=== PATIENT | female | born 1940 | race Caucasian/White ===

== ENCOUNTER 2018-06-06 21:28 | Emergency (ER) | payer OTHER ==
--- OUTSIDE RECORDS SUMMARY | 2018-06-06 21:31 | XMS REPORT | Continuity of Care Document ---
:1940 Author Organization Interface Problems Problem Status Onset Date Classification Date Comments Source Reported Medications Medication Details Route Status Patient Ordering Order Source Instructions Provider Date Allergies, Adverse Reactions, Alerts Substance Category Reaction Severity Reaction Status Date Comments Source type Reported Immunizations Immunization Date Given Site Status Last Updated Comments Source Results Order Results Value Reference Date Interpretation Comments Source Name Range Vital Signs Vital Sign Value Date Comments Source Encounters Location Location Encounter Encounter Reason Attending ADM DC Status Source Details Type Number For Provider Date Date Visit Outpatient [id number] MARTI 05/24 [facility] [id number] MARTI 07/01 [place] [facility] [id number] MARTI 08/16 [place] [facility] [id number] MARTI 10/21 [facility] [place] [facility] [id number] MARTI 11/04 [facility] Out[facility] [id number] MARTI 01/06 [facility] Out[facility] [id number] MARTI 01/20 [facility] [id number] MARTI 02/19 [facility] [id number] MARTI 04/09 Active [place] [facility] [id number] MARTI 04/30 [facility] [place] [facility] [id number] MARTI 08/06 Active [facility] Outpatient [id number] MARTI 09/08 Active [facility] Outpatient [id number] MARTI 01/12 [facility] Dev Procedures Procedure Code Date Perfomer Comments Source
[2018-06-06] MEDS ORDERED: NA CHLORIDE 0.9% 1,000 ML ONE (22:04)
[2018-06-06] MEDS ORDERED: FAMOTIDINE 20 MG/2 ML VIAL IV ONE (22:04)
[2018-06-06] MEDS ORDERED: ONDANSETRON 4 MG/2 ML VIAL ONE (22:04)
[2018-06-06] MEDS ORDERED: CEFTRIAXONE/SWI 1gm 0 GM/0 ML SYR ONE (22:05)
[2018-06-06 22:27] LABS: Absolute Lymphocytes (CBC) 0.7 K/uL (0.7-4.9); Absolute Monocytes 0.8 K/uL (0.1-1.3); Absolute Neutrophil 9.8 K/uL (1.8-8.0); Basophils % 0.2 % (0-1.3); Eosinophils % 0.2 % (0-4.4); Hematocrit 31.1 % (36.0-45.0); Lymphocytes % 5.8 % (15.3-44.8); MCH 33.1 pg (27.0-35.0); MCV 99.4 fL (80-100); MPV 8.4 fL (7.6-11.3); Monocytes % 7.1 % (3.3-12.3); RBC Red Blood Cell Count 3.13 M/uL (3.86-4.86)
[2018-06-06 22:28] LABS: Protime INR 1.01
--- NOTE | 2018-06-06 22:31 | ER ---
Nurse's Notes [facility] Name: Thuy Nunes Age: 77 yrs Sex: Female : 1940 Arrival Date: 06/06/2018 Time: 21:34 Bed 7 Private MD: Diagnosis: ST elevation (STEMI) myocardial infarction of inferior wall Presentation: 06/06 21:20 Presenting complaint: EMS states: that pt slid down to floor in bathroom and they were fc called for lift assist. Upon their arrival pt started to vomit and her heart rate was elevated. Transition of care: patient was not received from another setting of care. Onset of symptoms was June 06, 2018. Risk Assessment: Do you want to hurt yourself or someone else? Patient reports no desire to harm self or others. Initial Sepsis Screen: Does the patient meet any 2 criteria? HR > 90 bpm. Does the patient have a suspected source of infection? No. Patient's initial sepsis screen is negative. Care prior to arrival: Medication(s) given: Normal saline infusion, 250 ml zofran IV IV initiated. 20 GA, in the left lower leg Glucose check: 135. 21:20 Method Of Arrival: [facility]c 21:20 Acuity: PARAG 3 fc Historical: - Allergies: 21:45 No Known Allergies; fc - Home Meds: 21:45 allopurinol 100 mg Oral tab 1 tab once daily [Active]; levothyroxine 125 mcg tab 1 tab fc once daily [Active]; esomeprazole magnesium 40 mg oral cpDR 1 cap once daily [Active]; amlodipine 5 mg oral tab 1 tab once daily [Active]; betaxolol 0.5 % Opht drop 1 drop 2 times per day [Active]; latanoprost 0.005 % ophthalmic drop 1 drop once daily [Active]; - PMHx: 21:45 Arthritis; Sjogren's Syndrome; temporitis; Cancer, Breast; Hypertension; fc Hypothyroidism; Gout; - PSHx: 21:45 Appendectomy; right knee surg; right lump removal and lymph node removal; fc - Immunization history:: Last tetanus immunization: unknown, Flu vaccine is not up to date. - Social history:: Smoking status: Patient/guardian denies using tobacco, Patient/guardian denies using alcohol, street drugs. - Ebola Screening: : Patient negative for fever greater than or equal to 101.5 degrees Fahrenheit, and additional compatible Ebola Virus Disease symptoms Patient denies exposure to infectious person Patient denies travel to an Ebola-affected area in the 21 days before illness onset. - Family history:: not pertinent. Screenin:20 Abuse screen: Denies threats or abuse. Nutritional screening: No deficits noted. fc Tuberculosis screening: No symptoms or risk factors identified. Fall Risk Fall in past 12 months (25 points). Secondary diagnosis (15 points) impaired mobility, IV access (20 points). Ambulatory Aid- Crutches/Cane/Walker (15 pts). Gait- Weak (10 pts.). Mental Status- Overestimates/Forgets Limitations (15 pts.). Total Pitt Fall Scale indicates High Risk Score (45 or more points). Fall prevention measures have been instituted. Side Rails Up X 2 Placed Close to Nursing Station Frequent Obs/Assessments Occuring Family Present and informed to notify staff if the need to leave the bedside As available patient and family educated on Fall Prevention Program and Strategies. 21:40 Abuse screen: Denies threats or abuse. Nutritional screening: No deficits noted. ea Tuberculosis screening: No symptoms or risk factors identified. Fall Risk Fall in past 12 months (25 points). IV access (20 points). Assessment: 21:38 General: Appears uncomfortable, Behavior is calm, cooperative, appropriate for age. ea Pain: Complains of pain in shoulder Pain does not radiate. Pain currently is 6 out of 10 on a pain scale. Quality of pain is described as aching, Is chronic. Neuro: Level of Consciousness is awake, alert, obeys commands, Oriented to person, place, time, situation, Director Of Manufacturing Operations are equal bilaterally Speech is normal. Cardiovascular: Heart tones S1 S2 present Patient's skin is warm and dry. Respiratory: Airway is patent Respiratory effort is even, unlabored, Respiratory pattern is regular, symmetrical, Breath sounds are clear bilaterally. GI: Abdomen is non-distended, Bowel sounds present X 4 quads. Abd is soft and non tender X 4 quads. Parent/caregiver reports the patient having indigestion, vomiting. Derm: Skin is pink, warm \T\ dry. 22:40 Reassessment: Report called to Life [facility], ETA 25 min. ea 22:50 Reassessment: Patient and/or family updated on plan of care and expected duration. Pain ea level reassessed. Patient is alert, oriented x 3, equal unlabored respirations, skin warm/dry/pink. Nurse at bedside attempting to start midline, pt tolerating well at this time. 23:20 Reassessment: Patient and/or family updated on plan of care and expected duration. Pain ea level reassessed. Patient is alert, oriented x 3, equal unlabored respirations, skin warm/dry/pink. Life flight at facility report given to Life flight nurse. 23:23 Reassessment: Patient and/or family updated on plan of care and expected duration. Pain ea level reassessed. Patient is alert, oriented x 3, equal unlabored respirations, skin warm/dry/pink. Pt left via stretcher per life flight tolerating well. 23:27 Reassessment: Report called to Juliet PADILLA at [facility] lab. ea Vital Signs: 21:20 BP 117 / 52; Pulse 111; Resp 20; Temp 99.8(O); Pulse Ox 94% on R/A; Weight 95.25 kg fc (R); Height 5 ft. 3 in. (160.02 cm) (R); Pain 8/10; 22:48 BP 101 / 51; Pulse 103; Resp 16; Pulse Ox 97% on 2 lpm NC; ea 21:20 Body Mass Index 37.20 (95.25 kg, 160.02 cm) ED Course: 21:20 Arm band placed on Patient placed in an exam room, on a stretcher. fc 21:20 Patient has correct armband on for positive identification. Placed in gown. Bed in low fc position. Call light in reach. Side rails up X2. Pulse ox on. NIBP on. 21:20 No provider procedures requiring assistance completed. Maintain EMS IV. Dressing fc intact. Good blood return noted. Site clean \T\ dry. Gauge \T\ site: 20 gauge to left lower leg. 21:34 Patient arrived in ED. fc 21:35 Eligio Delong MD is Attending Physician. [facility] 21:37 Marina Acosta, VALERIE is Primary Nurse. ea 21:39 Triage completed. fc 21:41 Patient has correct armband on for positive identification. Placed in gown. Bed in low ea position. Call light in reach. Side rails up X2. 21:56 Radiology exam delayed due to lab results not completed at this time. (BUN/Creatinine). vm2 22:17 XRAY Chest (1 view) In Process Unspecified. EDMS 22:32 Radiology exam delayed due to lab results not completed at this time. (BUN/Creatinine). vm2 23:04 Patient transferred, IV remains in place. ea 23:10 Missed attempt(s): 18 gauge in left upper arm. x 2 midlines. Bleeding controlled, band fc aid applied, catheter tip intact. Administered Medications: 22:00 Drug: NS 0.9% 500 ml Route: IV; Rate: bolus; Site: Other; ea 23:00 Follow up: Response: No adverse reaction; IV Status: Completed infusion; IV Intake: ea 500ml 22:23 Not Given (Duplicate Order): Rocephin - (cefTRIAXone) 1 grams IVPB once over 30 mins; job (mix in 50 mL NS) 22:27 Drug: Zofran 4 mg {Note: Left leg.} Route: IVP; Site: Other; ea 23:15 Follow up: Response: No adverse reaction ea 22:30 Drug: Pepcid 20 mg Route: IVP; Site: Other; ea 23:15 Follow up: Response: No adverse reaction ea 22:40 Drug: Aspirin Chewable Tablet 324 mg Route: PO; aa1 23:16 Follow up: Response: No adverse reaction ea 22:40 Drug: PlaVIX 600 mg Route: PO; aa1 23:16 Follow up: Response: No adverse reaction ea 22:41 Drug: Heparin (CO-Bolus with thrombolytic) - HEParin 60 units/kg {Co-Signature: veronika aa1 (Marina Acosta RN).} Route: IVP; Site: Other; 23:17 Follow up: Response: No adverse reaction ea 22:42 Drug: Heparin (CO Drip) 12 units/kg/hr - (HEParin 83871 units, D5W 500 ml) aa1 {Co-Signature: veronika (Marina Acosta RN).} Route: IV; Rate: calculated rate; Site: Other; 22:59 Follow up: IV Status: Infusion continued upon transfer aa1 23:18 Follow up: Response: No adverse reaction; IV Status: Infusion continued upon transfer ea 22:50 Drug: Lopressor (metoprolol TARTRATE) 50 mg Route: PO; aa1 23:17 Follow up: Response: No adverse reaction ea 22:55 Drug: NS 0.9% 1000 ml Route: IV; Rate: 125 ml/hr; Site: Other; ea 23:13 Follow up: Response: No adverse reaction; IV Status: Infusion continued upon transfer ea 22:58 Drug: Tenecteplase 50 mg {Co-Signature: veronika (Marina Acosta RN).} Route: IV; Rate: per aa1 protocol; Site: Other; 23:18 Follow up: Response: No adverse reaction; IV Status: Completed infusion ea 23:03 CANCELLED (Duplicate Order): Tenecteplase 45 mg IV at per protocol once aa1 Intake: 23:00 IV: 500ml; Total: 500ml. ea Outcome: 22:30 ER care complete, transfer ordered by . job 23:04 Instructed on the need for transfer, Demonstrated understanding of instructions. ea 23:19 Transferred by helicopter to [facility], Transfer form completed. ea 23:19 Condition: stable 23:28 Patient left the ED. ea Signatures: Dispatcher [employer] EDElissa Langley, RN RN aa1 Eligio Delong MD MD cha Chretien, Felicia RN Georgina Quintero [facility] Marina Acosta RN RN ea Elena Antunez RN ea Corrections: (The following items were deleted from the chart) 22:48 20:42 Heparin (CO Drip) 12 units/kg/hr - (HEParin 09066 units, D5W 500 ml) IV at aa1 calculated rate in Other aa1 23:02 22:58 Tenecteplase 45 mg IV at per protocol in Other aa1 aa1 23:26 23:26 Missed attempt(s): 18 gauge in left upper arm. x 2 midlines. Bleeding controlled, fc band aid applied, catheter tip intact. fc
--- NOTE | 2018-06-06 22:31 | EDPHYS ---
Physician Documentation [facility] Name: Thuy Nunes Age: 77 yrs Sex: Female : 1940 Arrival Date: 06/06/2018 Time: 21:34 Bed 7 Private MD: ED Physician Eligio Delong HPI: 06/06 21:53 This 77 yrs old Female presents to ER via EMS with complaints of vomiting and job back pain. 21:53 The patient or guardian reports chest pain that is located primarily in the substernal job area. Onset: 1 day(s) ago. The patient presents with abdominal pain in the upper abdomen. Onset: The symptoms/episode began/occurred just prior to arrival. The patient presents to the emergency department with nausea, vomiting, abdominal pain, of the epigastric area, right upper quadrant and left upper quadrant. Onset: The symptoms/episode began/occurred just prior to arrival. Possible causes: unknown. The patient presents with pain that is acute, and decreased range of motion. Historical: - Allergies: 21:45 No Known Allergies; fc - Home Meds: 21:45 allopurinol 100 mg Oral tab 1 tab once daily [Active]; levothyroxine 125 mcg tab 1 tab fc once daily [Active]; esomeprazole magnesium 40 mg oral cpDR 1 cap once daily [Active]; amlodipine 5 mg oral tab 1 tab once daily [Active]; betaxolol 0.5 % Opht drop 1 drop 2 times per day [Active]; latanoprost 0.005 % ophthalmic drop 1 drop once daily [Active]; - PMHx: 21:45 Arthritis; Sjogren's Syndrome; temporitis; Cancer, Breast; Hypertension; fc Hypothyroidism; Gout; - PSHx: 21:45 Appendectomy; right knee surg; right lump removal and lymph node removal; fc - Immunization history:: Last tetanus immunization: unknown, Flu vaccine is not up to date. - Social history:: Smoking status: Patient/guardian denies using tobacco, Patient/guardian denies using alcohol, street drugs. - Ebola Screening: : Patient negative for fever greater than or equal to 101.5 degrees Fahrenheit, and additional compatible Ebola Virus Disease symptoms Patient denies exposure to infectious person Patient denies travel to an Ebola-affected area in the 21 days before illness onset. - Family history:: not pertinent. ROS: 21:53 Constitutional: Negative for fever, chills, and weight loss, Eyes: Negative for injury, job pain, redness, and discharge, ENT: Negative for injury, pain, and discharge, Neck: Negative for injury, pain, and swelling, Cardiovascular: Negative for chest pain, palpitations, and edema, Respiratory: Negative for shortness of breath, cough, wheezing, and pleuritic chest pain, : Negative for injury, bleeding, discharge, and swelling, MS/Extremity: Negative for injury and deformity, Skin: Negative for injury, rash, and discoloration, Neuro: Negative for headache, weakness, numbness, tingling, and seizure, Psych: Negative for depression, anxiety, suicide ideation, homicidal ideation, and hallucinations, Allergy/Immunology: Negative for hives, rash, and allergies, Endocrine: Negative for neck swelling, polydipsia, polyuria, polyphagia, and marked weight changes. 21:53 Abdomen/GI: Positive for abdominal pain, nausea and vomiting. 21:53 Back: Positive for decreased range of motion, pain at rest, of the thoracic area. Exam: 21:53 Constitutional: This is a well developed, well nourished patient who is awake, alert, job and in no acute distress. Head/Face: Normocephalic, atraumatic. Eyes: Pupils equal round and reactive to light, extra-ocular motions intact. Lids and lashes normal. Conjunctiva and sclera are non-icteric and not injected. Cornea within normal limits. Periorbital areas with no swelling, redness, or edema. ENT: Nares patent. No nasal discharge, no septal abnormalities noted. Tympanic membranes are normal and external auditory canals are clear. Oropharynx with no redness, swelling, or masses, exudates, or evidence of obstruction, uvula midline. Mucous membranes moist. Neck: Trachea midline, no thyromegaly or masses palpated, and no cervical lymphadenopathy. Supple, full range of motion without nuchal rigidity, or vertebral point tenderness. No Meningismus. Chest/axilla: Normal chest wall appearance and motion. Nontender with no deformity. No lesions are appreciated. Cardiovascular: Regular rate and rhythm with a normal S1 and S2. No gallops, murmurs, or rubs. Normal PMI, no JVD. No pulse deficits. Respiratory: Lungs have equal breath sounds bilaterally, clear to auscultation and percussion. No rales, rhonchi or wheezes noted. No increased work of breathing, no retractions or nasal flaring. Abdomen/GI: Soft, non-tender, with normal bowel sounds. No distension or tympany. No guarding or rebound. No evidence of tenderness throughout. Back: No spinal tenderness. No costovertebral tenderness. Full range of motion. Skin: Warm, dry with normal turgor. Normal color with no rashes, no lesions, and no evidence of cellulitis. MS/ Extremity: Pulses equal, no cyanosis. Neurovascular intact. Full, normal range of motion. Neuro: Awake and alert, GCS 15, oriented to person, place, time, and situation. Cranial nerves II-XII grossly intact. Motor strength 5/5 in all extremities. Sensory grossly intact. Cerebellar exam normal. Normal gait. Psych: Awake, alert, with orientation to person, place and time. Behavior, mood, and affect are within normal limits. Vital Signs: 21:20 BP 117 / 52; Pulse 111; Resp 20; Temp 99.8(O); Pulse Ox 94% on R/A; Weight 95.25 kg fc (R); Height 5 ft. 3 in. (160.02 cm) (R); Pain 8/10; 22:48 BP 101 / 51; Pulse 103; Resp 16; Pulse Ox 97% on 2 lpm NC; ea 21:20 Body Mass Index 37.20 (95.25 kg, 160.02 cm) MDM: 21:35 Patient medically screened. [facility] 21:57 Data reviewed: vital signs, nurses notes, lab test result(s), EKG, radiologic studies, [facility] CT scan, plain films. 06/06 21:51 Order name: Basic Metabolic Panel; Complete Time: 23:06 [facility] 06/06 21:51 Order name: CBC with Diff [facility] 06/06 21:51 Order name: LFT's; Complete Time: 23:06 [facility] 06/06 21:51 Order name: Magnesium; Complete Time: 23:06 [facility] 06/06 21:51 Order name: NT PRO-BNP; Complete Time: 23:06 [facility] 06/06 21:51 Order name: PT-INR; Complete Time: 22:51 [facility] 06/06 21:51 Order name: Troponin (emerg Dept Use Only); Complete Time: 23:06 [facility] 06/06 21:51 Order name: XRAY Chest (1 view) [facility] 06/06 21:51 Order name: Lipase; Complete Time: 23:06 [facility] 06/06 21:52 Order name: Procalcitonin; Complete Time: 23:06 [facility] 06/06 21:52 Order name: Lactate; Complete Time: 22:51 [facility] 06/06 21:52 Order name: Blood Culture Adult (2) [facility] 06/06 21:52 Order name: TSH; Complete Time: 23:06 [facility] 06/06 21:51 Order name: EKG; Complete Time: 21:52 [facility] 06/06 21:51 Order name: Cardiac monitoring; Complete Time: 22:50 [facility] 06/06 21:51 Order name: EKG - Nurse/Tech; Complete Time: 22:50 [facility] 06/06 21:51 Order name: IV Saline Lock [facility] 06/06 21:51 Order name: Labs collected and sent; Complete Time: 22:50 [facility] 06/06 21:51 Order name: O2 Per Protocol; Complete Time: 22:51 [facility] 06/06 21:51 Order name: O2 Sat Monitoring; Complete Time: 22:51 [facility] 06/06 21:51 Order name: Urine Dipstick-Ancillary (obtain specimen) [facility] 06/06 21:52 Order name: [place] [facility] 06/06 22:26 Order name: IV Saline Lock - Large Bore [facility] 06/06 22:26 Order name: NPO; Complete Time: 22:46 job Administered Medications: 22:00 Drug: NS 0.9% 500 ml Route: IV; Rate: bolus; Site: Other; ea 23:00 Follow up: Response: No adverse reaction; IV Status: Completed infusion; IV Intake: ea 500ml 22:23 Not Given (Duplicate Order): Rocephin - (cefTRIAXone) 1 grams IVPB once over 30 mins; job (mix in 50 mL NS) 22:27 Drug: Zofran 4 mg {Note: Left leg.} Route: IVP; Site: Other; ea 23:15 Follow up: Response: No adverse reaction ea 22:30 Drug: Pepcid 20 mg Route: IVP; Site: Other; ea 23:15 Follow up: Response: No adverse reaction ea 22:40 Drug: Aspirin Chewable Tablet 324 mg Route: PO; aa1 23:16 Follow up: Response: No adverse reaction ea 22:40 Drug: PlaVIX 600 mg Route: PO; aa1 23:16 Follow up: Response: No adverse reaction ea 22:41 Drug: Heparin ([place]-Bolus with thrombolytic) - HEParin 60 units/kg {Co-Signature: veronika aa1 (Marina Acosta RN).} Route: IVP; Site: Other; 23:17 Follow up: Response: No adverse reaction ea 22:42 Drug: Heparin ([place] Drip) 12 units/kg/hr - (HEParin 67066 units, D5W 500 ml) aa1 {Co-Signature: veronika (Marina Acosta RN).} Route: IV; Rate: calculated rate; Site: Other; 22:59 Follow up: IV Status: Infusion continued upon transfer aa1 23:18 Follow up: Response: No adverse reaction; IV Status: Infusion continued upon transfer ea 22:50 Drug: Lopressor (metoprolol TARTRATE) 50 mg Route: PO; aa1 23:17 Follow up: Response: No adverse reaction ea 22:55 Drug: NS 0.9% 1000 ml Route: IV; Rate: 125 ml/hr; Site: Other; ea 23:13 Follow up: Response: No adverse reaction; IV Status: Infusion continued upon transfer ea 22:58 Drug: Tenecteplase 50 mg {Co-Signature: veronika (Marina Acosta RN).} Route: IV; Rate: per aa1 protocol; Site: Other; 23:18 Follow up: Response: No adverse reaction; IV Status: Completed infusion ea 23:03 CANCELLED (Duplicate Order): Tenecteplase 45 mg IV at per protocol once aa1 Disposition: 06/06/18 22:30 Transfer ordered to [facility]. Diagnosis is ST elevation (STEMI) myocardial infarction of inferior wall. - Reason for transfer: Higher level of care. - Accepting physician is dr heller, equipment operator/laborer/supervisor. - Condition is Serious. - Problem is new. - Symptoms are unchanged. Signatures: Dispatcher [employer] Elissa Ruth, RN VALERIE aa1 Eligio Delong MD MD cha Chretien, Felicia, RN RN fc Antunez, Elena, RN RN ea Elena Antunez RN ea Corrections: (The following items were deleted from the chart) 23:03 22:25 Tenecteplase 45 mg IV at per protocol once ordered. job aa1 23:03 23:00 Tenecteplase 45 mg IV at per protocol once given. aa1 aa1 23:03 23:02 Tenecteplase 45 mg IV at per protocol once ordered. aa1 aa1 23:13 21:53 Angio Aorta For Dissection+CT.RAD.BRZ ordered. EDMS EDMS 23:28 22:30 06/06/2018 22:30 Transfer ordered to [facility]. Diagnosis is ea ST elevation (STEMI) myocardial infarction of inferior wall. Reason for transfer: Higher level of care. Accepting physician is dr heller, equipment operator/laborer/supervisor. Condition is Serious. Problem is new. Symptoms are unchanged. job
[2018-06-06] MEDS ORDERED: ASPIRIN 81 MG CHEWABLE TABLET ONE (22:39)
[2018-06-06] MEDS ORDERED: CLOPIDOGREL 75 MG TABLET ONE (22:39)
[2018-06-06] MEDS ORDERED: HEPARIN/D5W 25,000 UNIT/500 ML BAG IV ONE (22:40)
[2018-06-06] MEDS ORDERED: HEPARIN 5000 UNIT/ML 1 ML VIAL ONE (22:40)
[2018-06-06] MEDS ORDERED: TENECTEPLASE 50 MG/10 ML VIAL IV ONE (22:40)
[2018-06-06 22:52] LABS: Albumin 3.6 g/dL (3.4-5.0); Bilirubin Direct 0.2 mg/dL (0-0.2); Bilirubin Total 0.7 mg/dL (0.2-1.0); Magnesium 2.1 mg/dL (1.8-2.4); Potassium 4.1 mmol/L (3.5-5.1); Protein, Total 7.7 g/dL (6.4-8.2); Thyroid Stimulating Hormone 0.225 uIU/mL (0.360-3.740)
[2018-06-06 22:53] LABS: Troponin (Emerg Dept Use Only) 0.67 ng/mL (0.0-0.045)
[2018-06-06] MEDS ORDERED: METOPROLOL TAR 50 MG TAB ONE (22:58)
[2018-06-06 23:33] VITALS: BP 101/51; O2SAT 97
[2018-06-06 23:38] LABS: Blood Morphology Comment NOT SEEN (NOT SEEN); Platelet Estimate ADEQ; Urine White Blood Cell Casts OK
--- NOTE | 2018-06-07 08:30 | RAD REPORT ---
EXAM DESCRIPTION: RAD - Chest Single View - 06/06/2018 10:17 pm CLINICAL HISTORY: Cough and congestion, tachycardia COMPARISON: August 2016 TECHNIQUE: AP portable chest image was obtained 2203 hours . FINDINGS: No peripheral mass or consolidation. Lung markings are not outside of normal range and are less pronounced than seen on the comparison. Heart and vasculature are normal. No measurable pleural effusion and no pneumothorax. No acute bony abnormality seen. No acute aortic finding. Surgical clip s seen in the right axilla. IMPRESSION: No acute cardiopulmonary finding suspected. No suspicious change from comparison.
--- NOTE | 2018-06-07 12:19 | EKG ---
Test Date: 2018-06-06 Test Time: 22:15:28 Environmental Engineering Manager: LELA MEASUREMENT RESULTS: Intervals: Rate: 99 NH: 176 QRSD: 108 QT: 338 QTc: 433 [place]: P: 39 NH: 176 QRS: -19 T: 57 INTERPRETIVE STATEMENTS: Normal sinus rhythm Inferior infarct, possibly acute Cannot rule out Anterior infarct, age undetermined ACUTE WA Consider right ventricular involvement in acute inferior infarct Abnormal ECG Compared to ECG 07/25/2016 09:51:54 Myocardial infarct finding now present Sinus tachycardia no longer present Left-axis deviation no longer present Electronically Signed On 06-07-18 12:17:55 [employer] by Tiburcio Eason
== END 2018-06-06 23:28 | disposition short-term general hospital (02) ==
LOC: ER 21:28
DX: I21.19 ST elevation (STEMI) myocardial infarction involving other coronary artery of inferior wall (principal); I10 Essential (primary) hypertension; E03.9 Hypothyroidism, unspecified; Z85.3 Personal history of malignant neoplasm of breast
CPT/HCPCS: 36415; 71045; 80048; 80076; 83605; 83690; 83735; 83880; 84145; 84443; 84484; 85025; 85610; 87040 ×2; 92977; 93005; 96361; 96365; 96375; 99285; J1644; J2405; J3101; J7030; J0696

== ENCOUNTER 2022-07-10 08:47 | Emergency (ER) | payer OTHER ==
--- OUTSIDE RECORDS SUMMARY | 2022-07-10 08:55 | XMS REPORT | Continuity of Care Document ---
:1940 Author Organization [facility] t Address [address] [place] [address] Care Team Providers Name Role Phone ELVIS CM Primary Care Physician Unavailable Elvis Cm Attending Clinician Unavailable MACEY BLACKMON Attending Clinician Unavailable MACEY BLACKMON Attending Clinician Unavailable NAOMY FERRARI Attending Clinician Unavailable MACEY BLACKMON Admitting Clinician Unavailable NAOMY FERRARI Admitting Clinician Unavailable Problems Condition Condition Condition Status Onset Resolution Last Treating Co mments Source Name Details Category Date Date Treatment Clinician Date CAD CAD Disease Active [facility]coronary 3-27 [facility] artery artery 00:00: Medical disease) disease) 00 Center Oral phase Oral phase Disease Active 2017-[address] dysphagia dysphagia 1-13 [facility] 00:00: Medical 00 Center Atelectasi Atelectasi Disease Active 2017-[address] s s 1-13 [facility] 00 [place] Acute Acute Disease Active 2017-[address] encephalop encephalop 1-13 Katherin yancey athy athy 00:00: Medical 00 [place] 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 [facility] deconditio deconditio 1-13 Katherin yancey maya maya 00:00: Medical [address] Disease Active 2017-08 [facility] elevation elevation 1-06 [facility] myocardial myocardial 00:00: Me dical infarction infarction 00 Ce nter (STEMI) of (STEMI) of inferior inferior wall wall Hemorrhagi Hemorrhagi Disease Active 2017-[address] c shock c shock 08-07 [facility] Center Acute Acute Disease Active 2017-[address] hypoxemic hypoxemic 08-07 [place] s respirator respirator 00:00: Me dical y failure y failure 00 Cent er Cardiogeni Cardiogeni Disease Active 2017-[address] c shock c shock 08-07 [facility] 00:[facility]: Medical 00 Center Incontinen Incontinen Problem C ommon ce ce [facility] [id number] Pain, Problem Commo n [id number] joint, [facility] shoulder, - [facility] right [facility] Allergies, Adverse Reactions, Alerts Allergy Allergy Status Severity Reaction(s) Onset Inactive Treating Comm ents Source Name Type Date Date Clinician NO KNOWN Allergy Active [facility] Social History Social Habit Start Date Stop Date Quantity Comments Source History of Tobacco [facility] - Use [facility] History SDPA [facility] Alcohol Std Drinks [facility] History SDOH [facility] Alcohol Binge Medical Daryn ter History [facility] Alcohol Comment Medical C enter Alcohol intake 2018-10-27 2018-10-[address] [facility] [address] [place] [facility] 00:00:00 00:00:00 non-drinker of Medical Ce nter alcohol (finding) Tobacco use and 2018-06-07 2018-06-[address] [facility] Katherin kes exposure 00:00:00 00:00:00 [facility] History SDOH 2018-06-07 2018-06-[address] [facility] Alcohol Frequency 00:00:00 00:00:00 [facility] Sex Assigned At 1940 [address] [facility] [address] Katherin kes 00:00:00 00:00:00 [facility] Smoking Status Start Date Stop Date Source Never Smoker [facility] Medications Ordered Filled Start Stop Current Ordering Indication Dosage Frequency Signature Comments Components Source Medication Medication Date Date Medication? Clinician (SIG) Name Name Solifenacin Solifenacin 2021-08- No 1{table QD Solifenaci Succinate 5 Succinate 5 0-26 05-24 t} n MG MG 00:00: 00:00 Succinate 00 :00 5 MG Solifenacin Solifenacin 2021-1 3- No 1{table QD Solifenaci Succinate 5 Succinate 5 0-26 05-24 t} n MG MG 00:00: 00:00 Succinate 00 :00 5 MG Lidocaine Lidocaine 2-0 No 10mg Com 04-09 Spirit 00:00: - [facility] 00 [facility] Kenalog Kenalog 2021-0 No 40mg Common (Triamcinol (Triamcinol 9-08 S pirit one) one) 00:00: - [facility] 00 [facility] Lidocaine Lidocaine 2-0 No 10mg Com 04-09 Spirit 00:00: - [facility] 00 [facility] Kenalog Kenalog 2021-0 No 40mg Common (Triamcinol (Triamcinol 9-08 S pirit one) one) 00:00: - [facility] 00 [facility] Lidocaine Lidocaine 2-0 No 10mg Com 04-09 [facility] 00:00: - [facility] 00 [facility] Kenalog Kenalog 2-0 No 40mg Common (Triamcinol (Triamcinol 9-08 S pirit one) one) 00:00: - [facility] 00 [facility] Lidocaine Lidocaine 2-0 No 10mg Com 04-09 [facility] 00:00: - [facility] 00 [facility] Kenalog Kenalog 2-0 No 40mg Common (Triamcinol (Triamcinol 9-08 S pirit one) one) 00:00: - [facility] 00 [facility] Lidocaine Lidocaine 2-0 No 10mg Com 04-09 [facility] 00:00: - [facility] 00 [facility] Kenalog Kenalog 2-0 No 40mg Common (Triamcinol (Triamcinol 9-08 S pirit one) one) 00:00: - [facility] 00 [facility] Solifenacin Solifenacin 2021-0 2022- No 1{table QD Solifenaci Succinate Succinate 5-20 08-18 t} n 10 MG 10 MG 00:00: 00:00 Succinate 00 :00 10 MG allopurinol 2018- Yes 100mg QD Take [address] (ZYLOPRIM) 3-28 mg by [facility] 100 MG 09:51: mouth Medical tablet 18 daily. [place] levothyroxi 2019 Yes 125ug Take [address] ne 3-28 mcg by [facility]ukes (SYNTHROID, 09:51: mouth Medic al LEVOTHROID) 18 Every Center 125 MCG morning on tablet an empty stomach. betaxolol Yes 1[drp] Q.5D Place [address] (BETOPTIC-S 3-28 drop into [place] ) 0.5 % 09:51: both eyes Medic al ophthalmic 18 2 (two) Center suspension times daily. docusate Yes 100mg Take [address] sodium 3-28 mg by Lukes (COLACE) 09:51: mouth 2 Medica l 100 MG 18 (two) Center capsule times daily as needed for Constipati on. furosemide Yes 20mg QD Take [address] (LASIX) 20 3-28 by mouth [facility]ukes MG tablet 09:51: daily. Medica l 18 Center melatonin 3 Yes 3mg Take [address] mg Tab 3-28 by mouth [facility] tablet 09:51: every Medical 18 night as Center needed. metoprolol Yes 25mg QD Take [address] (TOPROL-XL) 3-28 by mouth Luke s 25 MG 24 hr 09:51: daily. Medi zara tablet 18 Center acetaminoph Yes 650mg Take [address] en 3-28 mg by [facility]ukes (TYLENOL) 09:51: mouth Medical 325 MG 18 every 6 Center tablet (six) hours as needed for Pain. clopidogrel Yes 75mg QD Take [address] (PLAVIX) 75 3-28 by mouth Luke s mg tablet 09:51: daily. Medica l 18 Center naproxen Yes Take by [facility] sodium 3-28 mouth as [facility] (ALEVE 09:51: needed. Medical ORAL) 18 Center latanoprost Yes INT [address] (XALATAN) 9-10 IN both [facility]ukes 0.005 % 00:00: eyes QHS Medica l ophthalmic 00 Center solution Allopurinol Allopurinol No 1{table QD Allopurino 100 MG 100 MG t} l 100 MG Levothyroxi Levothyroxi No QD Levothyrox ne Sodium ne Sodium ine Sodium 125 MCG 125 MCG 125 MCG Losartan Losartan No 1{table QD Losartan Potassium Potassium t} Potassium 25 MG 25 MG 25 MG Latanoprost Latanoprost No 1{drop_ QD Latanopros 0.005 % 0.005 % into_af t 0.005 % fected_ eye_in_ the_eve maya} Potassium Potassium No 1{packe QD Potassium Chloride 20 Chloride 20 t_with_ Chloride MEQ MEQ food} 20 MEQ Atorvastati Atorvastati No 1{table QD Atorvastat n Calcium n Calcium t} in Calcium 40 MG 40 MG 40 MG Azelastine Azelastine No 1{drop_ BID Azelastine HCl 0.05 % HCl 0.05 % into_af HCl 0.05 % fected_ eye} Clopidogrel Clopidogrel No 1{table QD Clopidogre Bisulfate Bisulfate t} l 75 MG 75 MG Bisulfate 75 MG Iron Iron No 1{table QD Iron (Ferrous (Ferrous t} (Ferrous Sulfate) Sulfate) Sulfate) 325 (65 Fe) 325 (65 Fe) 325 (65 MG MG Fe) MG Tylenol 325 Tylenol 325 No 1{table 6xD Tylenol MG MG t_as_ne 325 MG eded} Aspirin 81 Aspirin 81 No 1{table QD Aspirin 81 81 MG 81 MG t} 81 MG Metoprolol Metoprolol No 1{table BID Metoprolol Tartrate 25 Tartrate 25 t_with_ Tartrate MG MG food} 25 MG Betaxolol Betaxolol No 1{drop_ BID Betaxolol HCl 0.5 % HCl 0.5 % into_af HCl 0.5 % fected_ eye} Aleve 220 Aleve 220 No BID Aleve 220 MG MG MG VESIcare 10 VESIcare 10 No 1{table QD VESIcare MG MG t} 10 MG Furosemide Furosemide No 1{table QD Furosemide 20 MG 20 MG t} 20 MG Allopurinol Allopurinol No 1{table QD Allopurino 100 MG 100 MG t} l 100 MG Levothyroxi Levothyroxi No QD Levothyrox ne Sodium ne Sodium ine Sodium 125 MCG 125 MCG 125 MCG Losartan Losartan No 1{table QD Losartan Potassium Potassium t} Potassium 25 MG 25 MG 25 MG Latanoprost Latanoprost No 1{drop_ QD Latanopros 0.005 % 0.005 % into_af t 0.005 % fected_ eye_in_ the_eve [place]} Potassium Potassium No 1{packe QD Potassium Chloride 20 Chloride 20 t_with_ Chloride MEQ MEQ food} 20 MEQ Atorvastati Atorvastati No 1{table QD Atorvastat n Calcium n Calcium t} in Calcium 40 MG 40 MG 40 MG Azelastine Azelastine No 1{drop_ BID Azelastine HCl 0.05 % HCl 0.05 % into_af HCl 0.05 % fected_ eye} Clopidogrel Clopidogrel No 1{table QD Clopidogre Bisulfate Bisulfate t} l 75 MG 75 MG Bisulfate 75 MG Iron Iron No 1{table QD Iron (Ferrous (Ferrous t} (Ferrous Sulfate) Sulfate) Sulfate) 325 (65 Fe) 325 (65 Fe) 325 (65 MG MG Fe) MG Tylenol 325 Tylenol 325 No 1{table 6xD Tylenol MG MG t_as_ne 325 MG eded} Aspirin 81 Aspirin 81 No 1{table QD Aspirin 81 81 MG 81 MG t} 81 MG Metoprolol Metoprolol No 1{table BID Metoprolol Tartrate 25 Tartrate 25 t_with_ Tartrate MG MG food} 25 MG Betaxolol Betaxolol No 1{drop_ BID Betaxolol HCl 0.5 % HCl 0.5 % into_af HCl 0.5 % fected_ eye} Aleve 220 Aleve 220 No BID Aleve 220 MG MG MG VESIcare 10 VESIcare 10 No 1{table QD VESIcare MG MG t} 10 MG Furosemide Furosemide No 1{table QD Furosemide 20 MG 20 MG t} 20 MG Allopurinol Allopurinol No 1{table QD Allopurino 100 MG 100 MG t} l 100 MG Levothyroxi Levothyroxi No QD Levothyrox ne Sodium ne Sodium ine Sodium 125 MCG 125 MCG 125 MCG Losartan Losartan No 1{table QD Losartan Potassium Potassium t} Potassium 25 MG 25 MG 25 MG Latanoprost Latanoprost No 1{drop_ QD Latanopros 0.005 % 0.005 % into_af t 0.005 % fected_ eye_in_ the_eve [place]} Potassium Potassium No 1{packe QD Potassium Chloride 20 Chloride 20 t_with_ Chloride MEQ MEQ food} 20 MEQ Atorvastati Atorvastati No 1{table QD Atorvastat n Calcium n Calcium t} in Calcium 40 MG 40 MG 40 MG Azelastine Azelastine No 1{drop_ BID Azelastine HCl 0.05 % HCl 0.05 % into_af HCl 0.05 % fected_ eye} Clopidogrel Clopidogrel No 1{table QD Clopidogre Bisulfate Bisulfate t} l 75 MG 75 MG Bisulfate 75 MG Iron Iron No 1{table QD Iron (Ferrous (Ferrous t} (Ferrous Sulfate) Sulfate) Sulfate) 325 (65 Fe) 325 (65 Fe) 325 (65 MG MG Fe) MG Levothyroxi Levothyroxi No QD Levothyrox ne Sodium ne Sodium ine Sodium 125 MCG 125 MCG 125 MCG Latanoprost Latanoprost No 1{drop_ QD Latanopros 0.005 % 0.005 % into_af t 0.005 % fected_ eye_in_ the_eve [place]} Aspirin 81 Aspirin 81 No 1{table QD Aspirin 81 81 MG 81 MG t} 81 MG Betaxolol Betaxolol No 1{drop_ BID Betaxolol HCl 0.5 % HCl 0.5 % into_af HCl 0.5 % fected_ eye} Aleve 220 Aleve 220 No BID Aleve 220 MG MG MG VESIcare 10 VESIcare 10 No 1{table QD VESIcare MG MG t} 10 MG Allopurinol Allopurinol No 1{table QD Allopurino 100 MG 100 MG t} l 100 MG Azelastine Azelastine No 1{drop_ BID Azelastine HCl 0.05 % HCl 0.05 % into_af HCl 0.05 % fected_ eye} Losartan Losartan No 1{table QD Losartan Potassium Potassium t} Potassium 25 MG 25 MG 25 MG Potassium Potassium No 1{packe QD Potassium Chloride 20 Chloride 20 t_with_ Chloride MEQ MEQ food} 20 MEQ Metoprolol Metoprolol No 1{table BID Metoprolol Tartrate 25 Tartrate 25 t_with_ Tartrate MG MG food} 25 MG Furosemide Furosemide No 1{table QD Furosemide 20 MG 20 MG t} 20 MG Atorvastati Atorvastati No 1{table QD Atorvastat n Calcium n Calcium t} in Calcium 40 MG 40 MG 40 MG Clopidogrel Clopidogrel No 1{table QD Clopidogre Bisulfate Bisulfate t} l 75 MG 75 MG Bisulfate 75 MG Tylenol 325 Tylenol 325 No 1{table 6xD Tylenol MG MG t_as_ne 325 MG eded} Iron Iron No 1{table QD Iron (Ferrous (Ferrous t} (Ferrous Sulfate) Sulfate) Sulfate) 325 (65 Fe) 325 (65 Fe) 325 (65 MG MG Fe) MG Levothyroxi Levothyroxi No QD Levothyrox ne Sodium ne Sodium ine Sodium 125 MCG 125 MCG 125 MCG Latanoprost Latanoprost No 1{drop_ QD Latanopros 0.005 % 0.005 % into_af t 0.005 % fected_ eye_in_ the_eve [place]} Aspirin 81 Aspirin 81 No 1{table QD Aspirin 81 81 MG 81 MG t} 81 MG Betaxolol Betaxolol No 1{drop_ BID Betaxolol HCl 0.5 % HCl 0.5 % into_af HCl 0.5 % fected_ eye} Aleve 220 Aleve 220 No BID Aleve 220 MG MG MG VESIcare 10 VESIcare 10 No 1{table QD VESIcare MG MG t} 10 MG Allopurinol Allopurinol No 1{table QD Allopurino 100 MG 100 MG t} l 100 MG Azelastine Azelastine No 1{drop_ BID Azelastine HCl 0.05 % HCl 0.05 % into_af HCl 0.05 % fected_ eye} Losartan Losartan No 1{table QD Losartan Potassium Potassium t} Potassium 25 MG 25 MG 25 MG Potassium Potassium No 1{packe QD Potassium Chloride 20 Chloride 20 t_with_ Chloride MEQ MEQ food} 20 MEQ Metoprolol Metoprolol No 1{table BID Metoprolol Tartrate 25 Tartrate 25 t_with_ Tartrate MG MG food} 25 MG Furosemide Furosemide No 1{table QD Furosemide 20 MG 20 MG t} 20 MG Atorvastati Atorvastati No 1{table QD Atorvastat n Calcium n Calcium t} in Calcium 40 MG 40 MG 40 MG Clopidogrel Clopidogrel No 1{table QD Clopidogre Bisulfate Bisulfate t} l 75 MG 75 MG Bisulfate 75 MG Tylenol 325 Tylenol 325 No 1{table 6xD Tylenol MG MG t_as_ne 325 MG eded} Betaxolol Betaxolol No 1{drop_ BID Betaxolol HCl 0.5 % HCl 0.5 % into_af HCl 0.5 % fected_ eye} Potassium Potassium No 1{packe QD Potassium Chloride 20 Chloride 20 t_with_ Chloride MEQ MEQ food} 20 MEQ Azelastine Azelastine No 1{drop_ BID Azelastine HCl 0.05 % HCl 0.05 % into_af HCl 0.05 % fected_ eye} Aleve 220 Aleve 220 No BID Aleve 220 MG MG MG VESIcare 10 VESIcare 10 No 1{table QD VESIcare MG MG t} 10 MG Aspirin 81 Aspirin 81 No 1{table QD Aspirin 81 81 MG 81 MG t} 81 MG Atorvastati Atorvastati No 1{table QD Atorvastat n Calcium n Calcium t} in Calcium 40 MG 40 MG 40 MG Losartan Losartan No 1{table QD Losartan Potassium Potassium t} Potassium 25 MG 25 MG 25 MG Iron Iron No 1{table QD Iron (Ferrous (Ferrous t} (Ferrous Sulfate) Sulfate) Sulfate) 325 (65 Fe) 325 (65 Fe) 325 (65 MG MG Fe) MG Metoprolol Metoprolol No 1{table BID Metoprolol Tartrate 25 Tartrate 25 t_with_ Tartrate MG MG food} 25 MG Tylenol 325 Tylenol 325 No 1{table 6xD Tylenol MG MG t_as_ne 325 MG eded} Levothyroxi Levothyroxi No QD Levothyrox ne Sodium ne Sodium ine Sodium 125 MCG 125 MCG 125 MCG Allopurinol Allopurinol No 1{table QD Allopurino 100 MG 100 MG t} l 100 MG Clopidogrel Clopidogrel No 1{table QD Clopidogre Bisulfate Bisulfate t} l 75 MG 75 MG Bisulfate 75 MG Furosemide Furosemide No 1{table QD Furosemide 20 MG 20 MG t} 20 MG Latanoprost Latanoprost No 1{drop_ QD Latanopros 0.005 % 0.005 % into_af t 0.005 % fected_ eye_in_ the_eve [place]} Iron Iron No 1{table QD Iron (Ferrous (Ferrous t} (Ferrous Sulfate) Sulfate) Sulfate) 325 (65 Fe) 325 (65 Fe) 325 (65 MG MG Fe) MG Tylenol 325 Tylenol 325 No 1{table 6xD Tylenol MG MG t_as_ne 325 MG eded} Aspirin 81 Aspirin 81 No 1{table QD Aspirin 81 81 MG 81 MG t} 81 MG Metoprolol Metoprolol No 1{table BID Metoprolol Tartrate 25 Tartrate 25 t_with_ Tartrate MG MG food} 25 MG Betaxolol Betaxolol No 1{drop_ BID Betaxolol HCl 0.5 % HCl 0.5 % into_af HCl 0.5 % fected_ eye} Aleve 220 Aleve 220 No BID Aleve 220 MG MG MG VESIcare 10 VESIcare 10 No 1{table QD VESIcare MG MG t} 10 MG Furosemide Furosemide No 1{table QD Furosemide 20 MG 20 MG t} 20 MG Vital Signs Vital Name Observation Time Observation Value Comments Source height 2022-05-27 14:00:00 63 [in_i] [facility] weight 2022-05-27 14:00:00 220 [lb_av] [facility] temperature 2022-05-27 14:00:00 98.3 [degF] [facility] bmi 2022-05-27 14:00:00 38.97 kg/m2 [facility] oximetry 2022-05-27 14:00:00 96 % [facility] respiratory rate 2022-05-27 14:00:00 16 /min Comm on [facility] blood pressure 2022-05-27 14:00:00 119 mm[Hg] [facility] - systolic [facility] blood pressure 2022-05-27 14:00:00 59 mm[Hg] [facility] - diastolic [facility] height 2022-04-09 08:00:00 63 [in_i] [facility] weight 2022-04-09 08:00:00 210 [lb_av] [facility] temperature 2022-04-09 08:00:00 98.0 [degF] [facility] bmi 2022-04-09 08:00:00 37.2 kg/m2 [facility] blood pressure 2022-04-09 08:00:00 126 mm[Hg] [facility] - systolic [facility] blood pressure 2022-04-09 08:00:00 78 mm[Hg] [facility] - diastolic [facility] height 2022-02-25 11:30:00 63 [in_i] [facility] weight 2022-02-25 11:30:00 205 [lb_av] [facility] temperature 2022-02-25 11:30:00 97.6 [degF] [facility] bmi 2022-02-25 11:30:00 36.31 kg/m2 [facility] oximetry 2022-02-25 11:30:00 99 % [facility] respiratory rate 2022-02-25 11:30:00 99 /min Comm on [facility] blood pressure 2022-02-25 11:30:00 132 mm[Hg] [facility] - systolic [facility] blood pressure 2022-02-25 11:30:00 68 mm[facility]Hg[facility] Procedures This patient has no known procedures. Encounters Start End Encounter Admission Attending Care Care Encounter Source Date/Time Date/Time Type Type Clinicians Facility Department ID 2022-04-[address] [facility] [id number] - Common 08:01:00 [id number] [facility] 2022-03-[address] [facility] [id number] - Common 13:34:02 [id number] [facility] 2022-02-25 [facility] [id number] - Common 11:30:02 [id number] [facility] 2022-06-02 2022-06-02 (TEL) [facility] [id number] Co mmon 00:00:00 00:00:00 [facility] 2022-05-27 2022-05-27 OFFICE ST[facility] STLC [id number] Co mmon 00:00:00 00:00:00 VISIT [facility] LEVEL 2 [facility] 2022-04-14 2022-04-14 (TEL) [facility] [id number] Co mmon 00:00:00 00:00:00 [facility] 2022-04-13 2022-04-13 (TEL) STLMLC STLMLC [id number] Co mmon 00:00:00 00:00:00 [facility] 2022-04-09 2022-04-09 OFFICE STLMLC STLMLC [id number] Co mmon 00:00:00 00:00:00 VISIT NEW Spir it PT LEVEL 3 - [facility] 2022-02-25 2022-02-25 OFFICE STLMLC STLMLC [id number] Co mmon 00:00:00 00:00:00 VISIT Spirit ESTAB PT - [facility]I LEVEL 4 [facility] 2020-05-29 2020-05-29 Outpatient LORRI [facility] [id number] [address] [place] [address] 00:00:00 00:00:00 MACEY [address] 2017-01-12 2017-01-12 Outpatient MHIE MHIE [id number] [facility] 14:00:00 14:00:00 12 maia Méndez 2016-11-10 2016-11-10 Outpatient NAOMY FERRARI [facility]4 [id number] [place] 00:00:00 00:00:[address] 2016-09-29 2016-09-29 Outpatient NAOMY FERRARI [facility] [id number] [place] 00:00:00 00:00:[address] 2016-09-08 2016-09-08 Outpatient MHIE MHIE [id number] [facility] 14:45:00 14:45:00 11 maia Méndez 2016-08-06 2016-08-06 Outpatient MHIE MHIE [id number] [facility] 13:45:00 13:45:00 10 maia Méndez 2016-04-30 2016-04-30 Outpatient MHIE MHIE [id number] [facility] 14:00:00 14:00:00 09 maia Méndez 2016-04-09 2016-04-09 Outpatient MHIE MHIE [id number] [facility] 14:00:00 14:00:00 08 maia Méndez 2016-03-23 2016-03-23 Outpatient NOAMY FERRARI [facility] [id number] [place] 00:00:00 00:00:[address] 2016-02-20 2016-02-20 Outpatient MHIE MHIE [id number] [facility] 15:45:00 15:45:00 07 maia Méndez 2016-01-21 2016-01-21 [id number] [place] 11:00:00 11:00:00 06 maia [place] 2016-01-07 2016-01-07 [facility] [id number] [facility] 14:15:00 14:15:00 05 maia Méndez 2015-11-05 2015-11-05 [facility] [id number] [facility] 14:15:00 14:15:00 04 maia Dev 2015 2015 [facility] [id number] [facility] 10:00:00 10:00:00 02 maia Méndez 2015-08-16 2015-08-16 [facility] [id number] [facility] 13:15:00 13:15:00 03 maia Méndez 2015-07-01 2015-07-01 [facility] [id number] [facility] 09:45:00 09:45:00 01 maia Méndez 2015-05-24 2015-05-24 [facility] [id number] [facility] 09:00:00 09:00:00 00 maia Méndez Results Test Description Test Time Test Comments Results Result Comments Source BASIC METABOLIC PANEL 2018-10-27 05:28:00 Test Item Value Reference Range Interpretation Comme nts SODIUM (BEAKER) (test code 139 meq/L 136-145 = 381) POTASSIUM (BEAKER) (test 4.5 meq/L 3.5-5.1 code = 379) CHLORIDE (BEAKER) (test 113 meq/L 98-107 H code = 382) CO2 (BEAKER) (test code = 17 meq/L 22-29 L 355) BLOOD UREA NITROGEN 43 mg/dL 7-21 H (BEAKER) (test code = 354) CREATININE (BEAKER) (test 1.14 mg/dL 0.57-1.25 code = 358) GLUCOSE RANDOM (BEAKER) 76 mg/dL 70-105 (test code = 652) CALCIUM (BEAKER) (test code 10.0 mg/dL 8.4-10.2 = 697) EGFR (BEAKER) (test code = 46 mL/min/1.73 sq m ESTIMATED GFR IS NOT 1092) ACCURATE CRE ATININE CLEARANCE IN W[place] EDICTING GLOMERULAR FILT RATION RATE. ESTIMATED GFR IS NOT APPLICABLE FOR DIALYSIS PATIENTS. CBC (HEMOGRAM ONLY)2018-10-27 04:56:00 Test Item Value Reference Range Interpretation Comments WHITE BLOOD CELL COUNT (BEAKER) 7.0 K/ L 3.5-10.5 (test code = 775) RED BLOOD CELL COUNT (BEAKER) 3.14 M/ L 3.93-5.22 L (test code = 761) HEMOGLOBIN (BEAKER) (test code = 10.5 GM/DL 11.2-15.7 L 410) HEMATOCRIT (BEAKER) (test code = 33.8 % 34.1-44.9 L 411) MEAN CORPUSCULAR VOLUME (BEAKER) 107.6 fL 79.4-94.8 H (test code = 753) MEAN CORPUSCULAR HEMOGLOBIN 33.4 pg 25.6-32.2 H (BEAKER) (test code = 751) MEAN CORPUSCULAR HEMOGLOBIN CONC 31.1 GM/DL 32.2-35.5 L (BEAKER) (test code = 752) RED CELL DISTRIBUTION WIDTH 13.3 % 11.7-14.4 (BEAKER) (test code = 412) PLATELET COUNT (BEAKER) (test 174 K/CU MM 150-450 code = 756) MEAN PLATELET VOLUME (BEAKER) 10.2 fL 9.4-12.3 (test code = 754) NUCLEATED RED BLOOD CELLS 0 /100 WBC 0-0 (BEAKER) (test code = 413) [id number] 16:14:00 Test Item Value Reference Range Interpretation Comments ACTIVATED CLOTTING TIME 285 sec TEST ED AT [facility] 6720 (BEAKER) (test code = [place] [address]) [address] BLOOD [id number] 05:00:00 Test Item Value Reference Range Interpretation Comments CULTURE (BEAKER) (test No growth in 5 days code = 1095) BLOOD [id number] 05:00:00 Test Item Value Reference Range Interpretation Comments CULTURE (BEAKER) (test No growth in 5 days code = 1095) [id number] 05:22:00 Test Item Value Reference Range Interpretation Comments MAGNESIUM (BEAKER) (test code = 1.8 mg/dL 1.6-2.6 627) BASIC METABOLIC [id number] 05:22:00 Test Item Value Reference Range Interpretation Comments SODIUM (BEAKER) 138 meq/L 136-145 (test code = 381) POTASSIUM (BEAKER) 4.3 meq/L 3.5-5.1 (test code = 379) CHLORIDE (BEAKER) 110 meq/L 98-107 H (test code = 382) CO2 (BEAKER) (test 22 meq/L 22-29 code = 355) BLOOD UREA NITROGEN 27 mg/dL 7-21 H (BEAKER) (test code = 354) CREATININE (BEAKER) 0.80 mg/dL 0.57-1.25 (test code = 358) GLUCOSE RANDOM 99 mg/dL 70-105 (BEAKER) (test code = 652) CALCIUM (BEAKER) 9.1 mg/dL 8.4-10.2 (test code = 697) EGFR (BEAKER) (test 70 mL/min/1.73 ESTIMA DIEGO GFR IS code = 1092) sq m NOT ACCURATE CREATININE CLEARANCE IN PREDICTING GLOMERULAR FILTRATION RATE . ESTIMATED GFR I S NOT APPLICABLE FOR DIALYSIS PATIEN TS. CBC W/PLT COUNT & AUTO [id number] 05:01:00 Test Item Value Reference Range Interpretation Comments WHITE BLOOD CELL COUNT (BEAKER) 6.6 K/ L 3.5-10.5 (test code = 775) RED BLOOD CELL COUNT (BEAKER) 2.69 M/ L 3.93-5.22 L (test code = 761) HEMOGLOBIN (BEAKER) (test code = 8.6 GM/DL 11.2-15.7 L 410) HEMATOCRIT (BEAKER) (test code = 27.3 % 34.1-44.9 L 411) MEAN CORPUSCULAR VOLUME (BEAKER) 101.5 fL 79.4-94.8 H (test code = 753) MEAN CORPUSCULAR HEMOGLOBIN 32.0 pg 25.6-32.2 (BEAKER) (test code = 751) MEAN CORPUSCULAR HEMOGLOBIN CONC 31.5 GM/DL 32.2-35.5 L (BEAKER) (test code = 752) RED CELL DISTRIBUTION WIDTH 15.6 % 11.7-14.4 H (BEAKER) (test code = 412) PLATELET COUNT (BEAKER) (test 231 K/CU MM 150-450 code = 756) MEAN PLATELET VOLUME (BEAKER) 10.7 fL 9.4-12.3 (test code = 754) NUCLEATED RED BLOOD CELLS 0 /100 WBC 0-0 (BEAKER) (test code = 413) NEUTROPHILS RELATIVE PERCENT 68 % (BEAKER) (test code = 429) LYMPHOCYTES RELATIVE PERCENT 17 % (BEAKER) (test code = 430) MONOCYTES RELATIVE PERCENT 9 % (BEAKER) (test code = 431) EOSINOPHILS RELATIVE PERCENT 3 % (BEAKER) (test code = 432) BASOPHILS RELATIVE PERCENT 1 % (BEAKER) (test code = 437) NEUTROPHILS ABSOLUTE COUNT 4.47 K/ L 1.56-6.13 (BEAKER) (test code = 670) LYMPHOCYTES ABSOLUTE COUNT 1.11 K/ L 1.18-3.74 L (BEAKER) (test code = 414) MONOCYTES ABSOLUTE COUNT (BEAKER) 0.60 K/ L 0.24-0.36 H (test code = 415) EOSINOPHILS ABSOLUTE COUNT 0.19 K/ L 0.04-0.36 (BEAKER) (test code = 416) BASOPHILS ABSOLUTE COUNT (BEAKER) 0.03 K/ L 0.01-0.08 (test code = 417) IMMATURE GRANULOCYTES-RELATIVE 3 % 0-1 H PERCENT (BEAKER) (test code = 2801) [id number] 07:20:00 Test Item Value Reference Range Interpretation Comments MAGNESIUM (BEAKER) (test code = 2.0 mg/dL 1.6-2.6 627) BASIC METABOLIC [id number] 07:20:00 Test Item Value Reference Range Interpretation Comments SODIUM (BEAKER) 137 meq/L 136-145 (test code = 381) POTASSIUM (BEAKER) 3.9 meq/L 3.5-5.1 (test code = 379) CHLORIDE (BEAKER) 110 meq/L 98-107 H (test code = 382) CO2 (BEAKER) (test 20 meq/L 22-29 L code = 355) BLOOD UREA NITROGEN 31 mg/dL 7-21 H (BEAKER) (test code = 354) CREATININE (BEAKER) 0.81 mg/dL 0.57-1.25 (test code = 358) GLUCOSE RANDOM 93 mg/dL 70-105 (BEAKER) (test code = 652) CALCIUM (BEAKER) 8.9 mg/dL 8.4-10.2 (test code = 697) EGFR (BEAKER) (test 69 mL/min/1.73 ESTIMA DIEGO GFR IS code = 1092) sq m NOT ACCURATE CREATININE CLEARANCE IN PREDICTING GLOMERULAR FILTRATION RATE . ESTIMATED GFR I S NOT APPLICABLE FOR DIALYSIS PATIEN TS. URINALYSIS W/ REFLEX URINE [id number] 16:22:00 Test Item Value Reference Range Interpretation Comments COLOR (BEAKER) (test code = 470) Yellow CLARITY (BEAKER) (test code = 469) Clear SPECIFIC GRAVITY UA (BEAKER) (test 1.015 1.001-1.035 code = 468) PH UA (BEAKER) (test code = 467) 6.5 5.0-8.0 PROTEIN UA (BEAKER) (test code = Negative Negative 464) GLUCOSE UA (BEAKER) (test code = Negative Negative 365) KETONES UA (BEAKER) (test code = Negative Negative 371) BILIRUBIN UA (BEAKER) (test code = Negative Negative 462) BLOOD UA (BEAKER) (test code = 461) Negative Negative NITRITE UA (BEAKER) (test code = Negative Negative 465) LEUKOCYTE ESTERASE UA (BEAKER) Negative Negative (test code = 466) UROBILINOGEN UA (BEAKER) (test code 0.2 mg/dL 0.2-1.0 = 463) RBC UA (BEAKER) (test code = 519) 2 /HPF WBC UA (BEAKER) (test code = 520) 4 /HPF SOURCE(BEAKER) (test code = 2795) URINALYSIS W/ REFLEX URINE [id number] 07:27:00 Test Item Value Reference Range Interpretation Comments COLOR (BEAKER) (test code = 470) Yellow CLARITY (BEAKER) (test code = 469) Clear SPECIFIC GRAVITY UA (BEAKER) (test 1.015 1.001-1.035 code = 468) PH UA (BEAKER) (test code = 467) 6.5 5.0-8.0 PROTEIN UA (BEAKER) (test code = Negative Negative 464) GLUCOSE UA (BEAKER) (test code = Negative Negative 365) KETONES UA (BEAKER) (test code = Negative Negative 371) BILIRUBIN UA (BEAKER) (test code = Negative Negative 462) BLOOD UA (BEAKER) (test code = 461) Negative Negative NITRITE UA (BEAKER) (test code = Negative Negative 465) LEUKOCYTE ESTERASE UA (BEAKER) Negative Negative (test code = 466) UROBILINOGEN UA (BEAKER) (test code 0.2 mg/dL 0.2-1.0 = 463) RBC UA (BEAKER) (test code = 519) 0 /HPF WBC UA (BEAKER) (test code = 520) 1 /HPF MUCUS (BEAKER) (test code = 1574) Rare SQUAMOUS EPITHELIAL (BEAKER) (test < /HPF code = 516) HYALINE CASTS (BEAKER) (test code = 1 /LPF 514) SOURCE(BEAKER) (test code = 2795) [id number] 06:11:00 Test Item Value Reference Range Interpretation Comments MAGNESIUM (BEAKER) (test code = 1.9 mg/dL 1.6-2.6 627) BASIC METABOLIC [id number] 06:11:00 Test Item Value Reference Range Interpretation Comments SODIUM (BEAKER) 135 meq/L 136-145 L (test code = 381) POTASSIUM (BEAKER) 3.9 meq/L 3.5-5.1 (test code = 379) CHLORIDE (BEAKER) 108 meq/L 98-107 H (test code = 382) CO2 (BEAKER) (test 19 meq/L 22-29 L code = 355) BLOOD UREA NITROGEN 29 mg/dL 7-21 H (BEAKER) (test code = 354) CREATININE (BEAKER) 0.80 mg/dL 0.57-1.25 (test code = 358) GLUCOSE RANDOM 95 mg/dL 70-105 (BEAKER) (test code = 652) CALCIUM (BEAKER) 8.9 mg/dL 8.4-10.2 (test code = 697) EGFR (BEAKER) (test 70 mL/min/1.73 ESTIMA DIEGO GFR IS code = 1092) sq m NOT ACCURATE CREATININE CLEARANCE IN PREDICTING GLOMERULAR FILTRATION RATE . ESTIMATED GFR I S NOT APPLICABLE FOR DIALYSIS PATIEN TS. BLOOD [id number] 11:00:00 Test Item Value Reference Range Interpretation Comments CULTURE (BEAKER) (test No growth in 5 days code = 1095) BLOOD [id number] 10:00:00 Test Item Value Reference Range Interpretation Comments CULTURE (BEAKER) (test No growth in 5 days code = 1095) RAD, CHEST, 1 VIEW, NON [id number] 08:41:00Reason for exam:->pulm edemaShould this be performed at the bedside?->YesFINAL REPORT Chest, one view. HISTORY: Pulmonary edema COMPARISON: 06/18/2018 IM PRESSION: Unchanged eventration of the right hemidiaphragm. The lungs are clear. No pleural effusionor pneumothorax. Surgical clips overlie the right axilla. Signed: Luis Alfredo Mckay MDReport Verified Date/Time: 06/19/2018 08:41:05 Reading Location: [facility] C013Y CT Body Reading Room [id number] 07:14:00 Test Item Value Reference Range Interpretation Comments MAGNESIUM (BEAKER) (test code = 2.0 mg/dL 1.6-2.6 627) BASIC METABOLIC [id number] 07:14:00 Test Item Value Reference Range Interpretation Comments SODIUM (BEAKER) 138 meq/L 136-145 (test code = 381) POTASSIUM (BEAKER) 3.8 meq/L 3.5-5.1 (test code = 379) CHLORIDE (BEAKER) 110 meq/L 98-107 H (test code = 382) CO2 (BEAKER) (test 21 meq/L 22-29 L code = 355) BLOOD UREA NITROGEN 34 mg/dL 7-21 H (BEAKER) (test code = 354) CREATININE (BEAKER) 0.83 mg/dL 0.57-1.25 (test code = 358) GLUCOSE RANDOM 91 mg/dL 70-105 (BEAKER) (test code = 652) CALCIUM (BEAKER) 9.1 mg/dL 8.4-10.2 (test code = 697) EGFR (BEAKER) (test 67 mL/min/1.73 ESTIMA DIEGO GFR IS code = 1092) sq m NOT ACCURATE CREATININE CLEARANCE IN PREDICTING GLOMERULAR FILTRATION RATE . ESTIMATED GFR I S NOT APPLICABLE FOR DIALYSIS PATIEN TS. CBC W/PLT COUNT & AUTO [id number] 06:49:00 Test Item Value Reference Range Interpretation Comments WHITE BLOOD CELL COUNT (BEAKER) 9.6 K/ L 3.5-10.5 (test code = 775) RED BLOOD CELL COUNT (BEAKER) 2.93 M/ L 3.93-5.22 L (test code = 761) HEMOGLOBIN (BEAKER) (test code = 9.3 GM/DL 11.2-15.7 L 410) HEMATOCRIT (BEAKER) (test code = 30.3 % 34.1-44.9 L 411) MEAN CORPUSCULAR VOLUME (BEAKER) 103.4 fL 79.4-94.8 H (test code = 753) MEAN CORPUSCULAR HEMOGLOBIN 31.7 pg 25.6-32.2 (BEAKER) (test code = 751) MEAN CORPUSCULAR HEMOGLOBIN CONC 30.7 GM/DL 32.2-35.5 L (BEAKER) (test code = 752) RED CELL DISTRIBUTION WIDTH 15.6 % 11.7-14.4 H (BEAKER) (test code = 412) PLATELET COUNT (BEAKER) (test 204 K/CU MM 150-450 code = 756) MEAN PLATELET VOLUME (BEAKER) 11.1 fL 9.4-12.3 (test code = 754) NUCLEATED RED BLOOD CELLS 0 /100 WBC 0-0 (BEAKER) (test code = 413) NEUTROPHILS RELATIVE PERCENT 72 % (BEAKER) (test code = 429) LYMPHOCYTES RELATIVE PERCENT 14 % (BEAKER) (test code = 430) MONOCYTES RELATIVE PERCENT 8 % (BEAKER) (test code = 431) EOSINOPHILS RELATIVE PERCENT 3 % (BEAKER) (test code = 432) BASOPHILS RELATIVE PERCENT 0 % (BEAKER) (test code = 437) NEUTROPHILS ABSOLUTE COUNT 6.85 K/ L 1.56-6.13 H (BEAKER) (test code = 670) LYMPHOCYTES ABSOLUTE COUNT 1.35 K/ L 1.18-3.74 (BEAKER) (test code = 414) MONOCYTES ABSOLUTE COUNT (BEAKER) 0.73 K/ L 0.24-0.36 H (test code = 415) EOSINOPHILS ABSOLUTE COUNT 0.30 K/ L 0.04-0.36 (BEAKER) (test code = 416) BASOPHILS ABSOLUTE COUNT (BEAKER) 0.04 K/ L 0.01-0.08 (test code = 417) IMMATURE GRANULOCYTES-RELATIVE 3 % 0-1 H PERCENT (BEAKER) (test code = 2801) HEMOGLOBIN AND [id number] 18:06:00 Test Item Value Reference Range Interpretation Comments HEMOGLOBIN (BEAKER) (test code = 8.8 GM/DL 11.2-15.7 L 410) HEMATOCRIT (BEAKER) (test code = 27.9 % 34.1-44.9 L 411) RAD, CHEST, 1 VIEW, NON [id number] 09:11:00Reason for exam:->pulm edemaShould this be performed at the bedside?->YesFINAL REPORT Chest, one view. HISTORY: Pulmonary edema COMPARISON: 06/17/2018 IM PRESSION: Unchanged eventration of the right hemidiaphragm. No pulmonary edema. The lungs are clear. The cardiac silhouette is unchanged. No pleural effusion or pneumothorax. Signed: Luis Alfredo Mckay [facility] Verified Date/Time: 06/18/2018 09:11:19 Reading Location: [facility] C013Y CT Body Reading Room [id number] 07:28:00 Test Item Value Reference Range Interpretation Comments MAGNESIUM (BEAKER) (test code = 2.0 mg/dL 1.6-2.6 627) BASIC METABOLIC [id number] 07:28:00 Test Item Value Reference Range Interpretation Comments SODIUM (BEAKER) 139 meq/L 136-145 (test code = 381) POTASSIUM (BEAKER) 3.9 meq/L 3.5-5.1 (test code = 379) CHLORIDE (BEAKER) 110 meq/L 98-107 H (test code = 382) CO2 (BEAKER) (test 23 meq/L 22-29 code = 355) BLOOD UREA NITROGEN 42 mg/dL 7-21 H (BEAKER) (test code = 354) CREATININE (BEAKER) 1.03 mg/dL 0.57-1.25 (test code = 358) GLUCOSE RANDOM 87 mg/dL 70-105 (BEAKER) (test code = 652) CALCIUM (BEAKER) 8.8 mg/dL 8.4-10.2 (test code = 697) EGFR (BEAKER) (test 52 mL/min/1.73 ESTIMA DIEGO GFR IS code = 1092) sq m NOT ACCURATE CREATININE CLEARANCE IN PREDICTING GLOMERULAR FILTRATION RATE . ESTIMATED GFR I S NOT APPLICABLE FOR DIALYSIS PATIEN TS. CBC W/PLT COUNT & AUTO [id number] 06:44:00 Test Item Value Reference Range Interpretation Comments WHITE BLOOD CELL COUNT (BEAKER) 10.0 K/ L 3.5-10.5 (test code = 775) RED BLOOD CELL COUNT (BEAKER) 2.71 M/ L 3.93-5.22 L (test code = 761) HEMOGLOBIN (BEAKER) (test code = 8.4 GM/DL 11.2-15.7 L 410) HEMATOCRIT (BEAKER) (test code = 27.6 % 34.1-44.9 L 411) MEAN CORPUSCULAR VOLUME (BEAKER) 101.8 fL 79.4-94.8 H (test code = 753) MEAN CORPUSCULAR HEMOGLOBIN 31.0 pg 25.6-32.2 (BEAKER) (test code = 751) MEAN CORPUSCULAR HEMOGLOBIN CONC 30.4 GM/DL 32.2-35.5 L (BEAKER) (test code = 752) RED CELL DISTRIBUTION WIDTH 15.7 % 11.7-14.4 H (BEAKER) (test code = 412) PLATELET COUNT (BEAKER) (test 196 K/CU MM 150-450 code = 756) MEAN PLATELET VOLUME (BEAKER) 11.1 fL 9.4-12.3 (test code = 754) NUCLEATED RED BLOOD CELLS 0 /100 WBC 0-0 (BEAKER) (test code = 413) NEUTROPHILS RELATIVE PERCENT 67 % (BEAKER) (test code = 429) LYMPHOCYTES RELATIVE PERCENT 17 % (BEAKER) (test code = 430) MONOCYTES RELATIVE PERCENT 7 % (BEAKER) (test code = 431) EOSINOPHILS RELATIVE PERCENT 3 % (BEAKER) (test code = 432) BASOPHILS RELATIVE PERCENT 1 % (BEAKER) (test code = 437) NEUTROPHILS ABSOLUTE COUNT 6.72 K/ L 1.56-6.13 H (BEAKER) (test code = 670) LYMPHOCYTES ABSOLUTE COUNT 1.74 K/ L 1.18-3.74 (BEAKER) (test code = 414) MONOCYTES ABSOLUTE COUNT (BEAKER) 0.74 K/ L 0.24-0.36 H (test code = 415) EOSINOPHILS ABSOLUTE COUNT 0.32 K/ L 0.04-0.36 (BEAKER) (test code = 416) BASOPHILS ABSOLUTE COUNT (BEAKER) 0.05 K/ L 0.01-0.08 (test code = 417) IMMATURE GRANULOCYTES-RELATIVE 5 % 0-1 H PERCENT (BEAKER) (test code = 2801) (CELLAVISION MANUAL DIFF)2018-06-17 07:17:00 Test Item Value Reference Range Interpretation Comments NEUTROPHILS - REL 78 % (CELLAVISION)(BEAKER) (test code = 2816) LYMPHOCYTES - REL 11 % (CELLAVISION)(BEAKER) (test code = 2817) MONOCYTES - REL 5 % (CELLAVISION)(BEAKER) (test code = 2818) METAMYELOCYTES - REL 1 % 0-0 H (CELLAVISION)(BEAKER) (test code = 2821) MYELOCYTES - REL 2 % 0-0 H (CELLAVISION)(BEAKER) (test code = 2822) BANDS - REL (CELLAVISION)(BEAKER) 3 % 0-10 (test code = 2826) NEUTROPHILS - ABS 10.45 K/ul 1.56-6.13 H (CELLAVISION)(BEAKER) (test code = 2830) LYMPHOCYTES - ABS 1.47 K/ul 1.18-3.74 (CELLAVISION)(BEAKER) (test code = 2831) MONOCYTES - ABS 0.67 K/uL 0.24-0.36 H (CELLAVISION)(BEAKER) (test code = 2832) METAMYELOCYTES - ABS 0.13 K/uL 0.00-0.00 H (CELLAVISION)(BEAKER) (test code = 2836) MYELOCYTES-ABS 0.27 K/uL 0.00-0.00 H (CELLAVISION)(BEAKER) (test code = 2837) BANDS - ABS (CELLAVISION)(BEAKER) 0.40 K/uL 0.00-0.80 (test code = 2840) TOTAL COUNTED (BEAKER) (test code 100 = 1351) RBC MORPHOLOGY (BEAKER) (test code Normal = 762) WBC MORPHOLOGY (BEAKER) (test code Normal = 487) PLT MORPHOLOGY (BEAKER) (test code Normal = 486) ARTIFACT (CELLAVISION)(BEAKER) Present (test code = 3432) PLATELET CONCENTRATION Adequate (CELLAVISION)(BEAKER) (test code = 3438) Received comment: User comments: Slide comments:RAD, CHEST, 1 VIEW, NON DEPT 2018-06-17 07:09:00Reason for exam:->pulm edemaShould this be performed at the bedside?->YesFINAL REPORT Chest one view INDICATION: Pulmonary edema COMPARISON: 06/16/2018 IMPRESSION: The cardiac silhouette is enlarged. Lung aeration is improved with regression of pulmonary edema and atelectasis. There is right diaphragm eventration. Trace pleural effusions may be present. Right chest wall and axillary surgical clips are seen. No pneumothorax is seen. Signed: Andrews Currie [facility] Verified Date/Time: 06/17/2018 07:09:55 Reading Location: [facility] Radiology Reading Room [id number] 04:03:00 Test Item Value Reference Range Interpretation Comments MAGNESIUM (BEAKER) (test code = 2.1 mg/dL 1.6-2.6 627) BASIC METABOLIC [id number] 04:03:00 Test Item Value Reference Range Interpretation Comments SODIUM (BEAKER) 140 meq/L 136-145 (test code = 381) POTASSIUM (BEAKER) 3.8 meq/L 3.5-5.1 (test code = 379) CHLORIDE (BEAKER) 111 meq/L 98-107 H (test code = 382) CO2 (BEAKER) (test 21 meq/L 22-29 L code = 355) BLOOD UREA NITROGEN 42 mg/dL 7-21 H (BEAKER) (test code = 354) CREATININE (BEAKER) 1.04 mg/dL 0.57-1.25 (test code = 358) GLUCOSE RANDOM 122 mg/dL 70-105 H (BEAKER) (test code = 652) CALCIUM (BEAKER) 9.2 mg/dL 8.4-10.2 (test code = 697) EGFR (BEAKER) (test 51 mL/min/1.73 ESTIMA DIEGO GFR IS code = 1092) sq m NOT ACCURATE CREATININE CLEARANCE IN PREDICTING GLOMERULAR FILTRATION RATE . ESTIMATED GFR I S NOT APPLICABLE FOR DIALYSIS PATIEN TS. CBC W/PLT COUNT & AUTO [id number] 03:34:00 Test Item Value Reference Range Interpretation Comments WHITE BLOOD CELL COUNT (BEAKER) 13.4 K/ L 3.5-10.5 H (test code = 775) RED BLOOD CELL COUNT (BEAKER) 3.02 M/ L 3.93-5.22 L (test code = 761) HEMOGLOBIN (BEAKER) (test code = 9.7 GM/DL 11.2-15.7 L 410) HEMATOCRIT (BEAKER) (test code = 30.8 % 34.1-44.9 L 411) MEAN CORPUSCULAR VOLUME (BEAKER) 102.0 fL 79.4-94.8 H (test code = 753) MEAN CORPUSCULAR HEMOGLOBIN 32.1 pg 25.6-32.2 (BEAKER) (test code = 751) MEAN CORPUSCULAR HEMOGLOBIN CONC 31.5 GM/DL 32.2-35.5 L (BEAKER) (test code = 752) RED CELL DISTRIBUTION WIDTH 15.6 % 11.7-14.4 H (BEAKER) (test code = 412) PLATELET COUNT (BEAKER) (test 183 K/CU MM 150-450 code = 756) MEAN PLATELET VOLUME (BEAKER) 11.4 fL 9.4-12.3 (test code = 754) NUCLEATED RED BLOOD CELLS 0 /100 WBC 0-0 (BEAKER) (test code = 413) CBC W/PLT COUNT & AUTO [id number] 11:36:00 Test Item Value Reference Range Interpretation Comments WHITE BLOOD CELL COUNT (BEAKER) 12.5 K/ L 3.5-10.5 H (test code = 775) RED BLOOD CELL COUNT (BEAKER) 3.50 M/ L 3.93-5.22 L (test code = 761) HEMOGLOBIN (BEAKER) (test code = 11.0 GM/DL 11.2-15.7 L 410) HEMATOCRIT (BEAKER) (test code = 35.9 % 34.1-44.9 411) MEAN CORPUSCULAR VOLUME (BEAKER) 102.6 fL 79.4-94.8 H (test code = 753) MEAN CORPUSCULAR HEMOGLOBIN 31.4 pg 25.6-32.2 (BEAKER) (test code = 751) MEAN CORPUSCULAR HEMOGLOBIN CONC 30.6 GM/DL 32.2-35.5 L (BEAKER) (test code = 752) RED CELL DISTRIBUTION WIDTH 15.4 % 11.7-14.4 H (BEAKER) (test code = 412) PLATELET COUNT (BEAKER) (test 177 K/CU MM 150-450 code = 756) MEAN PLATELET VOLUME (BEAKER) 11.6 fL 9.4-12.3 (test code = 754) NUCLEATED RED BLOOD CELLS 0 /100 WBC 0-0 (BEAKER) (test code = 413) (CELLAVISION MANUAL DIFF)2018-06-16 11:36:00 Test Item Value Reference Range Interpretation Comments NEUTROPHILS - REL 66 % (CELLAVISION)(BEAKER) (test code = 2816) LYMPHOCYTES - REL 11 % (CELLAVISION)(BEAKER) (test code = 2817) MONOCYTES - REL 8 % (CELLAVISION)(BEAKER) (test code = 2818) EOSINOPHILS - REL 4 % (CELLAVISION)(BEAKER) (test code = 2819) METAMYELOCYTES - REL 2 % 0-0 H (CELLAVISION)(BEAKER) (test code = 2821) MYELOCYTES - REL 1 % 0-0 H (CELLAVISION)(BEAKER) (test code = 2822) BANDS - REL (CELLAVISION)(BEAKER) 7 % 0-10 (test code = 2826) NEUTROPHILS - ABS 8.25 K/ul 1.56-6.13 H (CELLAVISION)(BEAKER) (test code = 2830) LYMPHOCYTES - ABS 1.38 K/ul 1.18-3.74 (CELLAVISION)(BEAKER) (test code = 2831) MONOCYTES - ABS 1.00 K/uL 0.24-0.36 H (CELLAVISION)(BEAKER) (test code = 2832) EOSINOPHILS - ABS 0.50 K/uL 0.04-0.36 H (CELLAVISION)(BEAKER) (test code = 2834) METAMYELOCYTES - ABS 0.25 K/uL 0.00-0.00 H (CELLAVISION)(BEAKER) (test code = 2836) MYELOCYTES-ABS 0.13 K/uL 0.00-0.00 H (CELLAVISION)(BEAKER) (test code = 2837) BANDS - ABS (CELLAVISION)(BEAKER) 0.88 K/uL 0.00-0.80 H (test code = 2840) TOTAL COUNTED (BEAKER) (test code = 100 1351) WBC MORPHOLOGY (BEAKER) (test code Normal = 487) PLT MORPHOLOGY (BEAKER) (test code Normal = 486) POLYCHROMATOPHILLIC RBCS(BEAKER) 1+ few (test code = 478) ANISOCYTOSIS (BEAKER) (test code = 1+ few 961) ARTIFACT (CELLAVISION)(BEAKER) Present (test code = 3432) PLATELET CONCENTRATION Adequate (CELLAVISION)(BEAKER) (test code = 3438) Received comment: User comments: Slide comments:RAD, CHEST, 1 VIEW, NON DEPT 2018-06-16 08:37:00Reason for exam:->pulm edemaShould this be performed at the bedside?->YesFINAL REPORT Chest one view INDICATION: Pulmonary edema COMPARISON: 06/15/2018 IMPRESSION: The cardiac silhouette is enlarged. There are low lung volumes with pulmonary vascular congestion and stable lung opacities in part suggesting edema and atelectasis. Superimposed pneumonitisshould be excluded clinically. Small pleural effusions are present. Right chest wall and axillary surgical clips are seen. No pneumothorax is identified. Signed: Andrews Currie Verified Date/Time: 06/16/2018 08:37:44 Reading Location: [facility] Radiology Reading Room [id number] 07:32:00 Test Item Value Reference Range Interpretation Comments MAGNESIUM (BEAKER) (test code = 2.1 mg/dL 1.6-2.6 627) BASIC METABOLIC [id number] 07:32:00 Test Item Value Reference Range Interpretation Comments SODIUM (BEAKER) 141 meq/L 136-145 (test code = 381) POTASSIUM (BEAKER) 3.6 meq/L 3.5-5.1 (test code = 379) CHLORIDE (BEAKER) 111 meq/L 98-107 H (test code = 382) CO2 (BEAKER) (test 19 meq/L 22-29 L code = 355) BLOOD UREA NITROGEN 37 mg/dL 7-21 H (BEAKER) (test code = 354) CREATININE (BEAKER) 0.86 mg/dL 0.57-1.25 (test code = 358) GLUCOSE RANDOM 91 mg/dL 70-105 (BEAKER) (test code = 652) CALCIUM (BEAKER) 9.0 mg/dL 8.4-10.2 (test code = 697) EGFR (BEAKER) (test 64 mL/min/1.73 ESTIMA DIEGO GFR IS code = 1092) sq m NOT ACCURATE CREATININE CLEARANCE IN PREDICTING GLOMERULAR FILTRATION RATE . ESTIMATED GFR I S NOT APPLICABLE FOR DIALYSIS PATIEN TS. Specimen slightly ictericCBC W/PLT COUNT & AUTO [id number] 12:33:00 Test Item Value Reference Range Interpretation Comments WHITE BLOOD CELL COUNT (BEAKER) 12.5 K/ L 3.5-10.5 H (test code = 775) RED BLOOD CELL COUNT (BEAKER) 3.42 M/ L 3.93-5.22 L (test code = 761) HEMOGLOBIN (BEAKER) (test code = 10.9 GM/DL 11.2-15.7 L 410) HEMATOCRIT (BEAKER) (test code = 34.7 % 34.1-44.9 411) MEAN CORPUSCULAR VOLUME (BEAKER) 101.5 fL 79.4-94.8 H (test code = 753) MEAN CORPUSCULAR HEMOGLOBIN 31.9 pg 25.6-32.2 (BEAKER) (test code = 751) MEAN CORPUSCULAR HEMOGLOBIN CONC 31.4 GM/DL 32.2-35.5 L (BEAKER) (test code = 752) RED CELL DISTRIBUTION WIDTH 15.3 % 11.7-14.4 H (BEAKER) (test code = 412) PLATELET COUNT (BEAKER) (test 185 K/CU MM 150-450 code = 756) MEAN PLATELET VOLUME (BEAKER) 11.4 fL 9.4-12.3 (test code = 754) NUCLEATED RED BLOOD CELLS 0 /100 WBC 0-0 (BEAKER) (test code = 413) (CELLAVISION MANUAL DIFF)2018-06-15 12:33:00 Test Item Value Reference Range Interpretation Comments NEUTROPHILS - REL 64 % (CELLAVISION)(BEAKER) (test code = 2816) LYMPHOCYTES - REL 11 % (CELLAVISION)(BEAKER) (test code = 2817) MONOCYTES - REL 5 % (CELLAVISION)(BEAKER) (test code = 2818) EOSINOPHILS - REL 4 % (CELLAVISION)(BEAKER) (test code = 2819) METAMYELOCYTES - REL 2 % 0-0 H (CELLAVISION)(BEAKER) (test code = 2821) MYELOCYTES - REL 2 % 0-0 H (CELLAVISION)(BEAKER) (test code = 2822) BANDS - REL (CELLAVISION)(BEAKER) 11 % 0-10 H (test code = 2826) NEUTROPHILS - ABS 8.00 K/ul 1.56-6.13 H (CELLAVISION)(BEAKER) (test code = 2830) LYMPHOCYTES - ABS 1.38 K/ul 1.18-3.74 (CELLAVISION)(BEAKER) (test code = 2831) MONOCYTES - ABS 0.63 K/uL 0.24-0.36 H (CELLAVISION)(BEAKER) (test code = 2832) EOSINOPHILS - ABS 0.50 K/uL 0.04-0.36 H (CELLAVISION)(BEAKER) (test code = 2834) METAMYELOCYTES - ABS 0.25 K/uL 0.00-0.00 H (CELLAVISION)(BEAKER) (test code = 2836) MYELOCYTES-ABS 0.25 K/uL 0.00-0.00 H (CELLAVISION)(BEAKER) (test code = 2837) BANDS - ABS (CELLAVISION)(BEAKER) 1.38 K/uL 0.00-0.80 H (test code = 2840) TOTAL COUNTED (BEAKER) (test code = 100 1351) WBC MORPHOLOGY (BEAKER) (test code Normal = 487) PLT MORPHOLOGY (BEAKER) (test code Normal = 486) POLYCHROMATOPHILLIC RBCS(BEAKER) 1+ few (test code = 478) ANISOCYTOSIS (BEAKER) (test code = 1+ few 961) POIKILOCYTES (BEAKER) (test code = 1+ few 966) ARTIFACT (CELLAVISION)(BEAKER) Present (test code = 3432) PLATELET CONCENTRATION Adequate (CELLAVISION)(BEAKER) (test code = 3438) Received comment: User comments: Slide comments:RAD, CHEST, 1 VIEW, NON DEPT 2018-06-15 08:09:00Reason for exam:->pulm edemaShould this be performed at the bedside?->YesFINAL REPORT RAD, CHEST, 1 VIEW, NON DEPT INDICATION: pulm edema COMPARISON: Prior day's exam FINDINGS: Portable frontal view of the chest. IMPRESSION: Support Lines: Enteric tube has been removed. Lungs and pleura: Improved aeration noted bilaterally. No focal consolidation or overt edema. Costophrenic sulci are clear. No pneumothorax.Heart and mediastinum: Unremarkable contours.Additional findings: None. Signed: JR Marinelli Robert MDReport Verified Date/Time: 06/15/2018 0 8:09:42 Reading Location: [address] Neuro Reading Room [id number] 05:07:00 Test Item Value Reference Range Interpretation Comments POTASSIUM (BEAKER) (test code = 3.9 meq/L 3.5-5.1 379) 8 hours after PO replacement [id number] 05:07:00 Test Item Value Reference Range Interpretation Comments MAGNESIUM (BEAKER) (test code = 2.1 mg/dL 1.6-2.6 627) 8 hours after PO replacement completedBASIC METABOLIC [id number] 05:07:00 Test Item Value Reference Range Interpretation Comments SODIUM (BEAKER) 143 meq/L 136-145 (test code = 381) POTASSIUM (BEAKER) 3.9 meq/L 3.5-5.1 (test code = 379) CHLORIDE (BEAKER) 112 meq/L 98-107 H (test code = 382) CO2 (BEAKER) (test 25 meq/L 22-29 code = 355) BLOOD UREA NITROGEN 39 mg/dL 7-21 H (BEAKER) (test code = 354) CREATININE (BEAKER) 0.85 mg/dL 0.57-1.25 (test code = 358) GLUCOSE RANDOM 98 mg/dL 70-105 (BEAKER) (test code = 652) CALCIUM (BEAKER) 9.2 mg/dL 8.4-10.2 (test code = 697) EGFR (BEAKER) (test 65 mL/min/1.73 ESTIMA DIEGO GFR IS code = 1092) sq m NOT ACCURATE CREATININE CLEARANCE IN PREDICTING GLOMERULAR FILTRATION RATE . ESTIMATED GFR I S NOT APPLICABLE FOR DIALYSIS PATIEN TS. 8 hours after PO replacement completedFL, ESOPH, SWALLOW FUNCTION, WITH CINE OR [id number] 14:57:00Reason for exam:->dysphagiaFINAL REPORT Modified barium swallow with speech pathology History: dysphagia [place]: Modified barium swallow was performed in conjunction with speech pathology. Examination utilized various textures of barium. Fluoroscopic observation was performed during swallowing. Total fluoroscopy time: 1.8 minutes Total number of films: 1 IMPRESSION: There is no evidence of laryngeal pene tration or aspiration. Please refer to the speech pathology report for further details. Signed: Pawel William MDReport Verified Date/Time: 06/14/2018 14:57:14 Reading Location: [address] Consult Reading Room POCT-GLUCOSE [id number] 10:51:00 Test Item Value Reference Range Interpretation Comments POC-GLUCOSE METER 135 mg/dL 70-110 H TESTED AT [facility] [facility] (BEAKER) (test code = IMANI SEPULVEDA ROSA ISELA 1538) [address] BLOOD [id number] 10:01:00 Test Item Value Reference Range Interpretation Comments CULTURE (BEAKER) (test No growth in 5 days code = 1095) BLOOD [id number] 10:01:00 Test Item Value Reference Range Interpretation Comments CULTURE (BEAKER) (test No growth in 5 days code = 1095) CBC W/PLT COUNT & AUTO [id number] 08:13:00 Test Item Value Reference Range Interpretation Comments WHITE BLOOD CELL COUNT (BEAKER) 14.7 K/ L 3.5-10.5 H (test code = 775) RED BLOOD CELL COUNT (BEAKER) 3.31 M/ L 3.93-5.22 L (test code = 761) HEMOGLOBIN (BEAKER) (test code = 10.4 GM/DL 11.2-15.7 L 410) HEMATOCRIT (BEAKER) (test code = 33.2 % 34.1-44.9 L 411) MEAN CORPUSCULAR VOLUME (BEAKER) 100.3 fL 79.4-94.8 H (test code = 753) MEAN CORPUSCULAR HEMOGLOBIN 31.4 pg 25.6-32.2 (BEAKER) (test code = 751) MEAN CORPUSCULAR HEMOGLOBIN CONC 31.3 GM/DL 32.2-35.5 L (BEAKER) (test code = 752) RED CELL DISTRIBUTION WIDTH 15.2 % 11.7-14.4 H (BEAKER) (test code = 412) PLATELET COUNT (BEAKER) (test 177 K/CU MM 150-450 code = 756) MEAN PLATELET VOLUME (BEAKER) 11.2 fL 9.4-12.3 (test code = 754) NUCLEATED RED BLOOD CELLS 0 /100 WBC 0-0 (BEAKER) (test code = 413) (CELLAVISION MANUAL DIFF)2018-06-14 08:13:00 Test Item Value Reference Range Interpretation Comments NEUTROPHILS - REL 76 % (CELLAVISION)(BEAKER) (test code = 2816) LYMPHOCYTES - REL 8 % (CELLAVISION)(BEAKER) (test code = 2817) MONOCYTES - REL 5 % (CELLAVISION)(BEAKER) (test code = 2818) EOSINOPHILS - REL 2 % (CELLAVISION)(BEAKER) (test code = 2819) METAMYELOCYTES - REL 2 % 0-0 H (CELLAVISION)(BEAKER) (test code = 2821) MYELOCYTES - REL 4 % 0-0 H (CELLAVISION)(BEAKER) (test code = 2822) PROMYELOCYTES - REL 1 % 0-0 H (CELLAVSION)(BEAKER) (test code = 2825) BANDS - REL (CELLAVISION)(BEAKER) 2 % 0-10 (test code = 2826) NEUTROPHILS - ABS 11.17 K/ul 1.56-6.13 H (CELLAVISION)(BEAKER) (test code = 2830) LYMPHOCYTES - ABS 1.18 K/ul 1.18-3.74 (CELLAVISION)(BEAKER) (test code = 2831) MONOCYTES - ABS 0.74 K/uL 0.24-0.36 H (CELLAVISION)(BEAKER) (test code = 2832) EOSINOPHILS - ABS 0.29 K/uL 0.04-0.36 (CELLAVISION)(BEAKER) (test code = 2834) METAMYELOCYTES - ABS 0.29 K/uL 0.00-0.00 H (CELLAVISION)(BEAKER) (test code = 2836) MYELOCYTES-ABS 0.59 K/uL 0.00-0.00 H (CELLAVISION)(BEAKER) (test code = 2837) PROMYELOCYTES - ABS 0.15 K/uL 0.00-0.00 H (CELLAVISION)(BEAKER) (test code = 2838) BANDS - ABS (CELLAVISION)(BEAKER) 0.29 K/uL 0.00-0.80 (test code = 2840) TOTAL COUNTED (BEAKER) (test code 100 = 1351) RBC MORPHOLOGY (BEAKER) (test code Normal = 762) WBC MORPHOLOGY (BEAKER) (test code Normal = 487) PLT MORPHOLOGY (BEAKER) (test code Normal = 486) ARTIFACT (CELLAVISION)(BEAKER) Present (test code = 3432) PLATELET CONCENTRATION Adequate (CELLAVISION)(BEAKER) (test code = 3438) Received comment: User comments: Slide comments:RAD, CHEST, 1 VIEW, NON DEPT 2018-06-14 07:45:00Reason for exam:->LLL atelectasisShould this be performed at the bedside?->YesFINAL REPORT RAD, CHEST, 1 VIEW, NON DEPT INDICATION: LLL atelectasis COMPARISON: Prior day's exam FINDINGS: Portable frontal view of the chest. IMPRESSION: Support Lines: A right IJ central venous catheter is no longer present. The enteric tube is stable. Lungs and pleura: Lungs are underinflated. Minimal subsegmental atelectasis noted at the left base. No effusion. No pneumothorax.Heart and mediastinum: Stable contours. Additional findings: Redemonstration of superficial soft tissue and axillary surgical clips on the right. Signed: JR Isis, Rc CARRASCOeport Verified Date/Time: 06/14/2018 07:45:28 Reading Location: [facility] C013V Neuro Reading Room Electronically signedby: RC MARINELLI on 06/14/2018 07:45 [id number] 03:53:00 Test Item Value Reference Range Interpretation Comments MAGNESIUM (BEAKER) (test code = 2.2 mg/dL 1.6-2.6 627) BASIC METABOLIC [id number] 03:53:00 Test Item Value Reference Range Interpretation Comments SODIUM (BEAKER) 141 meq/L 136-145 (test code = 381) POTASSIUM (BEAKER) 4.0 meq/L 3.5-5.1 (test code = 379) CHLORIDE (BEAKER) 110 meq/L 98-107 H (test code = 382) CO2 (BEAKER) (test 23 meq/L 22-29 code = 355) BLOOD UREA NITROGEN 43 mg/dL 7-21 H (BEAKER) (test code = 354) CREATININE (BEAKER) 0.95 mg/dL 0.57-1.25 (test code = 358) GLUCOSE RANDOM 127 mg/dL 70-105 H (BEAKER) (test code = 652) CALCIUM (BEAKER) 8.9 mg/dL 8.4-10.2 (test code = 697) EGFR (BEAKER) (test 57 mL/min/1.73 ESTIMA DIEGO GFR IS code = 1092) sq m NOT ACCURATE CREATININE CLEARANCE IN PREDICTING GLOMERULAR FILTRATION RATE . ESTIMATED GFR I S NOT APPLICABLE FOR DIALYSIS PATIEN TS. POCT-GLUCOSE [id number] 03:44:00 Test Item Value Reference Range Interpretation Comments POC-GLUCOSE METER 145 mg/dL 70-110 H TESTED AT [facility] 6720 (BEAKER) (test code = IMANI Alvarez [facility] 1538) [address] POCT-GLUCOSE [id number] 22:09:00 Test Item Value Reference Range Interpretation Comments POC-GLUCOSE METER 112 mg/dL 70-110 H TESTED AT [place] [address] (BEAKER) (test code = IMANI Alvarez [facility] 1538) [address] POCT-GLUCOSE [id number] 16:43:00 Test Item Value Reference Range Interpretation Comments POC-GLUCOSE METER 108 mg/dL 70-110 TESTED AT [place] [address] (BEAKER) (test code = IMANI Alvarez [facility] 1538) [address] [id number] 11:20:00 Test Item Value Reference Range Interpretation Comments POTASSIUM (BEAKER) (test code = 4.3 meq/L 3.5-5.1 379) 8 hours after PO replacement [id number] 11:20:00 Test Item Value Reference Range Interpretation Comments MAGNESIUM (BEAKER) (test code = 2.1 mg/dL 1.6-2.6 627) 8 hours after PO replacement completedPOCT-GLUCOSE [id number] 10:39:00 Test Item Value Reference Range Interpretation Comments POC-GLUCOSE METER 85 mg/dL 70-110 [facility] AT [place] [address] [facility] (test code = [facility] Kim [facility] [address] 1538) CBC W/PLT COUNT & AUTO [id number] 09:46:00 Test Item Value Reference Range Interpretation Comments WHITE BLOOD CELL COUNT (BEAKER) 16.2 K/ L 3.5-10.5 H (test code = 775) RED BLOOD CELL COUNT (BEAKER) 3.22 M/ L 3.93-5.22 L (test code = 761) HEMOGLOBIN (BEAKER) (test code = 10.1 GM/DL 11.2-15.7 L 410) HEMATOCRIT (BEAKER) (test code = 31.7 % 34.1-44.9 L 411) MEAN CORPUSCULAR VOLUME (BEAKER) 98.4 fL 79.4-94.8 H (test code = 753) MEAN CORPUSCULAR HEMOGLOBIN 31.4 pg 25.6-32.2 (BEAKER) (test code = 751) MEAN CORPUSCULAR HEMOGLOBIN CONC 31.9 GM/DL 32.2-35.5 L (BEAKER) (test code = 752) RED CELL DISTRIBUTION WIDTH 15.0 % 11.7-14.4 H (BEAKER) (test code = 412) PLATELET COUNT (BEAKER) (test 192 K/CU MM 150-450 code = 756) MEAN PLATELET VOLUME (BEAKER) 10.7 fL 9.4-12.3 (test code = 754) NUCLEATED RED BLOOD CELLS 0 /100 WBC 0-0 (BEAKER) (test code = 413) (CELLAVISION MANUAL DIFF)2018-06-13 09:46:00 Test Item Value Reference Range Interpretation Comments NEUTROPHILS - REL 71 % (CELLAVISION)(BEAKER) (test code = 2816) LYMPHOCYTES - REL 13 % (CELLAVISION)(BEAKER) (test code = 2817) MONOCYTES - REL 6 % (CELLAVISION)(BEAKER) (test code = 2818) EOSINOPHILS - REL 1 % (CELLAVISION)(BEAKER) (test code = 2819) METAMYELOCYTES - REL 1 % 0-0 H (CELLAVISION)(BEAKER) (test code = 2821) BANDS - REL (CELLAVISION)(BEAKER) 8 % 0-10 (test code = 2826) NEUTROPHILS - ABS 11.50 K/ul 1.56-6.13 H (CELLAVISION)(BEAKER) (test code = 2830) LYMPHOCYTES - ABS 2.11 K/ul 1.18-3.74 (CELLAVISION)(BEAKER) (test code = 2831) MONOCYTES - ABS 0.97 K/uL 0.24-0.36 H (CELLAVISION)(BEAKER) (test code = 2832) EOSINOPHILS - ABS 0.16 K/uL 0.04-0.36 (CELLAVISION)(BEAKER) (test code = 2834) METAMYELOCYTES - ABS 0.16 K/uL 0.00-0.00 H (CELLAVISION)(BEAKER) (test code = 2836) BANDS - ABS (CELLAVISION)(BEAKER) 1.30 K/uL 0.00-0.80 H (test code = 2840) TOTAL COUNTED (BEAKER) (test code 100 = 1351) WBC MORPHOLOGY (BEAKER) (test code Normal = 487) PLT MORPHOLOGY (BEAKER) (test code Normal = 486) POLYCHROMATOPHILLIC RBCS(BEAKER) 1+ few (test code = 478) ANISOCYTOSIS (BEAKER) (test code = 1+ few 961) ARTIFACT (CELLAVISION)(BEAKER) Present (test code = 3432) PLATELET CONCENTRATION Adequate (CELLAVISION)(BEAKER) (test code = 3438) Received comment: User comments: Slide comments:[id number] 05:39:00 Test Item Value Reference Range Interpretation Comments POTASSIUM (BEAKER) (test code = 3.9 meq/L 3.5-5.1 379) [id number] 05:39:00 Test Item Value Reference Range Interpretation Comments MAGNESIUM (BEAKER) (test code = 2.0 mg/dL 1.6-2.6 627) [id number] 04:23:00 Test Item Value Reference Range Interpretation Comments MAGNESIUM (BEAKER) 2.2 mg/dL 1.6-2.6 Specimen moderately (test code = 627) hemolyzed RAD, CHEST, 1 VIEW, NON [id number] 04:18:00Reason for exam:->pulm edemaShould this be performed at the bedside?->YesFINAL REPORT Chest one view. Clinical history: pulm edema Comparison: Chest radi ograph 06/12/2018 Technique: A single frontal view of the chest was obtained. Findings:There has been interval removal of endotracheal tube. There is a feeding tube in satisfactory position. There is aright IJ central venous catheter with tip in the right atrium. There are surgical clips in the right axilla.The heart is not enlarged. The aorta is atherosclerotic. There is pulmonary vascular congestion. There are small bilateral pleural effusions. There are bibasilar opacities which may represent subsegmental and discoid atelectasis. There are multiple small calcific densities in the right upper guanako drant consistent with gallstones. Signed: Arlette Dowell MDReport Verified Date/Time: 06/13/2018 04:18:10 Reading Location: [facility] C013 CT Body Reading Room C METABOLIC [id number] 04:08:00 Test Item Value Reference Range Interpretation Comments SODIUM (BEAKER) 141 meq/L 136-145 (test code = 381) POTASSIUM (BEAKER) 4.4 meq/L 3.5-5.1 Specimen moderately (test code = 379) hemolyzed CHLORIDE (BEAKER) 110 meq/L 98-107 H (test code = 382) CO2 (BEAKER) (test 20 meq/L 22-29 L code = 355) BLOOD UREA NITROGEN 37 mg/dL 7-21 H (BEAKER) (test code = 354) CREATININE (BEAKER) 1.01 mg/dL 0.57-1.25 Specimen moderately (test code = 358) hemolyzed GLUCOSE RANDOM 96 mg/dL 70-105 (BEAKER) (test code = 652) CALCIUM (BEAKER) 8.7 mg/dL 8.4-10.2 (test code = 697) EGFR (BEAKER) (test 53 mL/min/1.73 ESTIMA DIEGO GFR IS code = 1092) sq m NOT ACCURATE CREATININE CLEARANCE IN PREDICTING GLOMERULAR FILTRATION RATE . ESTIMATED GFR I S NOT APPLICABLE FOR DIALYSIS PATIEN TS. POCT-GLUCOSE [id number] 22:08:00 Test Item Value Reference Range Interpretation Comments POC-GLUCOSE METER 95 mg/dL 70-110 TESTED AT [place] [address] [facility] (test code = [facility] [address] 1538) POTASSIUM-STAT [id number] 16:57:00 Test Item Value Reference Range Interpretation Comments POTASSIUM (BEAKER) (test code = 3.1 meq/L 3.6-5.5 L 379) POCT-GLUCOSE [id number] 16:15:00 Test Item Value Reference Range Interpretation Comments POC-GLUCOSE METER 92 mg/dL 70-110 TESTED AT [facility] 6720 ([facility]) (test code = [facility] [address] 1538) BLOOD GAS, [id number] 14:19:00 Test Item Value Reference Range Interpretation Comments PH ARTERIAL (BEAKER) (test code = 7.52 7.35-7.45 H 383) PCO2 ARTERIAL (BEAKER) (test code 32 mmHg 35-45 L = 384) PO2 ARTERIAL (BEAKER) (test code = 131 mmHg 80-90 H 385) O2 SATURATION ARTERIAL (BEAKER) 98.9 % 96.0-97.0 H (test code = 386) HCO3 ARTERIAL (BEAKER) (test code 26 mmol/L 21-29 = 388) BASE EXCESS ARTERIAL (BEAKER) 3.1 mmol/L -2.0-3.0 H (test code = 387) PATIENT TEMPERATURE (BEAKER) (test 37.0 C code = 1818) FIO2 (BEAKER) (test code = 1819) 36.0 % [id number] 10:25:00 Test Item Value Reference Range Interpretation Comments POTASSIUM (BEAKER) (test code = 3.6 meq/L 3.5-5.1 379) 8 hours after PO replacement completedPOCT-GLUCOSE [id number] 10:13:00 Test Item Value Reference Range Interpretation Comments POC-GLUCOSE METER 132 mg/dL 70-110 H TESTED AT [facility] 6720 (BEAKER) (test code = IMANI SEPULVED[place] 1538) [address] CBC W/PLT COUNT & AUTO [id number] 07:53:00 Test Item Value Reference Range Interpretation Comments WHITE BLOOD CELL COUNT (BEAKER) 9.6 K/ L 3.5-10.5 (test code = 775) RED BLOOD CELL COUNT (BEAKER) 2.91 M/ L 3.93-5.22 L (test code = 761) HEMOGLOBIN (BEAKER) (test code = 9.0 GM/DL 11.2-15.7 L 410) HEMATOCRIT (BEAKER) (test code = 28.6 % 34.1-44.9 L 411) MEAN CORPUSCULAR VOLUME (BEAKER) 98.3 fL 79.4-94.8 H (test code = 753) MEAN CORPUSCULAR HEMOGLOBIN 30.9 pg 25.6-32.2 (BEAKER) (test code = 751) MEAN CORPUSCULAR HEMOGLOBIN CONC 31.5 GM/DL 32.2-35.5 L (BEAKER) (test code = 752) RED CELL DISTRIBUTION WIDTH 14.9 % 11.7-14.4 H (BEAKER) (test code = 412) PLATELET COUNT (BEAKER) (test 118 K/CU MM 150-450 L code = 756) MEAN PLATELET VOLUME (BEAKER) 10.6 fL 9.4-12.3 (test code = 754) NUCLEATED RED BLOOD CELLS 0 /100 WBC 0-0 (BEAKER) (test code = 413) (CELLAVISION MANUAL DIFF)2018-06-12 07:53:00 Test Item Value Reference Range Interpretation Comments NEUTROPHILS - REL 75 % (CELLAVISION)(BEAKER) (test code = 2816) LYMPHOCYTES - REL 12 % (CELLAVISION)(BEAKER) (test code = 2817) MONOCYTES - REL 6 % (CELLAVISION)(BEAKER) (test code = 2818) MYELOCYTES - REL 5 % 0-0 H (CELLAVISION)(BEAKER) (test code = 2822) BANDS - REL (CELLAVISION)(BEAKER) 2 % 0-10 (test code = 2826) NEUTROPHILS - ABS 7.20 K/ul 1.56-6.13 H (CELLAVISION)(BEAKER) (test code = 2830) LYMPHOCYTES - ABS 1.15 K/ul 1.18-3.74 L (CELLAVISION)(BEAKER) (test code = 2831) MONOCYTES - ABS 0.58 K/uL 0.24-0.36 H (CELLAVISION)(BEAKER) (test code = 2832) MYELOCYTES-ABS 0.48 K/uL 0.00-0.00 H (CELLAVISION)(BEAKER) (test code = 2837) BANDS - ABS (CELLAVISION)(BEAKER) 0.19 K/uL 0.00-0.80 (test code = 2840) TOTAL COUNTED (BEAKER) (test code 100 = 1351) MANUAL NRBC PER 100 CELLS (BEAKER) 2 /100 WBC 0-0 H (test code = 1353) SMUDGE CELLS (BEAKER) (test code = Present 1371) GIANT PLATELETS (BEAKER) (test Present code = 313) ANISOCYTOSIS (BEAKER) (test code = 1+ few 961) MICROCYTES (BEAKER) (test code = 1+ few 965) TEAR DROP CELLS (BEAKER) (test 1+ few code = 481) PLATELET CONCENTRATION Decreased (CELLAVISION)(BEAKER) (test code = 3438) Received comment: User comments: Slide comments:BLOOD GAS, [id number] 05:14:00 Test Item Value Reference Range Interpretation Comments PH ARTERIAL (BEAKER) (test code = 7.51 7.35-7.45 H 383) PCO2 ARTERIAL (BEAKER) (test code 35 mmHg 35-45 = 384) PO2 ARTERIAL (BEAKER) (test code = 162 mmHg 80-90 H 385) O2 SATURATION ARTERIAL (BEAKER) 99.2 % 96.0-97.0 H (test code = 386) HCO3 ARTERIAL (BEAKER) (test code 27 mmol/L 21-29 = 388) BASE EXCESS ARTERIAL (BEAKER) 3.8 mmol/L -2.0-3.0 H (test code = 387) PATIENT TEMPERATURE (BEAKER) (test 37.0 C code = 1818) FIO2 (BEAKER) (test code = 1819) 40.0 % BASIC METABOLIC [id number] 04:46:00 Test Item Value Reference Range Interpretation Comments SODIUM (BEAKER) 147 meq/L 136-145 H (test code = 381) POTASSIUM (BEAKER) 3.8 meq/L 3.5-5.1 (test code = 379) CHLORIDE (BEAKER) 114 meq/L 98-107 H (test code = 382) CO2 (BEAKER) (test 25 meq/L 22-29 code = 355) BLOOD UREA NITROGEN 44 mg/dL 7-21 H (BEAKER) (test code = 354) CREATININE (BEAKER) 1.00 mg/dL 0.57-1.25 (test code = 358) GLUCOSE RANDOM 134 mg/dL 70-105 H (BEAKER) (test code = 652) CALCIUM (BEAKER) 8.7 mg/dL 8.4-10.2 (test code = 697) EGFR (BEAKER) (test 54 mL/min/1.73 ESTIMA DIEGO GFR IS code = 1092) sq m NOT ACCURATE CREATININE CLEARANCE IN PREDICTING GLOMERULAR FILTRATION RATE . ESTIMATED GFR I S NOT APPLICABLE FOR DIALYSIS PATIEN TS. RAD, CHEST, 1 VIEW, NON [id number] 03:49:00Reason for exam:->pulm edemaShould this be performed at the bedside?->YesFINAL REPORT Chest one view. Clinical history: pulm edema Comparison: Chest radi ograph 06/11/2018. Technique: A single frontal view of the chest was obtained. Findings:Support devices are unchanged in position. There are surgical clips in the right axilla.The cardiomediastinal contours are stable. There is a small linear opacity in the left lower lobe which may represent subsegmental atelectasis. There is no pulmonary edema, pleural effusion or pneumothorax. Signed: Arlette Dowell Verified Date/Time: 06/12/2018 03:49:08 Reading Location: [facility] C013Y CT Body Reading Room POCT-GLUCOSE [id number] 00:18:00 Test Item Value Reference Range Interpretation Comments POC-GLUCOSE METER 154 mg/dL 70-110 H TESTED AT [place] [address] (BEAKER) (test code = [facility] 1538) [address] [id number] 18:20:00 Test Item Value Reference Range Interpretation Comments POTASSIUM (BEAKER) (test code = 3.1 meq/L 3.5-5.1 L 379) Check Serum Potassium level 2 hours after oral potassium replacement completed or 30 min after intravenous potassium replacement.[id number] 18:20:00 Test Item Value Reference Range Interpretation Comments MAGNESIUM (BEAKER) (test code = 2.0 mg/dL 1.6-2.6 627) Check Serum Potassium level 2 hours after oral potassium replacement completed or 30 min after intravenous potassium replacement.POCT-GLUCOSE [id number] 18:02:00 Test Item Value Reference Range Interpretation Comments POC-GLUCOSE METER 171 mg/dL 70-110 H TESTED AT [place] [address] (BEAKER) (test code = [facility] 1538) [id number] BASIC METABOLIC [id number] 16:25:00 Test Item Value Reference Range Interpretation Comments SODIUM (BEAKER) 145 meq/L 136-145 (test code = 381) POTASSIUM (BEAKER) 3.4 meq/L 3.5-5.1 L (test code = 379) CHLORIDE (BEAKER) 109 meq/L 98-107 H (test code = 382) CO2 (BEAKER) (test 25 meq/L 22-29 code = 355) BLOOD UREA NITROGEN 45 mg/dL 7-21 H (BEAKER) (test code = 354) CREATININE (BEAKER) 0.95 mg/dL 0.57-1.25 (test code = 358) GLUCOSE RANDOM 150 mg/dL 70-105 H (BEAKER) (test code = 652) CALCIUM (BEAKER) 8.6 mg/dL 8.4-10.2 (test code = 697) EGFR (BEAKER) (test 57 mL/min/1.73 ESTIMA DIEGO GFR IS code = 1092) sq m NOT ACCURATE CREATININE CLEARANCE IN PREDICTING GLOMERULAR FILTRATION RATE . ESTIMATED GFR I S NOT APPLICABLE FOR DIALYSIS PATIEN TS. BASIC METABOLIC [id number] 13:32:00 Test Item Value Reference Range Interpretation Comments SODIUM (BEAKER) 145 meq/L 136-145 (test code = 381) POTASSIUM (BEAKER) 3.4 meq/L 3.5-5.1 L (test code = 379) CHLORIDE (BEAKER) 108 meq/L 98-107 H (test code = 382) CO2 (BEAKER) (test 25 meq/L 22-29 code = 355) BLOOD UREA NITROGEN 46 mg/dL 7-21 H (BEAKER) (test code = 354) CREATININE (BEAKER) 0.96 mg/dL 0.57-1.25 (test code = 358) GLUCOSE RANDOM 144 mg/dL 70-105 H (BEAKER) (test code = 652) CALCIUM (BEAKER) 8.8 mg/dL 8.4-10.2 (test code = 697) EGFR (BEAKER) (test 56 mL/min/1.73 ESTIMA DIEGO GFR IS code = 1092) sq m NOT ACCURATE CREATININE CLEARANCE IN PREDICTING GLOMERULAR FILTRATION RATE . ESTIMATED GFR I S NOT APPLICABLE FOR DIALYSIS PATIEN TS. HEMOGLOBIN AND [id number] 09:43:00 Test Item Value Reference Range Interpretation Comments HEMOGLOBIN (BEAKER) (test code = 9.4 GM/DL 11.2-15.7 L 410) HEMATOCRIT (BEAKER) (test code = 28.4 % 34.1-44.9 L 411) RAD, CHEST, 1 VIEW, NON [id number] 07:40:00Reason for exam:->pulm edemaShould this be performed at the bedside?->YesFINAL REPORT HISTORY : pulm edema. Comparison: 06/10/2018 Comment: Single portable view of the chest was obtained. The cardiac silhouette size is enlarged. There are findings of pulmonary venous congestion. Interstitial prominence may represent interstitial edema. Pneumonitis cannot be excluded. There are small bilateral pleural effusions. Adjacent consolidations may represent atelectasis. Pneumonitis or aspiration cannot be excluded. Endotracheal tube is in place located approximately 2.6 cm above the jaky. The remainder of the support lines and tubes are otherwise unchanged in position. Surgical clips are seen over the right axillary region. No pneumothorax is visualized. Signed: Yary Crenshaw MDReport Verified Date/Time: 06/11/2018 07:40:44 Reading Location: [address] Transitional Reading Room POCT-GLUCOSE [id number] 06:32:00 Test Item Value Reference Range Interpretation Comments POC-GLUCOSE METER 146 mg/dL 70-110 H TESTED AT [facility] 6720 ([facility]) (test code = IMANI Alvarez [facility] 1538) [id number] BASIC METABOLIC [id number] 06:14:00 Test Item Value Reference Range Interpretation Comments SODIUM (BEAKER) 147 meq/L 136-145 H (test code = 381) POTASSIUM (BEAKER) 2.8 meq/L 3.5-5.1 L (test code = 379) CHLORIDE (BEAKER) 110 meq/L 98-107 H (test code = 382) CO2 (BEAKER) (test 28 meq/L 22-29 code = 355) BLOOD UREA NITROGEN 50 mg/dL 7-21 H (BEAKER) (test code = 354) CREATININE (BEAKER) 1.11 mg/dL 0.57-1.25 (test code = 358) GLUCOSE RANDOM 147 mg/dL 70-105 H (BEAKER) (test code = 652) CALCIUM (BEAKER) 8.6 mg/dL 8.4-10.2 (test code = 697) EGFR (BEAKER) (test 48 mL/min/1.73 ESTIMA DIEGO GFR IS code = 1092) sq m NOT ACCURATE CREATININE CLEARANCE IN PREDICTING GLOMERULAR FILTRATION RATE . ESTIMATED GFR I S NOT APPLICABLE FOR DIALYSIS PATIEN TS. CBC W/PLT COUNT & AUTO [id number] 04:09:00 Test Item Value Reference Range Interpretation Comments WHITE BLOOD CELL COUNT (BEAKER) 9.7 K/ L 3.5-10.5 (test code = 775) RED BLOOD CELL COUNT (BEAKER) 2.93 M/ L 3.93-5.22 L (test code = 761) HEMOGLOBIN (BEAKER) (test code = 9.3 GM/DL 11.2-15.7 L 410) HEMATOCRIT (BEAKER) (test code = 28.4 % 34.1-44.9 L 411) MEAN CORPUSCULAR VOLUME (BEAKER) 96.9 fL 79.4-94.8 H (test code = 753) MEAN CORPUSCULAR HEMOGLOBIN 31.7 pg 25.6-32.2 (BEAKER) (test code = 751) MEAN CORPUSCULAR HEMOGLOBIN CONC 32.7 GM/DL 32.2-35.5 (BEAKER) (test code = 752) RED CELL DISTRIBUTION WIDTH 15.4 % 11.7-14.4 H (BEAKER) (test code = 412) PLATELET COUNT (BEAKER) (test 114 K/CU MM 150-450 L code = 756) MEAN PLATELET VOLUME (BEAKER) 11.1 fL 9.4-12.3 (test code = 754) NUCLEATED RED BLOOD CELLS 0 /100 WBC 0-0 (BEAKER) (test code = 413) NEUTROPHILS RELATIVE PERCENT 74 % (BEAKER) (test code = 429) LYMPHOCYTES RELATIVE PERCENT 16 % (BEAKER) (test code = 430) MONOCYTES RELATIVE PERCENT 6 % (BEAKER) (test code = 431) EOSINOPHILS RELATIVE PERCENT 0 % (BEAKER) (test code = 432) BASOPHILS RELATIVE PERCENT 0 % (BEAKER) (test code = 437) NEUTROPHILS ABSOLUTE COUNT 7.14 K/ L 1.56-6.13 H (BEAKER) (test code = 670) LYMPHOCYTES ABSOLUTE COUNT 1.58 K/ L 1.18-3.74 (BEAKER) (test code = 414) MONOCYTES ABSOLUTE COUNT (BEAKER) 0.53 K/ L 0.24-0.36 H (test code = 415) EOSINOPHILS ABSOLUTE COUNT 0.00 K/ L 0.04-0.36 L (BEAKER) (test code = 416) BASOPHILS ABSOLUTE COUNT (BEAKER) 0.03 K/ L 0.01-0.08 (test code = 417) IMMATURE GRANULOCYTES-RELATIVE 4 % 0-1 H PERCENT (BEAKER) (test code = 2801) BLOOD GAS, [id number] 03:58:00 Test Item Value Reference Range Interpretation Comments PH ARTERIAL (BEAKER) (test code = 7.53 7.35-7.45 H 383) PCO2 ARTERIAL (BEAKER) (test code 36 mmHg 35-45 = 384) PO2 ARTERIAL (BEAKER) (test code = 94 mmHg 80-90 H 385) O2 SATURATION ARTERIAL (BEAKER) 98.0 % 96.0-97.0 H (test code = 386) HCO3 ARTERIAL (BEAKER) (test code 30 mmol/L 21-29 H = 388) BASE EXCESS ARTERIAL (BEAKER) 6.5 mmol/L -2.0-3.0 H (test code = 387) PATIENT TEMPERATURE (BEAKER) (test 36.5 C code = 1818) FIO2 (BEAKER) (test code = 1819) 40.0 % POCT-GLUCOSE [id number] 02:20:00 Test Item Value Reference Range Interpretation Comments POC-GLUCOSE METER 173 mg/dL 70-110 H TESTED AT [place] [id number] ([facility]) (test code = [facility] [place] 1538) [id number] HEMOGLOBIN AND [id number] 20:22:00 Test Item Value Reference Range Interpretation Comments HEMOGLOBIN (BEAKER) (test code = 8.9 GM/DL 11.2-15.7 L 410) HEMATOCRIT (BEAKER) (test code = 27.6 % 34.1-44.9 L 411) [id number] 18:36:00 Test Item Value Reference Range Interpretation Comments POTASSIUM (BEAKER) 3.7 meq/L 3.5-5.1 Specimen slightly (test code = 379) hemolyzed 8 hours after PO replacement completedPOCT-GLUCOSE [id number] 18:12:00 Test Item Value Reference Range Interpretation Comments POC-GLUCOSE METER 117 mg/dL 70-110 H TESTED AT [place] [id number] (BEAKER) (test code = [facility] [place] 1538) [id number] 14:36:00 Test Item Value Reference Range Interpretation Comments POTASSIUM (BEAKER) (test code = 3.5 meq/L 3.5-5.1 379) 8 hours after PO replacement completedPOCT-GLUCOSE [id number] 12:38:00 Test Item Value Reference Range Interpretation Comments POC-GLUCOSE METER 137 mg/dL 70-110 H TESTED AT [place] [address] ([facility]) (test code = [place] 1538) [address] HEMOGLOBIN AND [id number] 10:58:00 Test Item Value Reference Range Interpretation Comments HEMOGLOBIN (BEAKER) (test code = 8.7 GM/DL 11.2-15.7 L 410) HEMATOCRIT (BEAKER) (test code = 27.0 % 34.1-44.9 L 411) [id number] 10:53:00 Test Item Value Reference Range Interpretation Comments MAGNESIUM (BEAKER) (test code = 2.5 mg/dL 1.6-2.6 627) BASIC METABOLIC [id number] 10:53:00 Test Item Value Reference Range Interpretation Comments SODIUM (BEAKER) 146 meq/L 136-145 H (test code = 381) POTASSIUM (BEAKER) 3.4 meq/L 3.5-5.1 L (test code = 379) CHLORIDE (BEAKER) 111 meq/L 98-107 H (test code = 382) CO2 (BEAKER) (test 25 meq/L 22-29 code = 355) BLOOD UREA NITROGEN 55 mg/dL 7-21 H (BEAKER) (test code = 354) CREATININE (BEAKER) 1.40 mg/dL 0.57-1.25 H (test code = 358) GLUCOSE RANDOM 133 mg/dL 70-105 H (BEAKER) (test code = 652) CALCIUM (BEAKER) 8.7 mg/dL 8.4-10.2 (test code = 697) EGFR (BEAKER) (test 36 mL/min/1.73 ESTIMA DIEGO GFR IS code = 1092) sq m NOT ACCURATE CREATININE CLEARANCE IN PREDICTING GLOMERULAR FILTRATION RATE . ESTIMATED GFR I S NOT APPLICABLE FOR DIALYSIS PATIEN TS. POCT-GLUCOSE [id number] 10:18:00 Test Item Value Reference Range Interpretation Comments POC-GLUCOSE METER 155 mg/dL 70-110 H TESTED AT [facility] 67[address] ([facility]) (test code = IM[facility] [place] 1538) [address] BLOOD [id number] 10:08:00 Test Item Value Reference Range Interpretation Comments CULTURE A From Aerobic An d (BEAKER) (test Anaerobic Bot tles Same code = 1095) organism has be en isolated from cultures(s) of the same body site and collection date . Repeat identifi cation and susceptibil ity testing perform ed only after consultat ion with the [facility] microbiology laboratory.Refe r to previous cultur e ofEscherichia c stephanie GRAM STAIN From aerobic and RESULT (BEAKER) anaerobic (test code = bottles: gram 1123) negative rods BLOOD [id number] 10:03:00 Test Item Value Reference Range Interpretation Comments CULTURE (BEAKER) (test ESCHERICHIA COLI A F rom Aerobic And code = 1095) Anaerobic Bottles Escherichia coliThis is a corrected organism result . Previous result was Non-lactose fermenting gram negative kath on 06/09/2018 at 0902 [employer] Amikacin (test code = S 1) Ampicillin + Sulbactam S (test code = 6) Aztreonam (test code = S 32) Cefepime (test code = S 51) Cefoxitin (test code = S 68) Ceftazidime (test code S = 27) Ceftriaxone (test code S = 52) Ertapenem (test code = S 38) Gentamicin (test code S = 18) Levofloxacin (test S code = 22) Meropenem (test code = S 34) Nitrofurantoin (test S code = 23) Piperacillin + S Tazobactam (test code = 29) Tetracycline (test R code = 2) Tobramycin (test code S = 25) Trimethoprim + R Sulfamethoxazole (test code = 47) GRAM STAIN RESULT From aerobic and (BEAKER) (test code = anaerobic 1123) bottles: gram negative rods POCT-GLUCOSE [id number] 07:33:00 Test Item Value Reference Range Interpretation Comments POC-GLUCOSE METER 149 mg/dL 70-110 H TESTED AT [facility] 6720 (BEAKER) (test code = [place] 1538) [address] RAD, CHEST, 1 VIEW, NON [id number] 06:11:00Reason for exam:->pulm edemaShould this be performed at the bedside?->YesFINAL REPORT Chest one view. Clinical history: pulmonary edema Comparison: Chest radiograph 06/09/2018. Technique: A single frontal view of the chest was obtained. Findings:Support devices are unchanged.The cardiomediastinal contours are stable. There are small bilateral pleural effusions. There is mild improvement in the pulmonary edema pattern with pulmonary interstitial edema. T here are bibasilar opacities, which may represent atelectasis and/or pneumonia. There is no pneumothorax. There are multiple surgical clips in the right axilla. Signed: Arlette [place] Verified Date/Time: 06/10/2018 06:11:42 Reading Location: [facility] B1 C013Y CT Body Reading Room [id number] 04:51:00 Test Item Value Reference Range Interpretation Comments PHOSPHORUS (BEAKER) (test code = 2.1 mg/dL 2.3-4.7 L 604) [id number] 04:51:00 Test Item Value Reference Range Interpretation Comments MAGNESIUM (BEAKER) (test code = 2.7 mg/dL 1.6-2.6 H 627) BASIC METABOLIC [id number] 04:51:00 Test Item Value Reference Range Interpretation Comments SODIUM (BEAKER) 144 meq/L 136-145 (test code = 381) POTASSIUM (BEAKER) 3.8 meq/L 3.5-5.1 (test code = 379) CHLORIDE (BEAKER) 109 meq/L 98-107 H (test code = 382) CO2 (BEAKER) (test 27 meq/L 22-29 code = 355) BLOOD UREA NITROGEN 57 mg/dL 7-21 H (BEAKER) (test code = 354) CREATININE (BEAKER) 1.61 mg/dL 0.57-1.25 H (test code = 358) GLUCOSE RANDOM 130 mg/dL 70-105 H (BEAKER) (test code = 652) CALCIUM (BEAKER) 8.8 mg/dL 8.4-10.2 (test code = 697) EGFR (BEAKER) (test 31 mL/min/1.73 ESTIMA DIEGO GFR IS code = 1092) sq m NOT ACCURATE CREATININE CLEARANCE IN PREDICTING GLOMERULAR FILTRATION RATE . ESTIMATED GFR I S NOT APPLICABLE FOR DIALYSIS PATIEN TS. CBC W/PLT COUNT & AUTO [id number] 04:39:00 Test Item Value Reference Range Interpretation Comments WHITE BLOOD CELL COUNT (BEAKER) 13.1 K/ L 3.5-10.5 H (test code = 775) RED BLOOD CELL COUNT (BEAKER) 2.71 M/ L 3.93-5.22 L (test code = 761) HEMOGLOBIN (BEAKER) (test code = 8.5 GM/DL 11.2-15.7 L 410) HEMATOCRIT (BEAKER) (test code = 26.1 % 34.1-44.9 L 411) MEAN CORPUSCULAR VOLUME (BEAKER) 96.3 fL 79.4-94.8 H (test code = 753) MEAN CORPUSCULAR HEMOGLOBIN 31.4 pg 25.6-32.2 (BEAKER) (test code = 751) MEAN CORPUSCULAR HEMOGLOBIN CONC 32.6 GM/DL 32.2-35.5 (BEAKER) (test code = 752) RED CELL DISTRIBUTION WIDTH 15.7 % 11.7-14.4 H (BEAKER) (test code = 412) PLATELET COUNT (BEAKER) (test 105 K/CU MM 150-450 L code = 756) MEAN PLATELET VOLUME (BEAKER) 10.6 fL 9.4-12.3 (test code = 754) NUCLEATED RED BLOOD CELLS 0 /100 WBC 0-0 (BEAKER) (test code = 413) NEUTROPHILS RELATIVE PERCENT 82 % (BEAKER) (test code = 429) LYMPHOCYTES RELATIVE PERCENT 11 % (BEAKER) (test code = 430) MONOCYTES RELATIVE PERCENT 5 % (BEAKER) (test code = 431) EOSINOPHILS RELATIVE PERCENT 0 % (BEAKER) (test code = 432) BASOPHILS RELATIVE PERCENT 0 % (BEAKER) (test code = 437) NEUTROPHILS ABSOLUTE COUNT 10.73 K/ L 1.56-6.13 H (BEAKER) (test code = 670) LYMPHOCYTES ABSOLUTE COUNT 1.39 K/ L 1.18-3.74 (BEAKER) (test code = 414) MONOCYTES ABSOLUTE COUNT (BEAKER) 0.69 K/ L 0.24-0.36 H (test code = 415) EOSINOPHILS ABSOLUTE COUNT 0.00 K/ L 0.04-0.36 L (BEAKER) (test code = 416) BASOPHILS ABSOLUTE COUNT (BEAKER) 0.02 K/ L 0.01-0.08 (test code = 417) IMMATURE GRANULOCYTES-RELATIVE 2 % 0-1 H PERCENT (BEAKER) (test code = 2801) HEMOGLOBIN AND [id number] 04:33:00 Test Item Value Reference Range Interpretation Comments HEMOGLOBIN (BEAKER) (test code = 8.5 GM/DL 11.2-15.7 L 410) HEMATOCRIT (BEAKER) (test code = 26.1 % 34.1-44.9 L 411) BLOOD GAS, [id number] 04:27:00 Test Item Value Reference Range Interpretation Comments PH ARTERIAL (BEAKER) (test code = 7.47 7.35-7.45 H 383) PCO2 ARTERIAL (BEAKER) (test code 40 mmHg 35-45 = 384) PO2 ARTERIAL (BEAKER) (test code = 146 mmHg 80-90 H 385) O2 SATURATION ARTERIAL (BEAKER) 99.0 % 96.0-97.0 H (test code = 386) HCO3 ARTERIAL (BEAKER) (test code 29 mmol/L 21-29 = 388) BASE EXCESS ARTERIAL (BEAKER) 4.7 mmol/L -2.0-3.0 H (test code = 387) PATIENT TEMPERATURE (BEAKER) (test 37.1 C code = 1818) FIO2 (BEAKER) (test code = 1819) 40.0 % [id number] 00:28:00 Test Item Value Reference Range Interpretation Comments PHOSPHORUS (BEAKER) (test code = 2.2 mg/dL 2.3-4.7 L 604) [id number] 00:28:00 Test Item Value Reference Range Interpretation Comments MAGNESIUM (BEAKER) (test code = 2.2 mg/dL 1.6-2.6 627) BASIC METABOLIC [id number] 00:28:00 Test Item Value Reference Range Interpretation Comments SODIUM (BEAKER) 144 meq/L 136-145 (test code = 381) POTASSIUM (BEAKER) 3.3 meq/L 3.5-5.1 L (test code = 379) CHLORIDE (BEAKER) 107 meq/L 98-107 (test code = 382) CO2 (BEAKER) (test 27 meq/L 22-29 code = 355) BLOOD UREA NITROGEN 56 mg/dL 7-21 H (BEAKER) (test code = 354) CREATININE (BEAKER) 1.56 mg/dL 0.57-1.25 H (test code = 358) GLUCOSE RANDOM 110 mg/dL 70-105 H (BEAKER) (test code = 652) CALCIUM (BEAKER) 8.7 mg/dL 8.4-10.2 (test code = 697) EGFR (BEAKER) (test 32 mL/min/1.73 ESTIMA DIEGO GFR IS code = 1092) sq m NOT ACCURATE CREATININE CLEARANCE IN PREDICTING GLOMERULAR FILTRATION RATE . ESTIMATED GFR I S NOT APPLICABLE FOR DIALYSIS PATIEN TS. HEMOGLOBIN AND [id number] 00:08:00 Test Item Value Reference Range Interpretation Comments HEMOGLOBIN (BEAKER) (test code = 8.6 GM/DL 11.2-15.7 L 410) HEMATOCRIT (BEAKER) (test code = 26.5 % 34.1-44.9 L 411) [id number] 17:06:00 Test Item Value Reference Range Interpretation Comments PHOSPHORUS (BEAKER) (test code = 2.8 mg/dL 2.3-4.7 604) [id number] 17:06:00 Test Item Value Reference Range Interpretation Comments MAGNESIUM (BEAKER) (test code = 2.4 mg/dL 1.6-2.6 627) BASIC METABOLIC [id number] 17:06:00 Test Item Value Reference Range Interpretation Comments SODIUM (BEAKER) 143 meq/L 136-145 (test code = 381) POTASSIUM (BEAKER) 3.5 meq/L 3.5-5.1 (test code = 379) CHLORIDE (BEAKER) 109 meq/L 98-107 H (test code = 382) CO2 (BEAKER) (test 24 meq/L 22-29 code = 355) BLOOD UREA NITROGEN 54 mg/dL 7-21 H (BEAKER) (test code = 354) CREATININE (BEAKER) 1.68 mg/dL 0.57-1.25 H (test code = 358) GLUCOSE RANDOM 141 mg/dL 70-105 H (BEAKER) (test code = 652) CALCIUM (BEAKER) 8.6 mg/dL 8.4-10.2 (test code = 697) EGFR (BEAKER) (test 30 mL/min/1.73 ESTIMA DIEGO GFR IS code = 1092) sq m NOT ACCURATE CREATININE CLEARANCE IN PREDICTING GLOMERULAR FILTRATION RATE . ESTIMATED GFR I S NOT APPLICABLE FOR DIALYSIS PATIEN TS. HEMOGLOBIN AND [id number] 16:46:00 Test Item Value Reference Range Interpretation Comments HEMOGLOBIN (BEAKER) (test code = 9.4 GM/DL 11.2-15.7 L 410) HEMATOCRIT (BEAKER) (test code = 28.9 % 34.1-44.9 L 411) POCT-GLUCOSE [id number] 16:33:00 Test Item Value Reference Range Interpretation Comments POC-GLUCOSE METER 170 mg/dL 70-110 H TESTED AT [facility] 6720 (BEAKER) (test code = [facility] 1538) [address] POCT-GLUCOSE [id number] 12:12:00 Test Item Value Reference Range Interpretation Comments POC-GLUCOSE METER 156 mg/dL 70-110 H TESTED AT [facility] 6720 (BEAKER) (test code = [facility] 1538) [address] BASIC METABOLIC [id number] 10:47:00 Test Item Value Reference Range Interpretation Comments SODIUM (BEAKER) 144 meq/L 136-145 (test code = 381) POTASSIUM (BEAKER) 3.7 meq/L 3.5-5.1 (test code = 379) CHLORIDE (BEAKER) 111 meq/L 98-107 H (test code = 382) CO2 (BEAKER) (test 22 meq/L 22-29 code = 355) BLOOD UREA NITROGEN 53 mg/dL 7-21 H (BEAKER) (test code = 354) CREATININE (BEAKER) 1.72 mg/dL 0.57-1.25 H (test code = 358) GLUCOSE RANDOM 148 mg/dL 70-105 H (BEAKER) (test code = 652) CALCIUM (BEAKER) 8.6 mg/dL 8.4-10.2 (test code = 697) EGFR (BEAKER) (test 29 mL/min/1.73 ESTIMA DIEGO GFR IS code = 1092) sq m NOT ACCURATE CREATININE CLEARANCE IN PREDICTING GLOMERULAR FILTRATION RATE . ESTIMATED GFR I S NOT APPLICABLE FOR DIALYSIS PATIEN TS. [id number] 10:40:00 Test Item Value Reference Range Interpretation Comments PHOSPHORUS (BEAKER) (test code = 3.5 mg/dL 2.3-4.7 604) [id number] 10:40:00 Test Item Value Reference Range Interpretation Comments MAGNESIUM (BEAKER) (test code = 2.4 mg/dL 1.6-2.6 627) HEMOGLOBIN AND [id number] 10:23:00 Test Item Value Reference Range Interpretation Comments HEMOGLOBIN (BEAKER) (test code = 9.0 GM/DL 11.2-15.7 L 410) HEMATOCRIT (BEAKER) (test code = 28.0 % 34.1-44.9 L 411) POCT-GLUCOSE [id number] 08:19:00 Test Item Value Reference Range Interpretation Comments POC-GLUCOSE METER 156 mg/dL 70-110 H TESTED AT [facility] 6720 (GÉNESIS) (test code = [place] 1538) [address] RAD, CHEST, 1 VIEW, NON [id number] 04:59:00Reason for exam:->pulm edemaShould this be performed at the bedside?->YesFINAL REPORT EXAMINATION: AP PORTABLE CHEST RADIOGRAPH CLINICAL INDICATION: Pulm onary edema IMPRESSION: Compared with 06/08/2018 Support tube and catheter positions are unchanged. Cardiac and mediastinal contours are also grossly stable. Scattered opacities are again noted throughout both lungs, similar to previous. A component may reflect pulmonary edema. Sequela from diffuse lung injury or multifocal pneumonia would also be considerations in the appropriate clinical settings. No definite evidence of new lung consolidation or pneumothorax. In summary, no significant interval change. Signed: Trini Agarwal MDRepwestern [facility] Verified Date/Time: 06/09/2018 04:59:47 Reading Location: [address] Reading Room B-TYPE NATRIURETIC FACTOR (BNP)2018-06-09 04:47:00 Test Item Value Reference Range Interpretation Comments B-TYPE NATRIURETIC PEPTIDE 1269 pg/mL 0-100 H (BEAKER) (test code = 700) [id number] 04:45:00 Test Item Value Reference Range Interpretation Comments PHOSPHORUS (BEAKER) (test code = 3.8 mg/dL 2.3-4.7 604) [id number] 04:45:00 Test Item Value Reference Range Interpretation Comments MAGNESIUM (BEAKER) (test code = 2.3 mg/dL 1.6-2.6 627) BASIC METABOLIC [id number] 04:45:00 Test Item Value Reference Range Interpretation Comments SODIUM (BEAKER) 143 meq/L 136-145 (test code = 381) POTASSIUM (BEAKER) 3.6 meq/L 3.5-5.1 (test code = 379) CHLORIDE (BEAKER) 111 meq/L 98-107 H (test code = 382) CO2 (BEAKER) (test 21 meq/L 22-29 L code = 355) BLOOD UREA NITROGEN 50 mg/dL 7-21 H (BEAKER) (test code = 354) CREATININE (BEAKER) 1.71 mg/dL 0.57-1.25 H (test code = 358) GLUCOSE RANDOM 150 mg/dL 70-105 H (BEAKER) (test code = 652) CALCIUM (BEAKER) 8.5 mg/dL 8.4-10.2 (test code = 697) EGFR (BEAKER) (test 29 mL/min/1.73 ESTIMA DIEGO GFR IS code = 1092) sq m NOT ACCURATE CREATININE CLEARANCE IN PREDICTING GLOMERULAR FILTRATION RATE . ESTIMATED GFR I S NOT APPLICABLE FOR DIALYSIS PATIEN TS. CBC W/PLT COUNT & AUTO [id number] 04:39:00 Test Item Value Reference Range Interpretation Comments WHITE BLOOD CELL COUNT (BEAKER) 17.0 K/ L 3.5-10.5 H (test code = 775) RED BLOOD CELL COUNT (BEAKER) 2.91 M/ L 3.93-5.22 L (test code = 761) HEMOGLOBIN (BEAKER) (test code = 9.0 GM/DL 11.2-15.7 L 410) HEMATOCRIT (BEAKER) (test code = 28.1 % 34.1-44.9 L 411) MEAN CORPUSCULAR VOLUME (BEAKER) 96.6 fL 79.4-94.8 H (test code = 753) MEAN CORPUSCULAR HEMOGLOBIN 30.9 pg 25.6-32.2 (BEAKER) (test code = 751) MEAN CORPUSCULAR HEMOGLOBIN CONC 32.0 GM/DL 32.2-35.5 L (BEAKER) (test code = 752) RED CELL DISTRIBUTION WIDTH 16.1 % 11.7-14.4 H (BEAKER) (test code = 412) PLATELET COUNT (BEAKER) (test 135 K/CU MM 150-450 L code = 756) MEAN PLATELET VOLUME (BEAKER) 11.1 fL 9.4-12.3 (test code = 754) NUCLEATED RED BLOOD CELLS 0 /100 WBC 0-0 (BEAKER) (test code = 413) NEUTROPHILS RELATIVE PERCENT 86 % (BEAKER) (test code = 429) LYMPHOCYTES RELATIVE PERCENT 8 % (BEAKER) (test code = 430) MONOCYTES RELATIVE PERCENT 5 % (BEAKER) (test code = 431) EOSINOPHILS RELATIVE PERCENT 0 % (BEAKER) (test code = 432) BASOPHILS RELATIVE PERCENT 0 % (BEAKER) (test code = 437) NEUTROPHILS ABSOLUTE COUNT 14.66 K/ L 1.56-6.13 H (BEAKER) (test code = 670) LYMPHOCYTES ABSOLUTE COUNT 1.27 K/ L 1.18-3.74 (BEAKER) (test code = 414) MONOCYTES ABSOLUTE COUNT (BEAKER) 0.92 K/ L 0.24-0.36 H (test code = 415) EOSINOPHILS ABSOLUTE COUNT 0.00 K/ L 0.04-0.36 L (BEAKER) (test code = 416) BASOPHILS ABSOLUTE COUNT (BEAKER) 0.02 K/ L 0.01-0.08 (test code = 417) IMMATURE GRANULOCYTES-RELATIVE 1 % 0-1 PERCENT (BEAKER) (test code = 2801) BLOOD GAS, [id number] 04:38:00 Test Item Value Reference Range Interpretation Comments PH ARTERIAL (BEAKER) (test code = 7.40 7.35-7.45 383) PCO2 ARTERIAL (BEAKER) (test code 36 mmHg 35-45 = 384) PO2 ARTERIAL (BEAKER) (test code 170 mmHg 80-90 H = 385) O2 SATURATION ARTERIAL (BEAKER) 99.2 % 96.0-97.0 H (test code = 386) HCO3 ARTERIAL (BEAKER) (test code 22 mmol/L 21-29 = 388) BASE EXCESS ARTERIAL (BEAKER) -2.7 mmol/L -2.0-3.0 L (test code = 387) PATIENT TEMPERATURE (BEAKER) 36.5 C (test code = 1818) FIO2 (BEAKER) (test code = 1819) 50.0 % HEMOGLOBIN AND [id number] 04:30:00 Test Item Value Reference Range Interpretation Comments HEMOGLOBIN (BEAKER) (test code = 9.0 GM/DL 11.2-15.7 L 410) HEMATOCRIT (BEAKER) (test code = 28.1 % 34.1-44.9 L 411) POCT-GLUCOSE [id number] 04:29:00 Test Item Value Reference Range Interpretation Comments POC-GLUCOSE METER 216 mg/dL 70-110 H TESTED AT [place] [address] (BEAKER) (test code = IMANI Alvarez [place] 1538) [address] POCT-GLUCOSE [id number] 00:13:00 Test Item Value Reference Range Interpretation Comments POC-GLUCOSE METER 175 mg/dL 70-110 H TESTED AT [place] [address] ([facility]) (test code = [facility] Kim [facility] 1538) [address] VANCOMYCIN LEVEL, [id number] 22:32:00 Test Item Value Reference Range Interpretation Comments VANCOMYCIN TROUGH (BEAKER) (test 16.7 ug/mL 10.0-20.0 code = 522) Please draw prior to vanc administration [id number] 22:32:00 Test Item Value Reference Range Interpretation Comments PHOSPHORUS (BEAKER) (test code = 3.8 mg/dL 2.3-4.7 604) [id number] 22:32:00 Test Item Value Reference Range Interpretation Comments MAGNESIUM (BEAKER) (test code = 2.4 mg/dL 1.6-2.6 627) BASIC METABOLIC [id number] 22:32:00 Test Item Value Reference Range Interpretation Comments SODIUM (BEAKER) 142 meq/L 136-145 (test code = 381) POTASSIUM (BEAKER) 3.8 meq/L 3.5-5.1 (test code = 379) CHLORIDE (BEAKER) 111 meq/L 98-107 H (test code = 382) CO2 (BEAKER) (test 19 meq/L 22-29 L code = 355) BLOOD UREA NITROGEN 45 mg/dL 7-21 H (BEAKER) (test code = 354) CREATININE (BEAKER) 1.68 mg/dL 0.57-1.25 H (test code = 358) GLUCOSE RANDOM 154 mg/dL 70-105 H (BEAKER) (test code = 652) CALCIUM (BEAKER) 8.3 mg/dL 8.4-10.2 L (test code = 697) EGFR (BEAKER) (test 30 mL/min/1.73 ESTIMA DIEGO GFR IS code = 1092) sq m NOT ACCURATE CREATININE CLEARANCE IN PREDICTING GLOMERULAR FILTRATION RATE . ESTIMATED GFR I S NOT APPLICABLE FOR DIALYSIS PATIEN TS. HEMOGLOBIN AND [id number] 22:15:00 Test Item Value Reference Range Interpretation Comments HEMOGLOBIN (BEAKER) (test code = 9.8 GM/DL 11.2-15.7 L 410) HEMATOCRIT (BEAKER) (test code = 29.7 % 34.1-44.9 L 411) POCT-GLUCOSE [id number] 22:00:00 Test Item Value Reference Range Interpretation Comments POC-GLUCOSE METER 158 mg/dL 70-110 H TESTED AT [facility] 6720 (BEAKER) (test code = [place] 1538) [address] [id number] 17:04:00 Test Item Value Reference Range Interpretation Comments PHOSPHORUS (BEAKER) (test code = 3.8 mg/dL 2.3-4.7 604) [id number] 17:04:00 Test Item Value Reference Range Interpretation Comments MAGNESIUM (BEAKER) (test code = 2.3 mg/dL 1.6-2.6 627) BASIC METABOLIC [id number] 17:04:00 Test Item Value Reference Range Interpretation Comments SODIUM (BEAKER) 144 meq/L 136-145 (test code = 381) POTASSIUM (BEAKER) 3.4 meq/L 3.5-5.1 L (test code = 379) CHLORIDE (BEAKER) 111 meq/L 98-107 H (test code = 382) CO2 (BEAKER) (test 20 meq/L 22-29 L code = 355) BLOOD UREA NITROGEN 41 mg/dL 7-21 H (BEAKER) (test code = 354) CREATININE (BEAKER) 1.63 mg/dL 0.57-1.25 H (test code = 358) GLUCOSE RANDOM 154 mg/dL 70-105 H (BEAKER) (test code = 652) CALCIUM (BEAKER) 8.6 mg/dL 8.4-10.2 (test code = 697) EGFR (BEAKER) (test 31 mL/min/1.73 ESTIMA DIEGO GFR IS code = 1092) sq m NOT ACCURATE CREATININE CLEARANCE IN PREDICTING GLOMERULAR FILTRATION RATE . ESTIMATED GFR I S NOT APPLICABLE FOR DIALYSIS PATIEN TS. HEMOGLOBIN AND [id number] 16:48:00 Test Item Value Reference Range Interpretation Comments HEMOGLOBIN (BEAKER) (test code = 10.0 GM/DL 11.2-15.7 L 410) HEMATOCRIT (BEAKER) (test code = 30.1 % 34.1-44.9 L 411) BLOOD GAS, [id number] 16:37:00 Test Item Value Reference Range Interpretation Comments PH ARTERIAL (BEAKER) (test code = 7.38 7.35-7.45 383) PCO2 ARTERIAL (BEAKER) (test code 35 mmHg 35-45 = 384) PO2 ARTERIAL (BEAKER) (test code 168 mmHg 80-90 H = 385) O2 SATURATION ARTERIAL (BEAKER) 99.1 % 96.0-97.0 H (test code = 386) HCO3 ARTERIAL (BEAKER) (test code 21 mmol/L 21-29 = 388) BASE EXCESS ARTERIAL (BEAKER) -3.9 mmol/L -2.0-3.0 L (test code = 387) PATIENT TEMPERATURE (BEAKER) 37.0 C (test code = 1818) FIO2 (BEAKER) (test code = 1819) 50.0 % POCT-GLUCOSE [id number] 16:37:00 Test Item Value Reference Range Interpretation Comments POC-GLUCOSE METER 168 mg/dL 70-110 H TESTED AT [facility] 6720 (BEAKER) (test code = CHIMICHELLE Alvarez [facility] 1538) [address] CT BRAIN WITHOUT IV CONTRAST - [id number] 13:50:00Reason for exam:- >acute resp failure/hemorrhagic shockFINAL REPORT CT head without contrast. Reason for exam: acute resp failure/hemorrhagic shock Comparisons: No priors Discussion: Multiple axial CT images of the head are provided without contrast evaluated in brain and bone windows. This exam was performed according to our departmental dose optimization program which includes automated exposure control, adjustment of the mA and/orkV according to patient's size and/or use of iterative reconstructive technique. Exam is limited by portable technique. There is age related generalized brain volume loss. Nonspecific scattered supratentorial white matter hypodensity most likely reflects chronic small vessel ischemic disease. No evidence of acute territorial infarct. Intracranial vascular calcifications are present. There is no CT meche dence of intracranial hemorrhage, mass-effect, hydrocephalus, shift, or extra- axial collections. Thevisualized orbital contents, bones and surrounding soft tissues are unremarkable. The visualized paranasal sinuses and mastoid air cells are unremarkable. Impressions: No CT evidence of acute intracranial process. Involutional and chronic microvascular ischemic change. Signed: Flavio Borden Verified Date/Time: 06/08/2018 13:50:56 Reading Location: [facility] Radiology Reading Room SODIUM, RANDOM [id number] 13:15:00 Test Item Value Reference Range Interpretation Comments SODIUM URINE (BEAKER) (test code = 93 meq/L 243) Reference Range: No NormalsUREA NITROGEN, RANDOM [id number] 13:15:00 Test Item Value Reference Range Interpretation Comments UREA NITROGEN URINE (BEAKER) (test 149 mg/dL code = 538) Reference Range: No NormalsPROTEIN, RANDOM [id number] 12:24:00 Test Item Value Reference Range Interpretation Comments PROTEIN, URINE (BEAKER) (test code = < mg/dL 0-14 1569) POCT-GLUCOSE [id number] 11:53:00 Test Item Value Reference Range Interpretation Comments POC-GLUCOSE METER 159 mg/dL 70-110 H TESTED AT [facility] 6720 (BEAKER) (test code = IMANI Alvarez [facility] 1538) [id number] BLOOD GAS, [id number] 11:52:00 Test Item Value Reference Range Interpretation Comments PH ARTERIAL (BEAKER) (test code = 7.41 7.35-7.45 383) PCO2 ARTERIAL (BEAKER) (test code 32 mmHg 35-45 L = 384) PO2 ARTERIAL (BEAKER) (test code 144 mmHg 80-90 H = 385) O2 SATURATION ARTERIAL (BEAKER) 98.9 % 96.0-97.0 H (test code = 386) HCO3 ARTERIAL (BEAKER) (test code 20 mmol/L 21-29 L = 388) BASE EXCESS ARTERIAL (BEAKER) -4.0 mmol/L -2.0-3.0 L (test code = 387) PATIENT TEMPERATURE (BEAKER) 37.0 C (test code = 1818) FIO2 (BEAKER) (test code = 1819) 50.0 % CREATININE, RANDOM [id number] 11:46:00 Test Item Value Reference Range Interpretation Comments CREATININE URINE (BEAKER) (test 19.2 mg/dL code = 375) Reference Range: No NormalsPOTASSIUM, RANDOM [id number] 11:46:00 Test Item Value Reference Range Interpretation Comments POTASSIUM URINE (BEAKER) (test 37.6 meq/L code = 195) Reference Range: No NormalsURINALYSIS W/ REFLEX URINE [id number] 10:10:00 Test Item Value Reference Range Interpretation Comments COLOR (BEAKER) (test code = 470) Light Yellow CLARITY (BEAKER) (test code = Clear 469) SPECIFIC GRAVITY UA (BEAKER) 1.008 1.001-1.035 (test code = 468) PH UA (BEAKER) (test code = 467) 5.0 5.0-8.0 PROTEIN UA (BEAKER) (test code = Negative Negative 464) GLUCOSE UA (BEAKER) (test code = Negative Negative 365) KETONES UA (BEAKER) (test code = Negative Negative 371) BILIRUBIN UA (BEAKER) (test code Negative Negative = 462) BLOOD UA (BEAKER) (test code = Negative Negative 461) NITRITE UA (BEAKER) (test code = Negative Negative 465) LEUKOCYTE ESTERASE UA (BEAKER) Moderate Negative A (test code = 466) UROBILINOGEN UA (BEAKER) (test 0.2 mg/dL 0.2-1.0 code = 463) RBC UA (BEAKER) (test code = 2 /HPF 519) WBC UA (BEAKER) (test code = 13 /HPF 520) BACTERIA (BEAKER) (test code = Rare 517) MUCUS (BEAKER) (test code = Rare 1574) HYALINE CASTS (BEAKER) (test 10 /LPF code = 514) SOURCE(BEAKER) (test code = 5432) TROPONIN [id number] 09:08:00 Test Item Value Reference Range Interpretation Comments TROPONIN I (BEAKER) (test code = 9.23 ng/mL 0.00-0.03 HH 397) Troponin I (TnI) levels must be interpreted in the context of the presenting symptoms and the clinical findings. Elevated TnI levels indicate myocardial damage, but are not specific for ischemic heart disease. Elevated TnI levels are seen in patients with other cardiac conditions (including myocarditis and congestive heart failure), and slight TnI elevations occur in patients with other conditions, including sepsis, renal failure, acidosis, acute neurological disease, and persistent tachyarrhythmia.[id number] 08:59:00 Test Item Value Reference Range Interpretation Comments POTASSIUM (BEAKER) (test code = 3.7 meq/L 3.5-5.1 379) [id number] 08:59:00 Test Item Value Reference Range Interpretation Comments MAGNESIUM (BEAKER) (test code = 2.3 mg/dL 1.6-2.6 627) [id number] 08:59:00 Test Item Value Reference Range Interpretation Comments PHOSPHORUS (BEAKER) (test code = 3.7 mg/dL 2.3-4.7 604) BLOOD GAS, [id number] 08:57:00 Test Item Value Reference Range Interpretation Comments PH ARTERIAL (BEAKER) (test code = 7.42 7.35-7.45 383) PCO2 ARTERIAL (BEAKER) (test code 30 mmHg 35-45 L = 384) PO2 ARTERIAL (BEAKER) (test code 229 mmHg 80-90 H = 385) O2 SATURATION ARTERIAL (BEAKER) 99.5 % 96.0-97.0 H (test code = 386) HCO3 ARTERIAL (BEAKER) (test code 19 mmol/L 21-29 L = 388) BASE EXCESS ARTERIAL (BEAKER) -4.7 mmol/L -2.0-3.0 L (test code = 387) PATIENT TEMPERATURE (BEAKER) 37.0 C (test code = 1818) FIO2 (BEAKER) (test code = 1819) 60.0 % HEMOGLOBIN AND [id number] 08:36:00 Test Item Value Reference Range Interpretation Comments HEMOGLOBIN (BEAKER) (test code = 11.2 GM/DL 11.2-15.7 410) HEMATOCRIT (BEAKER) (test code = 32.7 % 34.1-44.9 L 411) POCT-GLUCOSE [id number] 08:16:00 Test Item Value Reference Range Interpretation Comments POC-GLUCOSE METER 176 mg/dL 70-110 H TESTED AT [facility] 6720 (BEAKER) (test code = [place] 1538) [address] CBC W/PLT COUNT & AUTO [id number] 08:03:00 Test Item Value Reference Range Interpretation Comments WHITE BLOOD CELL COUNT (BEAKER) 25.2 K/ L 3.5-10.5 H (test code = 775) RED BLOOD CELL COUNT (BEAKER) 3.64 M/ L 3.93-5.22 L (test code = 761) HEMOGLOBIN (BEAKER) (test code = 11.5 GM/DL 11.2-15.7 410) HEMATOCRIT (BEAKER) (test code = 34.6 % 34.1-44.9 411) MEAN CORPUSCULAR VOLUME (BEAKER) 95.1 fL 79.4-94.8 H (test code = 753) MEAN CORPUSCULAR HEMOGLOBIN 31.6 pg 25.6-32.2 (BEAKER) (test code = 751) MEAN CORPUSCULAR HEMOGLOBIN CONC 33.2 GM/DL 32.2-35.5 (BEAKER) (test code = 752) RED CELL DISTRIBUTION WIDTH 16.1 % 11.7-14.4 H (BEAKER) (test code = 412) PLATELET COUNT (BEAKER) (test 183 K/CU MM 150-450 code = 756) MEAN PLATELET VOLUME (BEAKER) 10.7 fL 9.4-12.3 (test code = 754) NUCLEATED RED BLOOD CELLS 0 /100 WBC 0-0 (BEAKER) (test code = 413) (CELLAVISION MANUAL DIFF)2018-06-08 08:03:00 Test Item Value Reference Range Interpretation Comments NEUTROPHILS - REL 86 % (CELLAVISION)(BEAKER) (test code = 2816) LYMPHOCYTES - REL 6 % (CELLAVISION)(BEAKER) (test code = 2817) MONOCYTES - REL 2 % (CELLAVISION)(BEAKER) (test code = 2818) BANDS - REL (CELLAVISION)(BEAKER) 6 % 0-10 (test code = 2826) NEUTROPHILS - ABS 21.67 K/ul 1.56-6.13 H (CELLAVISION)(BEAKER) (test code = 2830) LYMPHOCYTES - ABS 1.51 K/ul 1.18-3.74 (CELLAVISION)(BEAKER) (test code = 2831) MONOCYTES - ABS 0.50 K/uL 0.24-0.36 H (CELLAVISION)(BEAKER) (test code = 2832) BANDS - ABS (CELLAVISION)(BEAKER) 1.51 K/uL 0.00-0.80 H (test code = 2840) TOTAL COUNTED (BEAKER) (test code 100 = 1351) WBC MORPHOLOGY (BEAKER) (test code Normal = 487) PLT MORPHOLOGY (BEAKER) (test code Normal = 486) QIAN CELLS (BEAKER) (test code = 1+ few 474) ARTIFACT (CELLAVISION)(BEAKER) Present (test code = 3432) PLATELET CONCENTRATION Adequate (CELLAVISION)(BEAKER) (test code = 3438) Received comment: User comments: Slide comments:RESPIRATORY PANEL [id number] 06:29:00 Test Item Value Reference Range Interpretation Comments HUMAN METAPNEUMOVIRUS Not detected Not detected, (BEAKER) (test code = 2683) Equivocal RHINOVIRUS (BEAKER) (test Not detected Not detected, code = 2684) Equivocal INFLUENZA A (BEAKER) (test Not detected Not detected, code = 2685) Equivocal INFLUENZA A (NO SUBTYPE) Not detected, (test code = 3606) Equivocal INFLUENZA A SUBTYPE H1 Not detected, (BEAKER) (test code = 2686) Equivocal INFLUENZA A SUBTYPE H3 Not detected, (BEAKER) (test code = 2687) Equivocal INFLUENZA A SUBTYPE H1-2009 Not detected, (BEAKER) (test code = 3198) Equivocal INFLUENZA B (BEAKER) (test Not detected Not detected, code = 2688) Equivocal RESPIRATORY SYNCYTIAL VIRUS Not detected Not detected, (BEAKER) (test code = 3199) Equivocal PARAINFLUENZA VIRUS 1 Not detected Not detected, (BEAKER) (test code = 2691) Equivocal PARAINFLUENZA VIRUS 2 Not detected Not detected, (BEAKER) (test code = 2692) Equivocal PARAINFLUENZA VIRUS 3 Not detected Not detected, (BEAKER) (test code = 2693) Equivocal PARAINFLUENZA VIRUS 4 Not detected Not detected, (BEAKER) (test code = 3200) Equivocal ADENOVIRUS (BEAKER) (test Not detected Not detected, code = 2694) Equivocal CORONAVIRUS 229E (BEAKER) Not detected Not detected, (test code = 3201) Equivocal CORONAVIRUS HKU1 (BEAKER) Not detected Not detected, (test code = 3202) Equivocal CORONAVIRUS NL63 (BEAKER) Not detected Not detected, (test code = 3203) Equivocal CORONAVIRUS OC43 (BEAKER) Not detected Not detected, (test code = 3204) Equivocal BORDETELLA PERTUSSIS Not detected Not detected, (BEAKER) (test code = 3205) Equivocal CHLAMYDOPHILA PNEUMONIAE Not detected Not detected, (BEAKER) (test code = 3206) Equivocal MYCOPLASMA PNEUMONIAE Not detected Not detected, (BEAKER) (test code = 3207) Equivocal Other viruses and bacteria not targeted by this PCR panel cannot be excluded; therefore clinical correlation and follow up of serology, culture results, and other molecular studies is required. The results are not intended to be used as the sole means for clinical diagnosis or patient management decisions. This sample was tested at the [facility] Molecular Diagnostics Laboratory using the [employer] RecoveryArray Respiratory Panel. It is FDA cleared and has been verified and approved by the [facility] Molecular [facility]ostics Laboratory for clinical use on nasal swab specimens. It is not FDA-cleared for use on bronchial wash/lavage samples. However, for this sample type, validation was performed and test characteristics were determined and approved, by [facility] laboratory for clinical use under the Clinical Laboratory Improvement Amendments (CLIA) of 1988 requirements. Therefore, FDA clearance isnot required. This laboratory is CLIA-certified and [employer] [place] [employer] (CAP)-accredited to perform high complexity testing.RAD, CHEST, 1 VIEW, NON DEPT 2018-06-08 05:30:00Reason for exam:->pulm edemaShould this be performed at the bedside?->YesFINAL REPORT RAD, CHEST, 1 VIEW, NON DEPT INDICATION: pulm edema COMPARISON: Prior day's exam FINDINGS: Portable frontal view of the chest. IMPRESSION: Support Lines: Stable. Lungsand pleura: Unchanged airspace and pleural opacities. No pneumothorax.Heart and mediastinum: Stable contours. Additional findings: None. Signed: Sydnee Poole Verified Date/Time: 06/08/2018 05:30:48 Reading Location: [facility] B1 C013T Transitional Reading Room BLOOD GAS, [id number] 04:43:00 Test Item Value Reference Range Interpretation Comments PH ARTERIAL (BEAKER) (test code = 7.41 7.35-7.45 383) PCO2 ARTERIAL (BEAKER) (test code 30 mmHg 35-45 L = 384) PO2 ARTERIAL (BEAKER) (test code 174 mmHg 80-90 H = 385) O2 SATURATION ARTERIAL (BEAKER) 99.2 % 96.0-97.0 H (test code = 386) HCO3 ARTERIAL (BEAKER) (test code 18 mmol/L 21-29 L = 388) BASE EXCESS ARTERIAL (BEAKER) -5.2 mmol/L -2.0-3.0 L (test code = 387) PATIENT TEMPERATURE (BEAKER) 37.5 C (test code = 1818) FIO2 (BEAKER) (test code = 1819) 80.0 % [id number] 04:37:00 Test Item Value Reference Range Interpretation Comments PHOSPHORUS (BEAKER) (test code = 3.7 mg/dL 2.3-4.7 604) [id number] 04:37:00 Test Item Value Reference Range Interpretation Comments MAGNESIUM (BEAKER) (test code = 2.0 mg/dL 1.6-2.6 627) BASIC METABOLIC [id number] 04:37:00 Test Item Value Reference Range Interpretation Comments SODIUM (BEAKER) 142 meq/L 136-145 (test code = 381) POTASSIUM (BEAKER) 3.7 meq/L 3.5-5.1 (test code = 379) CHLORIDE (BEAKER) 111 meq/L 98-107 H (test code = 382) CO2 (BEAKER) (test 18 meq/L 22-29 L code = 355) BLOOD UREA NITROGEN 34 mg/dL 7-21 H (BEAKER) (test code = 354) CREATININE (BEAKER) 1.42 mg/dL 0.57-1.25 H (test code = 358) GLUCOSE RANDOM 181 mg/dL 70-105 H (BEAKER) (test code = 652) CALCIUM (BEAKER) 8.7 mg/dL 8.4-10.2 (test code = 697) EGFR ([facility]) (test 36 mL/min/1.73 ESTIMA DIEGO GFR IS code = 1092) sq m NOT ACCURATE CREATININE CLEARANCE IN PREDICTING GLOMERULAR FILTRATION RATE . ESTIMATED GFR I S NOT APPLICABLE FOR DIALYSIS PATIEN TS. LACTIC ACID, ARTERIAL, WHOLE [id number] 04:29:00 Test Item Value Reference Range Interpretation Comments LACTATE BLOOD 1.2 mmol/L 0.5-2.2 Specimen sligh tly ARTERIAL (2) ([facility]) hemoly zed (test code = 2874) POCT-GLUCOSE [id number] 04:04:00 Test Item Value Reference Range Interpretation Comments POC-GLUCOSE METER 198 mg/dL 70-110 H TESTED AT [facility] 6720 ([facility]) (test code = [place] 1538) [address] BLOOD CULTURE IDENTIFICATION [id number] 03:16:00 Test Item Value Reference Range Interpretation Comments LISTERIA MONOCYTOGENES Not detected Not detected (test code = 6961981) STAPHYLOCOCCUS (test Not detected Not detected code = 5247506) STAPHYLOCOCCUS AUREUS Not detected Not detected (test code = 4254762) STREPTOCOCCUS (test code Not detected Not detected = 8781106) STREPTOCOCCUS AGALACTIAE Not detected Not detected (GROUP B) (test code = 8016597) STREPTOCOCCUS PNEUMONIAE Not detected Not detected (test code = 3762155) STREPTOCOCCUS PYOGENES Not detected Not detected (GROUP A) (test code = 6740574) ACINETOBACTER BAUMANNII Not detected Not detected (test code = 3040901) HAEMOPHILUS INFLUENZAE Not detected Not detected (test code = 1994212) NEISSERIA MENINGITIDIS Not detected Not detected (test code = 7446387) ENTEROBACTERIACEAE (test Detected Not detected A code = 2721393) ENTEROBACTER CLOACOE Not detected Not detected COMPLEX (test code = 3985370) KLEBSIELLA OXYTOCA (test Not detected Not detected code = 3834615) KLEBSIELLA PNEUMONIAE Not detected Not detected (test code = 1650) PROTEUS (test code = Not detected Not detected 0014666) SERRATIA MARCESCENS Not detected Not detected (test code = 2339404) TANIA ALBICANS (test Not detected Not detected code = 0311373) TANIA GLABRATA (test Not detected Not detected code = 6328176) TANIA KRUSEI (test Not detected Not detected code = 7477925) TANIA PARAPSILOSIS Not detected Not detected (test code = 0347126) TANIA TROPICALIS (test Not detected Not detected code = 7898283) ESCHERICHIA COLI (test Detected Not detected A First line code = 7741499) therapy: Meropenem. De-escalate bas ed on susceptibilitie s.T his test does n ot evaluate for ESBLReference Range: Not Detected METHICILLIN-RESISTANCE Not detected GENE (test code = 2443322) VANCOMYCIN-RESISTANCE Not detected GENE (test code = 2879142) CARBAPENEM-RESISTANCE Not detected Not detected GENE (test code = 2987861) ENTEROCOCCUS-BEAKER Not detected Not detected (test code = 9721776) PSEUDOMONAS Not detected Not detected AERUGINOSA-BEAKER (test code = 8593517) Other bacteria and resistance markers not targeted by this PCR panel cannot be excluded; therefore clinical correlation and follow up of serology, culture results, and other molecular studies is required. The results are not intended to be used as the sole means for clinical diagnosis or patient management decisions. This sample was tested at the [facility] Molecular Diagnostics Laboratory using the [employer] Blood Culture ID Panel. It is FDA cleared and has been verified and approved by the [facility] Molecular Diagnostics Laboratory for clinical use. This laboratory is CLIA-certified and College ofAmerican Pathologists (CAP)-accredited to perform high complexity testing.TROPONIN I 2018-06-08 00:35:00 Test Item Value Reference Range Interpretation Comments TROPONIN I (BEAKER) (test code = 10.43 ng/mL 0.00-0.03 397) Troponin I (TnI) levels must be interpreted in the context of the presenting symptoms and the clinical findings. Elevated TnI levels indicate myocardial damage, but are not specific for ischemic heart disease. Elevated TnI levels are seen in patients with other cardiac conditions (including myocarditis and congestive heart failure), and slight TnI elevations occur in patients with other conditions, including sepsis, renal failure, acidosis, acute neurological disease, and persistent tachyarrhythmia.[id number] 00:35:00 Test Item Value Reference Range Interpretation Comments MAGNESIUM (BEAKER) (test code = 2.0 mg/dL 1.6-2.6 627) [id number] 00:35:00 Test Item Value Reference Range Interpretation Comments PHOSPHORUS (BEAKER) (test code = 4.0 mg/dL 2.3-4.7 604) [id number] 00:35:00 Test Item Value Reference Range Interpretation Comments POTASSIUM (BEAKER) (test code = 3.8 meq/L 3.5-5.1 379) HEMOGLOBIN AND [id number] 00:24:00 Test Item Value Reference Range Interpretation Comments HEMOGLOBIN (BEAKER) (test code = 11.5 GM/DL 11.2-15.7 410) HEMATOCRIT (BEAKER) (test code = 34.1 % 34.1-44.9 411) POCT-GLUCOSE [id number] 23:48:00 Test Item Value Reference Range Interpretation Comments POC-GLUCOSE METER 199 mg/dL 70-110 H TESTED AT [facility] 6720 (BEAKER) (test code = [place] 1538) [address] BASIC METABOLIC [id number] 22:53:00 Test Item Value Reference Range Interpretation Comments SODIUM (BEAKER) 139 meq/L 136-145 (test code = 381) POTASSIUM (BEAKER) 3.8 meq/L 3.5-5.1 (test code = 379) CHLORIDE (BEAKER) 111 meq/L 98-107 H (test code = 382) CO2 (BEAKER) (test 16 meq/L 22-29 L code = 355) BLOOD UREA NITROGEN 34 mg/dL 7-21 H (BEAKER) (test code = 354) CREATININE (BEAKER) 1.40 mg/dL 0.57-1.25 H (test code = 358) GLUCOSE RANDOM 207 mg/dL 70-105 H (BEAKER) (test code = 652) CALCIUM (BEAKER) 8.3 mg/dL 8.4-10.2 L (test code = 697) EGFR (BEAKER) (test 36 mL/min/1.73 ESTIMA DIEGO GFR IS code = 1092) sq m NOT ACCURATE CREATININE CLEARANCE IN PREDICTING GLOMERULAR FILTRATION RATE . ESTIMATED GFR I S NOT APPLICABLE FOR DIALYSIS PATIEN TS. LACTIC ACID, ARTERIAL, WHOLE [id number] 21:46:00 Test Item Value Reference Range Interpretation Comments LACTATE BLOOD ARTERIAL (2) 1.7 mmol/L 0.5-2.2 (BEAKER) (test code = 2874) HEMOGLOBIN AND [id number] 21:32:00 Test Item Value Reference Range Interpretation Comments HEMOGLOBIN (BEAKER) (test code = 11.2 GM/DL 11.2-15.7 410) HEMATOCRIT (BEAKER) (test code = 34.1 % 34.1-44.9 411) BLOOD GAS, [id number] 20:54:00 Test Item Value Reference Range Interpretation Comments PH ARTERIAL (BEAKER) (test code = 7.37 7.35-7.45 383) PCO2 ARTERIAL (BEAKER) (test code 34 mmHg 35-45 L = 384) PO2 ARTERIAL (BEAKER) (test code 83 mmHg 80-90 = 385) O2 SATURATION ARTERIAL (BEAKER) 95.8 % 96.0-97.0 L (test code = 386) HCO3 ARTERIAL (BEAKER) (test code 19 mmol/L 21-29 L = 388) BASE EXCESS ARTERIAL (BEAKER) -5.4 mmol/L -2.0-3.0 L (test code = 387) PATIENT TEMPERATURE (BEAKER) 37.5 C (test code = 1818) FIO2 (BEAKER) (test code = 1819) 80.0 % POCT-GLUCOSE [id number] 20:41:00 Test Item Value Reference Range Interpretation Comments POC-GLUCOSE METER 220 mg/dL 70-110 H TESTED AT [facility] 6720 (BEAKER) (test code = IM[place] [facility] 1538) [address] OXYGEN SATURATION, [id number] 20:35:00 Test Item Value Reference Range Interpretation Comments O2 SATURATION (MEASURED) (BEAKER) 65.7 % (test code = 1455) [id number] 20:35:00 Test Item Value Reference Range Interpretation Comments POTASSIUM (BEAKER) (test code = 4.3 meq/L 3.5-5.1 379) [id number] 20:35:00 Test Item Value Reference Range Interpretation Comments MAGNESIUM (BEAKER) (test code = 2.3 mg/dL 1.6-2.6 627) [id number] 20:35:00 Test Item Value Reference Range Interpretation Comments PHOSPHORUS (BEAKER) (test code = 4.9 mg/dL 2.3-4.7 H 604) HEMOGLOBIN AND [id number] 20:12:00 Test Item Value Reference Range Interpretation Comments HEMOGLOBIN (BEAKER) (test code = 11.2 GM/DL 11.2-15.7 410) HEMATOCRIT (BEAKER) (test code = 34.2 % 34.1-44.9 411) BLOOD GAS, [id number] 19:15:00 Test Item Value Reference Range Interpretation Comments PH ARTERIAL (BEAKER) (test code = 7.29 7.35-7.45 L 383) PCO2 ARTERIAL (BEAKER) (test code 39 mmHg 35-45 = 384) PO2 ARTERIAL (BEAKER) (test code 252 mmHg 80-90 H = 385) O2 SATURATION ARTERIAL (BEAKER) 99.5 % 96.0-97.0 H (test code = 386) HCO3 ARTERIAL (BEAKER) (test code 18 mmol/L 21-29 L = 388) BASE EXCESS ARTERIAL (BEAKER) -8.0 mmol/L -2.0-3.0 L (test code = 387) PATIENT TEMPERATURE (BEAKER) 37.0 C (test code = 1818) FIO2 (BEAKER) (test code = 1819) 90.0 % TROPONIN [id number] 19:06:00 Test Item Value Reference Range Interpretation Comments TROPONIN I (BEAKER) (test code = 15.13 ng/mL 0.00-0.03 HH 397) Troponin I (TnI) levels must be interpreted in the context of the presenting symptoms and the clinical findings. Elevated TnI levels indicate myocardial damage, but are not specific for ischemic heart disease. Elevated TnI levels are seen in patients with other cardiac conditions (including myocarditis and congestive heart failure), and slight TnI elevations occur in patients with other conditions, including sepsis, renal failure, acidosis, acute neurological disease, and persistent tachyarrhythmia.HEMOGLOBIN AND [id number] 18:26:00 Test Item Value Reference Range Interpretation Comments HEMOGLOBIN (BEAKER) (test code = 11.9 GM/DL 11.2-15.7 410) HEMATOCRIT (BEAKER) (test code = 36.3 % 34.1-44.9 411) [id number] 16:46:00 Test Item Value Reference Range Interpretation Comments PHOSPHORUS (BEAKER) (test code = 4.2 mg/dL 2.3-4.7 604) [id number] 16:46:00 Test Item Value Reference Range Interpretation Comments MAGNESIUM (BEAKER) (test code = 1.8 mg/dL 1.6-2.6 627) COMPREHENSIVE METABOLIC [id number] 16:46:00 Test Item Value Reference Range Interpretation Comments TOTAL PROTEIN 6.0 gm/dL 6.0-8.3 (BEAKER) (test code = 770) ALBUMIN (BEAKER) 3.1 g/dL 3.5-5.0 L (test code = 1145) ALKALINE PHOSPHATASE 74 U/L 40-150 (BEAKER) (test code = 346) BILIRUBIN TOTAL 1.1 mg/dL 0.2-1.2 (BEAKER) (test code = 377) SODIUM (BEAKER) (test 140 meq/L 136-145 code = 381) POTASSIUM (BEAKER) 4.3 meq/L 3.5-5.1 (test code = 379) CHLORIDE (BEAKER) 111 meq/L 98-107 H (test code = 382) CO2 (BEAKER) (test 21 meq/L 22-29 L code = 355) BLOOD UREA NITROGEN 30 mg/dL 7-21 H (BEAKER) (test code = 354) CREATININE (BEAKER) 1.30 mg/dL 0.57-1.25 H (test code = 358) GLUCOSE RANDOM 175 mg/dL 70-105 H (BEAKER) (test code = 652) CALCIUM (BEAKER) 8.4 mg/dL 8.4-10.2 (test code = 697) AST (SGOT) (BEAKER) 69 U/L 5-34 H (test code = 353) ALT (SGPT) (BEAKER) 27 U/L 6-55 (test code = 347) EGFR (BEAKER) (test 40 mL/min/1.73 ESTIMA DIEGO GFR IS code = 1092) sq m NOT ACCURATE CREATININE CLEARANCE IN PREDICTING GLOMERULAR FILTRATION RATE . ESTIMATED GFR I S NOT APPLICABLE FOR DIALYSIS PATIEN TS. LACTIC ACID, ARTERIAL, WHOLE [id number] 16:42:00 Test Item Value Reference Range Interpretation Comments LACTATE BLOOD ARTERIAL (2) 1.7 mmol/L 0.5-2.2 (BEAKER) (test code = 2874) HEMOGLOBIN AND [id number] 16:28:00 Test Item Value Reference Range Interpretation Comments HEMOGLOBIN (BEAKER) (test code = 10.9 GM/DL 11.2-15.7 L 410) HEMATOCRIT (BEAKER) (test code = 33.0 % 34.1-44.9 L 411) POCT-GLUCOSE [id number] 16:19:00 Test Item Value Reference Range Interpretation Comments POC-GLUCOSE METER 178 mg/dL 70-110 H TESTED AT [facility] 6720 (BEAKER) (test code = [place] 1538) [address] POCT-GLUCOSE [id number] 16:19:00 Test Item Value Reference Range Interpretation Comments POC-GLUCOSE METER 189 mg/dL 70-110 H TESTED AT [facility] 6720 (BEAKER) (test code = [place] 1538) [address] PLATELET AGGREGATION: FUNCTION [id number] 15:50:00 Test Item Value Reference Range Interpretation Comments WEAK ADP 27 % 60-91 L RESULT(BEAKER) (test code = 2135) PLATELET FUNCTION 0-39% indicates marked SCREEN INTERP platelet dysfunction (BEAKER) (test code = 2173) [id number] [facility]enez [facility] (test code = (electronic signature) 2622) PLATELET COUNT AGG 207 K/CU MM 150-450 (BEAKER) (test code = 2656) Platelet Function Screen results may be falsely low with platelet counts<100,000/cu mm.PLATELET AGGREGATION: FUNCTION [id number] 15:49:00 Test Item Value Reference Range Interpretation Comments WEAK ADP 17 % 60-91 L RESULT(BEAKER) (test code = 2135) PLATELET FUNCTION 0-39% indicates marked SCREEN INTERP platelet dysfunction (BEAKER) (test code = 2173) [id number] Jimenez MD ([facility] (test code = (electronic signature) 2622) PLATELET COUNT AGG 218 K/CU MM 150-430 (BEAKER) (test code = 2656) Platelet Function Screen results may be falsely low with platelet counts<100,000/cu mm.HEMOGLOBIN AND [id number] 15:16:00 Test Item Value Reference Range Interpretation Comments HEMOGLOBIN (BEAKER) (test code = 11.8 GM/DL 11.2-15.7 410) HEMATOCRIT (BEAKER) (test code = 36.4 % 34.1-44.9 411) CBC W/PLT COUNT & AUTO [id number] 14:19:00 Test Item Value Reference Range Interpretation Comments WHITE BLOOD CELL COUNT (BEAKER) 17.9 K/ L 3.5-10.5 H (test code = 775) RED BLOOD CELL COUNT (BEAKER) 3.75 M/ L 3.93-5.22 L (test code = 761) HEMOGLOBIN (BEAKER) (test code = 11.8 GM/DL 11.2-15.7 410) HEMATOCRIT (BEAKER) (test code = 36.3 % 34.1-44.9 411) MEAN CORPUSCULAR VOLUME (BEAKER) 96.8 fL 79.4-94.8 H (test code = 753) MEAN CORPUSCULAR HEMOGLOBIN 31.5 pg 25.6-32.2 (BEAKER) (test code = 751) MEAN CORPUSCULAR HEMOGLOBIN CONC 32.5 GM/DL 32.2-35.5 (BEAKER) (test code = 752) RED CELL DISTRIBUTION WIDTH 16.2 % 11.7-14.4 H (BEAKER) (test code = 412) PLATELET COUNT (BEAKER) (test 202 K/CU MM 150-450 code = 756) MEAN PLATELET VOLUME (BEAKER) 10.4 fL 9.4-12.3 (test code = 754) NUCLEATED RED BLOOD CELLS 0 /100 WBC 0-0 (BEAKER) (test code = 413) (CELLAVISION MANUAL DIFF)2018-06-07 14:19:00 Test Item Value Reference Range Interpretation Comments NEUTROPHILS - REL 78 % (CELLAVISION)(BEAKER) (test code = 2816) LYMPHOCYTES - REL 4 % (CELLAVISION)(BEAKER) (test code = 2817) MONOCYTES - REL 1 % (CELLAVISION)(BEAKER) (test code = 2818) BANDS - REL (CELLAVISION)(BEAKER) 17 % 0-10 H (test code = 2826) NEUTROPHILS - ABS 13.96 K/ul 1.56-6.13 H (CELLAVISION)(BEAKER) (test code = 2830) LYMPHOCYTES - ABS 0.72 K/ul 1.18-3.74 L (CELLAVISION)(BEAKER) (test code = 2831) MONOCYTES - ABS 0.18 K/uL 0.24-0.36 L (CELLAVISION)(BEAKER) (test code = 2832) BANDS - ABS (CELLAVISION)(BEAKER) 3.04 K/uL 0.00-0.80 H (test code = 2840) TOTAL COUNTED (BEAKER) (test code 100 = 1351) WBC MORPHOLOGY (BEAKER) (test code Normal = 487) PLT MORPHOLOGY (BEAKER) (test code Normal = 486) POIKILOCYTES (BEAKER) (test code = 1+ few 966) ARTIFACT (CELLAVISION)(BEAKER) Present (test code = 3432) PLATELET CONCENTRATION Adequate (CELLAVISION)(BEAKER) (test code = 3438) Received comment: User comments: Slide comments:[id number] 13:46:00 Test Item Value Reference Range Interpretation Comments FIBRINOGEN LEVEL (BEAKER) (test 462 mg/dl 225-434 H code = 658) [id number] 13:37:00 Test Item Value Reference Range Interpretation Comments PARTIAL THROMBOPLASTIN TIME 29.3 seconds 22.5-36.0 (BEAKER) (test code = 760) LACTIC ACID, ARTERIAL, WHOLE [id number] 13:37:00 Test Item Value Reference Range Interpretation Comments LACTATE BLOOD ARTERIAL (2) 2.5 mmol/L 0.5-2.2 H (BEAKER) (test code = 2874) PROTHROMBIN [id number] 13:36:00 Test Item Value Reference Range Interpretation Comments PROTIME (BEAKER) (test code = 14.5 seconds 11.7-14.7 759) INR (BEAKER) (test code = 370) 1.1 <=5.9 RECOMMENDED COUMADIN/WARFARIN INR THERAPY RANGESSTANDARD DOSE: 2.0 - 3.0 Includes: PROPHYLAXIS for venous thrombosis, systemic embolization; TREATMENT for venous thrombosis and/or pulmonary embolus.HIGH RISK: Target INR is 2.5-3.5 for patients with mechanical heart valves.POCT-GLUCOSE [id number] 13:33:00 Test Item Value Reference Range Interpretation Comments POC-GLUCOSE METER 192 mg/dL 70-110 H TESTED AT [facility] 6720 (BEAKER) (test code = IMANI Alvarez [place] 1538) [address] RAD, ABDOMEN/KUB, 1 VIEW [id number] 13:27:00Reason for exam:->abdominal distensionShould this be performed at the bedside?->YesFINAL REPORT Abdomen one view Comparison: None. Reason for exam: abdominal diste nsion Findings: A feeding tube projects over the gastric body. Mildly distended small bowel loops are seen in the mid to right abdomen, suspicious for obstruction. No free air is identified. Multiple stones are present in the gallbladder. There is a right femoral catheter. Osseous structures demonstrate degenerative changes. Signed: Flavio Borden MDReport Verified Date/Time: 06/07/2018 13:27:14 Reading Location: [facility] [id number] Consult Reading Room BLOOD GAS, [id number] 13:23:00 Test Item Value Reference Range Interpretation Comments PH ARTERIAL (BEAKER) (test code = 7.32 7.35-7.45 L 383) PCO2 ARTERIAL (BEAKER) (test code 45 mmHg 35-45 = 384) PO2 ARTERIAL (BEAKER) (test code 62 mmHg 80-90 L = 385) O2 SATURATION ARTERIAL (BEAKER) 87.1 % 96.0-97.0 L (test code = 386) HCO3 ARTERIAL (BEAKER) (test code 22 mmol/L 21-29 = 388) BASE EXCESS ARTERIAL (BEAKER) -3.7 mmol/L -2.0-3.0 L (test code = 387) PATIENT TEMPERATURE (BEAKER) 38.5 C (test code = 1818) FIO2 (BEAKER) (test code = 1819) 100.0 % HEMOGLOBIN [id number] 12:29:00 Test Item Value Reference Range Interpretation Comments HEMOGLOBIN A1C (BEAKER) (test code = 5.7 % 4.3-6.1 368) [id number] 12:04:00 Test Item Value Reference Range Interpretation Comments HAPTOGLOBIN (BEAKER) (test code = 166 mg/dL 14-258 366) CBC W/PLT COUNT & AUTO [id number] 11:37:00 Test Item Value Reference Range Interpretation Comments WHITE BLOOD CELL COUNT (BEAKER) 12.6 K/ L 3.5-10.5 H (test code = 775) RED BLOOD CELL COUNT (BEAKER) 3.61 M/ L 3.93-5.22 L (test code = 761) HEMOGLOBIN (BEAKER) (test code = 11.5 GM/DL 11.2-15.7 410) HEMATOCRIT (BEAKER) (test code = 35.1 % 34.1-44.9 411) MEAN CORPUSCULAR VOLUME (BEAKER) 97.2 fL 79.4-94.8 H (test code = 753) MEAN CORPUSCULAR HEMOGLOBIN 31.9 pg 25.6-32.2 (BEAKER) (test code = 751) MEAN CORPUSCULAR HEMOGLOBIN CONC 32.8 GM/DL 32.2-35.5 (BEAKER) (test code = 752) RED CELL DISTRIBUTION WIDTH 15.8 % 11.7-14.4 H (BEAKER) (test code = 412) PLATELET COUNT (BEAKER) (test 177 K/CU MM 150-450 code = 756) MEAN PLATELET VOLUME (BEAKER) 10.2 fL 9.4-12.3 (test code = 754) NUCLEATED RED BLOOD CELLS 0 /100 WBC 0-0 (BEAKER) (test code = 413) NEUTROPHILS RELATIVE PERCENT 89 % (BEAKER) (test code = 429) LYMPHOCYTES RELATIVE PERCENT 7 % (BEAKER) (test code = 430) MONOCYTES RELATIVE PERCENT 4 % (BEAKER) (test code = 431) EOSINOPHILS RELATIVE PERCENT 0 % (BEAKER) (test code = 432) BASOPHILS RELATIVE PERCENT 0 % (BEAKER) (test code = 437) NEUTROPHILS ABSOLUTE COUNT 11.18 K/ L 1.56-6.13 H (BEAKER) (test code = 670) LYMPHOCYTES ABSOLUTE COUNT 0.82 K/ L 1.18-3.74 L (BEAKER) (test code = 414) MONOCYTES ABSOLUTE COUNT (BEAKER) 0.50 K/ L 0.24-0.36 H (test code = 415) EOSINOPHILS ABSOLUTE COUNT 0.00 K/ L 0.04-0.36 L (BEAKER) (test code = 416) BASOPHILS ABSOLUTE COUNT (BEAKER) 0.02 K/ L 0.01-0.08 (test code = 417) IMMATURE GRANULOCYTES-RELATIVE 1 % 0-1 PERCENT (BEAKER) (test code = 2801) BLOOD GAS, [id number] 11:32:00 Test Item Value Reference Range Interpretation Comments PH ARTERIAL (BEAKER) (test code = 7.28 7.35-7.45 L 383) PCO2 ARTERIAL (BEAKER) (test code 44 mmHg 35-45 = 384) PO2 ARTERIAL (BEAKER) (test code 61 mmHg 80-90 L = 385) O2 SATURATION ARTERIAL (BEAKER) 88.1 % 96.0-97.0 L (test code = 386) HCO3 ARTERIAL (BEAKER) (test code 20 mmol/L 21-29 L = 388) BASE EXCESS ARTERIAL (BEAKER) -6.7 mmol/L -2.0-3.0 L (test code = 387) PATIENT TEMPERATURE (BEAKER) 37.0 C (test code = 1818) FIO2 (BEAKER) (test code = 1819) 100.0 % [id number] 11:25:00 Test Item Value Reference Range Interpretation Comments PROCALCITONIN (BEAKER) (test code 21.36 ng/mL <0.05 HH = 3036) SEPSIS RISK (ng/mL)Low: 0.05-0.50Intermediate: 0.51-2.00High: >=2.01 URINALYSIS W/ REFLEX URINE [id number] 11:22:00 Test Item Value Reference Range Interpretation Comments COLOR (BEAKER) (test code = 470) Light Yellow CLARITY (BEAKER) (test code = Clear 469) SPECIFIC GRAVITY UA (BEAKER) 1.006 1.001-1.035 (test code = 468) PH UA (BEAKER) (test code = 467) 5.5 5.0-8.0 PROTEIN UA (BEAKER) (test code = Negative Negative 464) GLUCOSE UA (BEAKER) (test code = Negative Negative 365) KETONES UA (BEAKER) (test code = Negative Negative 371) BILIRUBIN UA (BEAKER) (test code Negative Negative = 462) BLOOD UA (BEAKER) (test code = Moderate Negative A 461) NITRITE UA (BEAKER) (test code = Negative Negative 465) LEUKOCYTE ESTERASE UA (BEAKER) Moderate Negative A (test code = 466) UROBILINOGEN UA (BEAKER) (test 0.2 mg/dL 0.2-1.0 code = 463) RBC UA (BEAKER) (test code = 17 /HPF 519) WBC UA (BEAKER) (test code = 6 /HPF 520) BACTERIA (BEAKER) (test code = Occasional 517) HYALINE CASTS (BEAKER) (test 5 /LPF code = 514) SOURCE(BEAKER) (test code = 2795) PLATELET AGGREGATION: FUNCTION [id number] 10:54:00 Test Item Value Reference Range Interpretation Comments WEAK ADP 12 % 60-91 L RESULT(BEAKER) (test code = 2135) PLATELET FUNCTION 0-39% indicates marked SCREEN INTERP platelet dysfunction (BEAKER) (test code = 2173) [id number] Starla Jimenez MD (BEAKER) (test code = (electronic signature) 7786) PLATELET COUNT AGG 187 K/CU MM 150-450 (BEAKER) (test code = 2656) Platelet Function Screen results may be falsely low with platelet counts<100,000/cu mm.[id number] 10:37:00 Test Item Value Reference Range Interpretation Comments PARTIAL THROMBOPLASTIN TIME 31.4 seconds 22.5-36.0 (BEAKER) (test code = 760) PROTHROMBIN [id number] 10:36:00 Test Item Value Reference Range Interpretation Comments PROTIME (BEAKER) (test code = 14.2 seconds 11.7-14.7 759) INR (BEAKER) (test code = 370) 1.1 <=5.9 RECOMMENDED COUMADIN/WARFARIN INR THERAPY RANGESSTANDARD DOSE: 2.0 - 3.0 Includes: PROPHYLAXIS for venous thrombosis, systemic embolization; TREATMENT for venous thrombosis and/or pulmonary embolus.HIGH RISK: Target INR is 2.5-3.5 for patients with mechanical heart valves.TROPONIN [id number] 10:34:00 Test Item Value Reference Range Interpretation Comments TROPONIN I (BEAKER) (test code = 22.42 ng/mL 0.00-0.03 HH 397) Troponin I (TnI) levels must be interpreted in the context of the presenting symptoms and the clinical findings. Elevated TnI levels indicate myocardial damage, but are not specific for ischemic heart disease. Elevated TnI levels are seen in patients with other cardiac conditions (including myocarditis and congestive heart failure), and slight TnI elevations occur in patients with other conditions, including sepsis, renal failure, acidosis, acute neurological disease, and persistent tachyarrhythmia.BASIC METABOLIC [id number] 10:26:00 Test Item Value Reference Range Interpretation Comments SODIUM (BEAKER) 140 meq/L 136-145 (test code = 381) POTASSIUM (BEAKER) 3.7 meq/L 3.5-5.1 (test code = 379) CHLORIDE (BEAKER) 111 meq/L 98-107 H (test code = 382) CO2 (BEAKER) (test 18 meq/L 22-29 L code = 355) BLOOD UREA NITROGEN 27 mg/dL 7-21 H (BEAKER) (test code = 354) CREATININE (BEAKER) 1.15 mg/dL 0.57-1.25 (test code = 358) GLUCOSE RANDOM 180 mg/dL 70-105 H (BEAKER) (test code = 652) CALCIUM (BEAKER) 9.1 mg/dL 8.4-10.2 (test code = 697) EGFR (BEAKER) (test 46 mL/min/1.73 ESTIMA DIEGO GFR IS code = 1092) sq m NOT ACCURATE CREATININE CLEARANCE IN PREDICTING GLOMERULAR FILTRATION RATE . ESTIMATED GFR I S NOT APPLICABLE FOR DIALYSIS PATIEN TS. [id number] 10:25:00 Test Item Value Reference Range Interpretation Comments TRIGLYCERIDES (BEAKER) (test code = 139 mg/dL 540) TRIGLYCERIDE REFERENCE RANGELow Risk <150Borderline Risk 150-199High Risk 200-499Very High Risk >=[id number] 10:25:00 Test Item Value Reference Range Interpretation Comments MAGNESIUM (BEAKER) (test code = 1.9 mg/dL 1.6-2.6 627) CREATINE KINASE (CK)2018-06-07 10:25:00 Test Item Value Reference Range Interpretation Comments CREATINE KINASE TOTAL (BEAKER) (test 941 U/L 29-200 H code = 380) LACTIC ACID, ARTERIAL, WHOLE [id number] 10:22:00 Test Item Value Reference Range Interpretation Comments LACTATE BLOOD 3.8 mmol/L 0.5-2.2 H Specimen sligh tly ARTERIAL (2) (BEAKER) hemoly zed (test code = 2874) POCT-GLUCOSE [id number] 10:14:00 Test Item Value Reference Range Interpretation Comments POC-GLUCOSE METER 224 mg/dL 70-110 H TESTED AT [facility] 6720 (BEAKER) (test code = [place] 1538) [address] BLOOD GAS, [id number] 09:58:00 Test Item Value Reference Range Interpretation Comments PH ARTERIAL (BEAKER) (test code = 7.22 7.35-7.45 L 383) PCO2 ARTERIAL (BEAKER) (test code 49 mmHg 35-45 H = 384) PO2 ARTERIAL (BEAKER) (test code 47 mmHg 80-90 L = 385) O2 SATURATION ARTERIAL (BEAKER) 73.5 % 96.0-97.0 L (test code = 386) HCO3 ARTERIAL (BEAKER) (test code 20 mmol/L 21-29 L = 388) BASE EXCESS ARTERIAL (BEAKER) -7.9 mmol/L -2.0-3.0 L (test code = 387) PATIENT TEMPERATURE (BEAKER) 37.5 C (test code = 1818) FIO2 (BEAKER) (test code = 1819) 100.0 % RAD, CHEST, 1 VIEW, NON [id number] 09:38:00Reason for exam:->pulm edemaShould this be performed at the bedside?->YesFINAL REPORT TECHNIQUE: Frontal chest radiograph dated 06/07/2018. CLINICAL HISTORY: Pulm edema COMPARISON STUDY: Chest radiograph performed earlier the same day IMPRESSION:There has been interval placement of an enteric tube. The tip of the tube is not included in the image.Endotracheal tube and right-sided vascular line are unchanged. No change in diffuse bilateral airspace opacities. Questionable left pleural effusion. No pneumothorax. Cardiomediastinal silhouette is normal insize. Signed: Aries [place] Verified Date/Time: 06/07/2018 09:38:30 Reading Location: [facility] Radiology Reading Room -BLOOD GASES, [id number] 08:35:00 Test Item Value Reference Range Interpretation Comments TEMP, CELSIUS-POC 37.0 (BEAKER) (test code = 1834) FIO2-POC (BEAKER) TESTED AT [facility] 6720 (test code = 1835) DIANA Stacy [facility] [address] PH, ARTERIAL-POC 7.208 7.350-7.450 LL (BEAKER) (test code = 1836) PCO2, ARTERIAL-POC 45.0 mm Hg 35.0-45.0 (BEAKER) (test code = 1837) PO2, ARTERIAL-POC 50.0 mm Hg 80.0-90.0 L (BEAKER) (test code = 1838) SO2, ARTERIAL-POC 76.0 % 96.0-97.0 L (BEAKER) (test code = 1839) HCO3, ARTERIAL-POC 17.9 meq/L 21.0-29.0 L (BEAKER) (test code = 1840) BASE EXCESS, -10.0 meq/L -2.0-3.0 L ARTERIAL-POC (BEAKER) (test code = 1841) [id number] 08:35:00 Test Item Value Reference Range Interpretation Comments POC-SODIUM (BEAKER) 141 meq/L 135-148 TESTED [place] [address] (test code = 1542) [facility] [address] [id number] 08:35:00 Test Item Value Reference Range Interpretation Comments POC-POTASSIUM 4.3 meq/L 3.6-5.5 TESTED AT [place] [address] ([facility]) (test code [facility] [address] = 1540) [id number] 08:35:00 Test Item Value Reference Range Interpretation Comments POC-GLUCOSE ([facility]) 256 mg/dL 70-110 H TESTED AT [place] [address] (test code = 1855) [facility] [address] POCT-CALCIUM [id number] 08:35:00 Test Item Value Reference Range Interpretation Comments POC-CALCIUM IONIZED 1.21 mmol/L 1.12-1.27 TESTED [place] [address] ([facility]) (test code = [facility] Kim [facility] 1534) [address] [id number] 08:35:00 Test Item Value Reference Range Interpretation Comments POC-HEMATOCRIT 33 % 36-45 L TESTED AT [place] [address] ([facility]) (test code = [facility] Kim [facility] [address]54) [id number] 08:35:00 Test Item Value Reference Range Interpretation Comments POC-HEMOGLOBIN 11.2 g/dL 12.0-15.0 L TESTED AT [place] [address] (BEAKER) (test code [facility] = 1856) [id number] AT [facility] 6720 [facility] [address] [id number] 08:29:00 Test Item Value Reference Range Interpretation Comments D-DIMER QUANTITATIVE ([facility]) 14.73 MG/L FEU <0.50 H (test code = 671) Intended Use: The D-Dimer Assay can be used to aid in the diagnosis of Deep Vein Thrombosis (DVT) and Pulmonary Embolism Disease (PED).In patients with low pre- test probability, various studies concerning STA Liatest D-dimer test have reported that with a cutoff value of 0.50 MG/L FEU, the Negative Predictive Value (NPV) regarding the exclusion of thrombosis is within 95-100% range. LACTATE DEHYDROGENASE (LDH)2018-06-07 08:24:00 Test Item Value Reference Range Interpretation Comments LACTATE DEHYDROGENASE (BEAKER) (test 242 U/L 125-220 H code = 635) LACTIC ACID, ARTERIAL, WHOLE [id number] 08:21:00 Test Item Value Reference Range Interpretation Comments LACTATE BLOOD ARTERIAL (2) 7.9 mmol/L 0.5-2.2 H (AKER) (test code = 2874) POCT-LACTIC ACID, [id number] 08:20:00 Test Item Value Reference Range Interpretation Comments POC-LACTIC ACID, 5.5 mmol/L 0.4-1.3 H TESTED AT [facility] 6720 ARTERIAL (BEAKER) [facility] (test code = 2804) [address] POCT-BLOOD GASES, [id number] 08:20:00 Test Item Value Reference Range Interpretation Comments TEMP, CELSIUS-POC 37.0 (BEAKER) (test code = 1834) FIO2-POC (BEAKER) TESTED AT [place] [address] (test code = 1835) [facility] [address] PH, ARTERIAL-POC 7.173 7.350-7.450 LL (BEAKER) (test code = 1836) PCO2, ARTERIAL-POC 35.1 mm Hg 35.0-45.0 (BEAKER) (test code = 1837) PO2, ARTERIAL-POC 58.0 mm Hg 80.0-90.0 L (BEAKER) (test code = 1838) SO2, ARTERIAL-POC 82.0 % 96.0-97.0 L (BEAKER) (test code = 1839) HCO3, ARTERIAL-POC 12.9 meq/L 21.0-29.0 L (BEAKER) (test code = 1840) BASE EXCESS, -16.0 meq/L -2.0-3.0 L ARTERIAL-POC (BEAKER) (test code = 1841) [id number] 08:20:00 Test Item Value Reference Range Interpretation Comments POC-SODIUM (BEAKER) 142 meq/L 135-148 TESTED [place] [address] (test code = 1542) DIANA Stacy [facility] [address] [id number] 08:20:00 Test Item Value Reference Range Interpretation Comments POC-POTASSIUM 4.4 meq/L 3.6-5.5 TESTED AT [place] [address] ([facility]) (test code [facility] [address] = 1540) [id number] 08:20:00 Test Item Value Reference Range Interpretation Comments POC-GLUCOSE (AKER) 250 mg/dL 70-110 H TESTED AT [place] [address] (test code = 1855) [facility] [address] POCT-CALCIUM [id number] 08:20:00 Test Item Value Reference Range Interpretation Comments POC-CALCIUM IONIZED 0.74 mmol/L 1.12-1.27 LL TESTED [place] [address] ([facility]) (test code = [facility] 1536) [address] [id number] 08:20:00 Test Item Value Reference Range Interpretation Comments POC-HEMATOCRIT 28 % 36-45 L TESTED AT [place] [address] ([facility]) (test code = [facility] [address]) [id number] 08:20:00 Test Item Value Reference Range Interpretation Comments POC-HEMOGLOBIN 9.5 g/dL 12.0-15.0 L TESTED AT [place] [address] ([facility]) (test code = [facility] [address]) [id number] AT [place] [address] DIANA [facility] [place] [address] [id number] 08:19:00 Test Item Value Reference Range Interpretation Comments POTASSIUM (BEAKER) (test code = 4.5 meq/L 3.5-5.1 379) [id number] 08:19:00 Test Item Value Reference Range Interpretation Comments SODIUM (BEAKER) (test code = 381) 138 meq/L 136-145 [id number] 08:19:00 Test Item Value Reference Range Interpretation Comments FIBRINOGEN LEVEL (BEAKER) (test 349 mg/dl 225-434 code = 658) [id number] 08:19:00 Test Item Value Reference Range Interpretation Comments PROTIME (BEAKER) (test code = 16.2 seconds 11.7-14.7 H 759) INR (BEAKER) (test code = 370) 1.3 <=5.9 PARTIAL THROMBOPLASTIN TIME 36.7 seconds 22.5-36.0 H (BEAKER) (test code = 760) RECOMMENDED COUMADIN/WARFARIN INR THERAPY RANGESSTANDARD DOSE: 2.0 - 3.0 Includes: PROPHYLAXIS for venous thrombosis, systemic embolization; TREATMENT for venous thrombosis and/or pulmonary embolus.HIGH RISK: Target INR is 2.5-3.5 for patients with mechanical heart valves.RAD, CHEST, 1 VIEW, NON [id number] 08:17:00Reason for exam:->post intubationShould this be performed at the bedside?->YesFINAL REPORT Chest one view. Clinical history: post intubation Comparison: 06/07/2018 Discussion: A frontal chest is provided. Cardiomediastinal contours are unchanged. ETT is 2.5 cm above the jaky. Right IJ line is in stable position. There is interval development of extensive bilateral airspace opacities, correlate clinically for flash pulmonary edema, hemorrhage versus aspiration. No pneumothorax, or significant effusion. Signed: Flavio Borden Verified Date/Time: 06/07/2018 08:17:10 Reading Location: [facility] Radiology Reading Room PLATELET [id number] 08:05:00 Test Item Value Reference Range Interpretation Comments PLATELET COUNT (BEAKER) (test 179 K/CU MM 150-450 code = 756) HEMOGLOBIN AND [id number] 08:05:00 Test Item Value Reference Range Interpretation Comments HEMOGLOBIN (BEAKER) (test code = 9.4 GM/DL 11.2-15.7 L 410) HEMATOCRIT (BEAKER) (test code = 29.7 % 34.1-44.9 L 411) [id number] 07:54:00 Test Item Value Reference Range Interpretation Comments HAPTOGLOBIN (BEAKER) (test code = 142 mg/dL 14-258 366) HGB/HCT (H&H) - STAT [id number] 07:48:00 Test Item Value Reference Range Interpretation Comments HEMOGLOBIN (BEAKER) (test code = 7.7 GM/DL 12.0-15.0 L 410) HEMATOCRIT (BEAKER) (test code = 23.0 % 36.0-45.0 L 411) BLOOD GAS, [id number] 07:30:00 Test Item Value Reference Range Interpretation Comments PH ARTERIAL (BEAKER) (test code 7.33 7.35-7.45 L = 383) PCO2 ARTERIAL (BEAKER) (test 22 mmHg 35-45 L code = 384) PO2 ARTERIAL (BEAKER) (test code 270 mmHg 80-90 H = 385) O2 SATURATION ARTERIAL (BEAKER) 99.6 % 96.0-97.0 H (test code = 386) HCO3 ARTERIAL (BEAKER) (test 12 mmol/L 21-29 L code = 388) BASE EXCESS ARTERIAL (BEAKER) -13.0 mmol/L -2.0-3.0 L (test code = 387) PATIENT TEMPERATURE (BEAKER) 37.0 C (test code = 1818) FIO2 (BEAKER) (test code = 1819) 21.0 % CT, [id number] 07:18:00FINAL REPORT TECHNIQUE: CT of the abdomen and pelvis WITHOUT intravenous contrast and WITHOUT oral contrast. Dose modulation, iterative reconstruction, and/or weight-based adjustment of the mA/kV was utilized to reduce the radiation dose to as low as reasonably achievable. INDICATION: 77-year-old woman admitted with an ST elevation myocardial infarction. Patient had thrombolyticsand a radial access PCI. Acute hemoglobin dropped from 10.4-6.8. Concern for spontaneous retroperitoneal hemorrhage. COMPARISON: None. FINDINGS: ABSENCE OF INTRAVENOUS CONTRAST DECREASES SENSITIVITY FOR DETECTION OF FOCAL LESIONS AND VASCULAR PATHOLOGY. LOWER THORAX: Severe coronary arterial calcifications. HEPATOBILIARY: No focal hepatic lesions. Several radio dense gallstones layer in the gallbladder. No biliary ductal dilatation.SPLEEN: No splenomegaly.PANCREAS: No focal masses or ductal dilatation. ADRENALS: No adrenal nodules.KIDNEYS/URETERS: No hydronephrosis, stones, or solid mass lesions. Contrast in renal collecting systems. Somewhat shifted retaining contrast in the right kidney is due to the recent contrast administration for catheterization.PELVIC ORGANS/BLADDER: Unremarkable. PERITONEUM/RETROPERITONEUM: No free air or fluid. A fat filled umbilical hernia with peritoneal thickening 3.2 cm with a hernia that measures 11.3 cm in largest dimension.LYMPH NODES: No lymphadenopathy.VESSELS: Focal outpouching of the infrarenal abdominal aorta of up to 2.5 cm in diameter and 2.4 cm in length. GI TRACT: No distention or wall thickening. Diverticulosis scattered throughout the colon but worst in the sigmoid. Small, sliding hiatal hernia. BONES AND SOFT TISSUES: Skin thickening and hyperdense material scattered throughout the left lower chest near the left breast. The interspersed hyperdensity in the left medial chest measured 10.6 cm in length. Moderate degenerative changes of the visualized spine. IMPRESSION: 1.There is a moderate amount of interspersed hematoma in the subcutaneous tissues of the left lower chest. 2.Cholelithiasis. 3.Focal outpouching of the infrarenal abdominal aorta measures up to 2.5 cm in diameter. This could be due to a true aneurysm or pseudoaneurysm. Consider further evaluation with a CTA on a nonemergent basis. 4.Moderate sized to large fat filled umbilical hernia. The hematoma was discussed with Dr. Lin on 06/07/2018 at 7:07 AM. Signed: Luis Alfredo Mckay Verified Date/Time: 06/07/2018 07:18:15 Reading Location: [facility] Diagnostic Imaging Reading Room - [place] [address] POCT-GLUCOSE [id number] 07:15:00 Test Item Value Reference Range Interpretation Comments POC-GLUCOSE METER 282 mg/dL 70-110 H TESTED AT [facility] [address] (ELIE) (test code = [place] 1538) [address] T4, [id number] 07:07:00 Test Item Value Reference Range Interpretation Comments FREE T4 (BEAKER) (test code = 655) 1.19 ng/dL 0.70-1.48 [id number] 06:57:00 Test Item Value Reference Range Interpretation Comments FERRITIN (BEAKER) (test code = 361) 262 ng/mL 5-275 VITAMIN B12 AND [id number] 06:57:00 Test Item Value Reference Range Interpretation Comments VITAMIN B12 (BEAKER) (test code = 304 pg/mL 213-816 774) FOLATE (BEAKER) (test code = 362) 15.3 ng/mL >=7.0 IRON, TIBC, % SAT. (WITHOUT FERRITIN)2018-06-07 06:22:00 Test Item Value Reference Range Interpretation Comments IRON (BEAKER) (test code = 547) 23 ug/dL 40-160 L TOTAL IRON BINDING CAPACITY 185 ug/dL 250-450 L (BEAKER) (test code = 769) IRON % SATURATION (2) (BEAKER) 12 % 20-55 L (test code = 2590) LACTATE DEHYDROGENASE (LDH)2018-06-07 06:21:00 Test Item Value Reference Range Interpretation Comments LACTATE DEHYDROGENASE (BEAKER) (test 232 U/L 125-220 H code = 635) POCT-GLUCOSE [id number] 06:18:00 Test Item Value Reference Range Interpretation Comments POC-GLUCOSE METER 199 mg/dL 70-110 H TESTED AT [facility] 6720 (BEAKER) (test code = [place] 1538) [address] RETICULOCYTE [id number] 06:04:00 Test Item Value Reference Range Interpretation Comments RETICULOCYTE COUNT PCT (BEAKER) (test 1.9 % 0.5-1.7 H code = 575) HEMOGLOBIN AND [id number] 06:04:00 Test Item Value Reference Range Interpretation Comments HEMOGLOBIN (BEAKER) (test code = 6.6 GM/DL 11.2-15.7 L 410) HEMATOCRIT (BEAKER) (test code = 21.0 % 34.1-44.9 L 411) OXYGEN SATURATION, [id number] 06:01:00 Test Item Value Reference Range Interpretation Comments O2 SATURATION (MEASURED) (BEAKER) 52.8 % (test code = 1455) TSH/FREE T4 IF [id number] 05:58:00 Test Item Value Reference Range Interpretation Comments THYROID STIMULATING HORMONE 0.22 uIU/mL 0.35-4.94 L (BEAKER) (test code = 772) TROPONIN [id number] 05:48:00 Test Item Value Reference Range Interpretation Comments TROPONIN I (BEAKER) (test code = 56.33 ng/mL 0.00-0.03 HH 397) Troponin I (TnI) levels must be interpreted in the context of the presenting symptoms and the clinical findings. Elevated TnI levels indicate myocardial damage, but are not specific for ischemic heart disease. Elevated TnI levels are seen in patients with other cardiac conditions (including myocarditis and congestive heart failure), and slight TnI elevations occur in patients with other conditions, including sepsis, renal failure, acidosis, acute neurological disease, and persistent tachyarrhythmia.BASIC METABOLIC [id number] 05:27:00 Test Item Value Reference Range Interpretation Comments SODIUM (BEAKER) 135 meq/L 136-145 L (test code = 381) POTASSIUM (BEAKER) 4.3 meq/L 3.5-5.1 (test code = 379) CHLORIDE (BEAKER) 112 meq/L 98-107 H (test code = 382) CO2 (BEAKER) (test 19 meq/L 22-29 L code = 355) BLOOD UREA NITROGEN 30 mg/dL 7-21 H (BEAKER) (test code = 354) CREATININE (BEAKER) 0.99 mg/dL 0.57-1.25 (test code = 358) GLUCOSE RANDOM 172 mg/dL 70-105 H (BEAKER) (test code = 652) CALCIUM (BEAKER) 7.6 mg/dL 8.4-10.2 L (test code = 697) EGFR (BEAKER) (test 54 mL/min/1.73 ESTIMA DIEGO GFR IS code = 1092) sq m NOT ACCURATE CREATININE CLEARANCE IN PREDICTING GLOMERULAR FILTRATION RATE . ESTIMATED GFR I S NOT APPLICABLE FOR DIALYSIS PATIEN TS. CBC (HEMOGRAM ONLY)2018-06-07 05:22:00 Test Item Value Reference Range Interpretation Comments WHITE BLOOD CELL COUNT (BEAKER) 16.5 K/ L 3.5-10.5 H (test code = 775) RED BLOOD CELL COUNT (BEAKER) 2.08 M/ L 3.93-5.22 L (test code = 761) HEMOGLOBIN (BEAKER) (test code = 6.8 GM/DL 11.2-15.7 L 410) HEMATOCRIT (BEAKER) (test code = 22.0 % 34.1-44.9 L 411) MEAN CORPUSCULAR VOLUME (BEAKER) 105.8 fL 79.4-94.8 H (test code = 753) MEAN CORPUSCULAR HEMOGLOBIN 32.7 pg 25.6-32.2 H (BEAKER) (test code = 751) MEAN CORPUSCULAR HEMOGLOBIN CONC 30.9 GM/DL 32.2-35.5 L (BEAKER) (test code = 752) RED CELL DISTRIBUTION WIDTH 14.8 % 11.7-14.4 H (BEAKER) (test code = 412) PLATELET COUNT (BEAKER) (test 172 K/CU MM 150-450 code = 756) MEAN PLATELET VOLUME (BEAKER) 9.8 fL 9.4-12.3 (test code = 754) NUCLEATED RED BLOOD CELLS 0 /100 WBC 0-0 (BEAKER) (test code = 413) [id number] 05:19:00 Test Item Value Reference Range Interpretation Comments MAGNESIUM (BEAKER) (test code = 1.9 mg/dL 1.6-2.6 627) LIPID [id number] 05:19:00 Test Item Value Reference Range Interpretation Comments TRIGLYCERIDES (BEAKER) (test code = 68 mg/dL 540) CHOLESTEROL (BEAKER) (test code = 90 mg/dL 631) HDL CHOLESTEROL (BEAKER) (test code 25 mg/dL = 976) LDL CHOLESTEROL CALCULATED (BEAKER) 51 mg/dL (test code = 633) Triglyceride Reference Range: Low Risk <150 Borderline 150-199 High Risk 200- 499 Very High Risk >=500Cholesterol Reference Range: Low Risk <200 Borderline 200-239 High Risk >240HDL Cholesterol Reference Range: Low Risk >=60 High Risk <40LDL Cholesterol Reference Range: Optimal <100 Near Optimal 100-129 Borderline 130-159 High 160-189 Very High >=190RAD, CHEST, 1 VIEW, NON [id number] 05:00:00Reason for exam:->Line placementShould this be performed at the bedside?->YesFINAL REPORT History: Line placement. Comparison: None. Findings: A single viewof the chest is submitted. A right IJ CVC tip overlies the cavoatrial junction. There is no associated pneumothorax or hematoma. The cardiac silhouette is within normal limits for size. There is atherosclerotic calcification of the aorta. The lung volumes are low. There is mild central pulmonary vascular congestion. Patchy infrahilar opacities may reflect some combination of atelectasis and edema but pneumonitis should be excluded clinically. There is no acute bony abnormality. Surgical clips overlie the right axilla. Signed: Philip Perez MDReport Verified Date/Time: 06/07/2018 05:00:33 Reading Location: [address] Reading Room [id number] 04:43:00 Test Item Value Reference Range Interpretation Comments ACTIVATED CLOTTING TIME 274 sec TEST ED AT [address] (test code = IM[place] [facility]) [id number] 00:55:00 Test Item Value Reference Range Interpretation Comments ACTIVATED CLOTTING TIME 241 sec TEST ED AT [address] (test code = IMANI Alvarez [place] [address]) [id number]
[2022-07-10 10:19] LABS: Urine Blood Negative (Negative); Urine Glucose Negative (Negative); Urine Protein Negative (Negative)
[2022-07-10 10:58] LABS: Absolute Lymphocytes (CBC) 0.9 K/uL (0.7-4.9); Hematocrit 32.1 % (36.0-45.0); Lymphocytes % 12.4 % (15.3-44.8); MCV 103.4 fL (80-100); MPV 7.7 fL (7.6-11.3)
[2022-07-10 10:59] LABS: Transitional Epithelial <5 /HPF (None Seen); Urine RBC <5 /HPF (None Seen)
[2022-07-10 11:01] LABS: Protime INR 1.05
--- NOTE | 2022-07-10 11:11 | RAD REPORT ---
EXAM DESCRIPTION: RAD - Chest Single View - 07/10/2022 9:58 am CLINICAL HISTORY: MALAISE Chest pain. COMPARISON: Chest Single View dated 06/06/2018; Chest Pa And Lat (2 Views) dated 08/04/2016; Chest Sing le View dated 08/02/2016; Chest Single View dated 07/30/2016 FINDINGS: Portable technique limits examination quality. The lungs are grossly clear. The heart is normal in size. No displaced fractures. IMPRESSION: No acute intrathoracic process suspected.
[2022-07-10 11:25] LABS: Albumin 3.5 g/dL (3.4-5.0); Bilirubin Direct 0.2 mg/dL (0-0.2); Bilirubin Total 0.7 mg/dL (0.2-1.0); Magnesium 1.9 mg/dL (1.6-2.4); Potassium 4.2 mmol/L (3.5-5.1); Protein, Total 7.4 g/dL (6.4-8.2)
[2022-07-10 11:27] LABS: Troponin High Sensitivity 61.3 pg/mL (<58.9)
--- NOTE | 2022-07-10 12:03 | RAD REPORT ---
EXAM DESCRIPTION: CT - Head Brain Wo Cont - 07/10/2022 11:48 am CLINICAL HISTORY: Mental status change, persistent or worsening Headache, drowsiness COMPARISON: Head Brain Wo Cont dated 07/25/2016 TECHNIQUE: All CT scans are performed using dose optimization technique as appropriate and may inclu de automated exposure control or mA/KV adjustment according to patient size. FINDINGS: No intracranial hemorrhage, hydrocephalus or extra-axial fluid collection.Mild generalized brain atrophy is present with moderate periventricular and deep white matter chronic microvascular i schemic changes.No areas of brain edema or evidence of midline shift. The paranasal sinuses and mastoids are clear. The calvarium is intact. Vertebral atherosclerosis. IMPRESSION: No acute intracranial abnormality.
--- NOTE | 2022-07-10 16:20 | ER ---
Nurse's Notes [facility] Name: Thuy Nunes Age: 81 yrs Sex: Female : 1940 Arrival Date: 07/10/2022 Time: 08:51 Bed 6 Private MD: Diagnosis: Altered mental status, unspecified-dementia Presentation: 07/10 10:29 Chief complaint: EMS states: the patients family was going to be taking the patient for ap3 her scheduled CT today, but noticed that she was slightly more confused today than normal. the family reports that the CT is to help see if the patient might be developing dementia. Coronavirus screen: At this time, the client does not indicate any symptoms associated with coronavirus-19. Ebola Screen: No symptoms or risks identified at this time. Initial Sepsis Screen:. Risk Assessment: Do you want to hurt yourself or someone else? Patient reports no desire to harm self or others. Onset of symptoms was July 10, 2022. 10:29 Method Of Arrival: [facility]: [facility] ap3 10:29 Acuity: PARAG 3 ap3 10:31 Initial Sepsis Screen: Does the patient meet any 2 criteria? No. Patient's initial ap3 sepsis screen is negative. Does the patient have a suspected source of infection? Yes: Dysuria/Frequency/Urgency/UTI. Historical: - Allergies: 10:30 No Known Allergies; ap3 - PMHx: 10:30 Arthritis; Cancer, Breast; Gout; Hypertension; Hypothyroidism; Sjogren's Syndrome; ap3 temporitis; - Immunization history:: Client reports receiving the 2nd dose of the Covid vaccine. - Social history:: Smoking status: Patient denies any tobacco usage or history of. Screenin:32 Abuse screen: Denies threats or abuse. Nutritional screening: No deficits noted. ap3 Tuberculosis screening: No symptoms or risk factors identified. Fall Risk Fall in past 12 months (25 points). Secondary diagnosis (15 points) impaired mobility, IV access (20 points). Ambulatory Aid- None/Bed Rest/Nurse Assist (0 pts). Gait- Weak (10 pts.). Mental Status- Oriented to own ability (0 pts). Total Pitt Fall Scale indicates High Risk Score (45 or more points). Fall prevention measures have been instituted. Side Rails Up X 2 Placed Close to Nursing Station Frequent Obs/Assessments Occuring Family Present and informed to notify staff if the need to leave the bedside As available patient and family educated on Fall Prevention Program and Strategies. Assessment: 13:47 General: Appears in no apparent distress. Behavior is calm, cooperative, appropriate ph for age. 13:48 Pain: Denies pain. Neuro: Level of Consciousness is awake, alert, obeys commands, ph Oriented to person, place. Cardiovascular: Capillary refill < 3 seconds in bilateral fingers Patient's skin is warm and dry. Respiratory: Airway is patent Respiratory effort is even, unlabored. Derm: Skin is pink, warm \T\ dry. 16:00 Reassessment: Patient appears in no apparent distress at this time. Patient and/or ph family updated on plan of care and expected duration. Pain level reassessed. Patient is alert, oriented x 3, equal unlabored respirations, skin warm/dry/pink. Awaiting results of repeat troponin. Vital Signs: 10:31 BP 134 / 64; Pulse 79; Temp 99.3; Pulse Ox 96% on R/A; ap3 12:52 BP 122 / 56; Pulse 76; Resp 18; Pulse Ox 100% on R/A; ld1 13:46 BP 116 / 55; Pulse 78; Resp 18; Pulse Ox 100% on R/A; ph 15:14 BP 124 / 63; Pulse 74; Resp 18; Pulse Ox 100% on R/A; ld1 16:00 BP 129 / 87; Pulse 75; Resp 18; Pulse Ox 99% on R/A; ph ED Course: 08:51 Patient arrived in ED. snw 08:53 Sharron Kramer FNP-C is PHCP. snw 08:53 Emilio Perez MD is Attending Physician. snw 09:45 Claudette Leahy, VALERIE is Primary Nurse. ph 09:59 XRAY Chest (1 view) In Process Unspecified. EDMS 10:07 Inserted saline lock: 20 gauge in left forearm, using aseptic technique. ph 10:19 Urine Microscopic Only Sent. mm9 10:19 Urine Culture Sent. mm9 10:19 Patient has correct armband on for positive identification. Placed in gown. Bed in low mm9 position. Call light in reach. Side rails up X2. Warm blanket given. quality assurance monitor chassis on. Pulse ox on. NIBP on. 10:30 Triage completed. ap3 10:32 Arm band placed on right wrist. ap3 11:49 CT Head Brain wo Cont In Process Unspecified. EDMS 16:01 No provider procedures requiring assistance completed. ph 16:18 Renaldo Montero MD is Referral Physician. snw 17:33 IV discontinued, intact, bleeding controlled, No redness/swelling at site. Pressure iw dressing applied. Administered Medications: No medications were administered Medication: 13:46 VIS not applicable for this client. ph Outcome: 16:19 Discharge ordered by . snw 17:33 Discharged to home via wheelchair, with family. iw 17:33 Condition: good 17:33 Discharge instructions given to patient, family, Instructed on discharge instructions, follow up and referral plans. Demonstrated understanding of instructions, follow-up care. 17:33 Patient left the ED. iw Signatures: Dispatcher [employer] EDMS Sharron Kramer, CELLARS SUPERVISOR-C CELLARS SUPERVISOR-Csnw Bre Garibay RN RN Claudette Leahy RN RN Rubina Mckoy RN RN ap3 Lucy Adler RN RN ld1 Ysabel Angel mm9 Corrections: (The following items were deleted from the chart) 13:48 13:47 General: Appears in no apparent distress. Behavior is calm, cooperative, ph appropriate for age, ph
--- NOTE | 2022-07-10 16:20 | EDPHYS ---
Physician Documentation [facility] Name: Thuy Nunes Age: 81 yrs Sex: Female : 1940 Arrival Date: 07/10/2022 Time: 08:51 Bed 6 Private MD: ED Physician Emilio Perez HPI: 07/10 10:11 This 81 yrs old Female presents to ER via Unassigned with complaints of AMS. snw 10:11 The patient presents with confusion, trouble concentrating, began with some focal snw shakiness to arm/hand today. Onset: The symptoms/episode began/occurred acutely. Possible causes: would like to check for infection. Associated signs and symptoms: Pertinent positives: weakness. Patient's baseline: Neuro: alert but confused, Motor: no deficits, Speech: normal. The patient has experienced similar episodes in the past. The patient has been recently seen by a physician: the patient's primary care provider, Dr. Knox. Historical: - Allergies: 10:30 No Known Allergies; ap3 - PMHx: 10:30 Arthritis; Cancer, Breast; Gout; Hypertension; Hypothyroidism; Sjogren's Syndrome; ap3 temporitis; - Immunization history:: Client reports receiving the 2nd dose of the Covid vaccine. - Social history:: Smoking status: Patient denies any tobacco usage or history of. ROS: 10:10 Constitutional: Negative for fever, chills, and weight loss, Eyes: Negative for injury, snw pain, redness, and discharge, ENT: Negative for injury, pain, and discharge, Neck: Negative for injury, pain, and swelling, Cardiovascular: Negative for chest pain, palpitations, and edema, Respiratory: Negative for shortness of breath, cough, wheezing, and pleuritic chest pain, Abdomen/GI: Negative for abdominal pain, nausea, vomiting, diarrhea, and constipation, Back: Negative for injury and pain, : Negative for injury, bleeding, discharge, and swelling, MS/Extremity: Negative for injury and deformity, Skin: Negative for injury, rash, and discoloration. 10:10 Neuro: Positive for altered mental status, began with some focal shakiness today to hands. Exam: 10:09 Constitutional: This is a well developed, well nourished patient who is awake, alert, snw and in no acute distress. Head/Face: Normocephalic, atraumatic. Eyes: Pupils equal round and reactive to light, extra-ocular motions intact. Lids and lashes normal. Conjunctiva and sclera are non-icteric and not injected. Cornea within normal limits. Periorbital areas with no swelling, redness, or edema. ENT: Nares patent. No nasal discharge, no septal abnormalities noted. Tympanic membranes are normal and external auditory canals are clear. Oropharynx with no redness, swelling, or masses, exudates, or evidence of obstruction, uvula midline. Mucous membranes moist. Neck: Trachea midline, no thyromegaly or masses palpated, and no cervical lymphadenopathy. Supple, full range of motion without nuchal rigidity, or vertebral point tenderness. No Meningismus. Chest/axilla: Normal chest wall appearance and motion. Nontender with no deformity. No lesions are appreciated. Cardiovascular: Regular rate and rhythm with a normal S1 and S2. No gallops, murmurs, or rubs. Normal PMI, no JVD. No pulse deficits. Respiratory: Lungs have equal breath sounds bilaterally, clear to auscultation and percussion. No rales, rhonchi or wheezes noted. No increased work of breathing, no retractions or nasal flaring. Abdomen/GI: Soft, non-tender, with normal bowel sounds. No distension or tympany. No guarding or rebound. No evidence of tenderness throughout. Back: No spinal tenderness. No costovertebral tenderness. Full range of motion. Skin: Warm, dry with normal turgor. Normal color with no rashes, no lesions, and no evidence of cellulitis. MS/ Extremity: Pulses equal, no cyanosis. Neurovascular intact. Full, normal range of motion. 10:09 Neuro: Orientation: is normal, Mentation: able to follow commands, Memory: immediate memory is impaired, remote memory is impaired, Motor: is normal, Sensation: is normal. Vital Signs: 10:31 BP 134 / 64; Pulse 79; Temp 99.3; Pulse Ox 96% on R/A; ap3 12:52 BP 122 / 56; Pulse 76; Resp 18; Pulse Ox 100% on R/A; ld1 13:46 BP 116 / 55; Pulse 78; Resp 18; Pulse Ox 100% on R/A; ph 15:14 BP 124 / 63; Pulse 74; Resp 18; Pulse Ox 100% on R/A; ld1 16:00 BP 129 / 87; Pulse 75; Resp 18; Pulse Ox 99% on R/A; ph MDM: 08:53 Patient medically screened. snw 13:29 Data reviewed: vital signs, nurses notes. Data interpreted: Pulse oximetry: on room air snw is 100 %. Interpretation: normal. Counseling: I had a detailed discussion with the patient and/or guardian regarding: the historical points, exam findings, and any diagnostic results supporting the discharge/admit diagnosis, lab results, radiology results, the need for outpatient follow up, to return to the emergency department if symptoms worsen or persist or if there are any questions or concerns that arise at home. 15:38 Awaiting: repeat Trop, continues to be pending, difficulty with lab collection. snw 07/10 08:53 Order name: Basic Metabolic Panel; Complete Time: 11:37 snw 07/10 08:53 Order name: CBC with Diff; Complete Time: 11:05 snw 07/10 08:53 Order name: LFT's; Complete Time: 11:37 snw 07/10 08:53 Order name: Magnesium; Complete Time: 11:37 snw 07/10 08:53 Order name: NT PRO-BNP; Complete Time: 11:37 snw 07/10 08:53 Order name: PT-INR; Complete Time: 11:05 snw 07/10 08:53 Order name: CT Head Brain wo Cont; Complete Time: 12:04 snw 07/10 08:53 Order name: Troponin HS; Complete Time: 11:37 snw 07/10 08:53 Order name: XRAY Chest (1 view); Complete Time: 11:12 snw 07/10 08:53 Order name: EKG; Complete Time: 08:54 snw 07/10 08:53 Order name: Urine Culture snw 07/10 08:53 Order name: Urine Microscopic Only; Complete Time: 11:00 snw 07/10 10:19 Order name: Urine Dipstick-Ancillary; Complete Time: 10:28 EDMS 07/10 12:29 Order name: Troponin High Sensitivity; Complete Time: 16:13 snw 07/10 08:53 Order name: Cardiac monitoring; Complete Time: 09:44 snw 07/10 08:53 Order name: EKG - Nurse/Tech; Complete Time: 09:44 snw 07/10 08:53 Order name: IV Saline Lock; Complete Time: 10:07 snw 07/10 08:53 Order name: Labs collected and sent; Complete Time: 10:55 snw 07/10 08:53 Order name: O2 Per Protocol; Complete Time: 09:44 snw 07/10 08:53 Order name: O2 Sat Monitoring; Complete Time: 09:44 snw 07/10 08:53 Order name: Urine Dipstick-Ancillary (obtain specimen); Complete Time: 10:19 snw 07/10 08:53 Order name: Cath; Complete Time: 10:42 snw 07/10 12:29 Order name: EKG; Complete Time: 12:29 snw 07/10 12:29 Order name: EKG - Nurse/Tech; Complete Time: 13:25 snw EC:50 Rate is 78 beats/min. Rhythm is regular. LA interval is normal. QRS interval is normal. snw QT interval is normal. Clinical impression: NSR w/ Non-specific ST/T Changes. 13:23 Rate is 68 beats/min. Rhythm is regular. QRS [place] is Normal. LA interval is normal. QRS snw interval is prolonged. QT interval is normal. Clinical impression: NSR w/ Non-specific ST/T Changes. Administered Medications: No medications were administered Disposition: 19:19 Co-signature as Attending Physician, Emilio Perez MD I agree with the assessment and rt plan of care. Disposition Summary: 07/10/22 16:19 Discharge Ordered Location: Home snw Condition: Stable snw Diagnosis - Altered mental status, unspecified - dementia snw Followup: snw - With: Emergency Department - When: As needed - Reason: Worsening of condition Followup: snw - With: Private Physician - When: As needed - Reason: If symptoms return, Continuance of care Followup: snw - With: Renaldo Montero MD - When: 1 week - Reason: Recheck today's complaints, Continuance of care Discharge Instructions: - Discharge Summary Sheet snw - Confusion snw - Mild Neurocognitive Disorder snw Forms: - Medication Reconciliation Form snw - Thank You Letter snw - Antibiotic Education snw - Prescription Opioid Use snw Signatures: Dispatcher [employer] EDSharron Crespo FNP-C FNP-Csnw Rubina Mckoy, RN RN ap3 Emilio Perez MD MD rt
[2022-07-11 12:20] VITALS: BP 129/87; O2SAT 99
--- NOTE | 2022-07-13 15:06 | EKG ---
Test Date: 2022-07-10 Test Time: 13:23:15 Motion Study Analyst: ZEUS MEASUREMENT RESULTS: Intervals: Rate: 68 OK: 202 QRSD: 108 QT: 388 QTc: 412 [place]: P: 22 OK: 202 QRS: -45 T: 20 INTERPRETIVE STATEMENTS: Normal sinus rhythm Left anterior fascicular block Cannot rule out Anterior infarct, age undetermined Abnormal ECG Compared to ECG 06/06/2018 22:15:28 Left anterior fascicular block now present Myocardial infarct finding still present Electronically Signed On 07-13-22 14:58:50 CRIMINAL INTELLIGENCE ANALYST by Freddy Sheth
--- NOTE | 2022-07-13 15:07 | EKG ---
Test Date: 2022-07-10 Test Time: 09:49:15 Lead Applications Developer: YESSI MEASUREMENT RESULTS: Intervals: Rate: 78 RI: 184 QRSD: 106 QT: 372 QTc: 424 [place]: P: 18 RI: 184 QRS: -44 T: 31 INTERPRETIVE STATEMENTS: Normal sinus rhythm Left axis deviation Abnormal ECG Compared to ECG 06/06/2018 22:15:28 Left-axis deviation now present Myocardial infarct finding no longer present Electronically Signed On 07-13-22 14:59:09 REHABILITATION ASSISTANT by Freddy Sheth
== END 2022-07-10 17:33 | disposition home or self-care (01) ==
LOC: ER 08:47
DX: R41.82 Altered mental status, unspecified (principal); F03.90 Unspecified dementia, unspecified severity, without behavioral disturbance, psychotic disturbance, mood disturbance, and anxiety; I10 Essential (primary) hypertension
CPT/HCPCS: 36415; 70450; 71045; 80048; 80076; 81003; 81015; 83735; 83880; 84484; 85025; 85610; 87086; 87088; 93005; 99284

== ENCOUNTER 2022-12-22 10:07 | Emergency (ER) | payer OTHER ==
--- OUTSIDE RECORDS SUMMARY | 2022-12-22 10:19 | XMS REPORT | Continuity of Care Document ---
:[address] [facility] t Address [address] [place] [address] [address] [place] [address] Care Team Providers Name Role Phone Carlos Alberto Brooks MD Primary Care Physician [phone] Carlos Alberto Brooks Attending Clinician Unavailable Raman Shaikh Attending Clinician MACEY BLACKMON Attending Clinician Unavailable MACEY BLACKMON [...] dysphagia 1-13 [facility] 00:00: Medical 00 [place] Atelectasi Atelectasi Disease Active 2017-[address] [facility] 1[facility]13 [facility] 00 [place] Acute Acute Disease Active 2017-[address] [facility] encephalop encephalop 1-13 Katherin kes athy athy 00:00: Medical 00 [place] 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 [facility] t deconditio deconditio 1-13 Katherin kes maya maya 00:00: Medical 00 [place] Hemorrhagi Hemorrhagi Disease Active 2017-[address] [facility] shock c shock 08-07 [facility] Acute Acute Disease Active 2017-[address] [facility] hypoxemic hypoxemic 08-07 [facility] respirator respirator 00:00: Me dical y failure y failure 00 Cent er Cardiogeni Cardiogeni Disease Active 2017-[address] c shock c shock 08-07 [facility] [address] Disease Recurre 2017-[address] elevation elevation nce 08-07 [facility] myocardial myocardial 00:00: Me dical infarction infarction 00 Ce nter (STEMI) of (STEMI) of inferior inferior wall wall [employer] Diagnosis Active 2017-082018-06-12 Memoria LFLT LFLT 08-06 17:40:00 l [id number] 00:00: Herm flavio Active 00 06/06/2018 [facility] [id number] Pain, Problem Commo n [id number] joint, Spirit shoulder, - [facility] right [facility] Amnesia Amnesia Problem Active 2022-11-15 Ne moria (finding) (finding) 11:51:25 l Active Justice Problem 11/15/2022 [facility] Incontinen Incontine Problem Active 2022-11-15 Memoria ce nce 11:51:25 l (finding) (finding) Herm flavio Active Problem 11/15/2022 [facility] Infectious Infectiou [facility] disease 11:51:25 l lung of lung Justice (disorder) (disorder) Active Problem 11/15/20222015 [facility] 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 Justice (disorder) (disorder) Active Problem 11/15/20221998 [facility] 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 l 11:51:25 l (disorder) infarction He rmann (disorder) Active Problem 11/15/20222017 [facility] Shoulder Shoulder Problem Active 2022-11-15 Memoria pain pain 11:51:25 l (finding) (finding) Herm flavio Active Problem 11/15/2022 [facility] 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 11:51:25 l (disorder) (disorder) He rmann Active Problem 11/15/20221999 [facility] 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 arteritis arteritis 11:51:25 l (disorder) (disorder) He rmann Active Problem 11/15/20222004 [facility] Urinary Urinary Problem Active 2022-11-15 Me moria tract tract 11:51:25 l infectious infectious He banner disease disease (disorder) (disorder) Active Problem 11/15/20222015 [facility] Tremor Tremor Problem Active 2022-11-15 Aditya jesse (finding) (finding) 11:51:25 l Active Justice Problem 11/15/2022 [facility] Allergies, Adverse Reactions, Alerts Allergy Allergy Status Severity Reaction(s) Onset Inactive Treating Comm ents Source Name Type Date Date Clinician sulfa sulfa Active [facility] drugs drugs [facility] lisinopr lisinopr Active Memori a il<sup>1 il<sup>1 l </sup> </sup> Justice NO KNOWN Allergy Active [facility] Social History Social Habit Start Date Stop Date Quantity Comments Source History of Tobacco Common [facility] - Use [facility] History SDOH [facility] Alcohol Comment Medical C enter History SDOH [facility] Alcohol Std Drinks [facility]ica [facility] Center History SDOH [facility] Alcohol Binge Medical Daryn ter Alcohol intake 2018-10-27 2018-10-[address] [facility] 00:[facility]:00 00:00:00 non-drinker of Medical Ce nter alcohol (finding) Tobacco use and 2018-06-07 2018-06-[address] Katherin kes exposure 00:00:00 00:00:00 [facility] History SDOH 2018-06-07 2018-06-[address] [facility] Alcohol Frequency 00:00:00 00:00:00 [facility] Sex Assigned At [address] Katherin kes 00:00:00 00:00:00 [facility] Smoking Status Start Date Stop Date Source Tobacco smoking status [facility] Medications Ordered Filled Start Stop Current Ordering Indication Dosage Frequency Signature Comments Components Source Medication Medication Date Date Medication? Clinician (SIG) Name Name atoryanicktati Yes TAKE 1 Aditya jesse n 40 mg 3-03 TABLET BY l oral tablet 20:33: MOUTH ONCE Dev 00 DAILY AT BEDTIME Metoprolol Yes TAKE 1 Memor ia Succinate 3-03 TABLET BY l ER 25 mg 20:33: MOUTH ONCE Her miller oral 00 DAILY tablet, extended release clopidogrel Yes TAKE 1 Aditya jesse 75 mg oral 3-03 TABLET BY l tablet 20:33: MOUTH ONCE Stephanie nn 00 DAILY losartan 25 Yes TAKE 1 Aditya jesse mg oral 3-03 TABLET BY l tablet 20:33: MOUTH ONCE Stephanie nn 00 DAILY latanoprost Yes INSTILL 1 M emoria ophthalmic 3-03 DROP INTO l 0.005% 20:33: EACH EYE Justice solution 00 AT BEDTIME allopurinol Yes 100 mg = 1 Memoria 100 mg oral 3-03 tab, PO, l tablet 20:33: BID, # 60 Julio n 00 tab, 0 Refill(s) Solifenacin Solifenacin 2021-08- No 1{table QD Solifenaci Succinate 5 Succinate 5 0-26 05-24 t} n MG MG 00:00: 00:00 Succinate 00 :00 5 MG Solifenacin Solifenacin 2021-08- No 1{table QD Solifenaci Succinate 5 Succinate 5 0-26 05-24 t} n MG MG 00:00: 00:00 Succinate 00 :00 5 MG Lidocaine Lidocaine 2021-0 No 10mg Com 04-09 Spirit 00:00: - [facility] Kenalog Kenalog 0 No 40mg Common (Triamcinol (Triamcinol 04-09 S pirit one) one) 00:00: - [facility] Lidocaine Lidocaine 2021-0 No 10mg Com 04-09 Spirit 00:00: - [facility] Kenalog Kenalog 2021-0 No 40mg Common (Triamcinol (Triamcinol 04-09 S pirit one) one) 00:00: - [facility] Lidocaine Lidocaine 2021-0 No 10mg Com 04-09 Spirit 00:00: - [facility] 00 [facility] Kenalog Kenalog 0 No 40mg Common (Triamcinol (Triamcinol 9-08 S pirit one) one) 00:00: - [facility] Lidocaine Lidocaine 2021-0 No 10mg Com 04-09 Spirit 00:00: - [facility] Kenalog Kenalog 0 No 40mg Common (Triamcinol (Triamcinol 9-08 S pirit one) one) 00:00: - [facility] Lidocaine Lidocaine 2021-0 No 10mg Com 04-09 Spirit 00:00: - [facility] Kenalog Kenalog 0 No 40mg Common (Triamcinol (Triamcinol 9-08 S pirit one) one) 00:00: - [facility] Solifenacin Solifenacin 2021- No 1{table QD Solifenaci Succinate Succinate 5-20 18 t} n 10 MG 10 MG 00:00: 00:00 Succinate 00 :00 10 MG allopurinol Yes 100mg QD Take [address] (ZYLOPRIM) 3-28 mg by [facility] 100 MG 09:51: mouth Medical tablet 18 daily. Center levothyroxi Yes 125ug Take [address] ne 3-28 mcg by [facility] (SYNTHROID, 09:51: mouth Medic al LEVOTHROID) 18 [...] mg tablet 09:51: daily. Medica l 18 [place] naproxen Yes Take by [facility] sodium 3-28 mouth as [facility] (ALEVE 09:51: needed. Medical ORAL) 18 Center allopurinol Yes 100mg QD Take [address] (ZYLOPRIM) 3-28 mg by [facility] 100 MG 09:51: mouth Medical tablet 18 daily. [place] levothyroxi Yes 125ug Take [address] [...] mg tablet 09:51: daily. Medica l 18 [place] naproxen Yes Take by [facility] sodium 3-28 mouth as [facility] (ALEVE 09:51: needed. Medical ORAL) 18 Center latanoprost Yes INT [address] (XALATAN) 9-10 IN both [facility] 0.005 % 00:00: eyes Q Medica l ophthalmic 00 [place] solution latanoprost Yes INT [address] (XALATAN) 9-10 IN both [facility] 0.005 % 00:00: eyes [facility] Medica l ophthalmic 00 [place] solution Travatan Z Yes See Memoria 0.004% 09-10 Instructio l ophthalmic 16:15: ns, # 9 Herm flavio solution 00 unknown unit, INSTILL ONE DROP INTO AFFECTED EYE(S) EVERY NIGHT AT BEDTIME, Pharmacy: [facility] 482 betaxolol Yes 1 drp, Memori a ophthalmic 04-09 BOTH EYES, l 0.5% 21:43: BID, # 5 Justice solution 00 mL, 0 Refill(s), Pharmacy: [facility] 482 erythromyci Yes See Memori a n 04-09 Instructio l ophthalmic 19:08: ns, 1 appl H ermann 00 QID, 0 Refill(s) methotrexat Yes PO, 0 Memor ia e 2.5 mg 04-09 Refill(s) l oral tablet 19:08: Julio n 00 folic acid Yes 1 mg = 1 Mem oria 1 mg oral 08 tab, PO, l tablet 19:08: Daily, # Dev 00 30 tab, 0 Refill(s) predniSONE Yes See Memoria 10 mg oral 7-23 Instructio l tablet 22:21: ns, 3 tab Julio n 00 PO Daily, # 60 caplet, 0 Refill(s), other levothyroxi 2014-08 Yes 75 Memori a ne 75 mcg 0-23 microgram l (0.075 mg) 14:13: = 1 tab, Her miller oral tablet 00 PO, Daily amLODIPine 2014-08 Yes 2.5 mg = 1 M emoria 2.5 mg oral 0-23 tab, PO, l tablet 14:13: Daily Dev 00 Cymbalta 30 2014-08 Yes 30 mg = 1 M emoria mg oral 0-23 cap, PO l delayed 14:13: Justice release 00 capsule Allopurinol Allopurinol No 1{table QD Allopurino 100 [...] % into_af t 0.005 % fected_ eye_in_ the_suzanne sharpg} Aspirin 81 Aspirin 81 No 1{table QD [...] % into_af t 0.005 % fected_ eye_in_ the_suzanne trejo} Iron Iron No 1{table QD Iron (Ferrous [...] Comments Source height 2022-05-27 14:00:00 63 [in_i] [facility] weight 2022-05-27 14:00:00 220 [lb_av] [facility] temperature 2022-05-27 14:00:00 98.3 [degF] [facility] bmi 2022-05-27 14:00:00 38.97 kg/m2 [facility] oximetry 2022-05-27 14:00:00 96 % [facility] respiratory rate 2022-05-27 14:00:00 16 /min Comm on [facility] blood pressure 2022-05-27 14:00:00 119 mm[Hg] [facility] Spirit - systolic [facility] blood pressure 2022-05-27 14:00:00 59 mm[Hg] Common Spirit - diastolic [facility] height 2022-04-09 08:00:00 63 [in_i] Common [facility] weight 2022-04-09 08:00:00 210 [lb_av] Common [facility] temperature 2022-04-09 08:00:00 98.0 [degF] Common S pirit - [facility] bmi 2022-04-09 08:00:00 37.2 kg/m2 Common S pirit - [facility] blood pressure 2022-04-09 08:00:00 126 mm[Hg] Common [facility] - systolic [facility] blood pressure 2022-04-09 08:00:00 78 mm[Hg] Common [facility] - diastolic [facility] height 2022-02-25 11:30:00 63 [in_i] Common [facility] weight 2022-02-25 11:30:00 205 [lb_av] Common [facility] temperature 2022-02-25 11:30:00 97.6 [degF] Common [facility] bmi 2022-02-25 11:30:00 36.31 kg/m2 [facility] oximetry 2022-02-25 11:30:00 99 % [facility] respiratory rate 2022-02-25 11:30:00 99 /min Comm on Spirit - [facility] blood pressure 2022-02-25 11:30:00 132 mm[Hg] Common [facility] - systolic [facility] blood pressure 2022-02-25 11:30:00 68 mm[Hg] Common [facility] - diastolic [facility] Systolic (mm Hg) 2022-11-12 19:52:00 Aditya rial Dev Diastolic (mm Hg) 2022-11-12 19:52:00 Mem orial Justice Heart Rate 2022-11-12 19:52:00 Memorial Dev Systolic (mm Hg) 2022-10-02 20:14:00 Aditya rial Dev Diastolic (mm Hg) 2022-10-02 20:14:00 Mem orial Dev Heart Rate 2022-10-02 20:14:00 [facility] Height 2022-10-02 20:14:00 5 [ft_i] [facility] Weight 2022-10-02 20:14:00 Memorial Dev BMI Calculated 2022-10-02 20:14:00 Memori al Justice Procedures Procedure Date / Time Performed Performing Clinician Sourc e Stent Memorial Dev placement<sup>1</sup> Procedure [facility] Justice Cataract extraction and [facility] Justice insertion of intraocular lens Total knee replacement [facility] Dev Breast lumpectomy Memorial Stephanie nn Appendectomy [facility] Dev Encounters Start End Encounter Admission Attending Care Care Encounter Source Date/Time Date/Time Type Type Clinicians Facility Department ID 2022-04-09 Outpatient Carlos Alberto Brooks [facility] [id number] - Common 08:01:00 [id number] [facility] 2022-03-31 Outpatient Carlos Alberto Brooks [facility] [id number] - Common 13:34:02 [id number] [facility] 2022-02-25 Outpatient Carlos Alberto Brooks [facility] [id number] - Common 11:30:02 [id number] [facility] 2023-03-11 2023-03-11 Outpatient MHIE MHIE [id number] Memoria 14:00:00 14:00:00 03 maia Justice 2023-03-11 2023-03-11 Outpatient MHIE MHIE [id number] Memoria 14:00:00 14:00:00 03 maia Méndez 2022-11-12 2022-11-13 Outpatient MHIE MNA [id number] Memoria 19:45:00 04:59:59 Neurology 02 maia [facility] Dev 2022-11-12 2022-11-13 Outpatient MHIE MNA [id number] Memoria 19:45:00 04:59:59 Neurology 02 maia [facility] Dev 2022-11-12 2022-11-12 Outpatient JONATHAN ShaikhMISCHDELLA [id number] 14:45:00 23:59:59 Raman Sandoval 2022-11-12 2022-11-12 Outpatient MHIE MHIE [id number] Memoria 14:45:00 14:45:00 02 maia Méndez 2022-10-20 2022-10-21 Outpatient MHIE MNA [id number] Memoria 18:00:00 04:59:59 Neurology 01 maia Méndez 2022-10-20 2022-10-21 Outpatient MHIE MNA [id number] Memoria 18:00:00 04:59:59 Neurology 01 maia Méndez 2022-10-20 2022-10-20 Outpatient ELISE ShaikhMISCHER MISCHER [id number] 13:00:00 23:59:59 Raman 01 Jaime 2022-10-20 2022-10-20 Outpatient MHIE MHIE [id number] Memoria 13:00:00 13:00:00 01 maia Méndez 2022-10-02 2022-10-03 Outpatient MHIE MNA [id number] Memoria 20:15:00 05:59:59 Neurology 00 l Sara Méndez 2022-10-02 2022-10-03 Outpatient MHIE MNA [id number] Memoria 20:15:00 05:59:59 Neurology 00 maia Méndez 2022-10-02 2022-10-02 [id number] 14:15:00 23:59:59 Raman 00 Jaime 2022-10-02 2022-10-02 Outpatient MHIE MHIE [id number] Memoria 14:15:00 14:15:00 00 maia Méndez 2022-06-02 2022-06-02 (TEL) STLMLC STLMLC [id number] Co mmon 00:00:00 00:00:00 Spirit - [facility] 2022-05-27 2022-05-27 OFFICE STLMLC STLMLC [id number] Co mmon 00:00:00 00:00:00 VISIT Spirit ESTAB PT - CHI LEVEL 2 [facility] 2022-04-14 2022-04-14 (TEL) STLMLC STLMLC [id number] Co mmon 00:00:00 00:00:00 Spirit - [facility] 2022-04-13 2022-04-13 (TEL) STLMLC STLMLC [id number] Co mmon 00:00:00 00:00:00 Spirit - [facility] 2022-04-09 2022-04-09 OFFICE [facility] [id number] Co mmon 00:00:00 00:00:00 VISIT NEW Spir it PT LEVEL 3 - [facility] 2022-02-25 2022-02-25 [facility]ICE [facility] [id number] Co mmon 00:00:00 00:00:00 VISIT Spirit ESTAB PT - CHI LEVEL 4 [facility] 2020-05-29 2020-05-29 Outpatient L[facility]RI [facility] [id number] [address] [place] [address] 00:00:00 00:00:00 MACEY [address] 2017-01-12 2017-01-12 Outpatient MHIE MHIE [id number] Memoria 14:00:00 14:00:00 12 maia Méndez 2017-01-12 2017-01-12 Outpatient MHIE MHIE [id number] Memoria 14:00:00 14:00:00 12 maia Méndez 2016-11-10 2016-11-10 Outpatient NAOMY FERRARI [facility] [id number] [place] 00:00:00 00:00:[address] 2016-09-29 2016-09-29 Outpatient NAOMY FERRARI [facility] [id number] [place] 00:00:00 00:00:[address] 2016-09-08 2016-09-08 Outpatient MHIE MHIE [id number] Memoria 14:45:00 14:45:00 11 maia Méndez 2016-09-08 2016-09-08 Outpatient MHIE MHIE [id number] Memoria 14:45:00 14:45:00 11 maia Méndez 2016-08-06 2016-08-06 Outpatient MHIE MHIE [id number] Memoria 13:45:00 13:45:00 10 maia Méndez 2016-08-06 2016-08-06 Outpatient MHIE MHIE [id number] Memoria 13:45:00 13:45:00 10 maia Méndez 2016-04-30 2016-04-30 Outpatient MHIE MHIE [id number] Memoria 14:00:00 14:00:00 09 maia Méndez 2016-04-30 2016-04-30 Outpatient MHIE MHIE [id number] Memoria 14:00:00 14:00:00 09 maia Méndez 2016-04-09 2016-04-09 Outpatient MHIE MHIE [id number] Memoria 14:00:00 14:00:00 08 maia Méndez 2016-04-09 2016-04-09 Outpatient MHIE MHIE [id number] Memoria 14:00:00 14:00:00 08 maia Méndez 2016-03-23 2016-03-23 Outpatient NAOMY FERRARI [facility] [id number] [place] 00:00:00 00:00:00 627 Zak palomo 2016-02-20 2016-02-20 Outpatient MHIE MHIE [id number] Memoria 15:45:00 15:45:00 07 maia Méndez 2016-02-20 2016-02-20 Outpatient MHIE MHIE [id number] Memoria 15:45:00 15:45:00 07 maia Méndez 2016-01-21 2016-01-21 Outpatient MHIE MHIE [id number] Memoria 11:00:00 11:00:00 06 maia Méndez 2016-01-21 2016-01-21 Outpatient MHIE MHIE [id number] Memoria 11:00:00 11:00:00 06 maia Méndez 2016-01-07 2016-01-07 Outpatient MHIE MHIE [id number] Memoria 14:15:00 14:15:00 05 maia Méndez 2016-01-07 2016-01-07 Outpatient MHIE MHIE [id number] Memoria 14:15:00 14:15:00 05 maia Méndez 2015-11-05 2015-11-05 Outpatient MHIE MHIE [id number] Memoria 14:15:00 14:15:00 04 maia Méndez 2015-11-05 2015-11-05 Outpatient MHIE MHIE [id number] Memoria 14:15:00 14:15:00 04 maia Méndez 2015 2015 Outpatient MHIE MHIE [id number] Memoria 10:00:00 10:00:00 02 maia Méndez 2015 2015 Outpatient MHIE MHIE [id number] Memoria 10:00:00 10:00:00 02 maia Méndez 2015-08-16 2015-08-16 Outpatient MHIE MHIE [id number] Memoria 13:15:00 13:15:00 03 maia Méndez 2015-08-16 2015-08-16 [id number] Memoria 13:15:00 13:15:00 03 maia Méndez 2015-07-01 2015-07-01 [facility] [id number] Memoria 09:45:00 09:45:00 01 maia Méndez 2015-07-01 2015-07-01 Outpatient DEVI DEVI [id number] Memoria 09:45:00 09:45:00 01 maia Méndez 2015-05-24 2015-05-24 [facility] [id number] Memoria 09:00:00 09:00:00 00 maia Méndez 2015-05-24 2015-05-24 [facility] [id number] Memoria 09:00:00 09:00:00 00 maia Méndez [...] NOT 1092) ACCURATE CRE ATININE CLEARANCE IN NM EDICTING GLOMERULAR FILT RATION RATE. ESTIMATED GFR [...] WBC 0-0 (BEAKER) (test code = 413) [id number] 16:14:00 Test Item Value Reference Range Interpretation Comments ACTIVATED CLOTTING TIME 285 sec TEST ED AT [facility] 6720 (BEAKER) (test code = IMANI SEPULVEDA ROSA ISELA 441) 19741 BLOOD [id number] 05:00:00 Test Item Value Reference Range Interpretation Comments CULTURE (BEAKER) (test No growth in 5 days code = 1095) BLOOD [id number] 05:00:00 Test Item Value Reference Range Interpretation Comments CULTURE (BEAKER) (test No growth in 5 days code = 1095) [id number] 05:22:00 Test Item Value Reference Range Interpretation Comments MAGNESIUM (BEAKER) (test code = 1.8 mg/dL 1.6-2.6 627) BASIC METABOLIC [id number] 05:22:00 Test Item Value Reference Range Interpretation [...] PATIEN TS. CBC W/PLT COUNT & AUTO [id number] 05:01:00 Test Item Value Reference Range Interpretation [...] H PERCENT (BEAKER) (test code = 2801) [id number] 07:20:00 Test Item Value Reference Range Interpretation Comments MAGNESIUM (BEAKER) (test code = 2.0 mg/dL 1.6-2.6 627) BASIC METABOLIC [id number] 07:20:00 Test Item Value Reference Range Interpretation [...] DIALYSIS PATIEN TS. URINALYSIS W/ REFLEX URINE [id number] 16:22:00 Test Item Value Reference Range Interpretation [...] code = 2795) URINALYSIS W/ REFLEX URINE [id number] 07:27:00 Test Item Value Reference Range Interpretation [...] /LPF 514) SOURCE(BEAKER) (test code = 2795) [id number] 06:11:00 Test Item Value Reference Range Interpretation Comments MAGNESIUM (BEAKER) (test code = 1.9 mg/dL 1.6-2.6 627) BASIC METABOLIC [id number] 06:11:00 Test Item Value Reference Range Interpretation [...] NOT APPLICABLE FOR DIALYSIS PATIEN TS. BLOOD [id number] 11:00:00 Test Item Value Reference Range Interpretation Comments CULTURE (BEAKER) (test No growth in 5 days code = 1095) BLOOD [id number] 10:00:00 Test Item Value Reference Range Interpretation Comments CULTURE (BEAKER) (test No growth in 5 days code = 1095) RAD, CHEST, 1 VIEW, NON [id number] 08:41:00Reason for exam:->pulm edemaShould this be performed at the bedside?->YesFINAL REPORT Chest, one view. HISTORY: Pulmonary edema COMPARISON: 06/18/2018 IM PRESSION: Unchanged eventration of the right hemidiaphragm. The lungs are clear. No pleural effusionor pneumothorax. Surgical clips overlie the right axilla. Signed: Luis Alfredo Mckay MDReport Verified Date/Time: 06/19/2018 08:41:05 Reading Location: [facility] C013Y CT Body Reading Room [id number] 07:14:00 Test Item Value Reference Range Interpretation Comments MAGNESIUM (BEAKER) (test code = 2.0 mg/dL 1.6-2.6 627) BASIC METABOLIC [id number] 07:14:00 Test Item Value Reference Range Interpretation [...] PATIEN TS. CBC W/PLT COUNT & AUTO [id number] 06:49:00 Test Item Value Reference Range Interpretation [...] (BEAKER) (test code = 2801) HEMOGLOBIN AND [id number] 18:06:00 Test Item Value Reference Range Interpretation Comments HEMOGLOBIN (BEAKER) (test code = 8.8 GM/DL 11.2-15.7 L 410) HEMATOCRIT (BEAKER) (test code = 27.9 % 34.1-44.9 L 411) RAD, CHEST, 1 VIEW, NON [id number] 09:11:00Reason for exam:->pulm edemaShould this be performed at the bedside?->YesFINAL REPORT Chest, one view. HISTORY: Pulmonary edema COMPARISON: 06/17/2018 IM PRESSION: Unchanged eventration of the right hemidiaphragm. No pulmonary edema. The lungs are clear.The cardiac silhouette is unchanged. No pleural effusion or pneumothorax. Signed: Luis Alfredo Mckay MDReport Verified Date/Time: 06/18/2018 09:11:19 Reading Location: [address] Body Reading Room [id number] 07:28:00 Test Item Value Reference Range Interpretation Comments MAGNESIUM (BEAKER) (test code = 2.0 mg/dL 1.6-2.6 627) BASIC METABOLIC [id number] 07:28:00 Test Item Value Reference Range Interpretation [...] PATIEN TS. CBC W/PLT COUNT & AUTO [id number] 06:44:00 Test Item Value Reference Range Interpretation [...] No pneumothorax is seen. Signed: Andrews Currie MDReport Verified Date/Time: 06/17/2018 07:09:55 Reading Location: [facility] Radiology Reading Room [id number] 04:03:00 Test Item Value Reference Range Interpretation Comments MAGNESIUM (BEAKER) (test code = 2.1 mg/dL 1.6-2.6 627) BASIC METABOLIC [id number] 04:03:00 Test Item Value Reference Range Interpretation [...] PATIEN TS. CBC W/PLT COUNT & AUTO [id number] 03:34:00 Test Item Value Reference Range Interpretation [...] = 413) CBC W/PLT COUNT & AUTO [id number] 11:36:00 Test Item Value Reference Range Interpretation [...] Currie Verified Date/Time: 06/16/2018 08:37:44 Reading Location: [facility] Radiology Reading Room [id number] 07:32:00 Test Item Value Reference Range Interpretation Comments MAGNESIUM (BEAKER) (test code = 2.1 mg/dL 1.6-2.6 627) BASIC METABOLIC [id number] 07:32:00 Test Item Value Reference Range Interpretation [...] Specimen slightly ictericCBC W/PLT COUNT & AUTO [id number] 12:33:00 Test Item Value Reference Range Interpretation [...] Verified Date/Time: 06/15/2018 0 8:09:42 Reading Location: [address] Neuro Reading Room [id number] 05:07:00 Test Item Value Reference Range Interpretation Comments POTASSIUM (BEAKER) (test code = 3.9 meq/L 3.5-5.1 379) 8 hours after PO replacement [id number] 05:07:00 Test Item Value Reference Range Interpretation Comments MAGNESIUM (BEAKER) (test code = 2.1 mg/dL 1.6-2.6 627) 8 hours after PO replacement completedBASIC METABOLIC [id number] 05:07:00 Test Item Value Reference Range Interpretation [...] completedFL, ESOPH, SWALLOW FUNCTION, WITH CINE OR [id number] 14:57:00Reason for exam:->dysphagiaFINAL REPORT Modified barium swallow [...] MDReport Verified Date/Time: 06/14/2018 14:57:14 Reading Location: [address] Ortho Consult Reading Room POCT-GLUCOSE [id number] 10:51:00 Test Item Value Reference Range Interpretation Comments POC-GLUCOSE METER 135 mg/dL 70-110 H TESTED AT [facility] 6720 ([facility]) (test code = IMANI Alvarez [facility] 1538) [address] BLOOD [id number] 10:01:00 Test Item Value Reference Range Interpretation Comments CULTURE (BEAKER) (test No growth in 5 days code = 1095) BLOOD [id number] 10:01:00 Test Item Value Reference Range Interpretation Comments CULTURE (BEAKER) (test No growth in 5 days code = 1095) CBC W/PLT COUNT & AUTO [id number] 08:13:00 Test Item Value Reference Range Interpretation [...] CARRASCOeport Verified Date/Time: 06/14/2018 07:45:28 Reading Location: [facility] C013V Neuro Reading Room Electronically signedby: RC MARINELLI on 06/14/2018 07:45 [id number] 03:53:00 Test Item Value Reference Range Interpretation Comments MAGNESIUM (BEAKER) (test code = 2.2 mg/dL 1.6-2.6 627) BASIC METABOLIC [id number] 03:53:00 Test Item Value Reference Range Interpretation [...] NOT APPLICABLE FOR DIALYSIS PATIEN TS. POCT-GLUCOSE [id number] 03:44:00 Test Item Value Reference Range Interpretation Comments POC-GLUCOSE METER 145 mg/dL 70-110 H TESTED AT [facility] 6720 (BEAKER) (test code = IMANI Alvarez [facility] 1538) [address] POCT-GLUCOSE [id number] 22:09:00 Test Item Value Reference Range Interpretation Comments POC-GLUCOSE METER 112 mg/dL 70-110 H TESTED AT [facility] 6720 (BEAKER) (test code = IMANI Alvarez [place] 1538) [address] POCT-GLUCOSE [id number] 16:43:00 Test Item Value Reference Range Interpretation Comments POC-GLUCOSE METER 108 mg/dL 70-110 TESTED AT [facility] 6720 (BEAKER) (test code = [place] 1538) [address] [id number] 11:20:00 Test Item Value Reference Range Interpretation Comments POTASSIUM (BEAKER) (test code = 4.3 meq/L 3.5-5.1 379) 8 hours after PO replacement [id number] 11:20:00 Test Item Value Reference Range Interpretation Comments MAGNESIUM (BEAKER) (test code = 2.1 mg/dL 1.6-2.6 627) 8 hours after PO replacement completedPOCT-GLUCOSE [id number] 10:39:00 Test Item Value Reference Range Interpretation Comments POC-GLUCOSE METER 85 mg/dL 70-110 TESTED AT [facility] 6720 (BEAKER) (test code = IMANI Alvarez [facility] [address] 1538) CBC W/PLT COUNT & AUTO [id number] 09:46:00 Test Item Value Reference Range Interpretation [...] = 3438) Received comment: User comments: Slide comments:[id number] 05:39:00 Test Item Value Reference Range Interpretation Comments POTASSIUM (BEAKER) (test code = 3.9 meq/L 3.5-5.1 379) [id number] 05:39:00 Test Item Value Reference Range Interpretation Comments MAGNESIUM (BEAKER) (test code = 2.0 mg/dL 1.6-2.6 627) [id number] 04:23:00 Test Item Value Reference Range Interpretation Comments MAGNESIUM (BEAKER) 2.2 mg/dL 1.6-2.6 Specimen moderately (test code = 627) hemolyzed RAD, CHEST, 1 VIEW, NON [id number] 04:18:00Reason for exam:->pulm edemaShould this be performed [...] MDReport Verified Date/Time: 06/13/2018 04:18:10 Reading Location: [facility] C013Y CT Body Reading Room C METABOLIC [id number] 04:08:00 Test Item Value Reference Range Interpretation [...] NOT APPLICABLE FOR DIALYSIS PATIEN TS. POCT-GLUCOSE [id number] 22:08:00 Test Item Value Reference Range Interpretation Comments POC-GLUCOSE METER 95 mg/dL 70-110 TESTED AT [place] [address] ([facility]) (test code = [facility] [address] 1538) POTASSIUM-STAT [id number] 16:57:00 Test Item Value Reference Range Interpretation Comments POTASSIUM (BEAKER) (test code = 3.1 meq/L 3.6-5.5 L 379) POCT-GLUCOSE [id number] 16:15:00 Test Item Value Reference Range Interpretation Comments POC-GLUCOSE METER 92 mg/dL 70-110 TESTED AT [place] [address] ([facility]) (test code = [facility] [address] 1538) BLOOD GAS, [id number] 14:19:00 Test Item Value Reference Range Interpretation [...] (BEAKER) (test code = 1819) 36.0 % [id number] 10:25:00 Test Item Value Reference Range Interpretation Comments POTASSIUM (BEAKER) (test code = 3.6 meq/L 3.5-5.1 379) 8 hours after PO replacement completedPOCT-GLUCOSE [id number] 10:13:00 Test Item Value Reference Range Interpretation Comments POC-GLUCOSE METER 132 mg/dL 70-110 H TESTED AT [facility] 6720 (BEAKER) (test code = [place]ANI [place] 1538) [address] CBC W/PLT COUNT & AUTO [id number] 07:53:00 Test Item Value Reference Range Interpretation [...] Received comment: User comments: Slide comments:BLOOD GAS, [id number] 05:14:00 Test Item Value Reference Range Interpretation [...] code = 1819) 40.0 % BASIC METABOLIC [id number] 04:46:00 Test Item Value Reference Range Interpretation [...] PATIEN TS. RAD, CHEST, 1 VIEW, NON [id number] 03:49:00Reason for exam:->pulm edemaShould this be performed [...] edema, pleural effusion or pneumothorax. Signed: Arlette [place] Verified Date/Time: 06/12/2018 03:49:08 Reading Location: [facility] C013Y PA Body Reading Room POCT-GLUCOSE [id number] 00:18:00 Test Item Value Reference Range Interpretation Comments POC-GLUCOSE METER 154 mg/dL 70-110 H TESTED AT [place] [address] (BEAKER) (test code = CHIMICHELLE [place] 1538) [address] [id number] 18:20:00 Test Item Value Reference Range Interpretation Comments POTASSIUM (BEAKER) (test code = 3.1 meq/L 3.5-5.1 L 379) Check Serum Potassium level 2 hours after oral potassium replacement completed or 30 min after intravenous potassium replacement.[id number] 18:20:00 Test Item Value Reference Range Interpretation Comments MAGNESIUM (BEAKER) (test code = 2.0 mg/dL 1.6-2.6 627) Check Serum Potassium level 2 hours after oral potassium replacement completed or 30 min after intravenous potassium replacement.POCT-GLUCOSE [id number] 18:02:00 Test Item Value Reference Range Interpretation Comments POC-GLUCOSE METER 171 mg/dL 70-110 H TESTED AT [place] [address] (BEAKER) (test code = [facility] [place] 1538) [address] BASIC METABOLIC [id number] 16:25:00 Test Item Value Reference Range Interpretation [...] APPLICABLE FOR DIALYSIS PATIEN TS. BASIC METABOLIC [id number] 13:32:00 Test Item Value Reference Range Interpretation [...] APPLICABLE FOR DIALYSIS PATIEN TS. HEMOGLOBIN AND [id number] 09:43:00 Test Item Value Reference Range Interpretation Comments HEMOGLOBIN (BEAKER) (test code = 9.4 GM/DL 11.2-15.7 L 410) HEMATOCRIT (BEAKER) (test code = 28.4 % 34.1-44.9 L 411) RAD, CHEST, 1 VIEW, NON [id number] 07:40:00Reason for exam:->pulm edemaShould this be performed [...] MDReport Verified Date/Time: 06/11/2018 07:40:44 Reading Location: [facility] C013T Transitional Reading Room POCT-GLUCOSE [id number] 06:32:00 Test Item Value Reference Range Interpretation Comments POC-GLUCOSE METER 146 mg/dL 70-110 H TESTED AT [facility] 6720 (BEAKER) (test code = IMANI Alvarez [facility] 1538) [address] BASIC METABOLIC [id number] 06:14:00 Test Item Value Reference Range Interpretation [...] PATIEN TS. CBC W/PLT COUNT & AUTO [id number] 04:09:00 Test Item Value Reference Range Interpretation [...] (BEAKER) (test code = 2801) BLOOD GAS, [id number] 03:58:00 Test Item Value Reference Range Interpretation [...] (test code = 1819) 40.0 % POCT-GLUCOSE [id number] 02:20:00 Test Item Value Reference Range Interpretation Comments POC-GLUCOSE METER 173 mg/dL 70-110 H TEST[facility] AT [place] [address] [facility] (test code = CHIMICHELLE Alvarez [place] 1538) [address] HEMOGLOBIN AND [id number] 20:22:00 Test Item Value Reference Range Interpretation Comments HEMOGLOBIN (BEAKER) (test code = 8.9 GM/DL 11.2-15.7 L 410) HEMATOCRIT (BEAKER) (test code = 27.6 % 34.1-44.9 L 411) [id number] 18:36:00 Test Item Value Reference Range Interpretation Comments POTASSIUM (BEAKER) 3.7 meq/L 3.5-5.1 Specimen slightly (test code = 379) hemolyzed 8 hours after PO replacement completedPOCT-GLUCOSE [id number] 18:12:00 Test Item Value Reference Range Interpretation Comments POC-GLUCOSE METER 117 mg/dL 70-110 H TESTED AT [place] [address] [facility] (test code = IMANI Alvarez [place] 1538) [address] [id number] 14:36:00 Test Item Value Reference Range Interpretation Comments POTASSIUM (BEAKER) (test code = 3.5 meq/L 3.5-5.1 379) 8 hours after PO replacement completedPOCT-GLUCOSE [id number] 12:38:00 Test Item Value Reference Range Interpretation Comments POC-GLUCOSE METER 137 mg/dL 70-110 H TESTED AT [place] [address] ([facility] (test code = IMANI Alvarez [place] 1538) [address] HEMOGLOBIN AND [id number] 10:58:00 Test Item Value Reference Range Interpretation Comments HEMOGLOBIN (BEAKER) (test code = 8.7 GM/DL 11.2-15.7 L 410) HEMATOCRIT (BEAKER) (test code = 27.0 % 34.1-44.9 L 411) [id number] 10:53:00 Test Item Value Reference Range Interpretation Comments MAGNESIUM (BEAKER) (test code = 2.5 mg/dL 1.6-2.6 627) BASIC METABOLIC [id number] 10:53:00 Test Item Value Reference Range Interpretation [...] NOT APPLICABLE FOR DIALYSIS PATIEN TS. POCT-GLUCOSE [id number] 10:18:00 Test Item Value Reference Range Interpretation Comments POC-GLUCOSE METER 155 mg/dL 70-110 H TESTED AT [facility] 6720 (BEAKER) (test code = IMANI Alvarez [place] 1538) [address] BLOOD [id number] 10:08:00 Test Item Value Reference Range Interpretation Comments CULTURE A From Aerobic An d (BEAKER) (test Anaerobic Bot tles Same code = 1095) organism has be en isolated from cultures(s) of the same body site and collection date . Repeat identifi cation and susceptibil ity testing perform ed only after consultat ion with the [facility] microbiology laboratory.Refe r to previous cultur e ofEscherichia c stephanie GRAM STAIN From aerobic and RESULT (BEAKER) anaerobic (test code = bottles: gram 1123) negative rods BLOOD [id number] 10:03:00 Test Item Value Reference Range Interpretation Comments CULTURE (BEAKER) (test ESCHERICHIA COLI A F rom Aerobic And code = 1095) Anaerobic Bottles Escherichia coliThis is a corrected organism result . 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 Amikacin (test code = S 1) Ampicillin [...] anaerobic 1123) bottles: gram negative rods POCT-GLUCOSE [id number] 07:33:00 Test Item Value Reference Range Interpretation Comments POC-GLUCOSE METER 149 mg/dL 70-110 H TESTED AT [facility] 6720 (BEAKER) (test code = IMANI Alvarez [place] 1538) [address] RAD, CHEST, 1 VIEW, NON [id number] 06:11:00Reason for exam:->pulm edemaShould this be performed [...] [place] Verified Date/Time: 06/10/2018 06:11:42 Reading Location: [facility] C013Y CT Body Reading Room [id number] 04:51:00 Test Item Value Reference Range Interpretation Comments PHOSPHORUS (BEAKER) (test code = 2.1 mg/dL 2.3-4.7 L 604) [id number] 04:51:00 Test Item Value Reference Range Interpretation Comments MAGNESIUM (BEAKER) (test code = 2.7 mg/dL 1.6-2.6 H 627) BASIC METABOLIC [id number] 04:51:00 Test Item Value Reference Range Interpretation [...] PATIEN TS. CBC W/PLT COUNT & AUTO [id number] 04:39:00 Test Item Value Reference Range Interpretation [...] (BEAKER) (test code = 2801) HEMOGLOBIN AND [id number] 04:33:00 Test Item Value Reference Range Interpretation Comments HEMOGLOBIN (BEAKER) (test code = 8.5 GM/DL 11.2-15.7 L 410) HEMATOCRIT (BEAKER) (test code = 26.1 % 34.1-44.9 L 411) BLOOD GAS, [id number] 04:27:00 Test Item Value Reference Range Interpretation [...] (BEAKER) (test code = 1819) 40.0 % [id number] 00:28:00 Test Item Value Reference Range Interpretation Comments PHOSPHORUS (BEAKER) (test code = 2.2 mg/dL 2.3-4.7 L 604) [id number] 00:28:00 Test Item Value Reference Range Interpretation Comments MAGNESIUM (BEAKER) (test code = 2.2 mg/dL 1.6-2.6 627) BASIC METABOLIC [id number] 00:28:00 Test Item Value Reference Range Interpretation [...] APPLICABLE FOR DIALYSIS PATIEN TS. HEMOGLOBIN AND [id number] 00:08:00 Test Item Value Reference Range Interpretation Comments HEMOGLOBIN (BEAKER) (test code = 8.6 GM/DL 11.2-15.7 L 410) HEMATOCRIT (BEAKER) (test code = 26.5 % 34.1-44.9 L 411) [id number] 17:06:00 Test Item Value Reference Range Interpretation Comments PHOSPHORUS (BEAKER) (test code = 2.8 mg/dL 2.3-4.7 604) [id number] 17:06:00 Test Item Value Reference Range Interpretation Comments MAGNESIUM (BEAKER) (test code = 2.4 mg/dL 1.6-2.6 627) BASIC METABOLIC [id number] 17:06:00 Test Item Value Reference Range Interpretation [...] APPLICABLE FOR DIALYSIS PATIEN TS. HEMOGLOBIN AND [id number] 16:46:00 Test Item Value Reference Range Interpretation Comments HEMOGLOBIN (BEAKER) (test code = 9.4 GM/DL 11.2-15.7 L 410) HEMATOCRIT (BEAKER) (test code = 28.9 % 34.1-44.9 L 411) POCT-GLUCOSE [id number] 16:33:00 Test Item Value Reference Range Interpretation Comments POC-GLUCOSE METER 170 mg/dL 70-110 H TESTED AT [facility] 6720 (BEAKER) (test code = IMANI Alvarez [place] 1538) [address] POCT-GLUCOSE [id number] 12:12:00 Test Item Value Reference Range Interpretation Comments POC-GLUCOSE METER 156 mg/dL 70-110 H TESTED AT [facility] 6720 (BEAKER) (test code = IMANI Alvarez [facility] 1538) [address] BASIC METABOLIC [id number] 10:47:00 Test Item Value Reference Range Interpretation [...] S NOT APPLICABLE FOR DIALYSIS PATIEN TS. [id number] 10:40:00 Test Item Value Reference Range Interpretation Comments PHOSPHORUS (BEAKER) (test code = 3.5 mg/dL 2.3-4.7 604) [id number] 10:40:00 Test Item Value Reference Range Interpretation Comments MAGNESIUM (BEAKER) (test code = 2.4 mg/dL 1.6-2.6 627) HEMOGLOBIN AND [id number] 10:23:00 Test Item Value Reference Range Interpretation Comments HEMOGLOBIN (BEAKER) (test code = 9.0 GM/DL 11.2-15.7 L 410) HEMATOCRIT (BEAKER) (test code = 28.0 % 34.1-44.9 L 411) POCT-GLUCOSE [id number] 08:19:00 Test Item Value Reference Range Interpretation Comments POC-GLUCOSE METER 156 mg/dL 70-110 H TESTED AT [facility] 6720 (GÉNESIS) (test code = IMANI [place] 1538) [address] RAD, CHEST, 1 VIEW, NON [id number] 04:59:00Reason for exam:->pulm edemaShould this be performed [...] summary, no significant interval change. Signed: Trini Agarwalepcoxhealth Verified Date/Time: 06/09/2018 04:59:47 Reading Location: [address] Reading Room B-TYPE NATRIURETIC FACTOR (BNP)2018-06-09 04:47:00 Test Item Value Reference Range Interpretation Comments B-TYPE NATRIURETIC PEPTIDE 1269 pg/mL 0-100 H (BEAKER) (test code = 700) [id number] 04:45:00 Test Item Value Reference Range Interpretation Comments PHOSPHORUS (BEAKER) (test code = 3.8 mg/dL 2.3-4.7 604) [id number] 04:45:00 Test Item Value Reference Range Interpretation Comments MAGNESIUM (BEAKER) (test code = 2.3 mg/dL 1.6-2.6 627) BASIC METABOLIC [id number] 04:45:00 Test Item Value Reference Range Interpretation [...] PATIEN TS. CBC W/PLT COUNT & AUTO [id number] 04:39:00 Test Item Value Reference Range Interpretation [...] (BEAKER) (test code = 2801) BLOOD GAS, [id number] 04:38:00 Test Item Value Reference Range Interpretation [...] code = 1819) 50.0 % HEMOGLOBIN AND [id number] 04:30:00 Test Item Value Reference Range Interpretation Comments HEMOGLOBIN (BEAKER) (test code = 9.0 GM/DL 11.2-15.7 L 410) HEMATOCRIT (BEAKER) (test code = 28.1 % 34.1-44.9 L 411) POCT-GLUCOSE [id number] 04:29:00 Test Item Value Reference Range Interpretation Comments POC-GLUCOSE METER 216 mg/dL 70-110 H TESTED AT [facility] 6720 (BEAKER) (test code = IMANI Alvarez [place] 1538) [address] POCT-GLUCOSE [id number] 00:13:00 Test Item Value Reference Range Interpretation Comments POC-GLUCOSE METER 175 mg/dL 70-110 H TESTED AT [facility] 6720 (BEAKER) (test code = IMANI Alvarez [place] 1538) [address] VANCOMYCIN LEVEL, [id number] 22:32:00 Test Item Value Reference Range Interpretation Comments VANCOMYCIN TROUGH (BEAKER) (test 16.7 ug/mL 10.0-20.0 code = 522) Please draw prior to vanc administration [id number] 22:32:00 Test Item Value Reference Range Interpretation Comments PHOSPHORUS (BEAKER) (test code = 3.8 mg/dL 2.3-4.7 604) [id number] 22:32:00 Test Item Value Reference Range Interpretation Comments MAGNESIUM (BEAKER) (test code = 2.4 mg/dL 1.6-2.6 627) BASIC METABOLIC [id number] 22:32:00 Test Item Value Reference Range Interpretation [...] APPLICABLE FOR DIALYSIS PATIEN TS. HEMOGLOBIN AND [id number] 22:15:00 Test Item Value Reference Range Interpretation Comments HEMOGLOBIN (BEAKER) (test code = 9.8 GM/DL 11.2-15.7 L 410) HEMATOCRIT (BEAKER) (test code = 29.7 % 34.1-44.9 L 411) POCT-GLUCOSE [id number] 22:00:00 Test Item Value Reference Range Interpretation Comments POC-GLUCOSE METER 158 mg/dL 70-110 H TESTED AT [facility] 6720 (BEAKER) (test code = IMANI [place] 1538) [address] [id number] 17:04:00 Test Item Value Reference Range Interpretation Comments PHOSPHORUS (BEAKER) (test code = 3.8 mg/dL 2.3-4.7 604) [id number] 17:04:00 Test Item Value Reference Range Interpretation Comments MAGNESIUM (BEAKER) (test code = 2.3 mg/dL 1.6-2.6 627) BASIC METABOLIC [id number] 17:04:00 Test Item Value Reference Range Interpretation [...] APPLICABLE FOR DIALYSIS PATIEN TS. HEMOGLOBIN AND [id number] 16:48:00 Test Item Value Reference Range Interpretation Comments HEMOGLOBIN (BEAKER) (test code = 10.0 GM/DL 11.2-15.7 L 410) HEMATOCRIT (BEAKER) (test code = 30.1 % 34.1-44.9 L 411) BLOOD GAS, [id number] 16:37:00 Test Item Value Reference Range Interpretation [...] (test code = 1819) 50.0 % POCT-GLUCOSE [id number] 16:37:00 Test Item Value Reference Range Interpretation Comments POC-GLUCOSE METER 168 mg/dL 70-110 H TESTED AT [facility] 6720 (BEAKER) (test code = IMANI [place] 1538) [address] CT BRAIN WITHOUT IV CONTRAST - [id number] 13:50:00Reason for exam:- >acute resp failure/hemorrhagic shockFINAL [...] chronic microvascular ischemic change. Signed: Flavio Borden MDReport Verified Date/Time: 06/08/2018 13:50:56 Reading Location: [facility] Radiology Reading Room SODIUM, RANDOM [id number] 13:15:00 Test Item Value Reference Range Interpretation Comments SODIUM URINE (BEAKER) (test code = 93 meq/L 243) Reference Range: No NormalsUREA NITROGEN, RANDOM [id number] 13:15:00 Test Item Value Reference Range Interpretation Comments UREA NITROGEN URINE (BEAKER) (test 149 mg/dL code = 538) Reference Range: No NormalsPROTEIN, RANDOM [id number] 12:24:00 Test Item Value Reference Range Interpretation Comments PROTEIN, URINE (BEAKER) (test code = < mg/dL 0-14 1569) POCT-GLUCOSE [id number] 11:53:00 Test Item Value Reference Range Interpretation Comments POC-GLUCOSE METER 159 mg/dL 70-110 H TESTED AT [facility] 6720 (BEAKER) (test code = IMANI Alvarez [facility] 1538) [address] BLOOD GAS, [id number] 11:52:00 Test Item Value Reference Range Interpretation [...] code = 1819) 50.0 % CREATININE, RANDOM [id number] 11:46:00 Test Item Value Reference Range Interpretation Comments CREATININE URINE (BEAKER) (test 19.2 mg/dL code = 375) Reference Range: No NormalsPOTASSIUM, RANDOM [id number] 11:46:00 Test Item Value Reference Range Interpretation Comments POTASSIUM URINE (BEAKER) (test 37.6 meq/L code = 195) Reference Range: No NormalsURINALYSIS W/ REFLEX URINE [id number] 10:10:00 Test Item Value Reference Range Interpretation [...] code = 514) SOURCE(BEAKER) (test code = 3609) TROPONIN [id number] 09:08:00 Test Item Value Reference Range Interpretation [...] failure, acidosis, acute neurological disease, and persistent tachyarrhythmia.[id number] 08:59:00 Test Item Value Reference Range Interpretation Comments POTASSIUM (BEAKER) (test code = 3.7 meq/L 3.5-5.1 379) [id number] 08:59:00 Test Item Value Reference Range Interpretation Comments MAGNESIUM (BEAKER) (test code = 2.3 mg/dL 1.6-2.6 627) [id number] 08:59:00 Test Item Value Reference Range Interpretation Comments PHOSPHORUS (BEAKER) (test code = 3.7 mg/dL 2.3-4.7 604) BLOOD GAS, [id number] 08:57:00 Test Item Value Reference Range Interpretation [...] code = 1819) 60.0 % HEMOGLOBIN AND [id number] 08:36:00 Test Item Value Reference Range Interpretation Comments HEMOGLOBIN (BEAKER) (test code = 11.2 GM/DL 11.2-15.7 410) HEMATOCRIT (BEAKER) (test code = 32.7 % 34.1-44.9 L 411) POCT-GLUCOSE [id number] 08:16:00 Test Item Value Reference Range Interpretation Comments POC-GLUCOSE METER 176 mg/dL 70-110 H TESTED AT [facility] 6720 (BEAKER) (test code = [place] 1538) [address] CBC W/PLT COUNT & AUTO [id number] 08:03:00 Test Item Value Reference Range Interpretation [...] 1.51 K/uL 0.00-0.80 H (test code = 8270) TOTAL COUNTED (BEAKER) (test code 100 = 1351) WBC MORPHOLOGY (BEAKER) (test code Normal = 487) PLT MORPHOLOGY (BEAKER) (test code Normal = 486) QIAN CELLS (BEAKER) (test code = 1+ few 474) ARTIFACT (CELLAVISION)(BEAKER) Present (test code = 3432) PLATELET CONCENTRATION Adequate (CELLAVISION)(BEAKER) (test code = 3438) Received comment: User comments: Slide comments:RESPIRATORY PANEL [id number] 06:29:00 Test Item Value Reference Range Interpretation [...] decisions. This sample was tested at the [facility] Molecular Diagnostics Laboratory using the [employer] Respiratory Panel. It is FDA cleared and has been verified and approved by the [facility] Molecular Diagnostics [facility] for clinical use on nasal swab specimens. It is not FDA-cleared for use on bronchial wash/lavage samples. However, for this sample type, validation was performed and test characteristics were determined and approved, by [facility] [place] laboratory for clinical use under the Clinical Laboratory Improvement Amendments (CLIA) of 1988 requirements. Therefore, FDA clearance isnot required. This laboratory is CLIA-certified and [employer] ([employer])-accredited to perform high complexity testing.RAD, [...] [place] Verified Date/Time: 06/08/2018 05:30:48 Reading Location: [address] Transitional Reading Room BLOOD GAS, [id number] 04:43:00 Test Item Value Reference Range Interpretation [...] (BEAKER) (test code = 1819) 80.0 % [id number] 04:37:00 Test Item Value Reference Range Interpretation Comments PHOSPHORUS (BEAKER) (test code = 3.7 mg/dL 2.3-4.7 604) [id number] 04:37:00 Test Item Value Reference Range Interpretation Comments MAGNESIUM (BEAKER) (test code = 2.0 mg/dL 1.6-2.6 627) BASIC METABOLIC [id number] 04:37:00 Test Item Value Reference Range Interpretation [...] DIALYSIS PATIEN TS. LACTIC ACID, ARTERIAL, WHOLE [id number] 04:29:00 Test Item Value Reference Range Interpretation Comments LACTATE BLOOD 1.2 mmol/L 0.5-2.2 Specimen sligh tly ARTERIAL (2) (DBVu) hemoly zed (test code = 2874) POCT-GLUCOSE [id number] 04:04:00 Test Item Value Reference Range Interpretation Comments POC-GLUCOSE METER 198 mg/dL 70-110 H TESTED AT [facility] 6720 (GÉNESIS) (test code = [place] 1538) [address] BLOOD CULTURE IDENTIFICATION [id number] 03:16:00 Test Item Value Reference Range Interpretation Comments LISTERIA MONOCYTOGENES Not detected Not detected (test code = 0227901) STAPHYLOCOCCUS (test Not detected Not detected code = 6487273) STAPHYLOCOCCUS AUREUS Not detected Not detected (test code = 5203439) STREPTOCOCCUS (test code Not detected Not detected = 9290862) STREPTOCOCCUS AGALACTIAE Not detected Not detected (GROUP B) (test code = 5082878) STREPTOCOCCUS PNEUMONIAE Not detected Not detected (test code = 7908218) STREPTOCOCCUS PYOGENES Not detected Not detected (GROUP A) (test code = 8779457) ACINETOBACTER BAUMANNII Not detected Not detected (test code = 4760710) HAEMOPHILUS INFLUENZAE Not detected Not detected (test code = 8401629) NEISSERIA MENINGITIDIS Not detected Not detected (test code = 8238436) ENTEROBACTERIACEAE (test Detected Not detected A code = 7239940) ENTEROBACTER CLOACOE Not detected Not detected COMPLEX (test code = 3831329) KLEBSIELLA OXYTOCA (test Not detected Not detected code = 7801224) KLEBSIELLA PNEUMONIAE Not detected Not detected (test code = 1650) PROTEUS (test code = Not detected Not detected 7928331) SERRATIA MARCESCENS Not detected Not detected (test code = 9730170) TANIA ALBICANS (test Not detected Not detected code = 8788560) TANIA GLABRATA (test Not detected Not detected code = 1032866) TANIA KRUSEI (test Not detected Not detected code = 0465478) TANIA PARAPSILOSIS Not detected Not detected (test code = 5966595) TANIA TROPICALIS (test Not detected Not detected code = 6010045) ESCHERICHIA COLI (test Detected Not detected A First line code = 9054948) therapy: Meropenem. De-escalate bas ed on susceptibilitie s.T his test does n ot evaluate for ESBLReference Range: Not Detected METHICILLIN-RESISTANCE Not detected GENE (test code = 4218211) VANCOMYCIN-RESISTANCE Not detected GENE (test code = 1478999) CARBAPENEM-RESISTANCE Not detected Not detected GENE (test code = 8928286) ENTEROCOCCUS-BEAKER Not detected Not detected (test code = 1589474) PSEUDOMONAS Not detected Not detected AERUGINOSA-BEAKER (test code = 1194723) Other bacteria and resistance markers not targeted by this PCR panel cannot be excluded; therefore clinical correlation and follow up of serology, culture results, and other molecular studies is required. The results are not intended to be used as the sole means for clinical diagnosis or patient management decisions. This sample was tested at the [facility] Molecular Diagnostics Laboratory using the [email or web address] Blood Culture ID Panel. It is FDA cleared and has been verified and approved by the [facility]ostics [facility] for clinical use. This laboratory is CLIA-certified and College ofAmerican Pathologists (CAP)-accredited to perform high complexity testing.TROPONIN I 2018-06-08 00:35:00 Test Item Value Reference Range Interpretation Comments TROPONIN I (BEAKER) (test code = 10.43 ng/mL 0.00-0.03 HH 397) Troponin I (TnI) [...] failure, acidosis, acute neurological disease, and persistent tachyarrhythmia.[id number] 00:35:00 Test Item Value Reference Range Interpretation Comments MAGNESIUM (BEAKER) (test code = 2.0 mg/dL 1.6-2.6 627) [id number] 00:35:00 Test Item Value Reference Range Interpretation Comments PHOSPHORUS (BEAKER) (test code = 4.0 mg/dL 2.3-4.7 604) [id number] 00:35:00 Test Item Value Reference Range Interpretation Comments POTASSIUM (BEAKER) (test code = 3.8 meq/L 3.5-5.1 379) HEMOGLOBIN AND [id number] 00:24:00 Test Item Value Reference Range Interpretation Comments HEMOGLOBIN (BEAKER) (test code = 11.5 GM/DL 11.2-15.7 410) HEMATOCRIT (BEAKER) (test code = 34.1 % 34.1-44.9 411) POCT-GLUCOSE [id number] 23:48:00 Test Item Value Reference Range Interpretation Comments POC-GLUCOSE METER 199 mg/dL 70-110 H TESTED AT [facility] 6720 (BEAKER) (test code = [place] 1538) [address] BASIC METABOLIC [id number] 22:53:00 Test Item Value Reference Range Interpretation [...] DIALYSIS PATIEN TS. LACTIC ACID, ARTERIAL, WHOLE [id number] 21:46:00 Test Item Value Reference Range Interpretation Comments LACTATE BLOOD ARTERIAL (2) 1.7 mmol/L 0.5-2.2 (BEAKER) (test code = 2874) HEMOGLOBIN AND [id number] 21:32:00 Test Item Value Reference Range Interpretation Comments HEMOGLOBIN (BEAKER) (test code = 11.2 GM/DL 11.2-15.7 410) HEMATOCRIT (BEAKER) (test code = 34.1 % 34.1-44.9 411) BLOOD GAS, [id number] 20:54:00 Test Item Value Reference Range Interpretation [...] (test code = 1819) 80.0 % POCT-GLUCOSE [id number] 20:41:00 Test Item Value Reference Range Interpretation Comments POC-GLUCOSE METER 220 mg/dL 70-110 H TESTED AT [facility] 6720 (BEAKER) (test code = [place] 1538) [address] OXYGEN SATURATION, [id number] 20:35:00 Test Item Value Reference Range Interpretation Comments O2 SATURATION (MEASURED) (BEAKER) 65.7 % (test code = 1455) [id number] 20:35:00 Test Item Value Reference Range Interpretation Comments POTASSIUM (BEAKER) (test code = 4.3 meq/L 3.5-5.1 379) [id number] 20:35:00 Test Item Value Reference Range Interpretation Comments MAGNESIUM (BEAKER) (test code = 2.3 mg/dL 1.6-2.6 627) [id number] 20:35:00 Test Item Value Reference Range Interpretation Comments PHOSPHORUS (BEAKER) (test code = 4.9 mg/dL 2.3-4.7 H 604) HEMOGLOBIN AND [id number] 20:12:00 Test Item Value Reference Range Interpretation Comments HEMOGLOBIN (BEAKER) (test code = 11.2 GM/DL 11.2-15.7 410) HEMATOCRIT (BEAKER) (test code = 34.2 % 34.1-44.9 411) BLOOD GAS, [id number] 19:15:00 Test Item Value Reference Range Interpretation [...] (test code = 1819) 90.0 % TROPONIN [id number] 19:06:00 Test Item Value Reference Range Interpretation [...] acute neurological disease, and persistent tachyarrhythmia.HEMOGLOBIN AND [id number] 18:26:00 Test Item Value Reference Range Interpretation Comments HEMOGLOBIN (BEAKER) (test code = 11.9 GM/DL 11.2-15.7 410) HEMATOCRIT (BEAKER) (test code = 36.3 % 34.1-44.9 411) [id number] 16:46:00 Test Item Value Reference Range Interpretation Comments PHOSPHORUS (BEAKER) (test code = 4.2 mg/dL 2.3-4.7 604) [id number] 16:46:00 Test Item Value Reference Range Interpretation Comments MAGNESIUM (BEAKER) (test code = 1.8 mg/dL 1.6-2.6 627) COMPREHENSIVE METABOLIC [id number] 16:46:00 Test Item Value Reference Range Interpretation [...] DIALYSIS PATIEN TS. LACTIC ACID, ARTERIAL, WHOLE [id number] 16:42:00 Test Item Value Reference Range Interpretation Comments LACTATE BLOOD ARTERIAL (2) 1.7 mmol/L 0.5-2.2 (BEAKER) (test code = 2874) HEMOGLOBIN AND [id number] 16:28:00 Test Item Value Reference Range Interpretation Comments HEMOGLOBIN (BEAKER) (test code = 10.9 GM/DL 11.2-15.7 L 410) HEMATOCRIT (BEAKER) (test code = 33.0 % 34.1-44.9 L 411) POCT-GLUCOSE [id number] 16:19:00 Test Item Value Reference Range Interpretation Comments POC-GLUCOSE METER 178 mg/dL 70-110 H TESTED AT [facility] 6720 (BEAKER) (test code = [place] 1538) [address] POCT-GLUCOSE [id number] 16:19:00 Test Item Value Reference Range Interpretation Comments POC-GLUCOSE METER 189 mg/dL 70-110 H TESTED AT [facility] 6720 (BEAKER) (test code = [place] 1538) [address] PLATELET AGGREGATION: FUNCTION [id number] 15:50:00 Test Item Value Reference Range Interpretation Comments WEAK ADP 27 % 60-91 L RESULT(BEAKER) (test code = 2135) PLATELET FUNCTION 0-39% indicates marked SCREEN INTERP platelet dysfunction (BEAKER) (test code = 2173) [place] [address] Starla Jimenez MD (BEAKER) (test code = (electronic signature) 2622) PLATELET COUNT AGG 207 K/CU MM 150-450 (BEAKER) (test code = 2656) Platelet Function Screen results may be falsely low with platelet counts<100,000/cu mm.PLATELET AGGREGATION: FUNCTION [id number] 15:49:00 Test Item Value Reference Range Interpretation Comments WEAK ADP 17 % 60-91 L RESULT(BEAKER) (test code = 2135) PLATELET FUNCTION 0-39% indicates marked SCREEN INTERP platelet dysfunction (BEAKER) (test code = 2173) [place] [address] Starla Jimenez MD (BEAKER) (test code = (electronic signature) 2622) PLATELET COUNT AGG 218 K/CU MM 150-430 (BEAKER) (test code = 2656) Platelet Function Screen results may be falsely low with platelet counts<100,000/cu mm.HEMOGLOBIN AND [id number] 15:16:00 Test Item Value Reference Range Interpretation Comments HEMOGLOBIN (BEAKER) (test code = 11.8 GM/DL 11.2-15.7 410) HEMATOCRIT (BEAKER) (test code = 36.4 % 34.1-44.9 411) CBC W/PLT COUNT & AUTO [id number] 14:19:00 Test Item Value Reference Range Interpretation [...] = 3438) Received comment: User comments: Slide comments:[id number] 13:46:00 Test Item Value Reference Range Interpretation Comments FIBRINOGEN LEVEL (BEAKER) (test 462 mg/dl 225-434 H code = 658) [id number] 13:37:00 Test Item Value Reference Range Interpretation Comments PARTIAL THROMBOPLASTIN TIME 29.3 seconds 22.5-36.0 (BEAKER) (test code = 760) LACTIC ACID, ARTERIAL, WHOLE [id number] 13:37:00 Test Item Value Reference Range Interpretation Comments LACTATE BLOOD ARTERIAL (2) 2.5 mmol/L 0.5-2.2 H (BEAKER) (test code = 2874) PROTHROMBIN [id number] 13:36:00 Test Item Value Reference Range Interpretation Comments PROTIME (BEAKER) (test code = 14.5 seconds 11.7-14.7 759) INR (BEAKER) (test code = 370) 1.1 <=5.9 RECOMMENDED COUMADIN/WARFARIN INR THERAPY RANGESSTANDARD DOSE: 2.0 - 3.0 Includes: PROPHYLAXIS for venous thrombosis, systemic embolization; TREATMENT for venous thrombosis and/or pulmonary embolus.HIGH RISK: Target INR is 2.5-3.5 for patients with mechanical heart valves.POCT-GLUCOSE [id number] 13:33:00 Test Item Value Reference Range Interpretation Comments POC-GLUCOSE METER 192 mg/dL 70-110 H TESTED AT [facility] 6720 (BEAKER) (test code = [place] Al[place] [facility] 1538) [address] RAD, ABDOMEN/KUB, 1 VIEW [id number] 13:27:00Reason for exam:->abdominal distensionShould this be performed [...] Osseous structures demonstrate degenerative changes. Signed: Flavio Bordeneport Verified Date/Time: 06/07/2018 13:27:14 Reading Location: [facility] C013W Consult Reading Room BLOOD GAS, [id number] 13:23:00 Test Item Value Reference Range Interpretation [...] (test code = 1819) 100.0 % HEMOGLOBIN [id number] 12:29:00 Test Item Value Reference Range Interpretation Comments HEMOGLOBIN A1C (BEAKER) (test code = 5.7 % 4.3-6.1 368) [id number] 12:04:00 Test Item Value Reference Range Interpretation Comments HAPTOGLOBIN (BEAKER) (test code = 166 mg/dL 14-258 366) CBC W/PLT COUNT & AUTO [id number] 11:37:00 Test Item Value Reference Range Interpretation [...] (BEAKER) (test code = 2801) BLOOD GAS, [id number] 11:32:00 Test Item Value Reference Range Interpretation [...] (BEAKER) (test code = 1819) 100.0 % [id number] 11:25:00 Test Item Value Reference Range Interpretation Comments PROCALCITONIN (BEAKER) (test code 21.36 ng/mL <0.05 HH = 3036) SEPSIS RISK (ng/mL)Low: 0.05-0.50Intermediate: 0.51-2.00High: >=2.01 URINALYSIS W/ REFLEX URINE [id number] 11:22:00 Test Item Value Reference Range Interpretation [...] code = 514) SOURCE(BEAKER) (test code = 6905) PLATELET AGGREGATION: FUNCTION [id number] 10:54:00 Test Item Value Reference Range Interpretation Comments WEAK ADP 12 % 60-91 L RESULT(BEAKER) (test code = 4439) PLATELET FUNCTION 0-39% indicates marked SCREEN INTERP platelet dysfunction (BEAKER) (test code = 2173) [id number] Starla Jimenez MD (BEAKER) (test code = (electronic signature) 3185) PLATELET COUNT AGG 187 K/CU MM 150-450 (BEAKER) (test code = 3517) Platelet Function Screen results may be falsely low with platelet counts<100,000/cu mm.[id number] 10:37:00 Test Item Value Reference Range Interpretation Comments PARTIAL THROMBOPLASTIN TIME 31.4 seconds 22.5-36.0 (BEAKER) (test code = 760) PROTHROMBIN [id number] 10:36:00 Test Item Value Reference Range Interpretation Comments PROTIME (BEAKER) (test code = 14.2 seconds 11.7-14.7 759) INR (BEAKER) (test code = 370) 1.1 <=5.9 RECOMMENDED COUMADIN/WARFARIN INR THERAPY RANGESSTANDARD DOSE: 2.0 - 3.0 Includes: PROPHYLAXIS for venous thrombosis, systemic embolization; TREATMENT for venous thrombosis and/or pulmonary embolus.HIGH RISK: Target INR is 2.5-3.5 for patients with mechanical heart valves.TROPONIN [id number] 10:34:00 Test Item Value Reference Range Interpretation [...] acute neurological disease, and persistent tachyarrhythmia.BASIC METABOLIC [id number] 10:26:00 Test Item Value Reference Range Interpretation [...] S NOT APPLICABLE FOR DIALYSIS PATIEN TS. [id number] 10:25:00 Test Item Value Reference Range Interpretation Comments TRIGLYCERIDES (BEAKER) (test code = 139 mg/dL 540) TRIGLYCERIDE REFERENCE RANGELow Risk <150Borderline Risk 150-199High Risk 200-499Very High Risk >=[id number] 10:25:00 Test Item Value Reference Range Interpretation Comments MAGNESIUM (BEAKER) (test code = 1.9 mg/dL 1.6-2.6 627) CREATINE KINASE (CK)2018-06-07 10:25:00 Test Item Value Reference Range Interpretation Comments CREATINE KINASE TOTAL (BEAKER) (test 941 U/L 29-200 H code = 380) LACTIC ACID, ARTERIAL, WHOLE [id number] 10:22:00 Test Item Value Reference Range Interpretation Comments LACTATE BLOOD 3.8 mmol/L 0.5-2.2 H Specimen sligh tly ARTERIAL (2) (BEAKER) hemoly zed (test code = 2874) POCT-GLUCOSE [id number] 10:14:00 Test Item Value Reference Range Interpretation Comments POC-GLUCOSE METER 224 mg/dL 70-110 H TESTED AT [facility] 6720 (BEAKER) (test code = [place] 1538) [address] BLOOD GAS, [id number] 09:58:00 Test Item Value Reference Range Interpretation [...] 100.0 % RAD, CHEST, 1 VIEW, NON [id number] 09:38:00Reason for exam:->pulm edemaShould this be performed [...] Cardiomediastinal silhouette is normal insize. Signed: Aries Moss MDReport Verified Date/Time: 06/07/2018 09:38:30 Reading Location: [facility] Radiology Reading Room -BLOOD GASES, [id number] 08:35:00 Test Item Value Reference Range Interpretation Comments TEMP, CELSIUS-POC 37.0 (BEAKER) (test code = 1834) FIO2-POC (BEAKER) TESTED AT [facility] 6720 (test code = 1835) [facility] [address] PH, ARTERIAL-POC 7.208 7.350-7.450 LL (BEAKER) (test code = 1836) PCO2, ARTERIAL-POC 45.0 mm Hg 35.0-45.0 (BEAKER) (test code = 1837) PO2, ARTERIAL-POC 50.0 mm Hg 80.0-90.0 L (BEAKER) (test code = 1838) SO2, ARTERIAL-POC 76.0 % 96.0-97.0 L (BEAKER) (test code = 1839) HCO3, ARTERIAL-POC 17.9 meq/L 21.0-29.0 L ([facility]) (test code = 1840) BASE EXCESS, -10.0 meq/L -2.0-3.0 L ARTERIAL-POC ([facility]) (test code = 1841) [id number] 08:35:00 Test Item Value Reference Range Interpretation Comments POC-SODIUM ([facility]) 141 meq/L 135-148 TESTED A T [place] [address] (test code = 1542) [facility] [facility] [address] [id number] 08:35:00 Test Item Value Reference Range Interpretation Comments POC-POTASSIUM 4.3 meq/L 3.6-5.5 TESTED AT [place] [address] ([facility]) (test code [place] [address] = 1540) [id number] 08:35:00 Test Item Value Reference Range Interpretation Comments POC-GLUCOSE ([facility]) 256 mg/dL 70-110 H TESTED AT [place] [address] (test code = 1855) [facility] [address] POCT-CALCIUM [id number] 08:35:00 Test Item Value Reference Range Interpretation Comments POC-CALCIUM IONIZED 1.21 mmol/L 1.12-1.27 TESTED A [place] [address] ([facility]) (test code = [facility] 1536) [address] [id number] 08:35:00 Test Item Value Reference Range Interpretation Comments POC-HEMATOCRIT 33 % 36-45 L TESTED AT [place] [address] ([facility]) (test code = [facility] [address]) [id number] 08:35:00 Test Item Value Reference Range Interpretation Comments POC-HEMOGLOBIN 11.2 g/dL 12.0-15.0 L TESTED AT [place] [address] ([facility]) (test code [facility] = 1856) 414[address]ZIELNJ AT [place] [address] [place] [address] [id number] 08:29:00 Test Item Value Reference Range Interpretation Comments D-DIMER QUANTITATIVE ([facility]) 14.73 MG/L FEU <0.50 H (test code [...] code = 635) LACTIC ACID, ARTERIAL, WHOLE [id number] 08:21:00 Test Item Value Reference Range Interpretation Comments LACTATE BLOOD ARTERIAL (2) 7.9 mmol/L 0.5-2.2 H (BEAKER) (test code = 2874) POCT-LACTIC ACID, [id number] 08:20:00 Test Item Value Reference Range Interpretation Comments POC-LACTIC ACID, 5.5 mmol/L 0.4-1.3 H TESTED AT [facility] 6720 ARTERIAL (BEAKER) [facility] (test code = 2804) [address] POCT-BLOOD GASES, [id number] 08:20:00 Test Item Value Reference Range Interpretation Comments TEMP, CELSIUS-POC 37.0 (BEAKER) (test code = 1834) FIO2-POC (BEAKER) TESTED AT [facility] 6720 (test code = 1835) [facility] [address] PH, ARTERIAL-POC 7.173 7.350-7.450 LL (BEAKER) (test [...] L ARTERIAL-POC (BEAKER) (test code = 1841) [id number] 08:20:00 Test Item Value Reference Range Interpretation Comments POC-SODIUM (BEAKER) 142 meq/L 135-148 TESTED A T [place] [address] (test code = 1542) [facility] [address] [id number] 08:20:00 Test Item Value Reference Range Interpretation Comments POC-POTASSIUM 4.4 meq/L 3.6-5.5 TESTED AT [place] [address] [facility] (test code [facility] [address] = 1540) [id number] 08:20:00 Test Item Value Reference Range Interpretation Comments POC-GLUCOSE ([facility]) 250 mg/dL 70-110 H TESTED AT [place] [address] (test code = 1855) [facility] [address] POCT-CALCIUM [id number] 08:20:00 Test Item Value Reference Range Interpretation Comments POC-CALCIUM IONIZED 0.74 mmol/L 1.12-1.27 LL TESTED A T [place] [address] ([facility]) (test code = [facility] 1536) [address] [id number] 08:20:00 Test Item Value Reference Range Interpretation Comments POC-HEMATOCRIT 28 % 36-45 L TESTED AT [place] [address] ([facility]) (test code = [facility] [address] 1851) [id number] 08:20:00 Test Item Value Reference Range Interpretation Comments POC-HEMOGLOBIN 9.5 g/dL 12.0-15.0 L TESTED AT [place] [address] ([facility]) (test code = [facility] 1856) [address]LCZOAD AT [place] [address] [place] [facility] [address] [id number] 08:19:00 Test Item Value Reference Range Interpretation Comments POTASSIUM (BEAKER) (test code = 4.5 meq/L 3.5-5.1 379) [id number] 08:19:00 Test Item Value Reference Range Interpretation Comments SODIUM (BEAKER) (test code = 381) 138 meq/L 136-145 [id number] 08:19:00 Test Item Value Reference Range Interpretation Comments FIBRINOGEN LEVEL (BEAKER) (test 349 mg/dl 225-434 code = 658) [id number] 08:19:00 Test Item Value Reference Range Interpretation [...] mechanical heart valves.RAD, CHEST, 1 VIEW, NON [id number] 08:17:00Reason for exam:->post intubationShould this be performed [...] Borden Verified Date/Time: 06/07/2018 08:17:10 Reading Location: [facility] Radiology Reading Room PLATELET [id number] 08:05:00 Test Item Value Reference Range Interpretation Comments PLATELET COUNT (BEAKER) (test 179 K/CU MM 150-450 code = 756) HEMOGLOBIN AND [id number] 08:05:00 Test Item Value Reference Range Interpretation Comments HEMOGLOBIN (BEAKER) (test code = 9.4 GM/DL 11.2-15.7 L 410) HEMATOCRIT (BEAKER) (test code = 29.7 % 34.1-44.9 L 411) [id number] 07:54:00 Test Item Value Reference Range Interpretation Comments HAPTOGLOBIN (BEAKER) (test code = 142 mg/dL 14-258 366) HGB/HCT (H&H) - STAT [id number] 07:48:00 Test Item Value Reference Range Interpretation Comments HEMOGLOBIN (BEAKER) (test code = 7.7 GM/DL 12.0-15.0 L 410) HEMATOCRIT (BEAKER) (test code = 23.0 % 36.0-45.0 L 411) BLOOD GAS, [id number] 07:30:00 Test Item Value Reference Range Interpretation [...] (test code = 1819) 21.0 % CT, [id number] 07:18:00FINAL REPORT TECHNIQUE: CT of the abdomen [...] Mckay Verified Date/Time: 06/07/2018 07:18:15 Reading Location: [facility] Diagnostic Imaging Reading Room - [place] [address] POCT-GLUCOSE [id number] 07:15:00 Test Item Value Reference Range Interpretation Comments POC-GLUCOSE METER 282 mg/dL 70-110 H TESTED AT [facility] 6720 ([facility]) (test code = [facility] 1538) [address] T4, [id number] 07:07:00 Test Item Value Reference Range Interpretation Comments FREE T4 ([facility]) (test code = 655) 1.19 ng/dL 0.70-1.48 [id number] 06:57:00 Test Item Value Reference Range Interpretation Comments FERRITIN ([facility]) (test code = 361) 262 ng/mL 5-275 VITAMIN B12 AND [id number] 06:57:00 Test Item Value Reference Range Interpretation [...] U/L 125-220 H code = 635) POCT-GLUCOSE [id number] 06:18:00 Test Item Value Reference Range Interpretation Comments POC-GLUCOSE METER 199 mg/dL 70-110 H TESTED AT [facility] 6720 (BEAKER) (test code = IM[facility] 1538) [address] RETICULOCYTE [id number] 06:04:00 Test Item Value Reference Range Interpretation Comments RETICULOCYTE COUNT PCT (BEAKER) (test 1.9 % 0.5-1.7 H code = 575) HEMOGLOBIN AND [id number] 06:04:00 Test Item Value Reference Range Interpretation Comments HEMOGLOBIN (BEAKER) (test code = 6.6 GM/DL 11.2-15.7 L 410) HEMATOCRIT (BEAKER) (test code = 21.0 % 34.1-44.9 L 411) OXYGEN SATURATION, [id number] 06:01:00 Test Item Value Reference Range Interpretation Comments O2 SATURATION (MEASURED) (BEAKER) 52.8 % (test code = 1455) TSH/FREE T4 IF [id number] 05:58:00 Test Item Value Reference Range Interpretation Comments THYROID STIMULATING HORMONE 0.22 uIU/mL 0.35-4.94 L (BEAKER) (test code = 772) TROPONIN [id number] 05:48:00 Test Item Value Reference Range Interpretation [...] acute neurological disease, and persistent tachyarrhythmia.BASIC METABOLIC [id number] 05:27:00 Test Item Value Reference Range Interpretation [...] WBC 0-0 (BEAKER) (test code = 413) [id number] 05:19:00 Test Item Value Reference Range Interpretation Comments MAGNESIUM (BEAKER) (test code = 1.9 mg/dL 1.6-2.6 627) LIPID [id number] 05:19:00 Test Item Value Reference Range Interpretation [...] Very High >=190RAD, CHEST, 1 VIEW, NON [id number] 05:00:00Reason for exam:->Line placementShould this be performed [...] overlie the right axilla. Signed: Philip Perez Verified Date/Time: 06/07/2018 05:00:33 Reading Location: [address] Reading Room [id number] 04:43:00 Test Item Value Reference Range Interpretation Comments ACTIVATED CLOTTING TIME 274 sec TEST ED AT [address] (test code = IMANI Alvarez [place] [address]) [id number] 00:55:00 Test Item Value Reference Range Interpretation Comments ACTIVATED CLOTTING TIME 241 sec TEST ED AT [address] (test code = [facility] Kim [place] [address]) [id number]
[2022-12-22 10:40] LABS: Absolute Lymphocytes (CBC) 1.7 K/uL (0.7-4.9); Lymphocytes % 22.8 % (15.3-44.8); MCV 105.6 fL (80-100); MPV 8.4 fL (7.6-11.3); RBC Red Blood Cell Count 3.13 M/uL (3.86-4.86)
[2022-12-22 11:03] LABS: Anisocytosis 1+; Blood Morphology Comment NOTED (NOT SEEN); Macrocytosis 1+; Platelet Estimate ADEQ; White Blood Cell Scan OK (OK)
[2022-12-22 11:59] LABS: Albumin 3.8 g/dL (3.4-5.0); Bilirubin Direct 0.1 mg/dL (0-0.2); Bilirubin Indirect, Calculated 0.4 mg/dL (0.2-0.8); Bilirubin Total 0.5 mg/dL (0.2-1.0); Potassium 5.6 mEq/L (3.5-5.1); Troponin High Sensitivity 7.6 pg/mL (<58.9)
[2022-12-22 12:46] LABS: Specific Gravity 1.011 (1.005-1.030); Urine Bacteria <20 /HPF (<20); Urine Bilirubin NEGATIVE (Negative); Urine Blood Negative (Negative); Urine Clarity Clear (Clear); Urine Color Light-Yellow (Yellow); Urine Glucose NEGATIVE (Negative); Urine Mucus Slight /HPF (None Seen); Urine Protein NEGATIVE (Negative); Urine RBC <5 /HPF (None Seen); Urine Urobilinogen Normal (Normal); Urine pH 6.5 (5.0-7.0)
--- NOTE | 2022-12-22 13:01 | EDPHYS ---
Physician Documentation [facility] Name: Thuy Nunes Age: 82 yrs Sex: Female : 1940 Arrival Date: 12/22/2022 Time: 10:07 Bed 17 Private MD: ED Physician Bree Gama HPI: 12/22 10:18 This 82 yrs old Female presents to ER via Unassigned with complaints of urinary sp3 symptoms and generalized weakness. 10:18 82-year-old female with history of CAD, hypothyroidism, among others now presents to [facility] the ED with chief complaint urinary symptoms including frequency, burning, and incontinence for 3 to 4 days. Today she was on the toilet and in the process of getting up became "weak in her knees" and slowly came down to the ground and asked for help after which point EMS was activated and they have transported her to the ED. Vital signs were normal in route patient has no other complaints. She denies syncope, headache, seizure, chest pain, back pain, neck pain, rash, neuro symptoms, or any other signs or symptoms on ROS at this time.. Historical: - Allergies: 11:03 No Known Allergies; ko1 - PMHx: 11:03 Arthritis; Cancer, Breast; Gout; Hypertension; Hypothyroidism; Sjogren's Syndrome; ko1 temporitis; - Immunization history:: Adult Immunizations up to date. - Social history:: Smoking status: Patient denies any tobacco usage or history of. ROS: 10:20 Constitutional: Negative for fever, chills, and weight loss, Eyes: Negative for injury, sp3 pain, redness, and discharge, ENT: Negative for injury, pain, and discharge, Neck: Negative for injury, pain, and swelling, Cardiovascular: Negative for chest pain, palpitations, and edema, Respiratory: Negative for shortness of breath, cough, wheezing, and pleuritic chest pain, Abdomen/GI: Negative for abdominal pain, nausea, vomiting, diarrhea, and constipation, Back: Negative for injury and pain, MS/Extremity: Negative for injury and deformity, Skin: Negative for injury, rash, and discoloration, Neuro: Negative for headache, weakness, numbness, tingling, and seizure, Psych: Negative for depression, anxiety, suicide ideation, homicidal ideation, and hallucinations, Allergy/Immunology: Negative for hives, rash, and allergies, Endocrine: Negative for neck swelling, polydipsia, polyuria, polyphagia, and marked weight changes. 10:20 All other systems are negative. Exam: 10:20 Constitutional: This is a well developed, well nourished patient who is awake, alert, sp3 and in no acute distress. Head/Face: Normocephalic, atraumatic. Eyes: Pupils equal round and reactive to light, extra-ocular motions intact. Lids and lashes normal. Conjunctiva and sclera are non-icteric and not injected. Cornea within normal limits. Periorbital areas with no swelling, redness, or edema. ENT: Nares patent. No nasal discharge, no septal abnormalities noted. External auditory canals are clear. Oropharynx with no redness, swelling, or masses, exudates, or evidence of obstruction, uvula midline. Mucous membranes moist. Neck: Trachea midline, no thyromegaly or masses palpated, and no cervical lymphadenopathy. Supple, full range of motion without nuchal rigidity, or vertebral point tenderness. No Meningismus. Chest/axilla: Normal chest wall appearance and motion. Nontender with no deformity. No lesions are appreciated. Cardiovascular: Regular rate and rhythm with a normal S1 and S2. No gallops, murmurs, or rubs. Normal PMI, no JVD. No pulse deficits. Respiratory: Lungs have equal breath sounds bilaterally, clear to auscultation and percussion. No rales, rhonchi or wheezes noted. No increased work of breathing, no retractions or nasal flaring. Abdomen/GI: Soft, non-tender, with normal bowel sounds. No distension or tympany. No guarding or rebound. No evidence of tenderness throughout. Back: No spinal tenderness. No costovertebral tenderness. Full range of motion. Skin: Warm, dry with normal turgor. Normal color with no rashes, no lesions, and no evidence of cellulitis. MS/ Extremity: Pulses equal, no cyanosis. Neurovascular intact. Full, normal range of motion. Neuro: Awake and alert, GCS 15, oriented to person, place, time, and situation. Cranial nerves II-XII grossly intact. Motor strength 5/5 in all extremities. Sensory grossly intact. Cerebellar exam normal. Normal gait. Psych: Awake, alert, with orientation to person, place and time. Behavior, mood, and affect are within normal limits. 10:50 ECG was reviewed by the Attending Physician. EKG demonstrates sinus bradycardia 57 bpm sp3 with a first-degree AV block with a DC interval of 212, leftward axis and nonspecific diffuse ST/T changes without evidence of acute ischemia. Old EKG dated 07/10/2022 demonstrates no significant interval change. Vital Signs: 10:15 BP 119 / 51; Pulse 60; Resp 16; Temp 97(O); Pulse Ox 98% on R/A; ko1 10:30 BP 122 / 66; Pulse 71; Resp 16; Pulse Ox 98% ; ko1 11:30 BP 128 / 68; Pulse 74; Resp 16; Pulse Ox 98% ; ko1 13:00 BP 124 / 72; Pulse 72; Resp 16; Pulse Ox 99% ; ko1 MDM: 10:14 Patient medically screened. sp3 10:20 Data reviewed: vital signs, nurses notes, EMS record, lab test result(s), EKG. ED sp3 course: 82-year-old female with urinary symptoms and generalized weakness. Will obtain laboratory values, urinalysis, troponin, EKG, and generalized supportive care. Disposition to be determined after work-up is complete. Differential diagnosis includes UTI, sepsis, electrolyte abnormality, and possibly ACS. I am not highly concerned for any critical illness however patient likely has UTI as her leading diagnosis.. 13:00 ED course: Laboratory values reviewed. Lactate is normal and troponin is negative sp3 patient has mild UTI. Given her symptoms, we will will treat with Levaquin IV x1 dose and discharged home on p.o. Levaquin with PCP follow-up.. 12/22 10:14 Order name: Basic Metabolic Panel; Complete Time: 12:03 3 12/22 10:14 Order name: CBC with Diff; Complete Time: 11:33 3 12/22 10:14 Order name: LFT's; Complete Time: 12:03 3 12/22 10:14 Order name: Troponin HS; Complete Time: 12:03 3 12/22 10:14 Order name: UAM; Complete Time: 13:00 3 12/22 10:14 Order name: Urine Culture sp3 12/22 10:14 Order name: Lactate w/ 2H reflex if indic.; Complete Time: 11:33 sp3 12/22 10:42 Order name: CBC Smear Scan; Complete Time: 11:33 EDMS 12/22 10:14 Order name: EKG; Complete Time: 10:15 sp3 12/22 10:14 Order name: Cardiac monitoring; Complete Time: 10:16 sp3 12/22 10:14 Order name: EKG - Nurse/Tech; Complete Time: 10:50 sp3 12/22 10:14 Order name: IV Saline Lock; Complete Time: 10:35 sp3 12/22 10:14 Order name: Labs collected and sent; Complete Time: 10:35 sp3 12/22 10:14 Order name: O2 Sat Monitoring; Complete Time: 10:16 sp3 12/22 11:06 Order name: Labs - recollect needed: recollect green top; Complete Time: 11:30 bd Administered Medications: 13:13 Drug: levofloxacin IVPB 500 mg Volume: 100 ml; Route: IVPB; Infused Over: 60 mins; ko1 Site: left wrist; Disposition Summary: 12/22/22 13:01 Discharge Ordered Location: Home sp3 Condition: Stable sp3 Diagnosis - UTI, near syncope sp3 Followup: sp3 - With: Private Physician - When: Upon discharge from the Emergency Department - Reason: Continuance of care Discharge Instructions: - Discharge Summary Sheet sp3 - Urinary Tract Infection, Adult sp3 Forms: - Medication Reconciliation Form sp3 - Thank You Letter sp3 - Antibiotic Education sp3 - Prescription Opioid Use sp3 Prescriptions: - levofloxacin 500 mg Oral Tablet - take 1 tablet by ORAL route once daily for 7 days; 7 tablet; Refills: 0, sp3 Product Selection Permitted Signatures: Dispatcher [employer] EDKS Karen Hart Setul, MD MD sp3 Mariely Hanley, RN RN ko1
--- NOTE | 2022-12-22 13:01 | ER ---
Nurse's Notes [facility] Name: Thuy Nunes Age: 82 yrs Sex: Female : 1940 Arrival Date: 12/22/2022 Time: 10:07 Bed 17 Private MD: Diagnosis: UTI, near syncope Presentation: 12/22 10:15 Chief complaint: EMS states: patient felt weak while on the toilet at home, slid down ko1 to the floor. Did not hit head, did not pass out. No injuries noted. Coronavirus screen: At this time, the client does not indicate any symptoms associated with coronavirus-19. Ebola Screen: No symptoms or risks identified at this time. Initial Sepsis Screen: Does the patient meet any 2 criteria? No. Patient's initial sepsis screen is negative. Does the patient have a suspected source of infection? No. Patient's initial sepsis screen is negative. Risk Assessment: Do you want to hurt yourself or someone else? Patient reports no desire to harm self or others. Onset of symptoms was December 22, 2022. 10:15 Method Of Arrival: EMS[facility] ko1 10:15 Acuity: PARAG 3 ko1 Triage Assessment: 11:03 General: Appears in no apparent distress. comfortable, Behavior is calm, cooperative, ko1 appropriate for age. Pain: Denies pain. Historical: - Allergies: 11:03 No Known Allergies; ko1 - PMHx: 11:03 Arthritis; Cancer, Breast; Gout; Hypertension; Hypothyroidism; Sjogren's Syndrome; ko1 temporitis; - Immunization history:: Adult Immunizations up to date. - Social history:: Smoking status: Patient denies any tobacco usage or history of. Screenin:30 [facility] ED Fall Risk Assessment (Adult) History of falling in the last 3 months, ko1 including since admission Yes- single mechanical fall (1 pt) Confusion or Disorientation No (0 pts) Intoxicated or Sedated No (0 pts) Impaired Gait Yes (1 pt) Mobility Assist Device Used Yes (1 pt) Altered Elimination No (0 pt) Score/Fall Risk Level 3 or more points = High Risk Oriented to surroundings, Maintained a safe environment, Educated pt \T\ family on fall prevention, incl call for assistance when getting out of bed, Assessed \T\ reinforced patient's understanding of fall precautions, Provided non-skid footwear, Hourly rounding (assess needs \T\ fall precautionary measures) done, Used ambulatory aids as needed (educated on \T\ assisted with), Used gait belt as appropriate Apply high fall risk patient identification: yellow non skid footwear/ fall signage, Remained w/in arm's length of patient and in sight while toileting, Offered frequent toileting (1:1 observation), Remained with patient while ambulating, Utilized family, sitter, or virtual machine whitener as indicated. Abuse screen: Denies threats or abuse. Denies injuries from another. Nutritional screening: No deficits noted. Tuberculosis screening: No symptoms or risk factors identified. Assessment: 10:30 Neuro: No deficits noted. Cardiovascular: No deficits noted. Respiratory: No deficits ko1 noted. GI: No deficits noted. : No deficits noted. EENT: No deficits noted. Derm: No deficits noted. Musculoskeletal: No deficits noted. 12:15 Reassessment: Paged phlebotomy for lab draw assistance three times. ld1 Vital Signs: 10:15 BP 119 / 51; Pulse 60; Resp 16; Temp 97(O); Pulse Ox 98% on R/A; ko1 10:30 BP 122 / 66; Pulse 71; Resp 16; Pulse Ox 98% ; ko1 11:30 BP 128 / 68; Pulse 74; Resp 16; Pulse Ox 98% ; ko1 13:00 BP 124 / 72; Pulse 72; Resp 16; Pulse Ox 99% ; ko1 ED Course: 10:08 Patient arrived in ED. ld1 10:13 Bree Gama MD is Attending Physician. sp3 10:15 Mariely Hanley, VALERIE is Primary Nurse. ko1 10:15 No provider procedures requiring assistance completed. ko1 10:15 Arm band placed on right wrist. Patient placed in an exam room, on a stretcher, on ko1 jig and fixture maker, on pulse oximetry, Patient notified of wait time. 10:15 Client placed on continuous cardiac and pulse oximetry monitoring. NIBP monitoring ko1 applied. customer contact sales associate on. Door closed. Noise minimized. Lights dimmed. Warm blanket given. 10:30 Inserted saline lock: 24 gauge in left wrist, using aseptic technique. Blood collected. ko1 10:35 Basic Metabolic Panel Sent. ko1 10:35 CBC with Diff Sent. ko1 10:36 LFT's Sent. ko1 10:36 Troponin HS Sent. ko1 10:36 Lactate w/ 2H reflex if indic. Sent. ko1 11:03 Triage completed. ko1 11:05 Patient has correct armband on for positive identification. Bed in low position. Call ko1 light in reach. Side rails up X2. 13:38 IV discontinued, intact, bleeding controlled, No redness/swelling at site. Pressure ko1 dressing applied. Administered Medications: 13:13 Drug: levofloxacin IVPB 500 mg Volume: 100 ml; Route: IVPB; Infused Over: 60 mins; ko1 Site: left wrist; Medication: 10:30 VIS not applicable for this client. ko1 Outcome: 13:01 Discharge ordered by . sp3 14:25 Discharged to home via wheelchair, with family. ko1 14:25 Condition: improved 14:25 Discharge instructions given to patient, Instructed on discharge instructions, follow up and referral plans. medication usage, Demonstrated understanding of instructions, follow-up care, medications, Prescriptions given X 1. 14:26 Patient left the ED. ko1 Signatures: Lucy Samuels RN RN ld1 Bree Gama MD MD sp3 Mariely Hanley, VALERIE RN ko1 Corrections: (The following items were deleted from the chart) 11:05 11:03 Arm band placed on right wrist. Patient placed in an exam room, on a stretcher, ko1 on jig and fixture maker, on pulse oximetry, Patient notified of wait time ko1
[2022-12-22] MEDS ORDERED: Levofloxacin500mg IV 500 MG/100 ML BAG IV ONE (13:14)
[2022-12-22 14:50] VITALS: TEMP 97
[2022-12-22 14:54] VITALS: BP 124/72; O2SAT 99
--- NOTE | 2022-12-23 04:57 | EKG ---
Test Date: 2022-12-22 Test Time: 10:46:41 Marketing Summer Intern: JADIEL MEASUREMENT RESULTS: Intervals: Rate: 57 WV: 212 QRSD: 104 QT: 406 QTc: 395 [place]: P: 20 WV: 212 QRS: -38 T: 4 INTERPRETIVE STATEMENTS: Sinus bradycardia with 1st degree AV block Left axis deviation Abnormal ECG Compared to ECG 07/10/2022 13:23:15 First degree AV block now present Left-axis deviation now present Sinus rhythm no longer present Left anterior fascicular block no longer present Myocardial infarct finding no longer present Electronically Signed On 12-23-22 04:54:07 CDT by Tiburcio Eason
== END 2022-12-22 14:26 | disposition home or self-care (01) ==
LOC: ER 10:07
DX: N39.0 Urinary tract infection, site not specified (principal); R55 Syncope and collapse; I10 Essential (primary) hypertension
CPT/HCPCS: 36415; 80048; 80076; 81001; 83605; 84484; 85025; 87086; 87088; 93005; 96374; 99285

== ENCOUNTER 2022-12-29 20:39 | Inpatient (IN) | payer OTHER ==
--- OUTSIDE RECORDS SUMMARY | 2022-12-29 20:46 | XMS REPORT | Continuity of Care Document ---
:1940 Author Organization [facility] Address [address] [place] [address]. 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 [facility] deconditio deconditio 08-14 Katherin kes maya maya 00:00: Medical 00 Center Hemorrhagi Hemorrhagi Disease Active 2017-08 C HI [...] (STEMI) of inferior inferior wall wall 3RD CONSTITUTION PARTY 3RD CONSTITUTION PARTY Diagnosis Active 2017-082018-06-12 Memoria LFLT LFLT 08-06 17:40:00 l [id number] 00:00: Herm flavio Active 00 06/06/2018 [facility] [id number] Pain, Problem Commo n [id number] joint, [facility] shoulder, - [facility] right [facility] Amnesia Amnesia Problem Active 2022-11-15 Me moria (finding) (finding) 11:51:25 l Active Dev Problem 11/15/2022 [facility] Incontinen Incontine Problem Active 2022-11-15 Memoria ce nce 11:51:25 l (finding) (finding) Herm flavio Active Problem 11/15/2022 [facility] Infectious Infectiou Problem Active 2022-11-15 Memoria disease of s disease 11:51:25 l lung of lung Pride (disorder) (disorder) Active Problem 11/15/20222015 [facility] 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 Dev (disorder) (disorder) Active Problem 11/15/20221998 [facility] Myocardial Problem Active 2022-11-15 M emoria infarction Myocardial 11:51:25 l (disorder) infarction He rmann (disorder) Active Problem 11/15/20222017 [facility] Shoulder Shoulder Problem Active 2022-11-15 Memoria pain pain 11:51:25 l (finding) (finding) Herm flavio Active Problem 11/15/2022 [facility] 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 11:51:25 l (disorder) (disorder) He rmann Active Problem 11/15/20221999 [facility] 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 arteritis arteritis 11:51:25 l (disorder) (disorder) He rmann Active Problem 11/15/20222004 [facility] Urinary Urinary Problem Active 2022-11-15 Me moria tract tract 11:51:25 l infectious infectious He [facility] disease disease (disorder) (disorder) Active Problem 11/15/20222015 [facility] Tremor Tremor Problem Active 2022-11-15 Aditya jesse (finding) (finding) 11:51:25 l Active Dev Problem 11/15/2022 [facility] Allergies, Adverse Reactions, Alerts Allergy Allergy Status Severity Reaction(s) Onset Inactive Treating Comm ents Source Name Type Date Date Clinician NO KNOWN Allergy Active [facility] Heart sulfa sulfa Active [facility] drugs drugs l Pride lisinopr lisinopr Active Memori a il<sup>1 il<sup>1 l </sup> </sup> Pride Social History Social Habit Start Date Stop Date Quantity Comments Source History of Tobacco Common [facility] - Use [facility] History SDOH [facility] Alcohol Comment Medical C enter History SDOH [facility] Alcohol Std Drinks Medica l Center History SDOH [facility] Alcohol Binge Medical Daryn ter Alcohol intake 2018-10-27 2018-10-[address] [facility] 00:[facility] 00:[facility]:00 non-drinker of Medical Ce nter alcohol (finding) Tobacco use and 2018-06-07 2018-06-07 Smokeless tobacco [facility] exposure [facility] non-user Medical Center History SDOH 2018-06-07 2018-06-[address] [facility] Alcohol Frequency 00:00:00 [facility] Sex Assigned At [address] Katherin kes 00:00:00 00:00:00 [facility] Smoking Status Start Date Stop Date Source Tobacco smoking status [facility] Medications Ordered Filled Start Stop Current Ordering Indication Dosage Frequency Signature Comments Components Source Medication Medication Date Date Medication? Clinician (SIG) Name Name atorvastati Yes TAKE 1 Aditya jesse n 40 [...] l tablet 20:33: MOUTH ONCE Stephanie nn DAILY latanoprost Yes INSTILL 1 M emoria ophthalmic 3-03 DROP INTO l 0.005% 20:33: EACH EYE Pride solution 00 AT BEDTIME allopurinol Yes 100 mg = 1 Memoria 100 mg oral 3-03 tab, PO, l tablet 20:33: BID, # 60 Julio n 00 tab, 0 Refill(s) atorvastati Yes TAKE 1 Aditya jesse n 40 mg 3-03 TABLET BY l oral tablet 20:33: MOUTH ONCE Pride 00 DAILY AT BEDTIME Metoprolol Yes TAKE [...] DROP INTO l 0.005% 20:33: EACH EYE Dev solution 00 AT BEDTIME allopurinol Yes 100 mg = 1 Memoria 100 mg oral 3-03 tab, PO, l tablet 20:33: BID, # 60 Julio n 00 tab, 0 Refill(s) Solifenacin Solifenacin 2021-08- No 1{table QD Solifenaci Succinate 5 Succinate 5 0-26 05-24 t} n MG MG 00:00: 00:00 Succinate 00 :00 5 MG Solifenacin Solifenacin 2-1 3- No 1{table QD Solifenaci Succinate 5 Succinate 5 0-26 05-24 t} n MG MG 00:00: 00:00 Succinate 00 :00 5 MG Lidocaine Lidocaine 2-0 No 10mg Com 04-09 [facility] 00:00: - [facility] 00 [facility] Kenalog Kenalog 2-0 No 40mg Common (Triamcinol (Triamcinol 9-08 S pirit one) one) 00:00: - [facility] 00 [facility] Lidocaine Lidocaine 2-0 No 10mg Com 04-09 Spirit 00:00: - [facility] 00 [facility] Kenalog Kenalog 2-0 No 40mg Common (Triamcinol (Triamcinol 9-08 S pirit one) one) 00:00: - [facility]I 00 [facility] Lidocaine Lidocaine 2-0 No 10mg Com 04-09 Spirit 00:00: - [facility] 00 [facility] Kenalog Kenalog 2-0 No 40mg Common (Triamcinol (Triamcinol 9-08 S pirit one) one) 00:00: - [facility]I 00 [facility] Lidocaine Lidocaine 2-0 No 10mg Com 04-09 Spirit 00:00: - [facility] 00 [facility] Kenalog Kenalog 2-0 No 40mg Common (Triamcinol (Triamcinol 9-08 S pirit one) one) 00:00: - CHI 00 [facility] Lidocaine Lidocaine 2-0 No 10mg Com 04-09 Spirit 00:00: - [facility] 00 [facility] Kenalog Kenalog 2-0 No 40mg Common (Triamcinol (Triamcinol 9-08 S pirit one) one) 00:00: - [facility]I 00 [facility] Solifenacin Solifenacin 2-0 2022- No 1{table QD Solifenaci Succinate Succinate 5-20 08-18 t} n 10 MG 10 MG 00:00: 00:00 Succinate 00 :00 10 MG allopurinol 2019-0 Yes 100mg QD Take 100 C HI [...] MG tablet 09:51: daily. Medica l 18 [place] melatonin 3 Yes 3mg Take 3 mg [...] 09:51: needed. Medical ORAL) 18 Center allopurinol 0 Yes 100mg QD Take [address] (ZYLOPRIM) 3-28 mg by [facility] 100 MG 09:51: mouth Medical tablet 18 daily. [place] levothyroxi Yes 125ug Take 125 C HI [...] mg tablet 09:51: daily. Medica l 18 [place] naproxen Yes Take by [facility] sodium 3-28 mouth as [facility] (ALEVE 09:51: needed. Medical ORAL) 18 Center allopurinol Yes 100mg QD Take [address] (ZYLOPRIM) 3-28 mg by [facility] 100 MG 09:51: mouth Medical tablet 18 daily. [place] levothyroxi 0 Yes 125ug Take [address] [...] QHS Medica l ophthalmic 00 Center solution latanoprost Yes INT [address] (XALATAN) 9-10 IN both [facility] 0.005 % 00:00: eyes QHS Medica l ophthalmic 00 Center solution latanoprost Yes INT [address] (XALATAN) 9-10 IN both [facility] 0.005 % 00:00: eyes QHS Medica l ophthalmic 00 Center solution Travatan Z Yes See Memoria 0.004% 09-10 Instructio l ophthalmic 16:15: ns, # 9 Herm flavio solution 00 unknown unit, INSTILL ONE DROP INTO AFFECTED EYE(S) EVERY NIGHT AT BEDTIME, Pharmacy: [facility] [address] Travatan Z Yes See Memoria 0.004% 09 Instructio l ophthalmic 16:15: ns, # 9 Herm flavio solution 00 unknown unit, INSTILL ONE DROP INTO AFFECTED EYE(S) EVERY NIGHT AT BEDTIME, Pharmacy: [facility] betaxolol Yes 1 drp, Memori a ophthalmic 04-09 BOTH EYES, l 0.5% 21:43: BID, # 5 Pride solution 00 mL, 0 Refill(s), Pharmacy: [facility] betaxolol Yes 1 drp, Memori a ophthalmic 04-09 BOTH EYES, l 0.5% 21:43: BID, # 5 Dev solution 00 mL, 0 Refill(s), Pharmacy: [facility] erythromyci Yes See Memori a n 04-09 [...] # Dev 00 30 tab, 0 Refill(s) erythromyci Yes See Memori a n 04-09 Instructio l ophthalmic 19:08: ns, 1 appl H ermann 00 QID, 0 Refill(s) methotrexat Yes PO, 0 Memor ia e 2.5 mg 08 Refill(s) l oral tablet 19:08: Julio n 00 folic acid Yes 1 mg = 1 Mem oria 1 mg oral 08 tab, PO, l tablet 19:08: Daily, # Dev 00 30 tab, 0 Refill(s) predniSONE Yes See Memoria 10 mg oral 7-23 Instructio l tablet 22:21: ns, 3 tab Julio n 00 PO Daily, # 60 caplet, 0 Refill(s), other predniSONE Yes See Memoria 10 mg oral [...] l tablet 14:13: Daily Dev 00 Cymbalta 2014-08 Yes 30 mg = 1 M emoria mg oral 0-23 cap, PO l delayed 14:13: Pride release 00 capsule levothyroxi 2014-08 Yes 75 Memori a ne 75 mcg 0-23 microgram l (0.075 mg) 14:13: = 1 tab, Her miller oral tablet 00 PO, Daily amLODIPine 2014-08 Yes 2.5 mg = 1 M emoria 2.5 mg oral 0-23 tab, PO, l tablet 14:13: Daily Pride 00 Cymbalta 2014-08 Yes 30 mg = 1 M emoria mg oral 0-23 cap, PO l delayed 14:13: Pride release 00 capsule Latanoprost Latanoprost No 1{drop_ QD Latanopros 0.005 [...] Potassium 25 MG 25 MG 25 MG Vital Signs Vital Name Observation Time Observation Value Comments Source height 2022-05-27 14:00:00 63 [in_i] [facility] weight 2022-05-27 14:00:00 220 [lb_av] [facility] temperature 2022-05-27 14:00:00 98.3 [degF] [facility] bmi 2022-05-27 14:00:00 38.97 kg/m2 [facility] oximetry 2022-05-27 14:00:00 96 % [facility] respiratory rate 2022-05-27 14:00:00 16 /min Comm on [facility] blood pressure 2022-05-27 14:00:00 119 mm[Hg] Common [facility] - systolic [facility] blood pressure 2022-05-27 14:00:00 59 mm[Hg] Common [facility] - diastolic [facility] height 2022-04-09 08:00:00 63 [in_i] Common [facility] weight 2022-04-09 08:00:00 210 [lb_av] [facility] temperature 2022-04-09 08:00:00 98.0 [degF] [facility] bmi 2022-04-09 08:00:00 37.2 kg/m2 [facility] blood pressure 2022-04-09 08:00:00 126 mm[Hg] Common [facility] - systolic [facility] blood pressure 2022-04-09 08:00:00 78 mm[Hg] Common [facility] - diastolic [facility] height 2022-02-25 11:30:00 63 [in_i] [facility] weight 2022-02-25 11:30:00 205 [lb_av] Common [facility] [place] [facility] temperature 2022-02-25 11:30:00 97.6 [degF] [facility] bmi 2022-02-25 11:30:00 36.31 kg/m2 [facility] oximetry 2022-02-25 11:30:00 99 % [facility] respiratory rate 2022-02-25 11:30:00 99 /min Comm on [facility] blood pressure 2022-02-25 11:30:00 132 mm[Hg] Common [facility] - systolic [facility] blood pressure 2022-02-25 11:30:00 68 mm[Hg] Common [facility] - diastolic [facility] Systolic (mm Hg) 2022-11-12 19:52:00 Aditya rial Pride Diastolic (mm Hg) 2022-11-12 19:52:00 Mem orial [facility] Heart Rate 2022-11-12 19:52:00 [facility] Systolic (mm Hg) 2022-10-02 20:14:00 Aditya rial Pride Diastolic (mm Hg) 2022-10-02 20:14:00 Mem orial Pride Heart Rate 2022-10-02 20:14:00 [facility] Height 2022-10-02 20:14:00 5 [ft_i] [facility] Weight 2022-10-02 20:14:00 Memorial Dev BMI Calculated 2022-10-02 20:14:00 Aspen al Pride Procedures Procedure Date / Time Performed Performing Clinician Sourc e Stent Memorial Dev placement<sup>1</sup> Procedure [facility] Cataract extraction and Memorial Dev insertion of intraocular lens Total knee replacement [facility] Pride Breast lumpectomy Memorial Stephanie nn Appendectomy [facility] Dev Encounters Start End Encounter Admission Attending Care Care Encounter Source Date/Time Date/Time Type Type Clinicians Facility Department ID 2022-04-09 [id number] 08:01:00 [id number] [facility] 2022-03-31 [facility] [id number] Common 13:34:02 [id number] [facility] 2022-02-25 Outpatient Carlos Alberto Brooks [facility] [id number] - Common 11:30:02 [id number] [facility] 2023-03-11 2023-03-11 Outpatient MHIE MHIE [id number] Memoria 14:00:00 14:00:00 03 l Dev 2023-03-11 2023-03-11 Outpatient MHIE MHIE [id number] Memoria 14:00:00 14:00:00 03 l Pride 2022-11-12 2022-11-13 Outpatient MHIE MNA [id number] Memoria 19:45:00 04:59:59 Neurology 02 l [place] [facility] 2022-11-12 2022-11-13 Outpatient MHIE MNA [id number] Memoria 19:45:00 04:59:59 Neurology 02 l Sara Méndez 2022-11-12 2022-11-12 Outpatient ELISE ShaikhNCSCHER MISCHER [id number] 14:45:00 23:59:59 Raman 02 Jaime 2022-11-12 2022-11-12 Outpatient MHIE MHIE [id number] Memoria 14:45:00 14:45:00 02 maia Méndez 2022-10-20 2022-10-21 Outpatient MHIE MNA [id number] Memoria 18:00:00 04:59:59 Neurology 01 l Sara Méndez 2022-10-20 2022-10-21 Outpatient MHIE MNA [id number] Memoria 18:00:00 04:59:59 Neurology 01 l Sara Méndez 2022-10-20 2022-10-20 [id number] 13:00:00 23:59:59 Raman 01 Jaime 2022-10-20 2022-10-20 Outpatient MHIE MHIE [id number] Memoria 13:00:00 13:00:00 01 maia Méndez 2022-10-02 2022-10-03 Outpatient MHIE MNA [id number] Memoria 20:15:00 05:59:59 Neurology 00 l Sara Méndez 2022-10-02 2022-10-03 Outpatient MHIE MNA [id number] Memoria 20:15:00 05:59:59 Neurology 00 l Sara Méndez 2022-10-02 2022-10-02 [id number] 14:15:00 23:59:59 Raman 00 Jaime 2022-10-02 2022-10-02 Outpatient MHIE MHIE [id number] Memoria 14:15:00 14:15:00 00 maia Méndez 2022-06-02 2022-06-02 (TEL) [facility] [id number] Co mmon 00:00:00 00:00:00 [facility] 2022-05-27 2022-05-27 OFFICE STLMLC STLMLC [id number] Co mmon 00:00:00 00:00:00 VISIT Spirit ESTAB PT - CHI LEVEL 2 [facility] 2022-04-14 2022-04-14 (TEL) STLMLC STLMLC [id number] Co mmon 00:00:00 00:00:00 [facility] - [facility] 2022-04-13 2022-04-13 (TEL) STLMLC STLMLC [id number] Co mmon 00:00:00 00:00:00 [facility] - [facility] 2022-04-09 2022-04-09 OFFICE STLMLC STLMLC [id number] Co mmon 00:00:00 00:00:00 VISIT NEW Spir it PT LEVEL 3 - CHI [facility] 2022-02-25 2022-02-25 OFFICE STLMLC STLMLC [id number] Co mmon 00:00:00 00:00:00 VISIT Spirit ESTAB PT - CHI LEVEL 4 [facility] 2020-05-29 2020-05-29 Outpatient LORRI [facility] [id number] [address] [place] [address] 00:00:00 00:00:00 MACEY 690 Method i 2017-01-12 2017-01-12 Outpatient MHIE MHIE [id number] Memoria 14:00:00 14:00:00 12 maia Méndez 2017-01-12 2017-01-12 Outpatient MHIE MHIE [id number] Memoria 14:00:00 14:00:00 12 maia Méndez 2016-11-10 2016-11-10 Outpatient NAOMY FERRARI [facility] [id number] [place] 00:00:00 00:00:[address] 2016-09-29 2016-09-29 Outpatient NAOMY FERRARI [facility] [id number] [place] 00:00:00 00:00:[address] 2016-09-08 2016-09-08 Outpatient MHIE MHIE [id number] Memoria 14:45:00 14:45:00 11 maia Méndez 2016-09-08 2016-09-08 Outpatient MHIE MHIE [id number] Memoria 14:45:00 14:45:00 11 maia Méndez 2016-08-06 2016-08-06 Outpatient MHIE MHIE [id number] Memoria 13:45:00 13:45:00 10 maia Méndez 2016-08-06 2016-08-06 Outpatient MHIE MHIE [id number] Memoria 13:45:00 13:45:00 10 maia Dev 2016-04-30 2016-04-30 Outpatient MHIE MHIE [id number] Memoria 14:00:00 14:00:00 09 maia Dev 2016-04-30 2016-04-30 Outpatient MHIE MHIE [id number] Memoria 14:00:00 14:00:00 09 maia Dev 2016-04-09 2016-04-09 Outpatient MHIE MHIE [id number] Memoria 14:00:00 14:00:00 08 maia Méndez 2016-04-09 2016-04-09 Outpatient MHIE MHIE [id number] Memoria 14:00:00 14:00:00 08 maia Dev 2016-03-23 2016-03-23 Outpatient NAOMY FERRARI [facility] [id number] [place] 00:00:00 00:00:00 627 Zak palomo 2016-02-20 2016-02-20 Outpatient MHIE MHIE [id number] Memoria 15:45:00 15:45:00 07 maia Méndez 2016-02-20 2016-02-20 Outpatient MHIE MHIE [id number] Memoria 15:45:00 15:45:00 07 maia Méndez 2016-01-21 2016-01-21 Outpatient MHIE MHIE [id number] Memoria 11:00:00 11:00:00 06 maia Méndez 2016-01-21 2016-01-21 Outpatient MHIE MHIE [id number] Memoria 11:00:00 11:00:00 06 maia Méndez 2016-01-07 2016-01-07 Outpatient MHIE MHIE [id number] Memoria 14:15:00 14:15:00 05 maia Méndez 2016-01-07 2016-01-07 Outpatient MHIE MHIE [id number] Memoria 14:15:00 14:15:00 05 maia Méndez 2015-11-05 2015-11-05 Outpatient MHIE MHIE [id number] Memoria 14:15:00 14:15:00 04 maia Méndez 2015-11-05 2015-11-05 Outpatient MHIE MHIE [id number] Memoria 14:15:00 14:15:00 04 maia Pride [id number] Memoria 10:00:00 10:00:00 02 maia Dev 2015 2015 Outpatient DEVI DEVI [id number] Memoria 10:00:00 10:00:00 02 maia Dev 2015-08-16 2015-08-[address] [facility] [id number] Memoria 13:15:00 13:15:00 03 maia Dev 2015-08-16 2015-08-[address] [id number] Memoria 13:15:00 13:15:00 03 maia Dev 2015-07-01 2015-07-[address] [facility] [id number] Memoria 09:45:00 09:45:00 01 maia Méndez 2015-07-01 2015-07-[address] [facility] [id number] Memoria 09:45:00 09:45:00 01 maia Dev 2015-05-24 2015-05-[address] [facility] [id number] Memoria 09:00:00 09:00:00 00 maia Dev 2015-05-24 2015-05-[address] [facility] [id number] Memoria 09:00:00 09:00:00 00 maia Méndez [...] NOT 1092) ACCURATE CRE ATININE CLEARANCE IN MT EDICTING GLOMERULAR FILT RATION RATE. ESTIMATED GFR [...] WBC 0-0 (BEAKER) (test code = 413) [id number] 16:14:00 Test Item Value Reference Range Interpretation Comments ACTIVATED CLOTTING TIME [address] [facility] 6720 (BEAKER) (test code = [place] 441) [address] BLOOD [id number] 05:00:00 Test Item Value Reference Range Interpretation Comments CULTURE (BEAKER) (test No growth in 5 days code = 1095) BLOOD [id number] 05:00:00 Test Item Value Reference Range Interpretation Comments CULTURE (BEAKER) (test No growth in 5 days code = 1095) [id number] 05:22:00 Test Item Value Reference Range Interpretation Comments MAGNESIUM (BEAKER) (test code = 1.8 mg/dL 1.6-2.6 627) BASIC METABOLIC [id number] 05:22:00 Test Item Value Reference Range Interpretation [...] PATIEN TS. CBC W/PLT COUNT & AUTO [id number] 05:01:00 Test Item Value Reference Range Interpretation [...] H PERCENT (BEAKER) (test code = 2801) [id number] 07:20:00 Test Item Value Reference Range Interpretation Comments MAGNESIUM (BEAKER) (test code = 2.0 mg/dL 1.6-2.6 627) BASIC METABOLIC [id number] 07:20:00 Test Item Value Reference Range Interpretation [...] DIALYSIS PATIEN TS. URINALYSIS W/ REFLEX URINE [id number] 16:22:00 Test Item Value Reference Range Interpretation [...] code = 2795) URINALYSIS W/ REFLEX URINE [id number] 07:27:00 Test Item Value Reference Range Interpretation [...] /LPF 514) SOURCE(BEAKER) (test code = 2795) [id number] 06:11:00 Test Item Value Reference Range Interpretation Comments MAGNESIUM (BEAKER) (test code = 1.9 mg/dL 1.6-2.6 627) BASIC METABOLIC [id number] 06:11:00 Test Item Value Reference Range Interpretation [...] NOT APPLICABLE FOR DIALYSIS PATIEN TS. BLOOD [id number] 11:00:00 Test Item Value Reference Range Interpretation Comments CULTURE (BEAKER) (test No growth in 5 days code = 1095) BLOOD [id number] 10:00:00 Test Item Value Reference Range Interpretation Comments CULTURE (BEAKER) (test No growth in 5 days code = 1095) RAD, CHEST, 1 VIEW, NON [id number] 08:41:00Reason for exam:->pulm edemaShould this be performed at the bedside?->YesFINAL REPORT Chest, one view. HISTORY: Pulmonary edema COMPARISON: 06/18/2018 IM PRESSION: Unchanged eventration of the right hemidiaphragm. The lungs are clear. No pleural effusionor pneumothorax. Surgical clips overlie the right axilla. Signed: Luis Alfredo Mckay MDReport Verified Date/Time: 06/19/2018 08:41:05 Reading Location: [address] Body Reading Room [id number] 07:14:00 Test Item Value Reference Range Interpretation Comments MAGNESIUM (BEAKER) (test code = 2.0 mg/dL 1.6-2.6 627) BASIC METABOLIC [id number] 07:14:00 Test Item Value Reference Range Interpretation [...] PATIEN TS. CBC W/PLT COUNT & AUTO [id number] 06:49:00 Test Item Value Reference Range Interpretation [...] (BEAKER) (test code = 2801) HEMOGLOBIN AND [id number] 18:06:00 Test Item Value Reference Range Interpretation Comments HEMOGLOBIN (BEAKER) (test code = 8.8 GM/DL 11.2-15.7 L 410) HEMATOCRIT (BEAKER) (test code = 27.9 % 34.1-44.9 L 411) RAD, CHEST, 1 VIEW, NON [id number] 09:11:00Reason for exam:->pulm edemaShould this be performed at the bedside?->YesFINAL REPORT Chest, one view. HISTORY: Pulmonary edema COMPARISON: 06/17/2018 IM PRESSION: Unchanged eventration of the right hemidiaphragm. No pulmonary edema. The lungs are clear.The cardiac silhouette is unchanged. No pleural effusion or pneumothorax. Signed: Luis Alfredo Mckay MDReport Verified Date/Time: 06/18/2018 09:11:19 Reading Location: [address] Body Reading Room [id number] 07:28:00 Test Item Value Reference Range Interpretation Comments MAGNESIUM (BEAKER) (test code = 2.0 mg/dL 1.6-2.6 627) BASIC METABOLIC [id number] 07:28:00 Test Item Value Reference Range Interpretation [...] PATIEN TS. CBC W/PLT COUNT & AUTO [id number] 06:44:00 Test Item Value Reference Range Interpretation [...] MDReport Verified Date/Time: 06/17/2018 07:09:55 Reading Location: [facility] Radiology Reading Room [id number] 04:03:00 Test Item Value Reference Range Interpretation Comments MAGNESIUM (BEAKER) (test code = 2.1 mg/dL 1.6-2.6 627) BASIC METABOLIC [id number] 04:03:00 Test Item Value Reference Range Interpretation [...] PATIEN TS. CBC W/PLT COUNT & AUTO [id number] 03:34:00 Test Item Value Reference Range Interpretation [...] = 413) CBC W/PLT COUNT & AUTO [id number] 11:36:00 Test Item Value Reference Range Interpretation [...] Currie Verified Date/Time: 06/16/2018 08:37:44 Reading Location: [facility] Radiology Reading Room [id number] 07:32:00 Test Item Value Reference Range Interpretation Comments MAGNESIUM (BEAKER) (test code = 2.1 mg/dL 1.6-2.6 627) BASIC METABOLIC [id number] 07:32:00 Test Item Value Reference Range Interpretation [...] Specimen slightly ictericCBC W/PLT COUNT & AUTO [id number] 12:33:00 Test Item Value Reference Range Interpretation [...] Verified Date/Time: 06/15/2018 0 8:09:42 Reading Location: [address] Neuro Reading Room [id number] 05:07:00 Test Item Value Reference Range Interpretation Comments POTASSIUM (BEAKER) (test code = 3.9 meq/L 3.5-5.1 379) 8 hours after PO replacement [id number] 05:07:00 Test Item Value Reference Range Interpretation Comments MAGNESIUM (BEAKER) (test code = 2.1 mg/dL 1.6-2.6 627) 8 hours after PO replacement completedBASIC METABOLIC [id number] 05:07:00 Test Item Value Reference Range Interpretation [...] completedFL, ESOPH, SWALLOW FUNCTION, WITH CINE OR [id number] 14:57:00Reason for exam:->dysphagiaFINAL REPORT Modified barium swallow [...] MDReport Verified Date/Time: 06/14/2018 14:57:14 Reading Location: [facility] C0X Ortho Consult Reading Room POCT-GLUCOSE [id number] 10:51:00 Test Item Value Reference Range Interpretation Comments POC-GLUCOSE METER 135 mg/dL 70-[address] [facility] 6720 (BEAKER) (test code = [place] 1538) [address] BLOOD [id number] 10:01:00 Test Item Value Reference Range Interpretation Comments CULTURE (BEAKER) (test No growth in 5 days code = 1095) BLOOD [id number] 10:01:00 Test Item Value Reference Range Interpretation Comments CULTURE (BEAKER) (test No growth in 5 days code = 1095) CBC W/PLT COUNT & AUTO [id number] 08:13:00 Test Item Value Reference Range Interpretation [...] surgical clips on the right. Signed: JR Marinelli Robert MDReport Verified Date/Time: 06/14/2018 07:45:28 Reading Location: [address] Neuro Reading Room Electronically signedby: RC MARINELLI on 06/14/2018 07:45 [id number] 03:53:00 Test Item Value Reference Range Interpretation Comments MAGNESIUM (BEAKER) (test code = 2.2 mg/dL 1.6-2.6 627) BASIC METABOLIC [id number] 03:53:00 Test Item Value Reference Range Interpretation [...] NOT APPLICABLE FOR DIALYSIS PATIEN TS. POCT-GLUCOSE [id number] 03:44:00 Test Item Value Reference Range Interpretation Comments POC-GLUCOSE METER 145 mg/dL 70-110 H TESTED AT [place] [address] ([facility] (test code = IMANI Alvarez [facility] 1538) [address] POCT-GLUCOSE [id number] 22:09:00 Test Item Value Reference Range Interpretation Comments POC-GLUCOSE METER 112 mg/dL 70-110 H TESTED AT [place] [address] ([facility]) (test code = IMANI Alvarez [facility] 1538) [address] POCT-GLUCOSE [id number] 16:43:00 Test Item Value Reference Range Interpretation Comments POC-GLUCOSE METER 108 mg/dL 70-110 TESTED AT [place] [address] ([facility]) (test code = IMANI Alvarez [facility] 1538) [address] [id number] 11:20:00 Test Item Value Reference Range Interpretation Comments POTASSIUM (BEAKER) (test code = 4.3 meq/L 3.5-5.1 379) 8 hours after PO replacement [id number] 11:20:00 Test Item Value Reference Range Interpretation Comments MAGNESIUM (BEAKER) (test code = 2.1 mg/dL 1.6-2.6 627) 8 hours after PO replacement completedPOCT-GLUCOSE [id number] 10:39:00 Test Item Value Reference Range Interpretation Comments POC-GLUCOSE METER 85 mg/dL 70-110 TESTED AT [place] [address] ([facility]) (test code = IMANI Alvarez [facility] [address] 1538) CBC W/PLT COUNT & AUTO [id number] 09:46:00 Test Item Value Reference Range Interpretation [...] = 3438) Received comment: User comments: Slide comments:[id number] 05:39:00 Test Item Value Reference Range Interpretation Comments POTASSIUM (BEAKER) (test code = 3.9 meq/L 3.5-5.1 379) [id number] 05:39:00 Test Item Value Reference Range Interpretation Comments MAGNESIUM (BEAKER) (test code = 2.0 mg/dL 1.6-2.6 627) [id number] 04:23:00 Test Item Value Reference Range Interpretation Comments MAGNESIUM (BEAKER) 2.2 mg/dL 1.6-2.6 Specimen moderately (test code = 627) hemolyzed RAD, CHEST, 1 VIEW, NON [id number] 04:18:00Reason for exam:->pulm edemaShould this be performed [...] upper guanako drant consistent with gallstones. Signed: Davina Dowell MDReport Verified Date/Time: 06/13/2018 04:18:10 Reading Location: [facility] B1 C013Y CT Body Reading Room C METABOLIC [id number] 04:08:00 Test Item Value Reference Range Interpretation [...] NOT APPLICABLE FOR DIALYSIS PATIEN TS. POCT-GLUCOSE [id number] 22:08:00 Test Item Value Reference Range Interpretation Comments POC-GLUCOSE METER 95 mg/dL 70-[address] [facility] 6720 ([facility] (test code = IMANI Alvarez [facility] [address] 1538) POTASSIUM-STAT [id number] 16:57:00 Test Item Value Reference Range Interpretation Comments POTASSIUM (BEAKER) (test code = 3.1 meq/L 3.6-5.5 L 379) POCT-GLUCOSE [id number] 16:15:00 Test Item Value Reference Range Interpretation Comments POC-GLUCOSE METER 92 mg/dL 70-[address] [facility] 6720 (BEAKER) (test code = IMANI Alvarez [facility] [address] 1538) BLOOD GAS, [id number] 14:19:00 Test Item Value Reference Range Interpretation [...] (BEAKER) (test code = 1819) 36.0 % [id number] 10:25:00 Test Item Value Reference Range Interpretation Comments POTASSIUM (BEAKER) (test code = 3.6 meq/L 3.5-5.1 379) 8 hours after PO replacement completedPOCT-GLUCOSE [id number] 10:13:00 Test Item Value Reference Range Interpretation Comments POC-GLUCOSE METER 132 mg/dL 70-[address] [facility] 6720 (BEAKER) (test code = CHIMICHELLE Alvarez [facility] 1538) [address] CBC W/PLT COUNT & AUTO [id number] 07:53:00 Test Item Value Reference Range Interpretation [...] Received comment: User comments: Slide comments:BLOOD GAS, [id number] 05:14:00 Test Item Value Reference Range Interpretation [...] code = 1819) 40.0 % BASIC METABOLIC [id number] 04:46:00 Test Item Value Reference Range Interpretation [...] PATIEN TS. RAD, CHEST, 1 VIEW, NON [id number] 03:49:00Reason for exam:->pulm edemaShould this be performed [...] pulmonary edema, pleural effusion or pneumothorax. Signed: Davina Dowelleport Verified Date/Time: 06/12/2018 03:49:08 Reading Location: [facility] C013Y CT Body Reading Room POCT-GLUCOSE [id number] 00:18:00 Test Item Value Reference Range Interpretation Comments POC-GLUCOSE METER 154 mg/dL 70-[address] [facility] 67 (BEAKER) (test code = [place] 1538) [address] [id number] 18:20:00 Test Item Value Reference Range Interpretation Comments POTASSIUM (BEAKER) (test code = 3.1 meq/L 3.5-5.1 L 379) Check Serum Potassium level 2 hours after oral potassium replacement completed or 30 min after intravenous potassium replacement.[id number] 18:20:00 Test Item Value Reference Range Interpretation Comments MAGNESIUM (BEAKER) (test code = 2.0 mg/dL 1.6-2.6 627) Check Serum Potassium level 2 hours after oral potassium replacement completed or 30 min after intravenous potassium replacement.POCT-GLUCOSE [id number] 18:02:00 Test Item Value Reference Range Interpretation Comments POC-GLUCOSE METER 171 mg/dL 70-[address] [facility] 6720 (BEAKER) (test code = [place] 1538) [address] BASIC METABOLIC [id number] 16:25:00 Test Item Value Reference Range Interpretation [...] APPLICABLE FOR DIALYSIS PATIEN TS. BASIC METABOLIC [id number] 13:32:00 Test Item Value Reference Range Interpretation [...] APPLICABLE FOR DIALYSIS PATIEN TS. HEMOGLOBIN AND [id number] 09:43:00 Test Item Value Reference Range Interpretation Comments HEMOGLOBIN (BEAKER) (test code = 9.4 GM/DL 11.2-15.7 L 410) HEMATOCRIT (BEAKER) (test code = 28.4 % 34.1-44.9 L 411) RAD, CHEST, 1 VIEW, NON [id number] 07:40:00Reason for exam:->pulm edemaShould this be performed [...] MDReport Verified Date/Time: 06/11/2018 07:40:44 Reading Location: [address] Transitional Reading Room POCT-GLUCOSE [id number] 06:32:00 Test Item Value Reference Range Interpretation Comments POC-GLUCOSE METER 146 mg/dL 70-[address] [facility] 6720 ([facility] (test code = [facility] 1538) [address] BASIC METABOLIC [id number] 06:14:00 Test Item Value Reference Range Interpretation [...] PATIEN TS. CBC W/PLT COUNT & AUTO [id number] 04:09:00 Test Item Value Reference Range Interpretation [...] (BEAKER) (test code = 2801) BLOOD GAS, [id number] 03:58:00 Test Item Value Reference Range Interpretation [...] (test code = 1819) 40.0 % POCT-GLUCOSE [id number] 02:20:00 Test Item Value Reference Range Interpretation Comments POC-GLUCOSE METER 173 mg/dL 70-110 H TESTED AT [place] [address] ([facility]) (test code = IMANI Alvarez [place] 1538) [address] HEMOGLOBIN AND [id number] 20:22:00 Test Item Value Reference Range Interpretation Comments HEMOGLOBIN (BEAKER) (test code = 8.9 GM/DL 11.2-15.7 L 410) HEMATOCRIT (BEAKER) (test code = 27.6 % 34.1-44.9 L 411) [id number] 18:36:00 Test Item Value Reference Range Interpretation Comments POTASSIUM (BEAKER) 3.7 meq/L 3.5-5.1 Specimen slightly (test code = 379) hemolyzed 8 hours after PO replacement completedPOCT-GLUCOSE [id number] 18:12:00 Test Item Value Reference Range Interpretation Comments POC-GLUCOSE METER 117 mg/dL 70-110 H TESTED AT [place] [address] ([facility]) (test code = IMANI Alvarez [facility] 1538) [address] [id number] 14:36:00 Test Item Value Reference Range Interpretation Comments POTASSIUM (BEAKER) (test code = 3.5 meq/L 3.5-5.1 379) 8 hours after PO replacement completedPOCT-GLUCOSE [id number] 12:38:00 Test Item Value Reference Range Interpretation Comments POC-GLUCOSE METER 137 mg/dL 70-[address] [facility] 6720 (BEAKER) (test code = [place] 1538) [address] HEMOGLOBIN AND [id number] 10:58:00 Test Item Value Reference Range Interpretation Comments HEMOGLOBIN (BEAKER) (test code = 8.7 GM/DL 11.2-15.7 L 410) HEMATOCRIT (BEAKER) (test code = 27.0 % 34.1-44.9 L 411) [id number] 10:53:00 Test Item Value Reference Range Interpretation Comments MAGNESIUM (BEAKER) (test code = 2.5 mg/dL 1.6-2.6 627) BASIC METABOLIC [id number] 10:53:00 Test Item Value Reference Range Interpretation [...] NOT APPLICABLE FOR DIALYSIS PATIEN TS. POCT-GLUCOSE [id number] 10:18:00 Test Item Value Reference Range Interpretation Comments POC-GLUCOSE METER 155 mg/dL 70-[address] [facility] 6720 (BEAKER) (test code = IMANI Alvarez [place] 1538) [address] BLOOD [id number] 10:08:00 Test Item Value Reference Range Interpretation Comments CULTURE A From Aerobic An d (BEAKER) (test Anaerobic Bot tles Same code = 1095) organism has be en isolated from cultures(s) of the same body site and collection date . Repeat identifi cation and susceptibil ity testing perform ed only after consultat ion with the [facility] microbiology laboratory.Refe r to previous cultur e ofEscherichia c stephanie GRAM STAIN From aerobic and RESULT (BEAKER) anaerobic (test code = bottles: gram 1123) negative rods BLOOD [id number] 10:03:00 Test Item Value Reference Range Interpretation Comments CULTURE (BEAKER) (test ESCHERICHIA COLI A F rom Aerobic And code = 1095) Anaerobic Bottles Escherichia coliThis is a corrected organism result . Previous result was Non-lactose fermenting gram negative kath on 06/09/2018 at 0902 [employer] Amikacin (test code = S 1) Ampicillin [...] anaerobic 1123) bottles: gram negative rods POCT-GLUCOSE [id number] 07:33:00 Test Item Value Reference Range Interpretation Comments POC-GLUCOSE METER 149 mg/dL 70-[address] [facility] 6720 (BEAKER) (test code = IMANI Alvarez [place] 1538) [address] RAD, CHEST, 1 VIEW, NON [id number] 06:11:00Reason for exam:->pulm edemaShould this be performed [...] surgical clips in the right axilla. Signed: Davina Dowell MDReport Verified Date/Time: 06/10/2018 06:11:42 Reading Location: [address] Body Reading Room [id number] 04:51:00 Test Item Value Reference Range Interpretation Comments PHOSPHORUS (BEAKER) (test code = 2.1 mg/dL 2.3-4.7 L 604) [id number] 04:51:00 Test Item Value Reference Range Interpretation Comments MAGNESIUM (BEAKER) (test code = 2.7 mg/dL 1.6-2.6 H 627) BASIC METABOLIC [id number] 04:51:00 Test Item Value Reference Range Interpretation [...] PATIEN TS. CBC W/PLT COUNT & AUTO [id number] 04:39:00 Test Item Value Reference Range Interpretation [...] (BEAKER) (test code = 2801) HEMOGLOBIN AND [id number] 04:33:00 Test Item Value Reference Range Interpretation Comments HEMOGLOBIN (BEAKER) (test code = 8.5 GM/DL 11.2-15.7 L 410) HEMATOCRIT (BEAKER) (test code = 26.1 % 34.1-44.9 L 411) BLOOD GAS, [id number] 04:27:00 Test Item Value Reference Range Interpretation [...] (BEAKER) (test code = 1819) 40.0 % [id number] 00:28:00 Test Item Value Reference Range Interpretation Comments PHOSPHORUS (BEAKER) (test code = 2.2 mg/dL 2.3-4.7 L 604) [id number] 00:28:00 Test Item Value Reference Range Interpretation Comments MAGNESIUM (BEAKER) (test code = 2.2 mg/dL 1.6-2.6 627) BASIC METABOLIC [id number] 00:28:00 Test Item Value Reference Range Interpretation [...] APPLICABLE FOR DIALYSIS PATIEN TS. HEMOGLOBIN AND [id number] 00:08:00 Test Item Value Reference Range Interpretation Comments HEMOGLOBIN (BEAKER) (test code = 8.6 GM/DL 11.2-15.7 L 410) HEMATOCRIT (BEAKER) (test code = 26.5 % 34.1-44.9 L 411) [id number] 17:06:00 Test Item Value Reference Range Interpretation Comments PHOSPHORUS (BEAKER) (test code = 2.8 mg/dL 2.3-4.7 604) [id number] 17:06:00 Test Item Value Reference Range Interpretation Comments MAGNESIUM (BEAKER) (test code = 2.4 mg/dL 1.6-2.6 627) BASIC METABOLIC [id number] 17:06:00 Test Item Value Reference Range Interpretation [...] APPLICABLE FOR DIALYSIS PATIEN TS. HEMOGLOBIN AND [id number] 16:46:00 Test Item Value Reference Range Interpretation Comments HEMOGLOBIN (BEAKER) (test code = 9.4 GM/DL 11.2-15.7 L 410) HEMATOCRIT (BEAKER) (test code = 28.9 % 34.1-44.9 L 411) POCT-GLUCOSE [id number] 16:33:00 Test Item Value Reference Range Interpretation Comments POC-GLUCOSE METER 170 mg/dL 70-110 H TESTED AT [place] [address] ([facility]) ([facility] = [facility] 1538) [address] POCT-GLUCOSE [id number] 12:12:00 Test Item Value Reference Range Interpretation Comments POC-GLUCOSE METER 156 mg/dL 70-110 H TESTED AT [place] [address] ([facility]) (test code = [facility] Kim [facility] 1538) [address] BASIC METABOLIC [id number] 10:47:00 Test Item Value Reference Range Interpretation [...] S NOT APPLICABLE FOR DIALYSIS PATIEN TS. [id number] 10:40:00 Test Item Value Reference Range Interpretation Comments PHOSPHORUS (BEAKER) (test code = 3.5 mg/dL 2.3-4.7 604) [id number] 10:40:00 Test Item Value Reference Range Interpretation Comments MAGNESIUM (BEAKER) (test code = 2.4 mg/dL 1.6-2.6 627) HEMOGLOBIN AND [id number] 10:23:00 Test Item Value Reference Range Interpretation Comments HEMOGLOBIN (BEAKER) (test code = 9.0 GM/DL 11.2-15.7 L 410) HEMATOCRIT (BEAKER) (test code = 28.0 % 34.1-44.9 L 411) POCT-GLUCOSE [id number] 08:19:00 Test Item Value Reference Range Interpretation Comments POC-GLUCOSE METER 156 mg/dL 70-[address] [facility] 6720 (BEAKER) (test code = IMANI [place] 1538) [address] RAD, CHEST, 1 VIEW, NON [id number] 04:59:00Reason for exam:->pulm edemaShould this be performed [...] no significant interval change. Signed: Trini Agarwal MDReport Verified Date/Time: 06/09/2018 04:59:47 Reading Location: [address] Reading Room B-TYPE NATRIURETIC FACTOR (BNP)2018-06-09 04:47:00 Test Item Value Reference Range Interpretation Comments B-TYPE NATRIURETIC PEPTIDE 1269 pg/mL 0-100 H (BEAKER) (test code = 700) [id number] 04:45:00 Test Item Value Reference Range Interpretation Comments PHOSPHORUS (BEAKER) (test code = 3.8 mg/dL 2.3-4.7 604) [id number] 04:45:00 Test Item Value Reference Range Interpretation Comments MAGNESIUM (BEAKER) (test code = 2.3 mg/dL 1.6-2.6 627) BASIC METABOLIC [id number] 04:45:00 Test Item Value Reference Range Interpretation [...] PATIEN TS. CBC W/PLT COUNT & AUTO [id number] 04:39:00 Test Item Value Reference Range Interpretation [...] (BEAKER) (test code = 2801) BLOOD GAS, [id number] 04:38:00 Test Item Value Reference Range Interpretation [...] code = 1819) 50.0 % HEMOGLOBIN AND [id number] 04:30:00 Test Item Value Reference Range Interpretation Comments HEMOGLOBIN (BEAKER) (test code = 9.0 GM/DL 11.2-15.7 L 410) HEMATOCRIT (BEAKER) (test code = 28.1 % 34.1-44.9 L 411) POCT-GLUCOSE [id number] 04:29:00 Test Item Value Reference Range Interpretation Comments POC-GLUCOSE METER 216 mg/dL 70-[address] [facility] 6720 (BEAKER) (test code = IMANI NATARAJAN 1538) [address] POCT-GLUCOSE [id number] 00:13:00 Test Item Value Reference Range Interpretation Comments POC-GLUCOSE METER 175 mg/dL 70-[address] [facility] 6720 ([facility] (test code = IMANI [place] 1538) [address] VANCOMYCIN LEVEL, [id number] 22:32:00 Test Item Value Reference Range Interpretation Comments VANCOMYCIN TROUGH (BEAKER) (test 16.7 ug/mL 10.0-20.0 code = 522) Please draw prior to vanc administration [id number] 22:32:00 Test Item Value Reference Range Interpretation Comments PHOSPHORUS (BEAKER) (test code = 3.8 mg/dL 2.3-4.7 604) [id number] 22:32:00 Test Item Value Reference Range Interpretation Comments MAGNESIUM (BEAKER) (test code = 2.4 mg/dL 1.6-2.6 627) BASIC METABOLIC [id number] 22:32:00 Test Item Value Reference Range Interpretation [...] APPLICABLE FOR DIALYSIS PATIEN TS. HEMOGLOBIN AND [id number] 22:15:00 Test Item Value Reference Range Interpretation Comments HEMOGLOBIN (BEAKER) (test code = 9.8 GM/DL 11.2-15.7 L 410) HEMATOCRIT (BEAKER) (test code = 29.7 % 34.1-44.9 L 411) POCT-GLUCOSE [id number] 22:00:00 Test Item Value Reference Range Interpretation Comments POC-GLUCOSE METER 158 mg/dL 70-[address] [facility] 6720 (BEAKER) (test code = IM[place] 1538) [address] [id number] 17:04:00 Test Item Value Reference Range Interpretation Comments PHOSPHORUS (BEAKER) (test code = 3.8 mg/dL 2.3-4.7 604) [id number] 17:04:00 Test Item Value Reference Range Interpretation Comments MAGNESIUM (BEAKER) (test code = 2.3 mg/dL 1.6-2.6 627) BASIC METABOLIC [id number] 17:04:00 Test Item Value Reference Range Interpretation [...] APPLICABLE FOR DIALYSIS PATIEN TS. HEMOGLOBIN AND [id number] 16:48:00 Test Item Value Reference Range Interpretation Comments HEMOGLOBIN (BEAKER) (test code = 10.0 GM/DL 11.2-15.7 L 410) HEMATOCRIT (BEAKER) (test code = 30.1 % 34.1-44.9 L 411) BLOOD GAS, [id number] 16:37:00 Test Item Value Reference Range Interpretation [...] (test code = 1819) 50.0 % POCT-GLUCOSE [id number] 16:37:00 Test Item Value Reference Range Interpretation Comments POC-GLUCOSE METER 168 mg/dL 70-[address] [facility] 6720 (BEAKER) (test code = CHIMICHELLE Alvarez [facility] 1538) [address] CT BRAIN WITHOUT IV CONTRAST - [id number] 13:50:00Reason for exam:- >acute resp failure/hemorrhagic shockFINAL [...] MDReport Verified Date/Time: 06/08/2018 13:50:56 Reading Location: [facility] Radiology Reading Room SODIUM, RANDOM [id number] 13:15:00 Test Item Value Reference Range Interpretation Comments SODIUM URINE (BEAKER) (test code = 93 meq/L 243) Reference Range: No NormalsUREA NITROGEN, RANDOM [id number] 13:15:00 Test Item Value Reference Range Interpretation Comments UREA NITROGEN URINE (BEAKER) (test 149 mg/dL code = 538) Reference Range: No NormalsPROTEIN, RANDOM [id number] 12:24:00 Test Item Value Reference Range Interpretation Comments PROTEIN, URINE (BEAKER) (test code = < mg/dL 0-14 1569) POCT-GLUCOSE [id number] 11:53:00 Test Item Value Reference Range Interpretation Comments POC-GLUCOSE METER 159 mg/dL 70-[address] [facility] 6720 (BEAKER) (test code = IMANI Alvarez [facility] 1538) [address] BLOOD GAS, [id number] 11:52:00 Test Item Value Reference Range Interpretation [...] code = 1819) 50.0 % CREATININE, RANDOM [id number] 11:46:00 Test Item Value Reference Range Interpretation Comments CREATININE URINE (BEAKER) (test 19.2 mg/dL code = 375) Reference Range: No NormalsPOTASSIUM, RANDOM [id number] 11:46:00 Test Item Value Reference Range Interpretation Comments POTASSIUM URINE (BEAKER) (test 37.6 meq/L code = 195) Reference Range: No NormalsURINALYSIS W/ REFLEX URINE [id number] 10:10:00 Test Item Value Reference Range Interpretation [...] = 514) SOURCE(BEAKER) (test code = 2795) TROPONIN [id number] 09:08:00 Test Item Value Reference Range Interpretation [...] failure, acidosis, acute neurological disease, and persistent tachyarrhythmia.[id number] 08:59:00 Test Item Value Reference Range Interpretation Comments POTASSIUM (BEAKER) (test code = 3.7 meq/L 3.5-5.1 379) [id number] 08:59:00 Test Item Value Reference Range Interpretation Comments MAGNESIUM (BEAKER) (test code = 2.3 mg/dL 1.6-2.6 627) [id number] 08:59:00 Test Item Value Reference Range Interpretation Comments PHOSPHORUS (BEAKER) (test code = 3.7 mg/dL 2.3-4.7 604) BLOOD GAS, [id number] 08:57:00 Test Item Value Reference Range Interpretation [...] code = 1819) 60.0 % HEMOGLOBIN AND [id number] 08:36:00 Test Item Value Reference Range Interpretation Comments HEMOGLOBIN (BEAKER) (test code = 11.2 GM/DL 11.2-15.7 410) HEMATOCRIT (BEAKER) (test code = 32.7 % 34.1-44.9 L 411) POCT-GLUCOSE [id number] 08:16:00 Test Item Value Reference Range Interpretation Comments POC-GLUCOSE METER 176 mg/dL 70-[address] [facility] 6720 (BEAKER) (test code = [place] 1538) [address] CBC W/PLT COUNT & AUTO [id number] 08:03:00 Test Item Value Reference Range Interpretation [...] Received comment: User comments: Slide comments:RESPIRATORY PANEL [id number] 06:29:00 Test Item Value Reference Range Interpretation [...] decisions. This sample was tested at the [facility] Molecular Diagnostics Laboratory using the [employer]Array Respiratory Panel. It is FDA cleared and has been verified and approved by the [facility] Molecular Diagnostics Laboratory for clinical use on nasal swab specimens. It is not FDA-cleared for use on bronchial wash/lavage samples. However, for this sample type, validation was performed and test characteristics were determined and approved, by [facility] laboratory for clinical use under the Clinical Laboratory Improvement Amendments (CLIA) of 1988 requirements. Therefore, FDA clearance isnot required. This laboratory is CLIA-certified and [employer] ([employer])-accredited to perform high complexity testing.RAD, [...] Stable contours. Additional findings: None. Signed: Sydnee Pooleort Verified Date/Time: 06/08/2018 05:30:48 Reading Location: [facility] C0[facility] Transitional Reading Room BLOOD GAS, [id number] 04:43:00 Test Item Value Reference Range Interpretation [...] (BEAKER) (test code = 1819) 80.0 % [id number] 04:37:00 Test Item Value Reference Range Interpretation Comments PHOSPHORUS (BEAKER) (test code = 3.7 mg/dL 2.3-4.7 604) [id number] 04:37:00 Test Item Value Reference Range Interpretation Comments MAGNESIUM (BEAKER) (test code = 2.0 mg/dL 1.6-2.6 627) BASIC METABOLIC [id number] 04:37:00 Test Item Value Reference Range Interpretation [...] 358) GLUCOSE RANDOM 181 mg/dL 70-105 H (BANNER) (test code = 652) CALCIUM (BANNER) 8.7 mg/dL 8.4-10.2 (test code = 697) EGFR (BANNER) (test 36 mL/min/1.73 ESTIMA DIEGO GFR IS code = 1092) sq m NOT ACCURATE CREATININE CLEARANCE IN PREDICTING GLOMERULAR FILTRATION RATE . ESTIMATED GFR I S NOT APPLICABLE FOR DIALYSIS PATIEN TS. LACTIC ACID, ARTERIAL, WHOLE [id number] 04:29:00 Test Item Value Reference Range Interpretation Comments LACTATE BLOOD 1.2 mmol/L 0.5-2.2 Specimen sligh tly ARTERIAL (2) (BANNER) hemoly zed (test code = 2874) POCT-GLUCOSE [id number] 04:04:00 Test Item Value Reference Range Interpretation Comments POC-GLUCOSE METER 198 mg/dL 70-[address] [facility] 6720 ([place]ANNER) (test code = [place] 1538) [address] BLOOD CULTURE IDENTIFICATION [id number] 03:16:00 Test Item Value Reference Range Interpretation Comments LISTERIA MONOCYTOGENES Not detected Not detected (test code = 5970058) STAPHYLOCOCCUS (test Not detected Not detected code = 4816348) STAPHYLOCOCCUS AUREUS Not detected Not detected (test code = 6105654) STREPTOCOCCUS (test code Not detected Not detected = 2692973) STREPTOCOCCUS AGALACTIAE Not detected Not detected (GROUP B) (test code = 5889334) STREPTOCOCCUS PNEUMONIAE Not detected Not detected (test code = 2055579) STREPTOCOCCUS PYOGENES Not detected Not detected (GROUP A) (test code = 6978597) ACINETOBACTER BAUMANNII Not detected Not detected (test code = 1204040) HAEMOPHILUS INFLUENZAE Not detected Not detected (test code = 7369943) NEISSERIA MENINGITIDIS Not detected Not detected (test code = 3590990) ENTEROBACTERIACEAE (test Detected Not detected A code = 5121057) ENTEROBACTER CLOACOE Not detected Not detected COMPLEX (test code = 2511343) KLEBSIELLA OXYTOCA (test Not detected Not detected code = 0947434) KLEBSIELLA PNEUMONIAE Not detected Not detected (test code = 1650) PROTEUS (test code = Not detected Not detected 9103764) SERRATIA MARCESCENS Not detected Not detected (test code = 1071357) TANIA ALBICANS (test Not detected Not detected code = 5177122) TANIA GLABRATA (test Not detected Not detected code = 3803899) TANIA KRUSEI (test Not detected Not detected code = 3628821) TANIA PARAPSILOSIS Not detected Not detected (test code = 2905408) TANIA TROPICALIS (test Not detected Not detected code = 9587692) ESCHERICHIA COLI (test Detected Not detected A First line code = 8557427) therapy: Meropenem. De-escalate bas ed on susceptibilitie s.T his test does n ot evaluate for ESBLReference Range: Not Detected METHICILLIN-RESISTANCE Not detected GENE (test code = 2746375) VANCOMYCIN-RESISTANCE Not detected GENE (test code = 1886918) CARBAPENEM-RESISTANCE Not detected Not detected GENE (test code = 2066128) ENTEROCOCCUS-BEAKER Not detected Not detected (test code = 0998317) PSEUDOMONAS Not detected Not detected AERUGINOSA-BEAKER (test code = 3186610) Other bacteria and resistance markers not targeted by this PCR panel cannot be excluded; therefore clinical correlation and follow up of serology, culture results, and other molecular studies is required. The results are not intended to be used as the sole means for clinical diagnosis or patient management decisions. This sample was tested at the [facility] Molecular Diagnostics Laboratory using the mLED Blood Culture ID Panel. It is FDA cleared and has been verified and approved by the [facility] Molecular Diagnostics Laboratory for clinical [...] failure, acidosis, acute neurological disease, and persistent tachyarrhythmia.[id number] 00:35:00 Test Item Value Reference Range Interpretation Comments MAGNESIUM (BEAKER) (test code = 2.0 mg/dL 1.6-2.6 627) [id number] 00:35:00 Test Item Value Reference Range Interpretation Comments PHOSPHORUS (BEAKER) (test code = 4.0 mg/dL 2.3-4.7 604) [id number] 00:35:00 Test Item Value Reference Range Interpretation Comments POTASSIUM (BEAKER) (test code = 3.8 meq/L 3.5-5.1 379) HEMOGLOBIN AND [id number] 00:24:00 Test Item Value Reference Range Interpretation Comments HEMOGLOBIN (BEAKER) (test code = 11.5 GM/DL 11.2-15.7 410) HEMATOCRIT (BEAKER) (test code = 34.1 % 34.1-44.9 411) POCT-GLUCOSE [id number] 23:48:00 Test Item Value Reference Range Interpretation Comments POC-GLUCOSE METER 199 mg/dL 70-[address] [facility] 6720 (BEAKER) (test code = [place] 15[address]) [address] BASIC METABOLIC [id number] 22:53:00 Test Item Value Reference Range Interpretation [...] DIALYSIS PATIEN TS. LACTIC ACID, ARTERIAL, WHOLE [id number] 21:46:00 Test Item Value Reference Range Interpretation Comments LACTATE BLOOD ARTERIAL (2) 1.7 mmol/L 0.5-2.2 (BEAKER) (test code = 2874) HEMOGLOBIN AND [id number] 21:32:00 Test Item Value Reference Range Interpretation Comments HEMOGLOBIN (BEAKER) (test code = 11.2 GM/DL 11.2-15.7 410) HEMATOCRIT (BEAKER) (test code = 34.1 % 34.1-44.9 411) BLOOD GAS, [id number] 20:54:00 Test Item Value Reference Range Interpretation [...] (test code = 1819) 80.0 % POCT-GLUCOSE [id number] 20:41:00 Test Item Value Reference Range Interpretation Comments POC-GLUCOSE METER 220 mg/dL 70-[address] [facility] 6720 (BEAKER) (test code = [place] 1538) [address] OXYGEN SATURATION, [id number] 20:35:00 Test Item Value Reference Range Interpretation Comments O2 SATURATION (MEASURED) (BEAKER) 65.7 % (test code = 1455) [id number] 20:35:00 Test Item Value Reference Range Interpretation Comments POTASSIUM (BEAKER) (test code = 4.3 meq/L 3.5-5.1 379) [id number] 20:35:00 Test Item Value Reference Range Interpretation Comments MAGNESIUM (BEAKER) (test code = 2.3 mg/dL 1.6-2.6 627) [id number] 20:35:00 Test Item Value Reference Range Interpretation Comments PHOSPHORUS (BEAKER) (test code = 4.9 mg/dL 2.3-4.7 H 604) HEMOGLOBIN AND [id number] 20:12:00 Test Item Value Reference Range Interpretation Comments HEMOGLOBIN (BEAKER) (test code = 11.2 GM/DL 11.2-15.7 410) HEMATOCRIT (BEAKER) (test code = 34.2 % 34.1-44.9 411) BLOOD GAS, [id number] 19:15:00 Test Item Value Reference Range Interpretation [...] (test code = 1819) 90.0 % TROPONIN [id number] 19:06:00 Test Item Value Reference Range Interpretation [...] acute neurological disease, and persistent tachyarrhythmia.HEMOGLOBIN AND [id number] 18:26:00 Test Item Value Reference Range Interpretation Comments HEMOGLOBIN (BEAKER) (test code = 11.9 GM/DL 11.2-15.7 410) HEMATOCRIT (BEAKER) (test code = 36.3 % 34.1-44.9 411) [id number] 16:46:00 Test Item Value Reference Range Interpretation Comments PHOSPHORUS (BEAKER) (test code = 4.2 mg/dL 2.3-4.7 604) [id number] 16:46:00 Test Item Value Reference Range Interpretation Comments MAGNESIUM (BEAKER) (test code = 1.8 mg/dL 1.6-2.6 627) COMPREHENSIVE METABOLIC [id number] 16:46:00 Test Item Value Reference Range Interpretation [...] DIALYSIS PATIEN TS. LACTIC ACID, ARTERIAL, WHOLE [id number] 16:42:00 Test Item Value Reference Range Interpretation Comments LACTATE BLOOD ARTERIAL (2) 1.7 mmol/L 0.5-2.2 (BEAKER) (test code = 2874) HEMOGLOBIN AND [id number] 16:28:00 Test Item Value Reference Range Interpretation Comments HEMOGLOBIN (BEAKER) (test code = 10.9 GM/DL 11.2-15.7 L 410) HEMATOCRIT (BEAKER) (test code = 33.0 % 34.1-44.9 L 411) POCT-GLUCOSE [id number] 16:19:00 Test Item Value Reference Range Interpretation Comments POC-GLUCOSE METER 178 mg/dL 70-[address] [facility] 6720 (BEAKER) (test code = CHIAR [place] 1538) [address] POCT-GLUCOSE [id number] 16:19:00 Test Item Value Reference Range Interpretation Comments POC-GLUCOSE METER 189 mg/dL 70-[address] [facility] 6720 ([facility] (test code = [facility] [place] 1538) [address] PLATELET AGGREGATION: FUNCTION [id number] 15:50:00 Test Item Value Reference Range Interpretation Comments WEAK ADP 27 % 60-91 L RESULT(BEAKER) (test code = 2135) PLATELET FUNCTION 0-39% indicates marked SCREEN INTERP platelet dysfunction (BEAKER) (test code = 2173) [id number] Starla Jimenez MD ([facility]) (test code = (electronic signature) 2622) PLATELET COUNT AGG 207 K/CU MM 150-450 (BEAKER) (test code = 2656) Platelet Function Screen results may be falsely low with platelet counts<100,000/cu mm.PLATELET AGGREGATION: FUNCTION [id number] 15:49:00 Test Item Value Reference Range Interpretation Comments WEAK ADP 17 % 60-91 L RESULT(BEAKER) (test code = 2135) PLATELET FUNCTION 0-39% indicates marked SCREEN INTERP platelet dysfunction (BEAKER) (test code = 2173) [id number] Starla Jimenez MD ([facility]) (test code = (electronic signature) 2622) PLATELET COUNT AGG 218 K/CU MM 150-430 (BEAKER) (test code = 2656) Platelet Function Screen results may be falsely low with platelet counts<100,000/cu mm.HEMOGLOBIN AND [id number] 15:16:00 Test Item Value Reference Range Interpretation Comments HEMOGLOBIN (BEAKER) (test code = 11.8 GM/DL 11.2-15.7 410) HEMATOCRIT (BEAKER) (test code = 36.4 % 34.1-44.9 411) CBC W/PLT COUNT & AUTO [id number] 14:19:00 Test Item Value Reference Range Interpretation [...] = 3438) Received comment: User comments: Slide comments:[id number] 13:46:00 Test Item Value Reference Range Interpretation Comments FIBRINOGEN LEVEL (BEAKER) (test 462 mg/dl 225-434 H code = 658) [id number] 13:37:00 Test Item Value Reference Range Interpretation Comments PARTIAL THROMBOPLASTIN TIME 29.3 seconds 22.5-36.0 (BEAKER) (test code = 760) LACTIC ACID, ARTERIAL, WHOLE [id number] 13:37:00 Test Item Value Reference Range Interpretation Comments LACTATE BLOOD ARTERIAL (2) 2.5 mmol/L 0.5-2.2 H (BEAKER) (test code = 2874) PROTHROMBIN [id number] 13:36:00 Test Item Value Reference Range Interpretation Comments PROTIME (BEAKER) (test code = 14.5 seconds 11.7-14.7 759) INR (BEAKER) (test code = 370) 1.1 <=5.9 RECOMMENDED COUMADIN/WARFARIN INR THERAPY RANGESSTANDARD DOSE: 2.0 - 3.0 Includes: PROPHYLAXIS for venous thrombosis, systemic embolization; TREATMENT for venous thrombosis and/or pulmonary embolus.HIGH RISK: Target INR is 2.5-3.5 for patients with mechanical heart valves.POCT-GLUCOSE [id number] 13:33:00 Test Item Value Reference Range Interpretation Comments POC-GLUCOSE METER 192 mg/dL 70-[address] [facility] 6720 ([place]) (test code = [place] 1538) [address] RAD, ABDOMEN/KUB, 1 VIEW [id number] 13:27:00Reason for exam:->abdominal distensionShould this be performed [...] Verified Date/Time: 06/07/2018 13:27:14 Reading Location: [facility] C0[facility] Consult Reading Room BLOOD GAS, [id number] 13:23:00 Test Item Value Reference Range Interpretation [...] (test code = 1819) 100.0 % HEMOGLOBIN [id number] 12:29:00 Test Item Value Reference Range Interpretation Comments HEMOGLOBIN A1C (BEAKER) (test code = 5.7 % 4.3-6.1 368) [id number] 12:04:00 Test Item Value Reference Range Interpretation Comments HAPTOGLOBIN (BEAKER) (test code = 166 mg/dL 14-258 366) CBC W/PLT COUNT & AUTO [id number] 11:37:00 Test Item Value Reference Range Interpretation [...] (BEAKER) (test code = 2801) BLOOD GAS, [id number] 11:32:00 Test Item Value Reference Range Interpretation [...] (BEAKER) (test code = 1819) 100.0 % [id number] 11:25:00 Test Item Value Reference Range Interpretation Comments PROCALCITONIN (BEAKER) (test code 21.36 ng/mL <0.05 HH = 3036) SEPSIS RISK (ng/mL)Low: 0.05-0.50Intermediate: 0.51-2.00High: >=2.01 URINALYSIS W/ REFLEX URINE [id number] 11:22:00 Test Item Value Reference Range Interpretation [...] (test code = 2795) PLATELET AGGREGATION: FUNCTION [id number] 10:54:00 Test Item Value Reference Range Interpretation Comments WEAK ADP 12 % 60-91 L RESULT(BEAKER) (test code = 2135) PLATELET FUNCTION 0-39% indicates marked SCREEN INTERP platelet dysfunction (BEAKER) (test code = 2173) [id number] Starla Jimenez MD (BEAKER) (test code = (electronic signature) 5461) PLATELET COUNT AGG 187 K/CU MM 150-450 (BEAKER) (test code = 2656) Platelet Function Screen results may be falsely low with platelet counts<100,000/cu mm.[id number] 10:37:00 Test Item Value Reference Range Interpretation Comments PARTIAL THROMBOPLASTIN TIME 31.4 seconds 22.5-36.0 (BEAKER) (test code = 760) PROTHROMBIN [id number] 10:36:00 Test Item Value Reference Range Interpretation Comments PROTIME (BEAKER) (test code = 14.2 seconds 11.7-14.7 759) INR (BEAKER) (test code = 370) 1.1 <=5.9 RECOMMENDED COUMADIN/WARFARIN INR THERAPY RANGESSTANDARD DOSE: 2.0 - 3.0 Includes: PROPHYLAXIS for venous thrombosis, systemic embolization; TREATMENT for venous thrombosis and/or pulmonary embolus.HIGH RISK: Target INR is 2.5-3.5 for patients with mechanical heart valves.TROPONIN [id number] 10:34:00 Test Item Value Reference Range Interpretation Comments TROPONIN I (BEAKER) (test code = 22.42 ng/mL 0.00-0.03 397) Troponin I (TnI) levels [...] acute neurological disease, and persistent tachyarrhythmia.BASIC METABOLIC [id number] 10:26:00 Test Item Value Reference Range Interpretation [...] S NOT APPLICABLE FOR DIALYSIS PATIEN TS. [id number] 10:25:00 Test Item Value Reference Range Interpretation Comments TRIGLYCERIDES (BEAKER) (test code = 139 mg/dL 540) TRIGLYCERIDE REFERENCE RANGELow Risk <150Borderline Risk 150-199High Risk 200-499Very High Risk >=[id number] 10:25:00 Test Item Value Reference Range Interpretation Comments MAGNESIUM (BEAKER) (test code = 1.9 mg/dL 1.6-2.6 627) CREATINE KINASE (CK)2018-06-07 10:25:00 Test Item Value Reference Range Interpretation Comments CREATINE KINASE TOTAL (BEAKER) (test 941 U/L 29-200 H code = 380) LACTIC ACID, ARTERIAL, WHOLE [id number] 10:22:00 Test Item Value Reference Range Interpretation Comments LACTATE BLOOD 3.8 mmol/L 0.5-2.2 H Specimen sligh tly ARTERIAL (2) (BEAKER) hemoly zed (test code = 2874) POCT-GLUCOSE [id number] 10:14:00 Test Item Value Reference Range Interpretation Comments POC-GLUCOSE METER 224 mg/dL 70-[address] [facility] 6720 (BEAKER) (test code = [place] 1538) [address] BLOOD GAS, [id number] 09:58:00 Test Item Value Reference Range Interpretation [...] 100.0 % RAD, CHEST, 1 VIEW, NON [id number] 09:38:00Reason for exam:->pulm edemaShould this be performed [...] [place] Verified Date/Time: 06/07/2018 09:38:30 Reading Location: [facility] Radiology Reading Room -BLOOD GASES, [id number] 08:35:00 Test Item Value Reference Range Interpretation Comments TEMP, CELSIUS-POC 37.0 (BEAKER) (test code = 1834) FIO2-POC (BEAKER) TESTED AT [facility] 6720 (test code = 1835) [facility] [address] PH, ARTERIAL-POC 7.208 7.350-7.450 LL (BEAKER) (test [...] L ARTERIAL-POC (BEAKER) (test code = 1841) [id number] 08:35:00 Test Item Value Reference Range Interpretation Comments POC-SODIUM (AKER) 141 meq/L 135-148 TESTED A [place] [address] (test code = 1542) [facility] [address] [id number] 08:35:00 Test Item Value Reference Range Interpretation Comments POC-POTASSIUM 4.3 meq/L 3.6-5.5 TESTED AT [place] [address] (BANNER) (test code [facility] [address] = 1540) [id number] 08:35:00 Test Item Value Reference Range Interpretation Comments POC-GLUCOSE (BANNER) 256 mg/dL 70-110 H TESTED AT [place] [address] (test code = 1855) [facility] [address] POCT-CALCIUM [id number] 08:35:00 Test Item Value Reference Range Interpretation Comments POC-CALCIUM IONIZED 1.21 mmol/L 1.12-1.27 TESTED A [place] [address] ([place]ANNER) (test code = [facility] 1536) [address] [id number] 08:35:00 Test Item Value Reference Range Interpretation Comments POC-HEMATOCRIT 33 % 36-45 L TESTED AT [place] [address] (BANNER) (test code = [facility] [address]) [id number] 08:35:00 Test Item Value Reference Range Interpretation Comments POC-HEMOGLOBIN 11.2 g/dL 12.0-15.0 L TESTED AT [facility] 6720 (AKER) (test code [facility] [place] = 1856) [address]CS[place]Z AT [address] [address] [id number] 08:29:00 Test Item Value Reference Range Interpretation Comments D-DIMER QUANTITATIVE (BANNER) 14.73 MG/L FEU <0.50 H (test code [...] Value Reference Range Interpretation Comments LACTATE DEHYDROGENASE (BANNER) (test 242 U/L 125-220 H code = 635) LACTIC ACID, ARTERIAL, WHOLE [id number] 08:21:00 Test Item Value Reference Range Interpretation Comments LACTATE BLOOD ARTERIAL (2) 7.9 mmol/L 0.5-2.2 H (BANNER) (test code = 2874) POCT-LACTIC ACID, [id number] 08:20:00 Test Item Value Reference Range Interpretation Comments POC-LACTIC ACID, 5.5 mmol/L 0.4-1.3 H TESTED AT [facility] 6720 ARTERIAL (AKER) [facility] (test code = 2804) [address] POCT-BLOOD GASES, [id number] 08:20:00 Test Item Value Reference Range Interpretation Comments TEMP, CELSIUS-POC 37.0 (BANNER) (test code = 1834) FIO2-POC (AKER) TESTED AT [place] [address] (test code = 1835) [facility] [address] PH, ARTERIAL-POC 7.173 7.350-7.450 LL (BEAKER) (test code = 1836) PCO2, ARTERIAL-POC 35.1 mm Hg 35.0-45.0 (AKER) (test code = 1837) PO2, ARTERIAL-POC 58.0 mm Hg 80.0-90.0 L (BANNER) (test code = 1838) SO2, ARTERIAL-POC 82.0 % 96.0-97.0 L (BANNER) (test code = 1839) HCO3, ARTERIAL-POC 12.9 meq/L 21.0-29.0 L (BEAKER) (test code = 1840) BASE EXCESS, -16.0 meq/L -2.0-3.0 L ARTERIAL-POC (BEAKER) (test code = 1841) [id number] 08:20:00 Test Item Value Reference Range Interpretation Comments POC-SODIUM (BANNER) 142 meq/L 135-148 TESTED [place] [address] (test code = 1542) [facility] [address] [id number] 08:20:00 Test Item Value Reference Range Interpretation Comments POC-POTASSIUM 4.4 meq/L 3.6-5.5 TESTED AT [place] [address] ([place]ANNER) (test code [facility] [address] = 1540) [id number] 08:20:00 Test Item Value Reference Range Interpretation Comments POC-GLUCOSE (BANNER) 250 mg/dL 70-110 H TESTED AT [place] [address] (test code = 1855) [facility] [address] POCT-CALCIUM [id number] 08:20:00 Test Item Value Reference Range Interpretation Comments POC-CALCIUM IONIZED 0.74 mmol/L 1.12-1.27 LL TESTED [place] [address] (BANNER) (test code = IMANI Alvarez [facility] 1535) [address] [id number] 08:20:00 Test Item Value Reference Range Interpretation Comments POC-HEMATOCRIT 28 % 36-45 L TESTED AT [place] [address] (BANNER) (test code = [facility] [address]) [id number] 08:20:00 Test Item Value Reference Range Interpretation Comments POC-HEMOGLOBIN 9.5 g/dL 12.0-15.0 L TESTED AT [place] [address] (BANNER) (test code = IMANI Alvarez [place] 1852) [address]NZELOC AT [place] [address] [place] [address] [id number] 08:19:00 Test Item Value Reference Range Interpretation Comments POTASSIUM (BEAKER) (test code = 4.5 meq/L 3.5-5.1 379) [id number] 08:19:00 Test Item Value Reference Range Interpretation Comments SODIUM (BEAKER) (test code = 381) 138 meq/L 136-145 [id number] 08:19:00 Test Item Value Reference Range Interpretation Comments FIBRINOGEN LEVEL (BEAKER) (test 349 mg/dl 225-434 code = 658) [id number] 08:19:00 Test Item Value Reference Range Interpretation [...] mechanical heart valves.RAD, CHEST, 1 VIEW, NON [id number] 08:17:00Reason for exam:->post intubationShould this be performed [...] [place] Verified Date/Time: 06/07/2018 08:17:10 Reading Location: [facility] Radiology Reading Room PLATELET [id number] 08:05:00 Test Item Value Reference Range Interpretation Comments PLATELET COUNT (BEAKER) (test 179 K/CU MM 150-450 code = 756) HEMOGLOBIN AND [id number] 08:05:00 Test Item Value Reference Range Interpretation Comments HEMOGLOBIN (BEAKER) (test code = 9.4 GM/DL 11.2-15.7 L 410) HEMATOCRIT (BEAKER) (test code = 29.7 % 34.1-44.9 L 411) [id number] 07:54:00 Test Item Value Reference Range Interpretation Comments HAPTOGLOBIN (BEAKER) (test code = 142 mg/dL 14-258 366) HGB/HCT (H&H) - STAT [id number] 07:48:00 Test Item Value Reference Range Interpretation Comments HEMOGLOBIN (BEAKER) (test code = 7.7 GM/DL 12.0-15.0 L 410) HEMATOCRIT (BEAKER) (test code = 23.0 % 36.0-45.0 L 411) BLOOD GAS, [id number] 07:30:00 Test Item Value Reference Range Interpretation [...] (test code = 1819) 21.0 % CT, [id number] 07:18:00FINAL REPORT TECHNIQUE: CT of the abdomen [...] at 7:07 AM. Signed: Luis Alfredo Mckay MDReport Verified Date/Time: 06/07/2018 07:18:15 Reading Location: [facility] Diagnostic Imaging Reading Room - [place] [address] POCT-GLUCOSE [id number] 07:15:00 Test Item Value Reference Range Interpretation Comments POC-GLUCOSE METER 282 mg/dL 70-110 H TESTED AT [place] [address] (BEAKER) (test code = IMANI Alvarez [facility] 1538) [address] T4, [id number] 07:07:00 Test Item Value Reference Range Interpretation Comments FREE T4 (BEAKER) (test code = 655) 1.19 ng/dL 0.70-1.48 [id number] 06:57:00 Test Item Value Reference Range Interpretation Comments FERRITIN (BEAKER) (test code = 361) 262 ng/mL 5-275 VITAMIN B12 AND [id number] 06:57:00 Test Item Value Reference Range Interpretation [...] U/L 125-220 H code = 635) POCT-GLUCOSE [id number] 06:18:00 Test Item Value Reference Range Interpretation Comments POC-GLUCOSE METER 199 mg/dL 70-[address] [facility] 6720 (BEAKER) (test code = [facility] 1538) [address] RETICULOCYTE [id number] 06:04:00 Test Item Value Reference Range Interpretation Comments RETICULOCYTE COUNT PCT (BEAKER) (test 1.9 % 0.5-1.7 H code = 575) HEMOGLOBIN AND [id number] 06:04:00 Test Item Value Reference Range Interpretation Comments HEMOGLOBIN (BEAKER) (test code = 6.6 GM/DL 11.2-15.7 L 410) HEMATOCRIT (BEAKER) (test code = 21.0 % 34.1-44.9 L 411) OXYGEN SATURATION, [id number] 06:01:00 Test Item Value Reference Range Interpretation Comments O2 SATURATION (MEASURED) (BEAKER) 52.8 % (test code = 1455) TSH/FREE T4 IF [id number] 05:58:00 Test Item Value Reference Range Interpretation Comments THYROID STIMULATING HORMONE 0.22 uIU/mL 0.35-4.94 L (BEAKER) (test code = 772) TROPONIN [id number] 05:48:00 Test Item Value Reference Range Interpretation [...] acute neurological disease, and persistent tachyarrhythmia.BASIC METABOLIC [id number] 05:27:00 Test Item Value Reference Range Interpretation [...] WBC 0-0 (BEAKER) (test code = 413) [id number] 05:19:00 Test Item Value Reference Range Interpretation Comments MAGNESIUM (BEAKER) (test code = 1.9 mg/dL 1.6-2.6 627) LIPID [id number] 05:19:00 Test Item Value Reference Range Interpretation Comments TRIGLYCERIDES (BEAKER) (test code = 68 mg/dL 540) CHOLESTEROL (BEAKER) (test code = 90 mg/dL 631) HDL CHOLESTEROL (BEAKER) (test code 25 mg/dL = 976) LDL CHOLESTEROL CALCULATED (BEAKER) 51 mg/dL (test code = 633) Triglyceride Reference Range: Low Risk <150 Borderline 150-199 High Risk 200-499 Very High Risk >=500Cholesterol Reference Range: Low Risk <200 Borderline 200-239 High Risk >240HDL Cholesterol Reference Range: Low Risk >=60 High Risk <40LDL Cholesterol Reference Range: Optimal <100 Near Optimal 100-129 Borderline 130-159 High 160-189 Very High >=190RAD, CHEST, 1 VIEW, NON [id number] 05:00:00Reason for exam:->Line placementShould this be performed [...] MDReport Verified Date/Time: 06/07/2018 05:00:33 Reading Location: [address] Reading Room [id number] 04:43:00 Test Item Value Reference Range Interpretation Comments ACTIVATED CLOTTING TIME 274 sec TEST ED AT [address] (test code = IMANI Alvarez [place] [address]) [id number] 00:55:00 Test Item Value Reference Range Interpretation Comments ACTIVATED CLOTTING TIME 241 sec TEST ED AT [address] (test code = IMANI Alvarez [place] [address]) [id number]
[2022-12-29] MEDS ORDERED: HYDROCODONE/APAP 10/325 TAB ONE (21:14)
[2022-12-29 21:41] LABS: Specific Gravity 1.011 (1.005-1.030); Urine Bacteria <20 /HPF (<20); Urine Bilirubin NEGATIVE (Negative); Urine Blood Negative (Negative); Urine Clarity Clear (Clear); Urine Color Colorless (Yellow); Urine Crystals Unidentified Few /HPF (None Seen); Urine Glucose NEGATIVE (Negative); Urine Mucus Slight /HPF (None Seen); Urine Protein NEGATIVE (Negative); Urine RBC <5 /HPF (None Seen); Urine Urobilinogen Normal (Normal)
--- NOTE | 2022-12-29 21:50 | RAD REPORT ---
EXAM DESCRIPTION: CT - Head Brain Wo Cont - 12/29/2022 9:31 pm CLINICAL HISTORY: Fall with head injury COMPARISON: September 2022 TECHNIQUE: Computed axial tomography of the head was obtained. IV contrast was not requested. All CT scans are performed using dose optimization technique as appropriate and may include automated exposure control or mA/KV adjustment according to patient size. FINDINGS: An intracranial bleed is not seen The ventricles are normal in caliber No extra-axial fluid collection is noted. Old lacunar infarct right basal ganglia Mild to moderate low-density areas within periventricular, deep and subcortical white matter likely r epresent ischemic changes secondary to small vessel disease. Fluid within the sinuses/ mastoids is not seen. IMPRESSION: No acute intracranial abnormality is seen If patient's symptoms persist MRI of the brain would be recommended
--- NOTE | 2022-12-29 21:57 | RAD REPORT ---
EXAM DESCRIPTION: CT - Abdomen Pelvis Wo Contrast - 12/29/2022 9:31 pm CLINICAL HISTORY: Abdominal pain /fall COMPARISON: None TECHNIQUE: Computed axial tomography of the abdomen and pelvis was obtained. IV and oral contrast we re not requested. All CT scans are performed using dose optimization technique as appropriate and may include automated exposure control or mA/KV adjustment according to patient size. FINDINGS: The evaluation of solid organs, vessels and bowel is limited secondary to the lack of con trast administration. 6 millimeter right lower lobe nodule The liver, spleen, pancreas, adrenals and kidneys appear grossly normal. Multiple gallstones. Gallbladder wall not thickened. Large umbilical hernia contains a portion of nondilated transverse colon The appendix is normal. There is no evidence of diverticulitis. Spondylosis lumbar spine. Mild anterior subluxation L4 on L5. IMPRESSION: 6 millimeter right lower lobe nodule. Followup CT chest in 6-12 months recommended for r e-evaluation Cholelithiasis without evidence of cholecystitis Large umbilical hernia
[2022-12-29 22:14] LABS: Absolute Lymphocytes (CBC) 1.7 K/uL (0.7-4.9); Hematocrit 32.4 % (36.0-45.0); Lymphocytes % 22.4 % (15.3-44.8); MCV 103.6 fL (80-100); MPV 7.8 fL (7.6-11.3); RBC Red Blood Cell Count 3.13 M/uL (3.86-4.86)
--- NOTE | 2022-12-29 22:20 | RAD REPORT ---
EXAM DESCRIPTION: Maria Elena Single View12/29/2022 10:10 pm CLINICAL HISTORY: Chest pain COMPARISON: 2021 FINDINGS: Eventration of the diaphragm The lungs appear clear of acute infiltrate. The heart is normal size
[2022-12-29 23:03] LABS: Protime INR 0.99
[2022-12-29 23:38] LABS: Blood Morphology Comment NOT SEEN (NOT SEEN); Platelet Estimate ADEQ
[2022-12-30 00:35] LABS: Albumin 3.5 g/dL (3.4-5.0); Bilirubin Direct 0.1 mg/dL (0-0.2); Bilirubin Indirect, Calculated 0.4 mg/dL (0.2-0.8); Bilirubin Total 0.5 mg/dL (0.2-1.0); Protein, Total 7.5 g/dL (6.4-8.2); Troponin High Sensitivity 8.6 pg/mL (<58.9)
--- NOTE | 2022-12-30 00:36 | P.HP ---
Certification for Inpatient Patient admitted to: Inpatient With expected LOS: >2 Midnights Practitioner: I am a practitioner with admitting privileges, knowledge of patient current condition, hospital course, and medical plan of care. Services: Services provided to patient in accordance with Admission requirements found in Title 42 Section 412.3 of the Code of Federal Regulations Patient History Date of Service: 12/30/22 Primary Care Provider: Cecilia Reason for admission: Recurrent Falls, Weakness History of Present Illness: Ms. Nunes is an 82-year-old female with past medical history of hypertension, coronary artery disease, hypothyroidism, and sjogren's syndrome who presented to the emergency department status post fall. She sustained 3 mechanical falls due to weakness today, did not hit her head, did not lose consciousness, is not on blood thinners. She has had several falls over the past few weeks. Was seen here about 1 week ago and treated for UTI. Today her urine is clear, her chemistry does indicate dehydration. Head CT is normal. Abdomen pelvis CT showed a large umbilical hernia that is not incarcerated. Patient has no comp laints at this time. states he cannot care for her and their children [place] of state. Given her recurrent falls and generalized weakness, ED provider wishes admit patient for further management. Allergies Sulfa (Sulfonamide Antibiotics) Allergy (Verified 04/16/17 08:50) fungal infection Home medications list reviewed: Yes Home Medications: Amlodipine Besylate [Norvasc] 5 mg PO DAILY WITH BREAKFAST 01/15/16 Thyroid,Pork [[place] Thyroid] 90 mg PO DAILY 01/15/16 Travoprost [Travatan Z*] 1 drop EACH EYE BEDTIME 01/15/16 Betaxolol HCl 1 drop EACH EYE BID 07/25/16 Folic Acid 1 mg PO DAILY 07/25/16 Azelastine [Astelin 137MCG/Metered [place]*] 137 mcg NS DAILY 04/16/17 Cholecalciferol (Vitamin D3) [Vitamin D3] 5,000 unit PO DAILY 04/16/17 Iron 45 mg PO DAILY 04/16/17 Lactobacillus Combo No.13 [Probiotic [place] Complete] 1 each PO DAILY 04/16/17 Methotrexate [Methotrexate*] 2.5 mg PO DAILY 04/16/17 Vit C/E/Zn/Coppr/Lutein/Zeaxan [Preservision Areds 2 Softgel] 1 each PO DAILY 04/16/17 allopurinoL [Zyloprim*] 100 mg PO DAILY 04/16/17 predniSONE [Prednisone*] 1 mg PO DAILY 04/16/17 - Past Medical/Surgical History Diabetic: No -: Sjouran's Syndrom -: HTN -: Hypothyroidism -: Temportal arteritis -: Arthritis -: Breast Cancer -: Gout -: Coronary Artery Disease -: Sjogren's Syndrome -: Biopsy of temporal artery Psychosocial/ Personal History: Patient lives at home with her . - Family History Family History: Reviewed- Non-Contributory - Social History Smoking Status: Never smoker Alcohol use: No CD- Drugs: No Caffeine use: No Place of Residence: Home Review of Systems 10-point ROS is otherwise unremarkable General: Weakness Physical Examination - Vital Signs Temperature: 98 F Blood Pressure: 152/74 Pulse: 67 Respirations: 14 Pulse Ox (%): 99 - Physical Exam General: Alert, In no apparent distress HEENT: Atraumatic, EOMI, Sclerae nonicteric Neck: Supple, 2+ carotid pulse no bruit Respiratory: Clear to auscultation bilaterally, Normal air movement Cardiovascular: Regular rate/rhythm, Normal S1 S2 Gastrointestinal: Normal bowel sounds, No tenderness Musculoskeletal: No tenderness Integumentary: No rashes Neurological: Normal speech, Normal affect - Studies Laboratory Data (last 24 hrs) 12/29/22 21:50: PT 10.9, INR 0.99 12/29/22 21:50: WBC 7.70, Hgb 11.0 L, Hct 32.4 L, Plt Count 175 Assessment and Plan - Problems (Diagnosis) (1) Recurrent falls Current Visit: Yes Status: Acute (2) Dehydration Current Visit: Yes Status: Acute (3) Hypertension Current Visit: Yes Status: Chronic Qualifiers: Hypertension type: primary hypertension Qualified Code(s): I10 - Essential (primary) hypertension (4) Coronary artery disease Current Visit: Yes Status: Chronic Qualifiers: Coronary Disease-Associated Artery/Lesion type: resighini artery [place] vs. transplanted heart: resighini heart Associated angina: without angina Qualified Code(s): I25.10 - Atherosclerotic heart disease of resighini coronary artery without angina pectoris (5) Hypothyroidism Current Visit: Yes Status: Chronic Qualifiers: Hypothyroidism type: unspecified Qualified Code(s): E03.9 - Hypothyroidism, unspecified (6) Sjogrens syndrome Current Visit: Yes Status: Chronic Qualifiers: Sjogren organ or system involvement: unspecified organ involvement Qualified Code(s): M35.00 - Sjogren syndrome, unspecified - Plan Patient is admitted for further management of recurrent falls. Labs suggestive of dehydration. IV fluids ordered. Check additional labs- TSH, lipid panel, iron studies. Physical therapy consulted. Case management consulted. Monitor and replete electrolytes per protocol. Reconcile and continue home medications. Lovenox for VTE prophylaxis. Full code. Discharge Plan: Retirement Plan to discharge in: Greater than 2 days - Advance Directives Does patient have a Living Will: Yes Does patient have a Durable POA for Healthcare: No - Code Status/Comfort Care Code Status Assessed: Yes Code Status: Full Code Physician Review: Patient Assessed, Agree with Above Assessment and Plan Critical Care: No Time Spent Managing Pts Care (In Minutes): 50
--- NOTE | 2022-12-30 00:57 | ER ---
Nurse's Notes [facility] Name: Thuy Nunes Age: 82 yrs Sex: Female : 1940 Arrival Date: 12/29/2022 Time: 20:39 Bed 5 Private MD: Diagnosis: Congestive heart failure, physical deconditioning, morbid obesity, generalized weakness, renovascular hypertension, hypothyroidism, fall at home, left thigh contusion, umbilical hernia Presentation: 12/29 20:40 Chief complaint: EMS states: pt has been seen on December 22 for fall and UTI. treatment rv completed for UTI. since the discharged, pt has had multiple falls. have old hematoma on the left side. tonight, pt slipped and fell to carpeted floor, from trying to stand on the couch, no head trauma/LOC. Coronavirus screen: Vaccine status: Patient reports receiving the 2nd dose of the covid vaccine. Date 2020. Ebola Screen: Patient negative for fever greater than or equal to 101.5 degrees Fahrenheit, and additional compatible Ebola Virus Disease symptoms Patient denies exposure to infectious person. Patient denies travel to an Ebola-affected area in the 21 days before illness onset. Initial Sepsis Screen: Does the patient meet any 2 criteria? No. Patient's initial sepsis screen is negative. Does the patient have a suspected source of infection? No. Patient's initial sepsis screen is negative. Risk Assessment: Do you want to hurt yourself or someone else? Patient reports no desire to harm self or others. Onset of symptoms was December 29, 2022 at 20:00. 20:40 Method Of Arrival: EMS: [facility] rv 20:40 Acuity: PARAG 3 rv Triage Assessment: 20:44 General: Appears comfortable, Behavior is calm, cooperative. Pain: Denies pain. EENT: rv No deficits noted. No signs and/or symptoms were reported regarding the EENT system. Neuro: Level of Consciousness is awake, alert, obeys commands, Oriented to person, place, time, situation. Cardiovascular: Capillary refill < 3 seconds. Respiratory: Airway is patent Respiratory pattern is regular. GI: No signs and/or symptoms were reported involving the gastrointestinal system. : No signs and/or symptoms were reported regarding the genitourinary system. Historical: - Allergies: 20:43 No Known Allergies; rv - PMHx: 20:43 Arthritis; Cancer, Breast; Gout; Hypertension; Hypothyroidism; Sjogren's Syndrome; rv temporitis; - Immunization history:: Adult Immunizations up to date. - Social history:: Smoking status: Patient denies any tobacco usage or history of. - Family history:: not pertinent. Screenin:45 [facility] ED Fall Risk Assessment (Adult) History of falling in the last 3 months, rv including since admission No falls in past 3 months (0 pts). Abuse screen: Denies threats or abuse. Denies injuries from another. Nutritional screening: No deficits noted. Tuberculosis screening: No symptoms or risk factors identified. Vital Signs: 20:40 BP 146 / 77; Pulse 73; Resp 18; Temp 98(TE); Pulse Ox 100% ; Weight 99.79 kg; Height 5 rv ft. 6 in. ; Pain 0/10; 23:41 BP 152 / 74; Pulse 67; Resp 14; Pulse Ox 99% on R/A; ll3 12/30 00:58 BP 127 / 69; Pulse 63; Resp 15; Pulse Ox 100% on R/A; ll3 12/29 20:40 Body Mass Index 35.51 (99.79 kg, 167.64 cm) rv 05 20:40 Pain Scale: Adult rv ED Course: 12/29 20:40 Patient arrived in ED. rv 20:42 Dimas Espinoza MD is Attending Physician. sp4 20:43 Triage completed. rv 20:45 Arm band placed on right wrist. Patient placed in an exam room, on a stretcher, on rv skiver box toe, on pulse oximetry. 20:45 Patient has correct armband on for positive identification. Placed in gown. Bed in low rv position. Call light in reach. Side rails up X 1. Client placed on continuous cardiac and pulse oximetry monitoring. NIBP monitoring applied. roll edge machine operator on. 20:46 No provider procedures requiring assistance completed. rv 21:31 CT Head Brain wo Cont In Process Unspecified. EDMS 21:31 CT Abd/Pelvis - Without Contrast In Process Unspecified. EDMS 21:36 Quintin Urias, VALERIE is Primary Nurse. rv 22:12 XRAY Chest (1 view) In Process Unspecified. EDMS 23:00 Accessed peripheral vein via ultrasound, utilizing dynamic ultrasound technique Clean \T\ rv dry. Dressing intact. Good blood return. Flushes easily. [id number] powerglide, left upper arm. 12/30 00:56 Ralph Sanford is Hospitalizing Provider. sp4 02:23 Patient admitted, IV remains in place. rv Administered Medications: 12/29 21:15 Drug: [place] PO 10 mg-325 mg 1 tabs Route: PO; rv 12/30 00:44 Follow up: Response: No adverse reaction; Pain is decreased rv Medication: 12/29 20:45 VIS not applicable for this client. rv Outcome: 12/30 00:57 Decision to Hospitalize by Provider. sp4 02:23 Admitted to ER Hold. Please see [facility] for further documentation. rv 02:23 Condition: good 02:23 Instructed on the need for admit. 09:50 Patient left the ED. kb3 Signatures: Dispatcher [employer] EDMS Quintin Urias RN RN rv Saniya Sweeney RN RN 3 Yessica Edwards RN RN kb3 Dimas Espinoza MD MD sp4
--- NOTE | 2022-12-30 00:58 | EDPHYS ---
Physician Documentation [facility] Name: Thuy Nunes Age: 82 yrs Sex: Female : 1940 Arrival Date: 12/29/2022 Time: 20:39 Bed 5 Private MD: ED Physician Dimas Espinoza HPI: 12/29 20:42 This 82 yrs old Female presents to ER via Unassigned with complaints of fall. sp4 21:46 82-year-old female presents with generalized weakness, states she has been feeling sp4 unwell for a few weeks, of difficult problem with walking about, and also has had 2 falls at home last 1 today. Patient fell at home today onto her left side sustaining contusion to the left thigh. Patient was here recently and was diagnosed with UTI on 12/22/2022. Patient states that patient is becoming nonambulatory and is very difficult for him to take care of her at home.. 21:47 . Allopurinol 100 mg daily, and atorvastatin 40 mg daily, levothyroxine 125 mcg daily, sp4 metoprolol 25 mg daily , Plavix 75 mg daily, losartan 25 mg, latanoprost, betaxolol, iron, Aleve to 20 mg as needed.. Historical: - Allergies: 20:43 No Known Allergies; rv - PMHx: 20:43 Arthritis; Cancer, Breast; Gout; Hypertension; Hypothyroidism; Sjogren's Syndrome; rv temporitis; - Immunization history:: Adult Immunizations up to date. - Social history:: Smoking status: Patient denies any tobacco usage or history of. - Family history:: not pertinent. ROS: 21:47 Constitutional: Negative for fever, chills, and weight loss, positive for generalized sp4 weakness and falls at home, positive for generalized body aches. Eyes: Negative for injury, pain, redness, and discharge, ENT: Negative for injury, pain, and discharge, Neck: Negative for injury, pain, and swelling, Cardiovascular: Negative for chest pain, palpitations, and edema, Respiratory: Negative for shortness of breath, cough, wheezing, and pleuritic chest pain, Abdomen/GI: Negative for abdominal pain, nausea, vomiting, diarrhea, and constipation, Back: Negative for injury and pain, : Negative for injury, bleeding, discharge, and swelling, MS/Extremity: Left thigh contusion after a fall. Diffuse body aches. Otherwise negative for additional injury or deformity Skin: Negative for injury, rash, and discoloration, Neuro: Negative for headache, weakness, numbness, tingling, and seizure, Psych: Negative for depression, anxiety, Allergy/Immunology: Negative for hives, rash, and allergies Endocrine: Negative for neck swelling, polydipsia, polyuria, polyphagia, and weight changes Hematologic/Lymphatic: Negative for swollen nodes, abnormal bleeding, and unusual bruising Exam: 21:47 Constitutional: This is a well developed, well nourished patient who is awake, alert, sp4 and in no acute distress. Positive for morbidly overweight female, signs of moderate physical deconditioning Head/Face: Normocephalic, atraumatic. Eyes: Pupils equal round and reactive to light, extra-ocular motions intact. Lids and lashes normal. Conjunctiva and sclera are not injected. Cornea within normal limits. Periorbital areas with no swelling, redness, or edema. ENT: Nares patent. No nasal discharge, no septal abnormalities noted. Tympanic membranes are normal and external auditory canals are clear. Oropharynx with no redness, swelling, or masses, exudates, or evidence of obstruction, uvula midline. Mucous membranes moist. Neck: Trachea midline, no thyromegaly or masses palpated, and no cervical lymphadenopathy. Supple, full range of motion without nuchal rigidity, or vertebral point tenderness. No Meningismus. Chest/axilla: Normal chest wall appearance and motion. Nontender with no deformity. No lesions are appreciated. Cardiovascular: Regular rate and rhythm with a normal S1 and S2. No gallops, murmurs, or rubs. Normal PMI, no JVD. No pulse deficits. Respiratory: Lungs have equal breath sounds bilaterally, clear to auscultation and percussion. No rales, rhonchi or wheezes noted. No increased work of breathing, no retractions or nasal flaring. Abdomen/GI: Soft, non-tender, with normal bowel sounds. No distension or tympany. No guarding or rebound. No evidence of tenderness throughout. Back: No spinal tenderness. No costovertebral tenderness. Skin: Warm, dry with normal turgor. Normal color with no rashes, no lesions, and no evidence of cellulitis. MS/ Extremity: Pulses equal, no cyanosis. Neurovascular intact. Full, normal range of motion. Left lateral thigh contusion and hematoma, patient was not able to stand up with assistance Neuro: Awake and alert, GCS 15, oriented to person, place, time, and situation. Cranial nerves II-XII grossly intact. Motor strength 5/5 in all extremities. Sensory grossly intact. Psych: Awake, alert, with orientation to person, place and time. Behavior, mood, and affect are within normal limits 21:51 ECG was reviewed by the Attending Physician. EKG at 2114, normal sinus rhythm at 72 sp4 bpm, no ST elevation or depression, no ectopy, no signs of acute ischemia Vital Signs: 20:40 BP 146 / 77; Pulse 73; Resp 18; Temp 98(TE); Pulse Ox 100% ; Weight 99.79 kg; Height 5 rv ft. 6 in. ; Pain 0/10; 23:41 BP 152 / 74; Pulse 67; Resp 14; Pulse Ox 99% on R/A; ll3 12/30 00:58 BP 127 / 69; Pulse 63; Resp 15; Pulse Ox 100% on R/A; ll3 12/29 20:40 Body Mass Index 35.51 (99.79 kg, 167.64 cm) rv 12/29 20:40 Pain Scale: Adult rv MDM: 12/29 20:48 Patient medically screened. sp4 12/30 00:54 Differential Diagnosis altered mental status, sepsis. Data reviewed: vital signs, sp4 nurses notes, EMS record, old medical records, lab test result(s), EKG, radiologic studies, CT scan, plain films. Consideration of Admission/Observation Patient was admitted/placed on observation. Escalation of care including admission/observation considered. Management of patient was discussed with the following: Hospitalist: admission team . ED course: Patient has moderate to severe physical deconditioning, morbid obesity, large umbilical hernia, signs of early congestive heart failure, generalized weakness that prevents her from ambulation at home. ED course: At this time patient warrants admission for observation, possible rule out ACS, also social work consult. ED course: Condition on admit is stable . 12/29 21:00 Order name: Basic Metabolic Panel sp4 12/29 21:00 Order name: CBC with Diff; Complete Time: 00:53 sp4 12/29 21:00 Order name: LFT's [facility] 12/29 21:00 Order name: Magnesium [facility] 12/29 21:00 Order name: NT PRO-BNP [facility] 12/29 21:00 Order name: PT-INR; Complete Time: 00:53 [facility] 12/29 21:00 Order name: Troponin HS [facility] 12/29 21:00 Order name: Urinalysis W/Microscopic; Complete Time: 22:54 [facility] 12/29 22:20 Order name: Manual Differential; Complete Time: 00:53 [facility] 12/30 01:01 Order name: TSH [facility] 12/30 01:01 Order name: T4 Free [facility] 12/30 01:41 Order name: T4 Free [facility] 12/30 01:41 Order name: Thyroid Stimulating Hormone [facility] 12/30 07:02 Order name: CBC without Diff [facility] 12/30 07:46 Order name: Basic Metabolic Panel [facility] 12/30 07:46 Order name: Phosphorus [facility] 12/30 07:46 Order name: Lipid Profile [facility] 12/30 07:46 Order name: Magnesium [facility] 12/30 07:46 Order name: Thyroid Stimulating Hormone [facility] 12/30 07:46 Order name: Transferrin Sat/Iron Binding [facility] 12/30 07:46 Order name: Ferritin [facility] 12/30 07:46 Order name: Vitamin B12 Level [facility] 12/29 21:00 Order name: XRAY Chest (1 view); Complete Time: 22:54 [facility] 12/29 21:00 Order name: CT Head Brain wo Cont; Complete Time: 22:54 [facility] 12/29 21:01 Order name: CT Abd/Pelvis - Without Contrast; Complete Time: 22:54 [facility] 12/29 21:00 Order name: EKG; Complete Time: 21:00 [facility] 12/29 21:00 Order name: Cardiac monitoring; Complete Time: : [facility] 12/29 21:00 Order name: EKG - Nurse/Tech; Complete Time: : [facility] 12/29 21:00 Order name: IV Saline Lock; Complete Time: : [facility] 12/29 21:00 Order name: Labs collected and sent; Complete Time: 21:05 [facility] 12/29 21:00 Order name: O2 Per Protocol; Complete Time: : 12/29 21:00 Order name: O2 Sat Monitoring; Complete Time: 21:05 sp4 EC/30 21:51 Rate is 72 beats/min. Rhythm is regular, Sinus Rhythm. QRS Alna is Normal. UT interval sp4 is normal. QRS interval is normal. QT interval is normal. T waves are Normal. Clinical impression: No evidence of ischemia. Interpreted by me. Administered Medications: 21:15 Drug: [place] PO 10 mg-325 mg 1 tabs Route: PO; rv 12/30 00:44 Follow up: Response: No adverse reaction; Pain is decreased rv Disposition Summary: 12/30/22 00:57 Hospitalization Ordered Hospitalization Status: Observation sp4 Provider: Ralph Sanford spTashi Condition: Stable sp4 Problem: new sp4 Symptoms: have improved sp4 Bed/Room Type: Standard sp4 Location: Telemetry/MedSurg (observation)(12/30/22 06:09) cg Room Assignment: [facility](12/30/22 07:12) bd Diagnosis - Congestive heart failure, physical deconditioning, morbid obesity, generalized sp4 weakness, renovascular hypertension, hypothyroidism, fall at home, left thigh contusion, umbilical hernia Forms: - Medication Reconciliation Form sp4 - SBAR form sp4 Signatures: Dispatcher [employer] EDMS Karen Hart Cindy, RN RN cg Quintin Urias RN RN rv Dimas Espinoza MD MD sp4 Corrections: (The following items were deleted from the chart) 12/29 21:48 21:46 82-year-old female presents with generalized weakness, states she has been sp4 feeling unwell for a few weeks, of difficult problem with walking about, and also has had 2 falls at home last 1 today. Patient fell at home today onto her left side sustaining contusion to the left thigh. Patient was here recently and was diagnosed with UTI on 12/24/2022.. sp4 12/30 01:16 00:57 Telemetry/MedSurg (observation) sp4 cg 01:16 00:57 sp4 cg 06:09 01[facility] 06:09 01:16 ERHOLD- cg cg 07:12 06:09 cg bd
[2022-12-30 01:40] LABS: Thyroid Stimulating Hormone 2.5 uIU/mL (0.358-3.740)
[2022-12-30] MEDS ORDERED: ONDANSETRON 4 MG/2 ML VIAL IV PRN (02:15)
[2022-12-30 02:34] VITALS: BMI 35.5
[2022-12-30 07:01] LABS: Hematocrit 34.5 % (36.0-45.0); MPV 7.9 fL (7.6-11.3); RBC Red Blood Cell Count 3.35 M/uL (3.86-4.86)
[2022-12-30 07:40] LABS: Ferritin 259.5 ng/mL (8-388); Phosphorus 3.9 mg/dL (2.5-4.9); Potassium 4.3 mEq/L (3.5-5.1); Thyroid Stimulating Hormone 3.19 uIU/mL (0.358-3.740)
[2022-12-30] MEDS: ENOXAPARIN 40 MG/0.4 ML SQ SCH (10:13)
--- NOTE | 2022-12-30 15:56 | P.PN ---
Date of Service: 12/30/22 Patient has no new complaint. No issues since admit. She is tolerating her diet. She denies any pain. Diagnosis: Multiple falls. Impaired mobility Hypertension Hypothyroidism. Plan: Seen by PT and inpatient rehab recommended. Social service consulted to assist with arrangement for inpatient rehab. Continue other home medications.
[2022-12-30] MEDS: OPTH OPTH SCH (21:00)
[2022-12-30] MEDS: LATANOPROST 0.005% OPTH SCH (21:00)
[2022-12-30] MEDS: BETAXOLOL HCL OPTH SCH (21:00)
[2022-12-30] MEDS: ATORVASTATIN 40 MG TAB PO SCH (21:22)
[2022-12-31] MEDS: ACETAMINOPHEN 500 MG TAB PO PRN (04:34)
[2022-12-31] MEDS: LEVOTHYROXINE SOD 0.125 MG TAB PO SCH (05:37)
[2022-12-31] MEDS: ENOXAPARIN 40 MG/0.4 ML SQ SCH (08:23)
[2022-12-31] MEDS: LOSARTAN POTASSIUM 50 MG TABLET PO SCH (08:23)
[2022-12-31] MEDS: CLOPIDOGREL 75 MG TABLET PO SCH (08:23)
[2022-12-31] MEDS: METOPROLOL XL 25 MG TAB PO SCH (08:23)
[2022-12-31] MEDS: allopurinoL 100 MG TAB PO SCH (08:24)
[2022-12-31] MEDS: BETAXOLOL HCL OPTH SCH (08:26)
[2022-12-31] MEDS ORDERED: HOME MED 1 EA UNK (Losartan Potassium [Losartan Potassium] 25 MG Tablet) PO SCH (09:00)
[2022-12-31] MEDS ORDERED: HOME MED 1 EA UNK (Iron [Iron] 18 MG Tablet) PO SCH (09:00)
--- NOTE | 2022-12-31 12:11 | EKG ---
Test Date: 2022-12-29 Test Time: 21:14:45 Director Of Customer Service: LL MEASUREMENT RESULTS: Intervals: Rate: 72 SC: 214 QRSD: 104 QT: 374 QTc: 409 [place]: P: 35 SC: 214 QRS: -27 T: -11 INTERPRETIVE STATEMENTS: Sinus rhythm with 1st degree AV block Inferior infarct, age undetermined Anterior infarct, age undetermined Abnormal ECG Compared to ECG 12/29/2022 21:13:50 No significant changes Electronically Signed On 12-31-22 12:06:22 CDT by Tiburcio Eason
--- NOTE | 2022-12-31 12:11 | EKG ---
Test Date: 2022-12-29 Test Time: 21:13:50 Cheesemaker: SACHIN MEASUREMENT RESULTS: Intervals: Rate: 70 [place]: 216 QRSD: 102 QT: 382 QTc: 412 Proctor: P: 36 AZ: 216 QRS: -29 T: -11 INTERPRETIVE STATEMENTS: Sinus rhythm with 1st degree AV block Inferior infarct, age undetermined Anterior infarct, age undetermined Abnormal ECG Compared to ECG 12/22/2022 10:46:41 Myocardial infarct finding now present Sinus bradycardia no longer present Left-axis deviation no longer present Electronically Signed On 12-31-22 12:06:22 CDT by Tiburcio Eason
--- NOTE | 2022-12-31 18:04 | P.PN ---
Subjective Date of Service: 12/31/22 Primary Care Provider: Cecilia Chief Complaint: Recurrent Falls, Weakness Patient relating her falls to intermittent episodes of low back pain that radiate down her bilateral gluteal area to the back of her knees. She stated her pain is intermittent. Physical Examination - Vital Signs Temperature: 97.5 F Blood Pressure: 127/77 Pulse: 72 Respirations: 18 Pulse Ox (%): 98 Assessment And Plan - Current Problems (Diagnosis) (1) Sciatica Current Visit: Yes Status: Acute (2) Recurrent falls Current Visit: Yes Status: Acute (3) Hypertension Current Visit: Yes Status: Chronic Qualifiers: Hypertension type: primary hypertension Qualified Code(s): I10 - Essential (primary) hypertension (4) Hypothyroidism Current Visit: Yes Status: Chronic Qualifiers: Hypothyroidism type: unspecified Qualified Code(s): E03.9 - Hypothyroidism, unspecified (5) Gout Current Visit: Yes Status: Acute - Plan Continue PT. Pain management as needed. Obtain MRI of the thoracolumbar spine. Resume home medications for hypothyroidism and hypertension Continue allopurinol for gout.
[2022-12-31] MEDS: LATANOPROST 0.005% OPTH SCH (20:22)
[2022-12-31] MEDS: OPTH OPTH SCH (20:22)
[2022-12-31] MEDS: ATORVASTATIN 40 MG TAB PO SCH (20:22)
[2022-12-31] MEDS: BETAXOLOL OPTH SCH (20:22)
--- NOTE | 2022-12-31 22:58 | RAD REPORT ---
EXAM DESCRIPTION: MRI - Thoracic Spine Wo Contr - 12/31/2022 7:40 pm CLINICAL HISTORY: Sciatica COMPARISON: No available comparison TECHNIQUE: Multiplanar multisequence MRI of the thoracic spine, obtained without IV contrast. FINDINGS: The vertebral body heights and disc spaces are maintained. Small T2 hyperintense lesion wi thin the vertebral body of T2, and another smaller similar lesion along left T6 transverse process, t hese are not well characterized, could represent an atypical hemangiomata. Marrow pattern of the thor acic spine is otherwise within normal limits. Left central small disc protrusion mildly effacing the ventral CSF space at T2-3. No significant misbah iated disc at any other level. No canal stenosis or foraminal stenosis at any level. No paraspinal mass or hematoma. The thoracic cord is normal in size and signal. Anterolisthesis of C3 over C4 and retrolisthesis of C5 over C6, with discogenic and ligamentum flavum degenerative changes, seen only on the sagittal localizer images, appear To the contribute to degree s of central canal stenosis at C3-4 and C5-6. This is not well evaluated. IMPRESSION: Small left central disc protrusion at T2-3. No significant canal stenosis or foraminal n arrowing. Small T2 hyperintense lesions within body of T2 and left transverse process of T6, not well character ized, could represent small hemangiomata. Degrees of canal stenosis appreciated at C3-4 and C5-6 on the localizer images, not well characterize d. If there is concern for cervical spine related symptoms and no relevant prior imaging, these can b e further characterized by dedicated cervical spine MRI.
--- NOTE | 2022-12-31 23:05 | RAD REPORT ---
EXAM DESCRIPTION: MRI - Lumbar Spine Wo Con - 12/31/2022 7:40 pm CLINICAL HISTORY: Sciatica COMPARISON: CT abdomen and pelvis 12/29/2022. TECHNIQUE: Multiplanar multisequence MRI of the lumbar spine, obtained without IV contrast. FINDINGS: Lumbar bodies are normal in height grade 1 anterolisthesis of L4 over L5 measuring approxi mately 8 millimeter, and L5 over S1 measuring 4 millimeter. Retrolisthesis of L1 over L2 measuring 4 millimeter and of L2 over L3 measuring 3 millimeter. Levoconvex mid lumbar scoliosis is also present. No suspicious marrow signal. No paraspinal masses. Conus is normal with no clumping or thickening of the cauda equina. T12-L1 level: Mild posterior disc bulge. No significant canal or foraminal stenosis. L1-2 level: Moderate disc height loss with endplate irregularity. Circumferential disc osteophyte com plex mildly effacing the ventral CSF space. Bilateral moderate facet arthropathy with trace effusion on the left. Mild effacement of the ventral CSF space, without significant canal stenosis. Right mode rate to severe and left mild neural foraminal narrowing. L2-3 level: Broad-based posterior disc bulge. Bilateral advanced facet arthropathy. No significant ca nal stenosis. Bilateral [id number] neural foraminal narrowing. L3-4 level: Broad-based posterior disc bulge with superimposed central/ right subarticular disc extru regis. Bilateral facet arthropathy with trace effusions. Mild effacement of the ventral CSF space. Rig ht moderate and left mild to moderate neural foraminal narrowing. L4-5 level: Degree of anterolisthesis and superior disc uncovering, as well as advanced bilateral fac et arthropathy with ligamentum flavum buckling contributes to moderate central canal stenosis. Additi onal asymmetric narrowing of the left lateral recess. Right mild and left moderate neural foraminal n arrowing. L5-S1 level: Broad-based posterior disc bulge with asymmetric right central/ subarticular disc extrus ion. Advanced bilateral facet arthropathy with trace effusions. No significant central canal stenosis . Asymmetric right lateral recess narrowing with displacement of the descending right S1 nerve root. Bilateral mild neural foraminal narrowing Left renal cortical T2 hyperintense lesions, not well characterized, but suggestive of small cysts IMPRESSION: Advanced lumbar spine degenerative changes as detailed above. Findings contribute to mod erate central canal stenosis at L4-5. Narrowing of the right lateral recess at L5-S1 contributes to d isplacement of the descending right S1 nerve root. Please correlate for symptoms in that distribution as well. Variable degrees of neural foraminal narrowing, most pronounced at L1-2 on the right.
[2023-01-01] MEDS: ACETAMINOPHEN 500 MG TAB PO PRN ×2 (01:12→08:33)
[2023-01-01] MEDS: LEVOTHYROXINE SOD 0.125 MG TAB PO SCH (05:25)
[2023-01-01] MEDS: LOSARTAN POTASSIUM 50 MG TABLET PO SCH (08:32)
[2023-01-01] MEDS: CLOPIDOGREL 75 MG TABLET PO SCH (08:32)
[2023-01-01] MEDS: METOPROLOL XL 25 MG TAB PO SCH (08:32)
[2023-01-01] MEDS: allopurinoL 100 MG TAB PO SCH (08:32)
[2023-01-01] MEDS: ENOXAPARIN 40 MG/0.4 ML SQ SCH (08:33)
[2023-01-01 08:34] VITALS: BP 154/75
[2023-01-01] MEDS: BETAXOLOL OPTH SCH (08:34)
[2023-01-01] MEDS ORDERED: IRON 27 MG PO SCH (09:00)
[2023-01-01 09:23] VITALS: O2SAT 99
[2023-01-01] MEDS ORDERED: PREGABALIN 150 MG CAP PO ONE (09:48)
[2023-01-01 10:06] VITALS: TEMP 97.3
--- NOTE | 2023-01-01 10:37 | P.DS ---
Admission Date: 12/30/22 Discharge Date: 01/01/23 Primary Care Provider: Cecilia Disposition: TRANSFER TO INPATIENT REHAB Discharge Condition: FAIR Reason for Admission: Recurrent Falls, Weakness - Problems (1) Sciatica Current Visit: Yes Status: Acute (2) Recurrent falls Current Visit: Yes Status: Acute (3) Hypertension Current Visit: Yes Status: Chronic Qualifiers: Hypertension type: primary hypertension Qualified Code(s): I10 - Essential (primary) hypertension (4) Hypothyroidism Current Visit: Yes Status: Chronic Qualifiers: Hypothyroidism type: unspecified Qualified Code(s): E03.9 - Hypothyroidism, unspecified (5) Gout Current Visit: Yes Status: Acute Brief History of Present Illness: Ms. Nunes is an 82-year-old female with past medical history of hypertension, coronary artery disease, hypothyroidism, and sjogren's syndrome who presented to the emergency department status post fall. She sustained 3 mechanical falls due to weakness today, did not hit her head, did not lose consciousness, is not on blood thinners. She has had several falls over the past few weeks. Was seen here about 1 week ago and treated for UTI. Her work-up in the emergency department showed no UTI, her chemistry indicated some degree of dehydration. Head CT is normal. Abdomen pelvis CT showed a large umbilical hernia that is not incarcerated. Patient has no complaints at this time. stated he cannot care for her and their [place]. Given her recurrent falls and generalized weakness, patient admitted for further management. Hospital Course: Patient admitted to the medical floor and treated with supportive measures. Patient evaluated by PT who recommended inpatient rehab. Lumbar spine MRI done showed advanced lumbar spine degenerative changes as detailed above. Findings contribute to moderate central canal stenosis at L4-5. Narrowing of the right lateral recess at L5-S1 contributes to displacement of the descending right S1 nerve root. Patient's pain is being managed with Lyrica. Vitals are stable. Patient is deemed stable for transfer to inpatient rehab. Vital Signs/Physical Exam: Temp Pulse Resp BP Pulse Ox 97.3 F 70 16 154/75 H 99 01/01/23 08:00 01/01/23 08:32 01/01/23 08:00 01/01/23 08:32 01/01/23 08:00 General: Alert, In no apparent distress, Oriented x3 HEENT: Mucous membr. moist/pink Neck: Supple, JVD not distended Respiratory: Clear to auscultation bilaterally Cardiovascular: No edema, Regular rate/rhythm, Normal S1 S2, No murmurs Gastrointestinal: Normal bowel sounds, Soft and benign, Non-distended, No tenderness Musculoskeletal: No swelling Integumentary: No rashes, No cyanosis Neurological: Normal strength at 5/5 x4 extr Laboratory Data at Discharge: WBC 6.30 thou/uL (4.3-10.9) 12/30/22 06:50 Hgb 11.3 g/dL (12.0-15.0) L 12/30/22 06:50 Hct 34.5 % (36.0-45.0) L 12/30/22 06:50 Plt Count 144 thou/uL (152-406) L 12/30/22 06:50 PT 10.9 SECONDS (9.5-12.5) 12/29/22 21:50 INR 0.99 12/29/22 21:50 Sodium 138 mEq/L (136-145) D 12/30/22 06:50 Potassium 4.3 mEq/L (3.5-5.1) D 12/30/22 06:50 BUN 35 mg/dL (7-18) H 12/30/22 06:50 Creatinine 1.03 mg/dL (0.55-1.02) H 12/30/22 06:50 Glucose 87 mg/dL (74-106) 12/30/22 06:50 Phosphorus 3.9 mg/dL (2.5-4.9) 12/30/22 06:50 Magnesium 2.0 mg/dL (1.6-2.4) 12/30/22 06:50 Total Bilirubin 0.5 mg/dL (0.2-1.0) 12/30/22 00:05 AST 18 U/L (15-37) 12/30/22 00:05 ALT 18 U/L (13-56) 12/30/22 00:05 Alkaline Phosphatase 80 U/L (45-117) 12/30/22 00:05 Triglycerides 108 mg/dL (<150) 12/30/22 06:50 Cholesterol 80 mg/dL (<200) 12/30/22 06:50 HDL Cholesterol 33 mg/dL (40-60) L 12/30/22 06:50 Cholesterol/HDL Ratio 2.42 12/30/22 06:50 Home Medications: Betaxolol HCl 1 drop EACH EYE BID 07/25/16 Iron 45 mg PO DAILY 04/16/17 allopurinoL [Zyloprim*] 100 mg PO DAILY 04/16/17 Atorvastatin Calcium 1 tab PO BEDTIME 12/30/22 Clopidogrel Bisulfate [Plavix*] 1 tab PO DAILY 12/30/22 Latanoprost Ophth [Xalatan 0.005%*] 1 drop EACH EYE BEDTIME 12/30/22 Levothyroxine [Synthroid*] 125 mcg PO [id number] 12/30/22 Losartan Potassium 1 tab PO DAILY 12/30/22 Metoprolol Succinate 25 mg PO DAILY 12/30/22 Pregabalin [Lyrica] 75 mg PO BID #60 cap 01/01/23 New Medications: Pregabalin [Lyrica] 75 mg PO BID #60 cap Diet: AHA Activity: Fall precautions Followup: NONE,NONE [Primary Care Provider] - Time spent managing pt's care (in minutes): 33
== END 2023-01-01 10:50 | DRG 948 ==
LOC: ER 20:39 → ERHOLD 12-30 00:31 → 4TH 12-30 08:06
PROVIDERS: ADMIT Internal Medicine; ATTEND Internal Medicine
DX: R53.1 Weakness (principal); I10 Essential (primary) hypertension; E03.9 Hypothyroidism, unspecified; E86.0 Dehydration; M10.9 Gout, unspecified; M54.30 Sciatica, unspecified side; M35.00 Sjogren syndrome, unspecified; G31.89 Other specified degenerative diseases of nervous system; E66.01 Morbid (severe) obesity due to excess calories; M48.061 Spinal stenosis, lumbar region without neurogenic claudication; K42.9 Umbilical hernia without obstruction or gangrene; I25.10 Atherosclerotic heart disease of native coronary artery without angina pectoris; Z88.1 Allergy status to other antibiotic agents; Z85.3 Personal history of malignant neoplasm of breast; Z91.81 History of falling; Z79.02 Long term (current) use of antithrombotics/antiplatelets; Z79.52 Long term (current) use of systemic steroids; Z68.35 Body mass index [BMI] 35.0-35.9, adult; Z79.899 Other long term (current) drug therapy; W01.0XXA Fall on same level from slipping, tripping and stumbling without subsequent striking against object, initial encounter; Y92.9 Unspecified place or not applicable; Y93.9 Activity, unspecified
CPT/HCPCS: 36415; 70450; 71045; 72146; 72148; 74176; 80048; 80061; 80076; 81001; 82607; 82728; 83540; 83735; 83880; 84100; 84439; 84443; 84466; 84484; 85025; 85027; 85610; 93005; 97116; 97161; 97530; 99285; J1650

== ENCOUNTER 2023-01-01 10:45 | Inpatient (IN) | payer OTHER ==
--- OUTSIDE RECORDS SUMMARY | 2023-01-01 11:24 | XMS REPORT | Continuity of Care Document ---
:1940 Author Organization [facility] Address [address] [facility]. 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 [facility] deconditio deconditio - Katherin yancey maya maya 00:00: Medical 00 Center Hemorrhagi [...] (STEMI) of inferior inferior wall wall 3RD [employer] [facility] [employer] Diagnosis Active 2017-082018-06-12 Memoria LFLT LFLT 08-06 17:40:00 l [id number] 00:00: Herm flavio Active 00 06/06/2018 [facility] 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 11:51:25 l (disorder) (disorder) He rmann Active Problem 11/15/20222004 [facility] Neurology [place],[facility] Urinary Urinary Problem Active 2022-11-15 Pr moria tract tract 11:51:25 l infectious infectious He rmann disease disease (disorder) (disorder) Active Problem 11/15/20222015 [facility] Neurology [place] Tremor Tremor Problem Active 2022-11-15 Aditya jesse (finding) (finding) 11:51:25 l Active Fenton Problem 11/15/2022 [facility] Neurology [place] [id number] Pain, Problem Commo n [id number] joint, [facility] shoulder, - [facility] right [facility] Amnesia Amnesia Problem Active 2022-11-15 Pr moria (finding) (finding) 11:51:25 l Active Fenton Problem 11/15/2022 [facility] Neurology [place] Incontinen Incontine Problem Active 2022-11-15 [facility]ce 11:51:25 l (finding) (finding) Herm flavio Active Problem 11/15/2022 [facility] Neurology [place] Infectious Problem Active 2022-11-15 emori disease of Infectious 11:51:25 l lung disease of Julio n (disorder) lung (disorder) Active Problem 11/15/20222015 [facility] [place] 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 Fenton (disorder) (disorder) Active Problem 11/15/20221998 [facility] [place] 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 l 11:51:25 l (disorder) infarction He rmann (disorder) Active Problem 11/15/20222017 [facility] [place] Shoulder Shoulder Problem Active 2022-11-15 Memoria pain pain 11:51:25 l (finding) (finding) Herm flavio Active Problem 11/15/2022 [facility] [place] 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 11:51:25 l (disorder) (disorder) He rmann Active Problem 11/15/20221999 [facility] [place] Allergies, Adverse Reactions, Alerts Allergy Allergy Status Severity Reaction(s) Onset Inactive Treating Comm ents Source Name Type Date Date Clinician NO KNOWN Allergy Active [facility] [place] lisinopr lisinopr Active Memori a il<sup>1 il<sup>1 l </sup> </sup> [place] Social History Social Habit Start Date Stop Date Quantity Comments Source History of Tobacco [facility] - Use [facility] History [facility] Alcohol Comment Medical C enter Gender identity [facility] Alcohol Std Drinks Medica l Center History [facility] Alcohol Binge Medical Daryn ter Alcohol intake 2018-10-27 2018-10-[address] [facility] es 00:00:00 00:00:00 non-drinker of Medical Ce nter alcohol (finding) Tobacco use and 2018-06-07 2018-06-[address] Katherin kes exposure 00:00:00 00:00:00 tobacco non-user Medical Center History SDOH 2018-06-07 2018-06-[address] [facility] Alcohol Frequency 00:00:00 00:00:00 Medical Center Sex Assigned At [birth year] [facility] 00:[facility] Smoking Status Start Date Stop Date Source Tobacco smoking consumption unknown [facility] Tobacco smoking status [facility] Medications Ordered Filled Start Stop Current Ordering [...] DROP INTO l 0.005% 20:33: EACH EYE Fenton solution 00 AT BEDTIME allopurinol Yes 100 mg = 1 Memoria 100 mg oral 3-03 tab, PO, l tablet 20:33: BID, # 60 Julio n 00 tab, 0 Refill(s) atorvastati Yes TAKE 1 Aditya jesse n 40 mg 3-03 TABLET BY l oral tablet 20:33: MOUTH ONCE Fenton 00 DAILY AT BEDTIME Metoprolol Yes TAKE [...] DROP INTO l 0.005% 20:33: EACH EYE Fenton solution 00 AT BEDTIME allopurinol Yes 100 mg = 1 Memoria 100 mg oral 3-03 tab, PO, l tablet 20:33: BID, # 60 Julio n 00 tab, 0 Refill(s) atorvastati 2023-0 Yes TAKE 1 Aditya jesse n 40 mg 3-03 TABLET BY l oral tablet 20:33: MOUTH ONCE Dev 00 DAILY AT BEDTIME Metoprolol 0 Yes TAKE 1 Memor ia Succinate 3-03 TABLET BY l ER 25 mg 20:33: MOUTH ONCE Her miller oral 00 DAILY tablet, extended release clopidogrel Yes TAKE 1 Aditya jesse 75 mg oral 3-03 TABLET BY l tablet 20:33: MOUTH ONCE Stephanie nn 00 DAILY losartan 25 2022-0 Yes TAKE 1 Aditya jesse mg oral 3-03 TABLET BY l tablet 20:33: MOUTH ONCE Stephanie nn 00 DAILY latanoprost Yes INSTILL 1 M emoria ophthalmic 3-03 DROP INTO l 0.005% 20:33: EACH EYE Fenton solution 00 AT BEDTIME allopurinol Yes 100 mg = 1 Memoria 100 mg oral 3-03 tab, PO, l tablet 20:33: BID, # 60 Julio n 00 tab, 0 Refill(s) Solifenacin Solifenacin 2021-08- No 1{table QD Solifenaci Succinate 5 Succinate 5 0-26 05-24 t} n MG MG 00:00: 00:00 Succinate 00 :00 5 MG Solifenacin Solifenacin 2021-2022- No 1{table QD Solifenaci Succinate 5 Succinate 5 0-26 05-24 t} n MG MG 00:00: 00:00 Succinate 00 :00 5 MG Lidocaine Lidocaine 2021-0 No 10mg Com 04-09 [facility] 00:00: - [facility] Kenalog Kenalog 2021-0 No 40mg Common (Triamcinol (Triamcinol 04-09 S pirit one) one) 00:00: - [facility] Lidocaine Lidocaine 2021-0 No 10mg Com 04-09 [facility] 00:00: - [facility] Kenalog Kenalog 2021-0 No 40mg Common (Triamcinol (Triamcinol - S pirit one) one) 00:00: - [facility] Lidocaine Lidocaine 2021-0 No 10mg Com 04-09 [facility] 00:00: - [facility] Kenalog Kenalog 2021-0 No 40mg Common (Triamcinol (Triamcinol 9-08 S pirit one) one) 00:00: - [facility] Lidocaine Lidocaine 2021-0 No 10mg Com 04-09 [facility] 00:00: - [facility] Kenalog Kenalog No 40mg Common (Triamcinol (Triamcinol 9-08 S pirit one) one) 00:00: - [facility] Lidocaine Lidocaine 2021-0 No 10mg Com 04-09 [facility] 00:00: - [facility] Kenalog Kenalog 0 No 40mg Common (Triamcinol (Triamcinol 9-08 S pirit one) one) 00:00: - [facility] Solifenacin Solifenacin 2021- No 1{table QD Solifenaci [...] daily. Medica l 18 Center melatonin 3 2018- Yes 3mg Take 3 mg C HI [...] MG 09:51: mouth Medical tablet 18 daily. [facility] levothyroxi Yes 125ug Take 125 C HI [...] daily. Medica l 18 Center melatonin 3 2019-0 Yes 3mg Take 3 mg C HI [...] mg tablet 09:51: daily. Medica l 18 [place] naproxen Yes Take by [facility] sodium [...] [facility]ukes MG tablet 09:51: daily. Medica l [address] [place] [address] melatonin 3 Yes 3mg Take 3 mg [...] mg tablet 09:51: daily. Medica l 18 [place] naproxen Yes Take by [facility] sodium [...] [facility]ukes MG tablet 09:51: daily. Medica l [address] [place] [address] melatonin 3 Yes 3mg Take 3 mg [...] mg tablet 09:51: daily. Medica l 18 [place] naproxen Yes Take by [facility] sodium 3-28 mouth as [facility]ukes (ALEVE 09:51: needed. Medical ORAL) 18 Center latanoprost Yes INT [address] (XALATAN) 9-10 IN both [facility] 0.005 % 00:00: eyes QHS Medica l ophthalmic 00 Center solution latanoprost 2018-0 Yes INT [address] (XALATAN) 9-10 IN both [facility] 0.005 % 00:00: eyes QHS Medica l ophthalmic 00 Center solution latanoprost 2018-0 Yes INT [address] (XALATAN) 9-10 IN both [facility] 0.005 % 00:00: eyes QHS Medica l ophthalmic 00 Center solution latanoprost 2018-0 Yes INT [address] (XALATAN) 9-10 IN both [facility] 0.005 % 00:00: eyes QHS Medica l ophthalmic 00 Center solution Travatan Z Yes See Memoria 0.004% 2-09 Instructio l ophthalmic 16:15: ns, # 9 Herm flavio solution 00 unknown unit, INSTILL ONE DROP INTO AFFECTED EYE(S) EVERY NIGHT AT BEDTIME, Pharmacy: [facility] Travatan Z Yes See Memoria 0.004% 2-09 Instructio l ophthalmic 16:15: ns, # 9 Herm flavio solution 00 unknown unit, INSTILL ONE DROP INTO AFFECTED EYE(S) EVERY NIGHT AT BEDTIME, Pharmacy: [facility] Travatan Z Yes See Memoria 0.004% 2-09 Instructio l ophthalmic 16:15: ns, # 9 Herm flavio solution 00 unknown unit, INSTILL ONE DROP INTO AFFECTED EYE(S) EVERY NIGHT AT BEDTIME, Pharmacy: [facility] betaxolol Yes 1 drp, Memori a ophthalmic 08 BOTH EYES, l 0.5% 21:43: BID, # 5 Dev solution 00 mL, 0 Refill(s), Pharmacy: [facility] betaxolol Yes 1 drp, Memori a ophthalmic 9-08 BOTH EYES, l 0.5% 21:43: BID, # 5 Fenton solution 00 mL, 0 Refill(s), Pharmacy: [facility] betaxolol Yes 1 drp, Memori a ophthalmic 908 BOTH EYES, l 0.5% 21:43: BID, # 5 Fenton solution 00 mL, 0 Refill(s), Pharmacy: [facility] 48 erythromyci Yes See Memori a n 08 Instructio l ophthalmic 19:08: ns, 1 appl H ermann 00 QID, 0 Refill(s) methotrexat Yes PO, 0 Memor ia e 2.5 mg -08 Refill(s) l oral tablet 19:08: Julio n 00 folic acid Yes 1 mg = 1 Mem oria 1 mg oral -08 tab, PO, l tablet 19:08: Daily, # [...] 0-23 tab, PO, l tablet 14:13: Daily Fenton Cymbalta 2014-08 Yes 30 mg = 1 M emoria mg oral 0-23 cap, PO l delayed 14:13: Fenton release 00 capsule levothyroxi 2014-08 Yes 75 Memori a ne 75 mcg 0-23 microgram l (0.075 mg) 14:13: = 1 tab, Her miller oral tablet 00 PO, Daily levothyroxi 2014-08 Yes 75 Memori a ne 75 mcg 0-23 microgram l (0.075 mg) 14:13: = 1 tab, Her miller oral tablet 00 PO, Daily amLODIPine 2014-08 Yes 2.5 mg = 1 M emoria 2.5 mg oral 0-23 tab, PO, l tablet 14:13: Daily Dev 00 Cymbalta 2014-08 Yes 30 mg = 1 M emoria mg oral 0-23 cap, PO l delayed 14:13: Dev release 00 capsule amLODIPine 2014-08 Yes 2.5 mg = 1 M emoria 2.5 mg oral 0-23 tab, PO, l tablet 14:13: Daily Dev 00 Cymbalta 2014-08 Yes 30 mg = 1 M emoria mg oral 0-23 cap, PO l delayed 14:13: Dev release 00 capsule Latanoprost Latanoprost No 1{drop_ [...] Comments Source height 2022-05-27 14:00:00 63 [in_i] [facility] weight 2022-05-27 14:00:00 220 [lb_av] [facility] temperature 2022-05-27 14:00:00 98.3 [degF] [facility] bmi 2022-05-27 14:00:00 38.97 kg/m2 [facility] oximetry 2022-05-27 14:00:00 96 % [facility] respiratory rate 2022-05-27 14:00:00 16 /min Comm [facility] blood pressure 2022-05-27 14:00:00 119 mm[Hg] [facility] - systolic [facility] blood pressure 2022-05-27 14:00:00 59 mm[Hg] [facility] - diastolic [facility] height 2022-04-09 08:00:00 63 [in_i] [facility] weight 2022-04-09 08:00:00 210 [lb_av] [facility] temperature 2022-04-09 08:00:00 98.0 [degF] [facility] bmi 2022-04-09 08:00:00 37.2 kg/m2 [facility] blood pressure 2022-04-09 08:00:00 126 mm[Hg] Common [facility] - systolic [facility] blood pressure 2022-04-09 08:00:00 78 mm[Hg] Common [facility] - diastolic [facility] height 2022-02-25 11:30:00 63 [in_i] [facility] weight 2022-02-25 11:30:00 205 [lb_av] [facility] temperature 2022-02-25 11:30:00 97.6 [degF] Common S pirit - [facility] bmi 2022-02-25 11:30:00 36.31 kg/m2 Common S pirit - [facility] oximetry 2022-02-25 11:30:00 99 % [facility] respiratory rate 2022-02-25 11:30:00 99 /min Comm on Spirit - [facility] blood pressure 2022-02-25 11:30:00 132 mm[Hg] Common [facility] - systolic [facility] blood pressure 2022-02-25 11:30:00 68 mm[Hg] Common [facility] - diastolic [facility] Systolic (mm Hg) 2022-11-12 19:52:00 Aditya rial Dev Diastolic (mm Hg) 2022-11-12 19:52:00 Mem orial [place] Heart Rate 2022-11-12 19:52:00 Memorial Dev Systolic (mm Hg) 2022-10-02 20:14:00 Aditya rial Dev Diastolic (mm Hg) 2022-10-02 20:14:00 Mem orial Dev Heart Rate 2022-10-02 20:14:00 [facility] [place] Height 2022-10-02 20:14:00 5 [ft_i] Memorial Dev Weight 2022-10-02 20:14:00 [facility] [place] BMI Calculated 2022-10-02 20:14:00 Aspen hayes Dev Procedures Procedure Date / Time Performed Performing Clinician Sour e Stent [facility] placement<sup>1</sup> Procedure [facility] Cataract extraction and [facility] insertion of intraocular lens Total knee replacement [facility] Breast lumpectomy [facility] nn Appendectomy [facility] Plan of Care Planned Activity Planned Date Details Comments Source Future Scheduled 2022-11-06 COVID-19 VACCINE (#1) [facility] Test 13:40:18 [code = COVID-19 VACCINE (#1)] Future Scheduled 2022-11-06 SHINGLES VACCINES (1 Met [facility] Test 13:40:18 of 2) [code = SHINGLES VACCINES (1 of 2)] Future Scheduled 2022-11-06 65+ PNEUMOCOCCAL Methodi [facility] Test 13:40:18 VACCINE (1 - PCV) [code = 65+ PNEUMOCOCCAL VACCINE (1 - PCV)] Future Scheduled 2022-11-06 INFLUENZA VACCINE [facility] Test 13:40:18 [code = INFLUENZA VACCINE] Encounters Start End Encounter Admission Attending Care Care Encounter Source Date/Time Date/Time Type Type Clinicians Facility Department ID 2022-04-09 [address] Alber[address] Brooks [facility] [id number] Common 08:01:00 [id number] [facility] 2022-03-31 [id number] Common 13:34:02 [facility] 2022-02-25 Outpatient Carlos Alberto Brooks [facility] [id number] Common 11:30:02 [facility] 2023-03-11 2023-03-11 Outpatient MHIE MHIE [id number] Memoria 14:00:00 14:00:00 03 maia Méndez 2023-03-11 2023-03-11 Outpatient MHIE MHIE [id number] Memoria 14:00:00 14:00:00 03 miaa Méndez 2022-11-12 2022-11-13 Outpatient MHIE MNA [id number] Memoria 19:45:00 04:59:59 Neurology 02 maia Méndez 2022-11-12 2022-11-13 Outpatient MHIE MNA [id number] Memoria 19:45:00 04:59:59 Neurology 02 maia Méndez 2022-11-12 2022-11-12 Outpatient JONATHAN Shaikh MISCHER [id number] 14:45:00 23:59:59 Raman Sandoval 2022-11-12 2022-11-12 Outpatient MHIE MHIE [id number] Memoria 14:45:00 14:45:00 02 maia Méndez 2022-10-20 2022-10-21 Outpatient MHIE MNA [id number] Memoria 18:00:00 04:59:59 Neurology 01 maia Méndez 2022-10-20 2022-10-21 Outpatient MHIE MNA [id number] Memoria 18:00:00 04:59:59 Neurology 01 maia Méndez 2022-10-20 2022-10-20 Outpatient ELISE ShaikhMISCHER MHMISCHER [id number] 13:00:00 23:59:59 Raman 01 Jaime 2022-10-20 2022-10-20 Outpatient MHIE MHIE [id number] Memoria 13:00:00 13:00:00 01 maia Méndez 2022-10-02 2022-10-03 Outpatient MHIE MNA [id number] Memoria 20:15:00 05:59:59 Neurology 00 l Sara Méndez 2022-10-02 2022-10-03 Outpatient MHIE MNA [id number] Memoria 20:15:00 05:59:59 Neurology 00 l Sara Méndez 2022-10-02 2022-10-02 Outpatient Neel, MISCHER MHMISCHER [id number] 14:15:00 23:59:59 Raman 00 Jaime 2022-10-02 2022-10-02 Outpatient MHIE MHIE [id number] Memoria 14:15:00 14:15:00 00 maia Méndez 2022-06-02 2022-06-02 (TEL) STLMLC STLMLC [id number] Co mmon 00:00:00 00:00:00 [facility] - [facility] 2022-05-27 2022-05-27 OFFICE STLMLC STLMLC [id number] Co mmon 00:00:00 00:00:00 VISIT [facility] PT - CHI LEVEL 2 [facility] 2022-04-14 2022-04-14 (TEL) STLMLC STLMLC [id number] Co mmon 00:00:00 00:00:00 [facility] 2022-04-13 2022-04-13 (TEL) STLMLC STLMLC [id number] Co mmon 00:00:00 00:00:00 [facility] - [facility] 2022-04-09 2022-04-09 OFFICE STLMLC STLMLC [id number] Co mmon 00:00:00 00:00:00 VISIT NEW Spir it PT LEVEL 3 - [facility] 2022-02-25 2022-02-25 OFFICE STLMLC STLMLC [id number] Co mmon 00:00:00 00:00:00 VISIT Spirit ESTAB PT - CHI LEVEL 4 [facility] 2020-05-29 2020-05-29 Outpatient LORRI [facility] [id number] [place] 00:00:00 00:00:00 MACEY [address] 2017-01-12 2017-01-12 Outpatient MHIE MHIE [id number] Memoria 14:00:00 14:00:00 12 maia Méndez 2017-01-12 2017-01-12 Outpatient MHIE MHIE [id number] Memoria 14:00:00 14:00:00 12 maia Méndez 2016-11-10 2016-11-10 Outpatient NAOMY FERRARI [facility] [id number] [place] 00:00:00 00:00:[address] 2016-09-29 2016-09-29 Outpatient NAOMY FERRARI [facility] [id number] [place] 00:00:00 00:00:[address] 2016-09-08 2016-09-08 Outpatient MHIE MHIE [id number] Memoria 14:45:00 14:45:00 11 maia Méndez 2016-09-08 2016-09-08 Outpatient MHIE MHIE [id number] Memoria 14:45:00 14:45:00 11 maia Méndez 2016-08-06 2016-08-06 Outpatient MHIE MHIE [id number] Memoria 13:45:00 13:45:00 10 maia Méndez 2016-08-06 2016-08-06 Outpatient MHIE MHIE [id number] Memoria 13:45:00 13:45:00 10 maia Méndez 2016-04-30 2016-04-30 Outpatient MHIE MHIE [id number] Memoria 14:00:00 14:00:00 09 maia Méndez 2016-04-30 2016-04-30 Outpatient MHIE MHIE [id number] Memoria 14:00:00 14:00:00 09 maia Méndez 2016-04-09 2016-04-09 Outpatient MHIE MHIE [id number] Memoria 14:00:00 14:00:00 08 maia Méndez 2016-04-09 2016-04-09 Outpatient MHIE MHIE [id number] Memoria 14:00:00 14:00:00 08 maia Méndez 2016-03-23 2016-03-23 Outpatient NAOMY FERRARI [facility] [id number] [place] 00:00:00 00:00:00 627 Zak i 2016-02-20 2016-02-20 Outpatient MHIE MHIE [id number] Memoria 15:45:00 15:45:00 07 maia Méndez 2016-02-20 2016-02-20 Outpatient MHIE MHIE [id number] Memoria 15:45:00 15:45:00 07 maia Méndez 2016-01-21 2016-01-21 Outpatient MHIE MHIE [id number] Memoria 11:00:00 11:00:00 06 maia Méndez 2016-01-21 2016-01-21 Outpatient MHIE MHIE [id number] Memoria 11:00:00 11:00:00 06 maia Méndez 2016-01-07 2016-01-07 Outpatient MHIE MHIE [id number] Memoria 14:15:00 14:15:00 05 maia Méndez 2016-01-07 2016-01-07 Outpatient MHIE MHIE [id number] Memoria 14:15:00 14:15:00 05 maia Méndez 2015-11-05 2015-11-05 Outpatient MHIE MHIE [id number] Memoria 14:15:00 14:15:00 04 maia Méndez 2015-11-05 2015-11-05 Outpatient MHIE MHIE [id number] Memoria 14:15:00 14:15:00 04 maia Méndez 2015 2015 Outpatient MHIE MHIE [id number] Memoria 10:00:00 10:00:00 02 maia Méndez 2015 2015 Outpatient MHIE MHIE [id number] Memoria 10:00:00 10:00:00 02 maia Méndez 2015-08-16 2015-08-16 Outpatient MHIE MHIE [id number] Memoria 13:15:00 13:15:00 03 maia Méndez 2015-08-16 2015-08-16 Outpatient MHIE MHIE [id number] Memoria 13:15:00 13:15:00 03 maia Méndez 2015-07-01 2015-07-01 Outpatient MHIE MHIE [id number] Memoria 09:45:00 09:45:00 01 maia Méndez 2015-07-01 2015-07-01 Outpatient MHIE MHIE [id number] Memoria 09:45:00 09:45:00 01 l Dev 2015-05-24 2015-05-24 [id number] 09:00:00 09:00:00 00 maia Dev 2015-05-24 2015-05-24 [facility] [id number] Memoria 09:00:00 09:00:00 00 maia Méndez [...] NOT 1092) ACCURATE CRE ATININE CLEARANCE IN OR EDICTING GLOMERULAR FILT RATION RATE. ESTIMATED GFR [...] WBC 0-0 (BEAKER) (test code = 413) [id number] 16:14:00 Test Item Value Reference Range Interpretation Comments ACTIVATED CLOTTING TIME 285 [address] [facility] 6720 (BEAKER) (test code = [place] 441) [address] BLOOD [id number] 05:00:00 Test Item Value Reference Range Interpretation Comments CULTURE (BEAKER) (test No growth in 5 days code = 1095) BLOOD [id number] 05:00:00 Test Item Value Reference Range Interpretation Comments CULTURE (BEAKER) (test No growth in 5 days code = 1095) [id number] 05:22:00 Test Item Value Reference Range Interpretation Comments MAGNESIUM (BEAKER) (test code = 1.8 mg/dL 1.6-2.6 627) BASIC METABOLIC [id number] 05:22:00 Test Item Value Reference Range Interpretation [...] PATIEN TS. CBC W/PLT COUNT & AUTO [id number] 05:01:00 Test Item Value Reference Range Interpretation [...] H PERCENT (BEAKER) (test code = 2801) [id number] 07:20:00 Test Item Value Reference Range Interpretation Comments MAGNESIUM (BEAKER) (test code = 2.0 mg/dL 1.6-2.6 627) BASIC METABOLIC [id number] 07:20:00 Test Item Value Reference Range Interpretation [...] DIALYSIS PATIEN TS. URINALYSIS W/ REFLEX URINE [id number] 16:22:00 Test Item Value Reference Range Interpretation [...] code = 2795) URINALYSIS W/ REFLEX URINE [id number] 07:27:00 Test Item Value Reference Range Interpretation [...] /LPF 514) SOURCE(BEAKER) (test code = 2795) [id number] 06:11:00 Test Item Value Reference Range Interpretation Comments MAGNESIUM (BEAKER) (test code = 1.9 mg/dL 1.6-2.6 627) BASIC METABOLIC [id number] 06:11:00 Test Item Value Reference Range Interpretation [...] NOT APPLICABLE FOR DIALYSIS PATIEN TS. BLOOD [id number] 11:00:00 Test Item Value Reference Range Interpretation Comments CULTURE (BEAKER) (test No growth in 5 days code = 1095) BLOOD [id number] 10:00:00 Test Item Value Reference Range Interpretation Comments CULTURE (BEAKER) (test No growth in 5 days code = 1095) RAD, CHEST, 1 VIEW, NON [id number] 08:41:00Reason for exam:->pulm edemaShould this be performed at the bedside?->YesFINAL REPORT Chest, one view. HISTORY: Pulmonary edema COMPARISON: 06/18/2018 IM PRESSION: Unchanged eventration of the right hemidiaphragm. The lungs are clear. No pleural effusionor pneumothorax. Surgical clips overlie the right axilla. Signed: Luis Alfredo Mckay MDReport Verified Date/Time: 06/19/2018 08:41:05 Reading Location: [address] Body Reading Room [id number] 07:14:00 Test Item Value Reference Range Interpretation Comments MAGNESIUM (BEAKER) (test code = 2.0 mg/dL 1.6-2.6 627) BASIC METABOLIC [id number] 07:14:00 Test Item Value Reference Range Interpretation [...] PATIEN TS. CBC W/PLT COUNT & AUTO [id number] 06:49:00 Test Item Value Reference Range Interpretation [...] (BEAKER) (test code = 2801) HEMOGLOBIN AND [id number] 18:06:00 Test Item Value Reference Range Interpretation Comments HEMOGLOBIN (BEAKER) (test code = 8.8 GM/DL 11.2-15.7 L 410) HEMATOCRIT (BEAKER) (test code = 27.9 % 34.1-44.9 L 411) RAD, CHEST, 1 VIEW, NON [id number] 09:11:00Reason for exam:->pulm edemaShould this be performed at the bedside?->YesFINAL REPORT Chest, one view. HISTORY: Pulmonary edema COMPARISON: 06/17/2018 IM PRESSION: Unchanged eventration of the right hemidiaphragm. No pulmonary edema. The lungs are clear.The cardiac silhouette is unchanged. No pleural effusion or pneumothorax. Signed: Luis Alfredo Mckay MDReport Verified Date/Time: 06/18/2018 09:11:19 Reading Location: [facility] B1 C[facility] Body Reading Room [id number] 07:28:00 Test Item Value Reference Range Interpretation Comments MAGNESIUM (BEAKER) (test code = 2.0 mg/dL 1.6-2.6 627) BASIC METABOLIC [id number] 07:28:00 Test Item Value Reference Range Interpretation [...] PATIEN TS. CBC W/PLT COUNT & AUTO [id number] 06:44:00 Test Item Value Reference Range Interpretation [...] MDReport Verified Date/Time: 06/17/2018 07:09:55 Reading Location: [facility] Reading Room [id number] 04:03:00 Test Item Value Reference Range Interpretation Comments MAGNESIUM (BEAKER) (test code = 2.1 mg/dL 1.6-2.6 627) BASIC METABOLIC [id number] 04:03:00 Test Item Value Reference Range Interpretation [...] PATIEN TS. CBC W/PLT COUNT & AUTO [id number] 03:34:00 Test Item Value Reference Range Interpretation [...] = 413) CBC W/PLT COUNT & AUTO [id number] 11:36:00 Test Item Value Reference Range Interpretation [...] No pneumothorax is identified. Signed: Andrews Currie MDReport Verified Date/Time: 06/16/2018 08:37:44 Reading Location: [facility] Reading Room Electronically s igned by: ANDREWS CURRIE M.D. on 06/16/2018 08:37 [id number] 07:32:00 Test Item Value Reference Range Interpretation Comments MAGNESIUM (BEAKER) (test code = 2.1 mg/dL 1.6-2.6 627) BASIC METABOLIC [id number] 07:32:00 Test Item Value Reference Range Interpretation [...] Specimen slightly ictericCBC W/PLT COUNT & AUTO [id number] 12:33:00 Test Item Value Reference Range Interpretation [...] contours.Additional findings: None. Signed: JR Marinelli Robert MDReprafael Verified Date/Time: 06/15/2018 0 8:09:42 Reading Location: [facility] C013V Neuro Reading Room [id number] 05:07:00 Test Item Value Reference Range Interpretation Comments POTASSIUM (BEAKER) (test code = 3.9 meq/L 3.5-5.1 379) 8 hours after PO replacement [id number] 05:07:00 Test Item Value Reference Range Interpretation Comments MAGNESIUM (BEAKER) (test code = 2.1 mg/dL 1.6-2.6 627) 8 hours after PO replacement completedBASIC METABOLIC [id number] 05:07:00 Test Item Value Reference Range Interpretation [...] completedFL, ESOPH, SWALLOW FUNCTION, WITH CINE OR [id number] 14:57:00Reason for exam:->dysphagiaFINAL REPORT Modified barium swallow [...] MDReport Verified Date/Time: 06/14/2018 14:57:14 Reading Location: [address] Ortho Consult Reading Room POCT-GLUCOSE [id number] 10:51:00 Test Item Value Reference Range Interpretation Comments POC-GLUCOSE METER 135 mg/dL 70-[address] [facility] ([facility]) (test code = [facility] 1538) [address] BLOOD [id number] 10:01:00 Test Item Value Reference Range Interpretation Comments CULTURE (BEAKER) (test No growth in 5 days code = 1095) BLOOD [id number] 10:01:00 Test Item Value Reference Range Interpretation Comments CULTURE (BEAKER) (test No growth in 5 days code = 1095) CBC W/PLT COUNT & AUTO [id number] 08:13:00 Test Item Value Reference Range Interpretation [...] MDReport Verified Date/Time: 06/14/2018 07:45:28 Reading Location: [facility] C013V Neuro Reading Room Electronically signedby: RC MARINELLI on 06/14/2018 07:45 AMMAGNESIUM 2018-06-14 03:53:00 Test Item Value Reference Range Interpretation Comments MAGNESIUM (BEAKER) (test code = 2.2 mg/dL 1.6-2.6 627) BASIC METABOLIC [id number] 03:53:00 Test Item Value Reference Range Interpretation [...] NOT APPLICABLE FOR DIALYSIS PATIEN TS. POCT-GLUCOSE [id number] 03:44:00 Test Item Value Reference Range Interpretation Comments POC-GLUCOSE METER 145 mg/dL 70-[address] [facility] [address] ([facility]) (test code = [facility] 1538) [address] POCT-GLUCOSE [id number] 22:09:00 Test Item Value Reference Range Interpretation Comments POC-GLUCOSE METER 112 mg/dL 70-110 H TESTED AT [place] [address] ([facility]) (test code = [facility] 1538) [address] POCT-GLUCOSE [id number] 16:43:00 Test Item Value Reference Range Interpretation Comments POC-GLUCOSE METER 108 mg/dL 70-110 TESTED AT [place] [address] ([facility]) (test code = [facility] 1538) [address] [id number] 11:20:00 Test Item Value Reference Range Interpretation Comments POTASSIUM (BEAKER) (test code = 4.3 meq/L 3.5-5.1 379) 8 hours after PO replacement [id number] 11:20:00 Test Item Value Reference Range Interpretation Comments MAGNESIUM (BEAKER) (test code = 2.1 mg/dL 1.6-2.6 627) 8 hours after PO replacement completedPOCT-GLUCOSE [id number] 10:39:00 Test Item Value Reference Range Interpretation Comments POC-GLUCOSE METER 85 mg/dL 70-[address] [facility] [address] (BEAKER) (test code = [place] [address] 1538) CBC W/PLT COUNT & AUTO [id number] 09:46:00 Test Item Value Reference Range Interpretation [...] = 3438) Received comment: User comments: Slide comments:[id number] 05:39:00 Test Item Value Reference Range Interpretation Comments POTASSIUM (BEAKER) (test code = 3.9 meq/L 3.5-5.1 379) [id number] 05:39:00 Test Item Value Reference Range Interpretation Comments MAGNESIUM (BEAKER) (test code = 2.0 mg/dL 1.6-2.6 627) [id number] 04:23:00 Test Item Value Reference Range Interpretation Comments MAGNESIUM (BEAKER) 2.2 mg/dL 1.6-2.6 Specimen moderately (test code = 627) hemolyzed RAD, CHEST, 1 VIEW, NON [id number] 04:18:00Reason for exam:->pulm edemaShould this be performed [...] MDReport Verified Date/Time: 06/13/2018 04:18:10 Reading Location: [facility] C013Y CT Body Reading Room C METABOLIC [id number] 04:08:00 Test Item Value Reference Range Interpretation [...] NOT APPLICABLE FOR DIALYSIS PATIEN TS. POCT-GLUCOSE [id number] 22:08:00 Test Item Value Reference Range Interpretation Comments POC-GLUCOSE METER 95 mg/dL 70-110 TESTED AT [place] [address] ([facility]) (test code = [facility] [address] 1538) POTASSIUM-STAT [id number] 16:57:00 Test Item Value Reference Range Interpretation Comments POTASSIUM (BEAKER) (test code = 3.1 meq/L 3.6-5.5 L 379) POCT-GLUCOSE [id number] 16:15:00 Test Item Value Reference Range Interpretation Comments POC-GLUCOSE METER 92 mg/dL 70-110 TESTED AT [place] [address] ([facility]) (test code = [facility] [address] 1538) BLOOD GAS, [id number] 14:19:00 Test Item Value Reference Range Interpretation [...] (BEAKER) (test code = 1819) 36.0 % [id number] 10:25:00 Test Item Value Reference Range Interpretation Comments POTASSIUM (BEAKER) (test code = 3.6 meq/L 3.5-5.1 379) 8 hours after PO replacement completedPOCT-GLUCOSE [id number] 10:13:00 Test Item Value Reference Range Interpretation Comments POC-GLUCOSE METER 132 mg/dL 70-[address] [facility] [address] (BEAKER) (test code = [place] 1536) [address] CBC W/PLT COUNT & AUTO [id number] 07:53:00 Test Item Value Reference Range Interpretation [...] Received comment: User comments: Slide comments:BLOOD GAS, [id number] 05:14:00 Test Item Value Reference Range Interpretation [...] code = 1819) 40.0 % BASIC METABOLIC [id number] 04:46:00 Test Item Value Reference Range Interpretation [...] PATIEN TS. RAD, CHEST, 1 VIEW, NON [id number] 03:49:00Reason for exam:->pulm edemaShould this be performed [...] [place] Verified Date/Time: 06/12/2018 03:49:08 Reading Location: [facility] C013Y CT Body Reading Room POCT-GLUCOSE [id number] 00:18:00 Test Item Value Reference Range Interpretation Comments POC-GLUCOSE METER 154 mg/dL 70-[address] [facility] [address] (BEAKER) (test code = [facility] 1538) [address] [id number] 18:20:00 Test Item Value Reference Range Interpretation Comments POTASSIUM (BEAKER) (test code = 3.1 meq/L 3.5-5.1 L 379) Check Serum Potassium level 2 hours after oral potassium replacement completed or 30 min after intravenous potassium replacement.[id number] 18:20:00 Test Item Value Reference Range Interpretation Comments MAGNESIUM (BEAKER) (test code = 2.0 mg/dL 1.6-2.6 627) Check Serum Potassium level 2 hours after oral potassium replacement completed or 30 min after intravenous potassium replacement.POCT-GLUCOSE [id number] 18:02:00 Test Item Value Reference Range Interpretation Comments POC-GLUCOSE METER 171 mg/dL 70-[address] [facility] [address] (BEAKER) (test code = [facility] 1538) [address] BASIC METABOLIC [id number] 16:25:00 Test Item Value Reference Range Interpretation [...] APPLICABLE FOR DIALYSIS PATIEN TS. BASIC METABOLIC [id number] 13:32:00 Test Item Value Reference Range Interpretation [...] APPLICABLE FOR DIALYSIS PATIEN TS. HEMOGLOBIN AND [id number] 09:43:00 Test Item Value Reference Range Interpretation Comments HEMOGLOBIN (BEAKER) (test code = 9.4 GM/DL 11.2-15.7 L 410) HEMATOCRIT (BEAKER) (test code = 28.4 % 34.1-44.9 L 411) RAD, CHEST, 1 VIEW, NON [id number] 07:40:00Reason for exam:->pulm edemaShould this be performed [...] MDReport Verified Date/Time: 06/11/2018 07:40:44 Reading Location: [address] Transitional Reading Room POCT-GLUCOSE [id number] 06:32:00 Test Item Value Reference Range Interpretation Comments POC-GLUCOSE METER 146 mg/dL 70-[address] [facility] [address] (BEAKER) (test code = [place] 1538) [address] BASIC METABOLIC [id number] 06:14:00 Test Item Value Reference Range Interpretation [...] PATIEN TS. CBC W/PLT COUNT & AUTO [id number] 04:09:00 Test Item Value Reference Range Interpretation [...] (BEAKER) (test code = 2801) BLOOD GAS, [id number] 03:58:00 Test Item Value Reference Range Interpretation [...] (test code = 1819) 40.0 % POCT-GLUCOSE [id number] 02:20:00 Test Item Value Reference Range Interpretation Comments POC-GLUCOSE METER 173 mg/dL 70-110 H TESTED AT [place] [address] ([facility]) (test code = IM[place] 1538) [address] HEMOGLOBIN AND [id number] 20:22:00 Test Item Value Reference Range Interpretation Comments HEMOGLOBIN (BEAKER) (test code = 8.9 GM/DL 11.2-15.7 L 410) HEMATOCRIT (BEAKER) (test code = 27.6 % 34.1-44.9 L 411) [id number] 18:36:00 Test Item Value Reference Range Interpretation Comments POTASSIUM (BEAKER) 3.7 meq/L 3.5-5.1 Specimen slightly (test code = 379) hemolyzed 8 hours after PO replacement completedPOCT-GLUCOSE [id number] 18:12:00 Test Item Value Reference Range Interpretation Comments POC-GLUCOSE METER 117 mg/dL 70-110 H TESTED AT [place] [address] ([facility]) (test code = [facility] 1538) [address] [id number] 14:36:00 Test Item Value Reference Range Interpretation Comments POTASSIUM (BEAKER) (test code = 3.5 meq/L 3.5-5.1 379) 8 hours after PO replacement completedPOCT-GLUCOSE [id number] 12:38:00 Test Item Value Reference Range Interpretation Comments POC-GLUCOSE METER 137 mg/dL 70-110 H TESTED AT [place] [address] ([facility]) (test code = [facility] 1538) [address] HEMOGLOBIN AND [id number] 10:58:00 Test Item Value Reference Range Interpretation Comments HEMOGLOBIN (BEAKER) (test code = 8.7 GM/DL 11.2-15.7 L 410) HEMATOCRIT (BEAKER) (test code = 27.0 % 34.1-44.9 L 411) [id number] 10:53:00 Test Item Value Reference Range Interpretation Comments MAGNESIUM (BEAKER) (test code = 2.5 mg/dL 1.6-2.6 627) BASIC METABOLIC [id number] 10:53:00 Test Item Value Reference Range Interpretation [...] NOT APPLICABLE FOR DIALYSIS PATIEN TS. POCT-GLUCOSE [id number] 10:18:00 Test Item Value Reference Range Interpretation Comments POC-GLUCOSE METER 155 mg/dL 70-[address] [facility] [address] ([facility]) (test code = [place] 1538) [address] BLOOD [id number] 10:08:00 Test Item Value Reference Range Interpretation Comments CULTURE A From Aerobic An d (BEAKER) (test Anaerobic Bot tles Same code = 1095) organism has be en isolated from cultures(s) of the same body site and collection date . Repeat identifi cation and susceptibil ity testing perform ed only after consultat ion with the clinic nd microbiology laboratory.Refe r to previous cultur e ofEscherichia c stephanie GRAM STAIN From aerobic and RESULT (BEAKER) anaerobic (test code = bottles: gram 1123) negative rods BLOOD [id number] 10:03:00 Test Item Value Reference Range Interpretation Comments CULTURE (BEAKER) (test ESCHERICHIA COLI A F rom Aerobic And code = 1095) Anaerobic Bottles Escherichia coliThis is a corrected organism result . Previous result was Non-lactose fermenting gram negative kath on 06/09/2018 at 0902 [employer] Amikacin (test code = S 1) Ampicillin [...] anaerobic 1123) bottles: gram negative rods POCT-GLUCOSE [id number] 07:33:00 Test Item Value Reference Range Interpretation Comments POC-GLUCOSE METER 149 mg/dL 70-[address] [facility] [address] ([facility]) (test code = IM[facility] Alvarez [facility] 1538) [address] RAD, CHEST, 1 VIEW, NON [id number] 06:11:00Reason for exam:->pulm edemaShould this be performed [...] in the right axilla. Signed: Davina Dowell Verified Date/Time: 06/10/2018 06:11:42 Reading Location: [facility] B1 C013Y CT Body Reading Room [id number] 04:51:00 Test Item Value Reference Range Interpretation Comments PHOSPHORUS (BEAKER) (test code = 2.1 mg/dL 2.3-4.7 L 604) [id number] 04:51:00 Test Item Value Reference Range Interpretation Comments MAGNESIUM (BEAKER) (test code = 2.7 mg/dL 1.6-2.6 H 627) BASIC METABOLIC [id number] 04:51:00 Test Item Value Reference Range Interpretation [...] PATIEN TS. CBC W/PLT COUNT & AUTO [id number] 04:39:00 Test Item Value Reference Range Interpretation [...] (BEAKER) (test code = 2801) HEMOGLOBIN AND [id number] 04:33:00 Test Item Value Reference Range Interpretation Comments HEMOGLOBIN (BEAKER) (test code = 8.5 GM/DL 11.2-15.7 L 410) HEMATOCRIT (BEAKER) (test code = 26.1 % 34.1-44.9 L 411) BLOOD GAS, [id number] 04:27:00 Test Item Value Reference Range Interpretation [...] (BEAKER) (test code = 1819) 40.0 % [id number] 00:28:00 Test Item Value Reference Range Interpretation Comments PHOSPHORUS (BEAKER) (test code = 2.2 mg/dL 2.3-4.7 L 604) [id number] 00:28:00 Test Item Value Reference Range Interpretation Comments MAGNESIUM (BEAKER) (test code = 2.2 mg/dL 1.6-2.6 627) BASIC METABOLIC [id number] 00:28:00 Test Item Value Reference Range Interpretation [...] APPLICABLE FOR DIALYSIS PATIEN TS. HEMOGLOBIN AND [id number] 00:08:00 Test Item Value Reference Range Interpretation Comments HEMOGLOBIN (BEAKER) (test code = 8.6 GM/DL 11.2-15.7 L 410) HEMATOCRIT (BEAKER) (test code = 26.5 % 34.1-44.9 L 411) [id number] 17:06:00 Test Item Value Reference Range Interpretation Comments PHOSPHORUS (BEAKER) (test code = 2.8 mg/dL 2.3-4.7 604) [id number] 17:06:00 Test Item Value Reference Range Interpretation Comments MAGNESIUM (BEAKER) (test code = 2.4 mg/dL 1.6-2.6 627) BASIC METABOLIC [id number] 17:06:00 Test Item Value Reference Range Interpretation [...] APPLICABLE FOR DIALYSIS PATIEN TS. HEMOGLOBIN AND [id number] 16:46:00 Test Item Value Reference Range Interpretation Comments HEMOGLOBIN (BEAKER) (test code = 9.4 GM/DL 11.2-15.7 L 410) HEMATOCRIT (BEAKER) (test code = 28.9 % 34.1-44.9 L 411) POCT-GLUCOSE [id number] 16:33:00 Test Item Value Reference Range Interpretation Comments POC-GLUCOSE METER 170 mg/dL 70-[address] [facility] [address] (BEAKER) (test code = [place] 1538) [address] POCT-GLUCOSE [id number] 12:12:00 Test Item Value Reference Range Interpretation Comments POC-GLUCOSE METER 156 mg/dL 70-[address] [facility] [address] (BEAKER) (test code = [place] 1538) [address] BASIC METABOLIC [id number] 10:47:00 Test Item Value Reference Range Interpretation [...] S NOT APPLICABLE FOR DIALYSIS PATIEN TS. [id number] 10:40:00 Test Item Value Reference Range Interpretation Comments PHOSPHORUS (BEAKER) (test code = 3.5 mg/dL 2.3-4.7 604) [id number] 10:40:00 Test Item Value Reference Range Interpretation Comments MAGNESIUM (BEAKER) (test code = 2.4 mg/dL 1.6-2.6 627) HEMOGLOBIN AND [id number] 10:23:00 Test Item Value Reference Range Interpretation Comments HEMOGLOBIN (BEAKER) (test code = 9.0 GM/DL 11.2-15.7 L 410) HEMATOCRIT (BEAKER) (test code = 28.0 % 34.1-44.9 L 411) POCT-GLUCOSE [id number] 08:19:00 Test Item Value Reference Range Interpretation Comments POC-GLUCOSE METER 156 mg/dL 70-[address] [facility] [address] (BEAKER) (test code = [place] 1538) [address] RAD, CHEST, 1 VIEW, NON [id number] 04:59:00Reason for exam:->pulm edemaShould this be performed [...] MDReport Verified Date/Time: 06/09/2018 04:59:47 Reading Location: [address] Reading Room B-TYPE NATRIURETIC FACTOR (BNP)2018-06-09 04:47:00 Test Item Value Reference Range Interpretation Comments B-TYPE NATRIURETIC PEPTIDE 1269 pg/mL 0-100 H (BEAKER) (test code = 700) [id number] 04:45:00 Test Item Value Reference Range Interpretation Comments PHOSPHORUS (BEAKER) (test code = 3.8 mg/dL 2.3-4.7 604) [id number] 04:45:00 Test Item Value Reference Range Interpretation Comments MAGNESIUM (BEAKER) (test code = 2.3 mg/dL 1.6-2.6 627) BASIC METABOLIC [id number] 04:45:00 Test Item Value Reference Range Interpretation [...] PATIEN TS. CBC W/PLT COUNT & AUTO [id number] 04:39:00 Test Item Value Reference Range Interpretation [...] (BEAKER) (test code = 2801) BLOOD GAS, [id number] 04:38:00 Test Item Value Reference Range Interpretation [...] code = 1819) 50.0 % HEMOGLOBIN AND [id number] 04:30:00 Test Item Value Reference Range Interpretation Comments HEMOGLOBIN (BEAKER) (test code = 9.0 GM/DL 11.2-15.7 L 410) HEMATOCRIT (BEAKER) (test code = 28.1 % 34.1-44.9 L 411) POCT-GLUCOSE [id number] 04:29:00 Test Item Value Reference Range Interpretation Comments POC-GLUCOSE METER 216 mg/dL 70-110 H TESTED AT [place] [address] ([facility]) (test code = IM[place] 1538) [address] POCT-GLUCOSE [id number] 00:13:00 Test Item Value Reference Range Interpretation Comments POC-GLUCOSE METER 175 mg/dL 70-[address] [facility] [address] ([facility]) (test code = [facility] [place] 1538) [address] VANCOMYCIN LEVEL, [id number] 22:32:00 Test Item Value Reference Range Interpretation Comments VANCOMYCIN TROUGH (BEAKER) (test 16.7 ug/mL 10.0-20.0 code = 522) Please draw prior to vanc administration [id number] 22:32:00 Test Item Value Reference Range Interpretation Comments PHOSPHORUS (BEAKER) (test code = 3.8 mg/dL 2.3-4.7 604) [id number] 22:32:00 Test Item Value Reference Range Interpretation Comments MAGNESIUM (BEAKER) (test code = 2.4 mg/dL 1.6-2.6 627) BASIC METABOLIC [id number] 22:32:00 Test Item Value Reference Range Interpretation [...] APPLICABLE FOR DIALYSIS PATIEN TS. HEMOGLOBIN AND [id number] 22:15:00 Test Item Value Reference Range Interpretation Comments HEMOGLOBIN (BEAKER) (test code = 9.8 GM/DL 11.2-15.7 L 410) HEMATOCRIT (BEAKER) (test code = 29.7 % 34.1-44.9 L 411) POCT-GLUCOSE [id number] 22:00:00 Test Item Value Reference Range Interpretation Comments POC-GLUCOSE METER 158 mg/dL 70-[address] [facility] [address] (BEAKER) (test code = [place] 1538) [address] [id number] 17:04:00 Test Item Value Reference Range Interpretation Comments PHOSPHORUS (BEAKER) (test code = 3.8 mg/dL 2.3-4.7 604) [id number] 17:04:00 Test Item Value Reference Range Interpretation Comments MAGNESIUM (BEAKER) (test code = 2.3 mg/dL 1.6-2.6 627) BASIC METABOLIC [id number] 17:04:00 Test Item Value Reference Range Interpretation [...] APPLICABLE FOR DIALYSIS PATIEN TS. HEMOGLOBIN AND [id number] 16:48:00 Test Item Value Reference Range Interpretation Comments HEMOGLOBIN (BEAKER) (test code = 10.0 GM/DL 11.2-15.7 L 410) HEMATOCRIT (BEAKER) (test code = 30.1 % 34.1-44.9 L 411) BLOOD GAS, [id number] 16:37:00 Test Item Value Reference Range Interpretation [...] (test code = 1819) 50.0 % POCT-GLUCOSE [id number] 16:37:00 Test Item Value Reference Range Interpretation Comments POC-GLUCOSE METER 168 mg/dL 70-[address] [facility] [address] (BEAKER) (test code = [place] 1538) [address] CT BRAIN WITHOUT IV CONTRAST - [id number] 13:50:00Reason for exam:- >acute resp failure/hemorrhagic shockFINAL [...] iterative reconstructive technique. Exam is limited by p ortable technique. There is age related generalized brain [...] and chronic microvascular ischemic change. Signed: Flavio Bordenort Verified Date/Time: 06/08/2018 13:50:56 Reading Location: [facility] Reading Room SODIUM, RANDOM [id number] 13:15:00 Test Item Value Reference Range Interpretation Comments SODIUM URINE (BEAKER) (test code = 93 meq/L 243) Reference Range: No NormalsUREA NITROGEN, RANDOM [id number] 13:15:00 Test Item Value Reference Range Interpretation Comments UREA NITROGEN URINE (BEAKER) (test 149 mg/dL code = 538) Reference Range: No NormalsPROTEIN, RANDOM [id number] 12:24:00 Test Item Value Reference Range Interpretation Comments PROTEIN, URINE (BEAKER) (test code = < mg/dL 0-14 1569) POCT-GLUCOSE [id number] 11:53:00 Test Item Value Reference Range Interpretation Comments POC-GLUCOSE METER 159 mg/dL 70-[address] [facility] [address] (BEAKER) (test code = IMANI [place] 1538) [address] BLOOD GAS, [id number] 11:52:00 Test Item Value Reference Range Interpretation [...] code = 1819) 50.0 % CREATININE, RANDOM [id number] 11:46:00 Test Item Value Reference Range Interpretation Comments CREATININE URINE (BEAKER) (test 19.2 mg/dL code = 375) Reference Range: No NormalsPOTASSIUM, RANDOM [id number] 11:46:00 Test Item Value Reference Range Interpretation Comments POTASSIUM URINE (BEAKER) (test 37.6 meq/L code = 195) Reference Range: No NormalsURINALYSIS W/ REFLEX URINE [id number] 10:10:00 Test Item Value Reference Range Interpretation [...] code = 514) SOURCE(BEAKER) (test code = 9485) TROPONIN [id number] 09:08:00 Test Item Value Reference Range Interpretation Comments TROPONIN I (BEAKER) (test code = 9.23 ng/mL 0.00-0.03 397) Troponin I (TnI) levels [...] failure, acidosis, acute neurological disease, and persistent tachyarrhythmia.[id number] 08:59:00 Test Item Value Reference Range Interpretation Comments POTASSIUM (BEAKER) (test code = 3.7 meq/L 3.5-5.1 379) [id number] 08:59:00 Test Item Value Reference Range Interpretation Comments MAGNESIUM (BEAKER) (test code = 2.3 mg/dL 1.6-2.6 627) [id number] 08:59:00 Test Item Value Reference Range Interpretation Comments PHOSPHORUS (BEAKER) (test code = 3.7 mg/dL 2.3-4.7 604) BLOOD GAS, [id number] 08:57:00 Test Item Value Reference Range Interpretation [...] code = 1819) 60.0 % HEMOGLOBIN AND [id number] 08:36:00 Test Item Value Reference Range Interpretation Comments HEMOGLOBIN (BEAKER) (test code = 11.2 GM/DL 11.2-15.7 410) HEMATOCRIT (BEAKER) (test code = 32.7 % 34.1-44.9 L 411) POCT-GLUCOSE [id number] 08:16:00 Test Item Value Reference Range Interpretation Comments POC-GLUCOSE METER 176 mg/dL 70-[address] [facility] [address] (BEAKER) (test code = IMANI Alvarez DERICK [place] 4494) 15236 CBC W/PLT COUNT & AUTO [id number] 08:03:00 Test Item Value Reference Range Interpretation [...] Received comment: User comments: Slide comments:RESPIRATORY PANEL [id number] 06:29:00 Test Item Value Reference Range Interpretation [...] sample was tested at the [facility] using the [employer] Respiratory Panel. It is FDA cleared and has been verified and approved by the [facility] for clinical use on nasal swab specimens. It is not FDA-cleared for use on bronchial wash/lavage samples. However, for this sample type, validation was performed and test characteristics were determined and approved, by [facility] for clinical use under the Clinical Laboratory Improvement Amendments (CLIA) of 1988 requirements. Therefore, FDA clearance isnot required. This laboratory is CLIA- certified and [employer] (CAP)-accredited to perform high complexity testing.RAD, CHEST, 1 VIEW, NON [id number] 05:30:00Reason for exam:->pulm edemaShould this be performed at the bedside?->YesFINAL REPORT RAD, CHEST, 1 VIEW, NON DEPT INDICATION: pulm edema COMPARISON: Prior day's exam FINDINGS: Portable frontal view of the chest. IMPRESSION: Support Lines: Stable. Lungsand pleura: Unchanged airspace and pleural opacities. No pneumothorax.Heart and mediastinum: Stable contours. Additional findings: None. Signed: Sydnee Poole Verified Date/Time: 06/08/2018 05:30:48 Reading Location: [address] Transitional Reading Room BLOOD GAS, [id number] 04:43:00 Test Item Value Reference Range Interpretation [...] (BEAKER) (test code = 1819) 80.0 % [id number] 04:37:00 Test Item Value Reference Range Interpretation Comments PHOSPHORUS (BEAKER) (test code = 3.7 mg/dL 2.3-4.7 604) [id number] 04:37:00 Test Item Value Reference Range Interpretation Comments MAGNESIUM (BEAKER) (test code = 2.0 mg/dL 1.6-2.6 627) BASIC METABOLIC [id number] 04:37:00 Test Item Value Reference Range Interpretation [...] DIALYSIS PATIEN TS. LACTIC ACID, ARTERIAL, WHOLE [id number] 04:29:00 Test Item Value Reference Range Interpretation Comments LACTATE BLOOD 1.2 mmol/L 0.5-2.2 Specimen sligh tly ARTERIAL (2) (BEAKER) hemoly zed (test code = 2874) POCT-GLUCOSE [id number] 04:04:00 Test Item Value Reference Range Interpretation Comments POC-GLUCOSE METER 198 mg/dL 70-[address] [facility] 6720 (BEAKER) (test code = IMANI [place] 1538) [address] BLOOD CULTURE IDENTIFICATION [id number] 03:16:00 Test Item Value Reference Range Interpretation Comments LISTERIA MONOCYTOGENES Not detected Not detected (test code = 5366581) STAPHYLOCOCCUS (test Not detected Not detected code = 8322125) STAPHYLOCOCCUS AUREUS Not detected Not detected (test code = 5654498) STREPTOCOCCUS (test code Not detected Not detected = 6893598) STREPTOCOCCUS AGALACTIAE Not detected Not detected (GROUP B) (test code = 8346138) STREPTOCOCCUS PNEUMONIAE Not detected Not detected (test code = 9211546) STREPTOCOCCUS PYOGENES Not detected Not detected (GROUP A) (test code = 3226950) ACINETOBACTER BAUMANNII Not detected Not detected (test code = 2583402) HAEMOPHILUS INFLUENZAE Not detected Not detected (test code = 4093085) NEISSERIA MENINGITIDIS Not detected Not detected (test code = 2396464) ENTEROBACTERIACEAE (test Detected Not detected A code = 8581689) ENTEROBACTER CLOACOE Not detected Not detected COMPLEX (test code = 8397698) KLEBSIELLA OXYTOCA (test Not detected Not detected code = 5983360) KLEBSIELLA PNEUMONIAE Not detected Not detected (test code = 1650) PROTEUS (test code = Not detected Not detected 9228312) SERRATIA MARCESCENS Not detected Not detected (test code = 6046075) TANIA ALBICANS (test Not detected Not detected code = 1569353) TANIA GLABRATA (test Not detected Not detected code = 3953783) TANIA KRUSEI (test Not detected Not detected code = 7360992) TANIA PARAPSILOSIS Not detected Not detected (test code = 7757097) TANIA TROPICALIS (test Not detected Not detected code = 3270546) ESCHERICHIA COLI (test Detected Not detected A First line code = 9630334) therapy: Meropenem. De-escalate bas ed on susceptibilitie s.T his test does n ot evaluate for ESBLReference Range: Not Detected METHICILLIN-RESISTANCE Not detected GENE (test code = 5374791) VANCOMYCIN-RESISTANCE Not detected GENE (test code = 3195950) CARBAPENEM-RESISTANCE Not detected Not detected GENE (test code = 3311943) ENTEROCOCCUS-BEAKER Not detected Not detected (test code = 3778055) PSEUDOMONAS Not detected Not detected AERUGINOSA-BEAKER (test code = 8862414) Other bacteria and resistance markers not targeted by this PCR panel cannot be excluded; therefore clinical correlation and follow up of serology, culture results, and other molecular studies is required. The results are not intended to be used as the sole means for clinical diagnosis or patient management decisions. This sample was tested at the [facility] using the [employer] Blood Culture ID Panel. It is FDA cleared and has been verified and approved by the [facility] for clinical use. This [...] failure, acidosis, acute neurological disease, and persistent tachyarrhythmia.[id number] 00:35:00 Test Item Value Reference Range Interpretation Comments MAGNESIUM (BEAKER) (test code = 2.0 mg/dL 1.6-2.6 627) [id number] 00:35:00 Test Item Value Reference Range Interpretation Comments PHOSPHORUS (BEAKER) (test code = 4.0 mg/dL 2.3-4.7 604) [id number] 00:35:00 Test Item Value Reference Range Interpretation Comments POTASSIUM (BEAKER) (test code = 3.8 meq/L 3.5-5.1 379) HEMOGLOBIN AND [id number] 00:24:00 Test Item Value Reference Range Interpretation Comments HEMOGLOBIN (BEAKER) (test code = 11.5 GM/DL 11.2-15.7 410) HEMATOCRIT (BEAKER) (test code = 34.1 % 34.1-44.9 411) POCT-GLUCOSE [id number] 23:48:00 Test Item Value Reference Range Interpretation Comments POC-GLUCOSE METER 199 mg/dL 70-[address] [facility] 6720 (BEAKER) (test code = IMANI Kim [place] 1538) [address] BASIC METABOLIC [id number] 22:53:00 Test Item Value Reference Range Interpretation [...] DIALYSIS PATIEN TS. LACTIC ACID, ARTERIAL, WHOLE [id number] 21:46:00 Test Item Value Reference Range Interpretation Comments LACTATE BLOOD ARTERIAL (2) 1.7 mmol/L 0.5-2.2 (BEAKER) (test code = 2874) HEMOGLOBIN AND [id number] 21:32:00 Test Item Value Reference Range Interpretation Comments HEMOGLOBIN (BEAKER) (test code = 11.2 GM/DL 11.2-15.7 410) HEMATOCRIT (BEAKER) (test code = 34.1 % 34.1-44.9 411) BLOOD GAS, [id number] 20:54:00 Test Item Value Reference Range Interpretation [...] (test code = 1819) 80.0 % POCT-GLUCOSE [id number] 20:41:00 Test Item Value Reference Range Interpretation Comments POC-GLUCOSE METER 220 mg/dL 70-[address] [facility] 6720 (BEAKER) (test code = IMANI NATARAJAN 1538) [address] OXYGEN SATURATION, [id number] 20:35:00 Test Item Value Reference Range Interpretation Comments O2 SATURATION (MEASURED) (BEAKER) 65.7 % (test code = 1455) [id number] 20:35:00 Test Item Value Reference Range Interpretation Comments POTASSIUM (BEAKER) (test code = 4.3 meq/L 3.5-5.1 379) [id number] 20:35:00 Test Item Value Reference Range Interpretation Comments MAGNESIUM (BEAKER) (test code = 2.3 mg/dL 1.6-2.6 627) [id number] 20:35:00 Test Item Value Reference Range Interpretation Comments PHOSPHORUS (BEAKER) (test code = 4.9 mg/dL 2.3-4.7 H 604) HEMOGLOBIN AND [id number] 20:12:00 Test Item Value Reference Range Interpretation Comments HEMOGLOBIN (BEAKER) (test code = 11.2 GM/DL 11.2-15.7 410) HEMATOCRIT (BEAKER) (test code = 34.2 % 34.1-44.9 411) BLOOD GAS, [id number] 19:15:00 Test Item Value Reference Range Interpretation [...] (test code = 1819) 90.0 % TROPONIN [id number] 19:06:00 Test Item Value Reference Range Interpretation [...] acute neurological disease, and persistent tachyarrhythmia.HEMOGLOBIN AND [id number] 18:26:00 Test Item Value Reference Range Interpretation Comments HEMOGLOBIN (BEAKER) (test code = 11.9 GM/DL 11.2-15.7 410) HEMATOCRIT (BEAKER) (test code = 36.3 % 34.1-44.9 411) [id number] 16:46:00 Test Item Value Reference Range Interpretation Comments PHOSPHORUS (BEAKER) (test code = 4.2 mg/dL 2.3-4.7 604) [id number] 16:46:00 Test Item Value Reference Range Interpretation Comments MAGNESIUM (BEAKER) (test code = 1.8 mg/dL 1.6-2.6 627) COMPREHENSIVE METABOLIC [id number] 16:46:00 Test Item Value Reference Range Interpretation [...] DIALYSIS PATIEN TS. LACTIC ACID, ARTERIAL, WHOLE [id number] 16:42:00 Test Item Value Reference Range Interpretation Comments LACTATE BLOOD ARTERIAL (2) 1.7 mmol/L 0.5-2.2 ([facility]) (test code = 2874) HEMOGLOBIN AND [id number] 16:28:00 Test Item Value Reference Range Interpretation Comments HEMOGLOBIN (BEAKER) (test code = 10.9 GM/DL 11.2-15.7 L 410) HEMATOCRIT (BEAKER) (test code = 33.0 % 34.1-44.9 L 411) POCT-GLUCOSE [id number] 16:19:00 Test Item Value Reference Range Interpretation Comments POC-GLUCOSE METER 178 mg/dL 70-[address] [facility] 67[address] ([facility]) (test code = IMANI [place] 1538) [address] POCT-GLUCOSE [id number] 16:19:00 Test Item Value Reference Range Interpretation Comments POC-GLUCOSE METER 189 mg/dL 70-[address] [facility] 67[address] ([facility]) (test code = IMANI [place] 1538) [address] PLATELET AGGREGATION: FUNCTION [id number] 15:50:00 Test Item Value Reference Range Interpretation Comments WEAK ADP 27 % 60-91 L RESULT([facility]) (test code = 2135) PLATELET FUNCTION 0-39% indicates marked SCREEN INTERP platelet dysfunction ([facility]) (test code = 2173) [id number] Starla Jimenez MD (BEAKER) (test code = (electronic signature) 2622) PLATELET COUNT AGG 207 K/CU MM 150-450 (BEAKER) (test code = 2656) Platelet Function Screen results may be falsely low with platelet counts<100,000/cu mm.PLATELET AGGREGATION: FUNCTION [id number] 15:49:00 Test Item Value Reference Range Interpretation Comments WEAK ADP 17 % 60-91 L RESULT(BEAKER) (test code = 2135) PLATELET FUNCTION 0-39% indicates marked SCREEN INTERP platelet dysfunction (BEAKER) (test code = 2173) [id number] Starla Jimenez MD (BEAKER) (test code = (electronic signature) 7522) PLATELET COUNT AGG 218 K/CU MM 150-430 (BEAKER) (test code = 2656) Platelet Function Screen results may be falsely low with platelet counts<100,000/cu mm.HEMOGLOBIN AND [id number] 15:16:00 Test Item Value Reference Range Interpretation Comments HEMOGLOBIN (BEAKER) (test code = 11.8 GM/DL 11.2-15.7 410) HEMATOCRIT (BEAKER) (test code = 36.4 % 34.1-44.9 411) CBC W/PLT COUNT & AUTO [id number] 14:19:00 Test Item Value Reference Range Interpretation [...] = 3438) Received comment: User comments: Slide comments:[id number] 13:46:00 Test Item Value Reference Range Interpretation Comments FIBRINOGEN LEVEL (BEAKER) (test 462 mg/dl 225-434 H code = 658) [id number] 13:37:00 Test Item Value Reference Range Interpretation Comments PARTIAL THROMBOPLASTIN TIME 29.3 seconds 22.5-36.0 (GÉNESIS) (test code = 760) LACTIC ACID, ARTERIAL, WHOLE [id number] 13:37:00 Test Item Value Reference Range Interpretation Comments LACTATE BLOOD ARTERIAL (2) 2.5 mmol/L 0.5-2.2 H (GÉNESIS) (test code = 2874) PROTHROMBIN [id number] 13:36:00 Test Item Value Reference Range Interpretation Comments PROTIME (BEAKER) (test code = 14.5 seconds 11.7-14.7 759) INR (BEAKER) (test code = 370) 1.1 <=5.9 RECOMMENDED COUMADIN/WARFARIN INR THERAPY RANGESSTANDARD DOSE: 2.0 - 3.0 Includes: PROPHYLAXIS for venous thrombosis, systemic embolization; TREATMENT for venous thrombosis and/or pulmonary embolus.HIGH RISK: Target INR is 2.5-3.5 for patients with mechanical heart valves.POCT-GLUCOSE [id number] 13:33:00 Test Item Value Reference Range Interpretation Comments POC-GLUCOSE METER 192 mg/dL 70-[address] [facility] 6720 (GÉNESIS) (test code = IMANI [place] 1538) [address] RAD, ABDOMEN/KUB, 1 VIEW [id number] 13:27:00Reason for exam:->abdominal distensionShould this be performed [...] structures demonstrate degenerative changes. Signed: Flavio Borden Verified Date/Time: 06/07/2018 13:27:14 Reading Location: [facility] C013W Consult Reading Room BLOOD GAS, [id number] 13:23:00 Test Item Value Reference Range Interpretation Comments PH ARTERIAL (GÉNESIS) (test code = 7.32 7.35-7.45 L 383) [...] (test code = 1819) 100.0 % HEMOGLOBIN [id number] 12:29:00 Test Item Value Reference Range Interpretation Comments HEMOGLOBIN A1C (BEAKER) (test code = 5.7 % 4.3-6.1 368) [id number] 12:04:00 Test Item Value Reference Range Interpretation Comments HAPTOGLOBIN (BEAKER) (test code = 166 mg/dL 14-258 366) CBC W/PLT COUNT & AUTO [id number] 11:37:00 Test Item Value Reference Range Interpretation [...] (BEAKER) (test code = 2801) BLOOD GAS, [id number] 11:32:00 Test Item Value Reference Range Interpretation [...] (BEAKER) (test code = 1819) 100.0 % [id number] 11:25:00 Test Item Value Reference Range Interpretation Comments PROCALCITONIN (BEAKER) (test code 21.36 ng/mL <0.05 = 3036) SEPSIS RISK (ng/mL)Low: 0.05-0.50Intermediate: 0.51-2.00High: >=2.01 URINALYSIS W/ REFLEX URINE [id number] 11:22:00 Test Item Value Reference Range Interpretation [...] (test code = 2795) PLATELET AGGREGATION: FUNCTION [id number] 10:54:00 Test Item Value Reference Range Interpretation Comments WEAK ADP 12 % 60-91 L RESULT(BEAKER) (test code = 2135) PLATELET FUNCTION 0-39% indicates marked SCREEN INTERP platelet dysfunction (BEAKER) (test code = 2173) [id number] Starla Jimenez MD (BEAKER) (test code = (electronic signature) 7082) PLATELET COUNT AGG 187 K/CU MM 150-450 (BEAKER) (test code = 8342) Platelet Function Screen results may be falsely low with platelet counts<100,000/cu mm.[id number] 10:37:00 Test Item Value Reference Range Interpretation Comments PARTIAL THROMBOPLASTIN TIME 31.4 seconds 22.5-36.0 (BEAKER) (test code = 760) PROTHROMBIN [id number] 10:36:00 Test Item Value Reference Range Interpretation Comments PROTIME (BEAKER) (test code = 14.2 seconds 11.7-14.7 759) INR (BEAKER) (test code = 370) 1.1 <=5.9 RECOMMENDED COUMADIN/WARFARIN INR THERAPY RANGESSTANDARD DOSE: 2.0 - 3.0 Includes: PROPHYLAXIS for venous thrombosis, systemic embolization; TREATMENT for venous thrombosis and/or pulmonary embolus.HIGH RISK: Target INR is 2.5-3.5 for patients with mechanical heart valves.TROPONIN [id number] 10:34:00 Test Item Value Reference Range Interpretation [...] acute neurological disease, and persistent tachyarrhythmia.BASIC METABOLIC [id number] 10:26:00 Test Item Value Reference Range Interpretation [...] S NOT APPLICABLE FOR DIALYSIS PATIEN TS. [id number] 10:25:00 Test Item Value Reference Range Interpretation Comments TRIGLYCERIDES (BEAKER) (test code = 139 mg/dL 540) TRIGLYCERIDE REFERENCE RANGELow Risk <150Borderline Risk 150-199High Risk 200-499Very High Risk >=[id number] 10:25:00 Test Item Value Reference Range Interpretation Comments MAGNESIUM (BEAKER) (test code = 1.9 mg/dL 1.6-2.6 627) CREATINE KINASE (CK)2018-06-07 10:25:00 Test Item Value Reference Range Interpretation Comments CREATINE KINASE TOTAL (BEAKER) (test 941 U/L 29-200 H code = 380) LACTIC ACID, ARTERIAL, WHOLE [id number] 10:22:00 Test Item Value Reference Range Interpretation Comments LACTATE BLOOD 3.8 mmol/L 0.5-2.2 H Specimen sligh tly ARTERIAL (2) (BEAKER) hemoly zed (test code = 2874) POCT-GLUCOSE [id number] 10:14:00 Test Item Value Reference Range Interpretation Comments POC-GLUCOSE METER 224 mg/dL 70-[address] [facility] 67[address] (BEAKER) (test code = IMANI [place] 1538) [address] BLOOD GAS, [id number] 09:58:00 Test Item Value Reference Range Interpretation [...] 100.0 % RAD, CHEST, 1 VIEW, NON [id number] 09:38:00Reason for exam:->pulm edemaShould this be performed [...] silhouette is normal insize. Signed: Aries Moss Verified Date/Time: 06/07/2018 09:38:30 Reading Location: [facility] Radiology Reading Room -BLOOD GASES, [id number] 08:35:00 Test Item Value Reference Range Interpretation Comments TEMP, CELSIUS-POC 37.0 (BEAKER) (test code = 1834) FIO2-POC (BEAKER) TESTED AT [facility] 6720 (test code = 1835) [facility] [place] [address] PH, ARTERIAL-POC 7.208 7.350-7.450 LL (BEAKER) (test [...] L ARTERIAL-POC (BEAKER) (test code = 1841) [id number] 08:35:00 Test Item Value Reference Range Interpretation Comments POC-SODIUM (BEAKER) 141 meq/L 135-[address] [facility] 67 (test code = 1542) DIANA Stacy [facility] [address] [id number] 08:35:00 Test Item Value Reference Range Interpretation Comments POC-POTASSIUM 4.3 meq/L 3.6-5.5 TESTED AT [place] [address] ([facility]) (test code [facility] [address] = 1540) [id number] 08:35:00 Test Item Value Reference Range Interpretation Comments POC-GLUCOSE ([facility]) 256 mg/dL 70-110 H TESTED AT [place] [address] (test code = 1855) DIANA Stacy [facility] [address] POCT-CALCIUM [id number] 08:35:00 Test Item Value Reference Range Interpretation Comments POC-CALCIUM IONIZED 1.21 mmol/L 1.12-1.27 TESTED A [place] [address] ([facility]) (test code = [facility] Kim [facility] 1536) [address] [id number] 08:35:00 Test Item Value Reference Range Interpretation Comments POC-HEMATOCRIT 33 % 36-45 L TESTED AT [place] [address] ([facility]) (test code = [facility] Kim [facility] [address] 1857) [id number] 08:35:00 Test Item Value Reference Range Interpretation Comments POC-HEMOGLOBIN 11.2 g/dL 12.0-15.0 L TESTED AT [place] [address] ([facility]) (test code [facility] = 1856) [address]ENOBWB AT [place] [address] DIANA [facility] [address] [id number] 08:29:00 Test Item Value Reference Range Interpretation Comments D-DIMER QUANTITATIVE ([facility]) 14.73 MG/L FEU <0.50 H [...] code = 635) LACTIC ACID, ARTERIAL, WHOLE [id number] 08:21:00 Test Item Value Reference Range Interpretation Comments LACTATE BLOOD ARTERIAL (2) 7.9 mmol/L 0.5-2.2 H (BEAKER) (test code = 2874) POCT-LACTIC ACID, [id number] 08:20:00 Test Item Value Reference Range Interpretation Comments POC-LACTIC ACID, 5.5 mmol/L 0.4-1.3 H TESTED AT [facility] 6720 ARTERIAL (BEAKER) D[place] (test code = 2804) [address] POCT-BLOOD GASES, [id number] 08:20:00 Test Item Value Reference Range Interpretation Comments TEMP, CELSIUS-POC 37.0 (BEAKER) (test code = 1834) FIO2-POC (BEAKER) TESTED AT [place] [address] (test code = 1835) DIANA [facility] [address] PH, ARTERIAL-POC 7.173 7.350-7.450 LL (BEAKER) (test [...] L ARTERIAL-POC (BEAKER) (test code = 1841) [id number] 08:20:00 Test Item Value Reference Range Interpretation Comments POC-SODIUM (BEAKER) 142 meq/L 135-148 TESTED A T [place] [address] (test code = 1542) DIANA [facility] [address] [id number] 08:20:00 Test Item Value Reference Range Interpretation Comments POC-POTASSIUM 4.4 meq/L 3.6-5.5 TESTED AT [place] [address] (BEAKER) (test code [facility] [address] = 1540) [id number] 08:20:00 Test Item Value Reference Range Interpretation Comments POC-GLUCOSE (BEAKER) 250 mg/dL 70-110 H TESTED AT [place] [address] (test code = 1855) [place] [address] POCT-CALCIUM [id number] 08:20:00 Test Item Value Reference Range Interpretation Comments POC-CALCIUM IONIZED 0.74 mmol/L 1.12-1.27 LL TESTED A T [place] [address] (BEAKER) (test code = [facility] Kim [facility] 1536) [address] [id number] 08:20:00 Test Item Value Reference Range Interpretation Comments POC-HEMATOCRIT 28 % 36-45 L TESTED AT [place] [address] ([facility]) (test code = [facility] Kim [facility] [address]57) [id number] 08:20:00 Test Item Value Reference Range Interpretation Comments POC-HEMOGLOBIN 9.5 g/dL 12.0-15.0 L TESTED AT [place] [address] ([facility]) (test code = [facility] Kim [facility] 1856) [address]UGTOMC AT [place] [address] [place] [address] [id number] 08:19:00 Test Item Value Reference Range Interpretation Comments POTASSIUM (BEAKER) (test code = 4.5 meq/L 3.5-5.1 379) [id number] 08:19:00 Test Item Value Reference Range Interpretation Comments SODIUM (BEAKER) (test code = 381) 138 meq/L 136-145 [id number] 08:19:00 Test Item Value Reference Range Interpretation Comments FIBRINOGEN LEVEL (BEAKER) (test 349 mg/dl 225-434 code = 658) [id number] 08:19:00 Test Item Value Reference Range Interpretation [...] mechanical heart valves.RAD, CHEST, 1 VIEW, NON [id number] 08:17:00Reason for exam:->post intubationShould this be performed [...] Borden Verified Date/Time: 06/07/2018 08:17:10 Reading Location: [facility] Radiology Reading Room PLATELET [id number] 08:05:00 Test Item Value Reference Range Interpretation Comments PLATELET COUNT (BEAKER) (test 179 K/CU MM 150-450 code = 756) HEMOGLOBIN AND [id number] 08:05:00 Test Item Value Reference Range Interpretation Comments HEMOGLOBIN (BEAKER) (test code = 9.4 GM/DL 11.2-15.7 L 410) HEMATOCRIT (BEAKER) (test code = 29.7 % 34.1-44.9 L 411) [id number] 07:54:00 Test Item Value Reference Range Interpretation Comments HAPTOGLOBIN (BEAKER) (test code = 142 mg/dL 14-258 366) HGB/HCT (H&H) - STAT [id number] 07:48:00 Test Item Value Reference Range Interpretation Comments HEMOGLOBIN (BEAKER) (test code = 7.7 GM/DL 12.0-15.0 L 410) HEMATOCRIT (BEAKER) (test code = 23.0 % 36.0-45.0 L 411) BLOOD GAS, [id number] 07:30:00 Test Item Value Reference Range Interpretation [...] (test code = 1819) 21.0 % CT, [id number] 07:18:00FINAL REPORT TECHNIQUE: CT of the abdomen [...] Mckay Verified Date/Time: 06/07/2018 07:18:15 Reading Location: [facility] Diagnostic Imaging Reading Room - [place] [address] POCT-GLUCOSE [id number] 07:15:00 Test Item Value Reference Range Interpretation Comments POC-GLUCOSE METER 282 mg/dL 70-[address] [facility] 6720 ([facility]) (test code = IMANI Alvarez [facility] 1538) [address] T4, [id number] 07:07:00 Test Item Value Reference Range Interpretation Comments FREE T4 (BEAKER) (test code = 655) 1.19 ng/dL 0.70-1.48 [id number] 06:57:00 Test Item Value Reference Range Interpretation Comments FERRITIN (BEAKER) (test code = 361) 262 ng/mL 5-275 VITAMIN B12 AND [id number] 06:57:00 Test Item Value Reference Range Interpretation [...] U/L 125-220 H code = 635) POCT-GLUCOSE [id number] 06:18:00 Test Item Value Reference Range Interpretation Comments POC-GLUCOSE METER 199 mg/dL 70-[address] [facility] 6720 (BEAKER) (test code = [place] 1538) [address] RETICULOCYTE [id number] 06:04:00 Test Item Value Reference Range Interpretation Comments RETICULOCYTE COUNT PCT (BEAKER) (test 1.9 % 0.5-1.7 H code = 575) HEMOGLOBIN AND [id number] 06:04:00 Test Item Value Reference Range Interpretation Comments HEMOGLOBIN (BEAKER) (test code = 6.6 GM/DL 11.2-15.7 L 410) HEMATOCRIT (BEAKER) (test code = 21.0 % 34.1-44.9 L 411) OXYGEN SATURATION, [id number] 06:01:00 Test Item Value Reference Range Interpretation Comments O2 SATURATION (MEASURED) (BEAKER) 52.8 % (test code = 1455) TSH/FREE T4 IF [id number] 05:58:00 Test Item Value Reference Range Interpretation Comments THYROID STIMULATING HORMONE 0.22 uIU/mL 0.35-4.94 L (BEAKER) (test code = 772) TROPONIN [id number] 05:48:00 Test Item Value Reference Range Interpretation Comments TROPONIN I (BEAKER) (test code = 56.33 ng/mL 0.00-0.03 397) Troponin I (TnI) levels [...] acute neurological disease, and persistent tachyarrhythmia.BASIC METABOLIC [id number] 05:27:00 Test Item Value Reference Range Interpretation [...] WBC 0-0 (BEAKER) (test code = 413) [id number] 05:19:00 Test Item Value Reference Range Interpretation Comments MAGNESIUM (BEAKER) (test code = 1.9 mg/dL 1.6-2.6 627) LIPID [id number] 05:19:00 Test Item Value Reference Range Interpretation [...] Very High >=190RAD, CHEST, 1 VIEW, NON [id number] 05:00:00Reason for exam:->Line placementShould this be performed [...] MDReport Verified Date/Time: 06/07/2018 05:00:33 Reading Location: [address] Reading Room -[id number] 04:43:00 Test Item Value Reference Range Interpretation Comments ACTIVATED CLOTTING TIME 274 sec TEST ED AT [place] [address] ([facility]) (test code = IMANI SEPULVEDA ND 441) [id number] 00:55:00 Test Item Value Reference Range Interpretation Comments ACTIVATED CLOTTING TIME 241 sec TEST ED AT [place] [address] ([facility]) (test code = IMANI SEPULVEDA [facility]) [id number]
[2023-01-01 11:45] VITALS: BMI 40.2
[2023-01-01] MEDS: ATORVASTATIN 40 MG TAB PO SCH (20:17)
[2023-01-01] MEDS: PREGABALIN 75 MG CAP PO SCH (20:17)
[2023-01-01] MEDS: BETAXOLOL HCL 0.5% OPTH SCH (20:19)
[2023-01-01] MEDS: LATANOPROST OPTH SCH (20:19)
[2023-01-01] MEDS: DOCUSATE NA/SENNA CONC 1 TAB PO PRN (20:22)
--- NOTE | 2023-01-01 22:31 | HP ---
Date of Admission: 01/01/2023 Time Of Service: 5:30 a.m. Chief Complaint: "I have been falling and became very weak." History Of Present Illness: Ms. Nunes is an 82-year-old, right-handed, patient who has Sjogren disease, coronary artery disease, hypothyroidism, hypertension, and gout and who has been fal ling frequently over the last several weeks. She has also had episodes of intermittent confusion and was seeing Dr. Raman Shaikh. The patient actually came to [facility] on 12/22 with the wors ening weakness and multiple falls and was evaluated by the hospitalist and was determined to be signi ficantly dehydrated. She had a head CT scan, which showed moderate small-vessel ischemic disease. H er spinal imaging study in the lumbar spine identified moderate canal stenosis at L4-5 with narrowing of the lateral recess on the right at L5-S1 displacing the right S1 nerve root and possibly contribu ting to inhibiting the ability to exert full strength in the right lower extremity. Her blood work d id not show evidence of an infection with normal white blood cell count. Hemoglobin was fairly stabl e around 10.8 to 11.3, creatinine did show dehydration at 1.17, sodium was slightly low at 135, chlor rocael elevated to 112, potassium elevated to 5.5, and BUN was elevated at 38 and was consistent with de hydration. Liver function studies were normal. Lactic acid normal. Her free T4 was elevated to 1.4 9, normal TSH. Cholesterol panel was unremarkable. Urinalysis did show 75 esterase. She was evalua marga by the physical therapy service, found to have very poor strength, decreased endurance, poor safe ty awareness, and she required significant assistance for bed mobilization, transfers, and performanc e of many of her activities of daily living and she was evaluated also by Occupational Therapy. She had decreased lower extremity strength and the patient's family did require significant education to begin to assist her to help minimize her high risk of falling. The patient's is really unabl e to manage her as she is unable to lift her when she falls and could put her at great risk of worsen ing injury as a result she is determined to be a more appropriate candidate for aggressive inpatient rehabilitation due to her debility and we will have her medical conditions daily evaluated and addres sed on a daily basis. Past Medical History: As noted above. Temporal arteritis, arthritis, breast cancer, gout, coronary artery disease along with Sjogren's, hypertension, hypothyroidism. Imaging: An EKG shows sinus rhythm and first-degree AV block, age undetermined. Abdomen CT scan dewayne ws a 6 mm right lower lobe nodule. Recommendation for followup with a CT of the chest in 6-12 months . Allergies: SULFA. Current Medications: Extra-strength Tylenol 500 mg every 6 hours, allopurinol 100 mg daily, Lipitor 40 mg at bedtime, Plavix 75 mg daily, Lovenox 40 mg subcutaneously daily, Synthroid 0.125 mg daily, C ozaar 25 mg daily, Toprol 25 mg daily, Lyrica 75 mg daily, Zofran 4 mg every 6 hours as needed. Social History: No alcohol, tobacco, or IV drug use. Patient lives at single family home with [facility]. Past Surgical History: Temporal artery biopsy. Family History: Noncontributory. Review of Systems: Diffuse weakness in the upper and lower extremities. High fall risk. Some episodic confusion, disor ientation that was being evaluated by Dr. Raman Shaikh. Otherwise, negative on a 10 point systems rev iew. Physical Examination: Vital Signs: Blood pressure 135/72, pulse 63, respiratory rate 18, temperature 97.8, oxygen saturati on 97%. General: Ms. Nunes is resting comfortably in bed. HEENT: She is normocephalic, atraumatic. Sclerae anicteric. Oropharynx is moist. Neck: Supple. Chest: Clear. Heart: Regular. Extremities: Show no significant clubbing, cyanosis, or edema. Neurological: She is alert and oriented to situation and place and is slow to respond to some comman ds. In terms of her cranial nerves, no focal deficits. On motor examination, diffuse weakness in up per and lower extremities. Stocking-glove loss to light touch and temperature. Depressed reflexes a nd slow coordination in the upper and lower extremities. Current Functional Status: She ambulated 73 feet with moderate assistance. Contact guard assistance for toilet transfers, bed transfer. Moderate assistance for going to sit on the side of bed and for sit to lying and lying to sitting, moderate assistance. Upper body dressing was independent. Lower body dressing at minimum assistance. Toilet hygiene requires minimum assistance. Assessment: Ms. Nunes is admitted to the rehabilitation unit with a rehabilitation impairment cat egory of 05 spinal cord dysfunction, nontraumatic. Her impairment group code is 04.130, other nontra umatic spinal cord dysfunction. Her etiologic diagnosis, moderate central canal stenosis. Active co morbids: Coronary artery disease, dehydration, hypertension, hypothyroidism, gout, diffuse weakness, and sciatica. Plan: 1.She will have physical, occupational therapy and speech therapy for 3.5 hours, 5 of 7 days. 2.We will continue Lyrica for neuropathic pain. Continue Zofran for nausea. 3.Continue Toprol and Cozaar to manage blood pressure. Continue Lipitor for dyslipidemia. Continue allopurinol for gout. Continue Plavix 75 mg daily for stroke risk reduction. Continue Synthroid 0. 125 mg for hypothyroidism. Impact Of Comorbidities: She is debilitated, however, she does have spinal cord dysfunction, which i s nontraumatic, but has placed her at high risk of falling as the inability to fully exert force is i mpacted by the lumbar nerve root stenosis and is at multiple levels in L4-5 and S1. She will benefit from significant strengthening exercises of the lower extremities and should have a walker at all ti mes with a gait belt and at some point after leaving rehab, may be evaluated by neurosurgery to see i f intervention is appropriate. However, at this point, there is no acute need for surgical intervent ion and she should go through aggressive physical therapy to become stronger and ambulate with a walk er at all times. Rehab Specific Plan: 1.She will have 3.5 hours, 5 of 7 days for physical, occupational, and speech therapy to improve her strength in the lower extremities or coordination or balance or gait or endurance her ability to go up and down at least 5 steps and to ambulate 250 feet with modified independence, which she was doing previously in addition to have cognitive functioning, be modified independent. 2.To have her comorbid conditions addressed adequately. 3.Have daily physician evaluations. 4.Throughout the day, nursing management for her comorbid conditions, addressing her pain, risk of d eep vein thrombosis, risk of stroke, and worsening complications from multiple lumbar areas of compre ssion. Ms. Nunes has a good understanding of her reason for the admission to the inpatient rehabilitation unit. She has a potential to make good improvement and will receive at least 2 of the disciplines a nd likely all 3 physical, occupational, and speech therapy to improve. If required, she will have ad ditional services from the respiratory service, nutrition service, as well as Cardiology and Pulmonol ogy. Given the complex medical condition and her risk of further medical complications, rehabilitati on cannot be safely or effectively provided at a lower level of care such as long-term. Barriers To Discharge: At this point, she has multiple lumbar compression of the canal and therefore is at risk of falling and so she will have a gait belt, she will have bed alarm and chair alarm as a ppropriate and ambulate with a walker at all times with significant attention paid to the legs sudden ly giving out, which can result in falling. Estimated Length Of Stay: 10 days. Disposition: Home with . Prognosis: Despite her multiple falls, she can do well. Rehabilitation Goals: 1.Become independent with upper and lower body dressing. 2.Independent with shower transfers and performing toileting functioning and general functioning. 3.Ambulate 250 feet with modified independence. 4.Up and down 10 steps with modified independence. 5.Perform cognitive functioning independently. 6.To have all of her medical conditions managed appropriately. 7.This has been reviewed with the patient and the family and they are in agreement with the plan. I acknowledge I have personally performed a full physical examination on Ms. Nunes no later than 2 4 hours after admission to the inpatient rehabilitation unit and determined that she is able to mayda ate the above course of treatment at an intensive level for a reasonable period of time. A detailed individualized plan of care for her will be completed by hospital day 4 based on the preadmission scr een, history and physical, and therapy evaluations. MARIANNA Voice ID: [id number]
[2023-01-02 00:07] LABS: Specific Gravity 1.011 (1.005-1.030); Urine Bilirubin NEGATIVE (Negative); Urine Blood Negative (Negative); Urine Clarity Clear (Clear); Urine Color Light-Yellow (Yellow); Urine Glucose Negative (Negative); Urine Protein NEGATIVE (Negative); Urine Urobilinogen Normal mg/dL (0.2-1.0); Urine pH 6.5 (5.0-7.0)
[2023-01-02 00:08] LABS: Urine Ascorbic Acid Negative (Negative)
[2023-01-02 00:09] LABS: Urine RBC <5 /HPF (None Seen)
[2023-01-02 00:10] LABS: Renal Epithelial <5 /HPF (None Seen); Urine Bacteria None Seen /HPF (<20)
[2023-01-02] MEDS: LEVOTHYROXINE SOD 0.125 MG TAB PO SCH (05:27)
[2023-01-02] MEDS: METOPROLOL XL 25 MG TAB PO SCH (05:27)
[2023-01-02] MEDS: ENOXAPARIN 40 MG/0.4 ML SQ SCH (07:08)
[2023-01-02] MEDS ORDERED: LOSARTAN POTASSIUM 50 MG TABLET PO SCH (08:00)
[2023-01-02] MEDS: PREGABALIN 75 MG CAP PO SCH ×3 (08:00→19:51)
[2023-01-02] MEDS: CLOPIDOGREL 75 MG TABLET PO SCH (09:03)
[2023-01-02] MEDS: allopurinoL 100 MG TAB PO SCH (09:03)
[2023-01-02] MEDS: BETAXOLOL HCL 0.5% OPTH SCH ×2 (09:05→19:50)
[2023-01-02] MEDS: IRON 27 MG PO SCH (09:05)
[2023-01-02] MEDS: ACETAMINOPHEN 500 MG TAB PO PRN (14:05)
[2023-01-02 14:46] LABS: Absolute Lymphocytes (CBC) 1.5 K/uL (0.7-4.9); Hematocrit 40.2 % (36.0-45.0); Lymphocytes % 12.8 % (15.3-44.8); MCV 103.4 fL (80-100); MPV 8.6 fL (7.6-11.3); RBC Red Blood Cell Count 3.88 M/uL (3.86-4.86)
[2023-01-02 15:03] LABS: Albumin 3.6 g/dL (3.4-5.0); Magnesium 1.9 mg/dL (1.6-2.4); Potassium 4.2 mEq/L (3.5-5.1); Prealbumin 23.4 mg/dL (20-40)
[2023-01-02] MEDS: LATANOPROST OPTH SCH (19:50)
[2023-01-02] MEDS: ATORVASTATIN 40 MG TAB PO SCH (19:51)
[2023-01-02] MEDS: DOCUSATE NA/SENNA CONC 1 TAB PO PRN (19:52)
[2023-01-03] MEDS: METOPROLOL XL 25 MG TAB PO SCH (05:21)
[2023-01-03] MEDS: LEVOTHYROXINE SOD 0.125 MG TAB PO SCH (05:30)
[2023-01-03] MEDS: ONDANSETRON 4 MG (ODT) TAB PO PRN ×2 (07:43→13:28)
[2023-01-03] MEDS: BETAXOLOL HCL 0.5% OPTH SCH ×2 (07:43→20:49)
[2023-01-03] MEDS: IRON 27 MG PO SCH (07:44)
[2023-01-03] MEDS: PREGABALIN 75 MG CAP PO SCH (07:44)
[2023-01-03] MEDS: ENOXAPARIN 40 MG/0.4 ML SQ SCH (07:44)
[2023-01-03] MEDS: allopurinoL 100 MG TAB PO SCH (07:45)
[2023-01-03] MEDS: CLOPIDOGREL 75 MG TABLET PO SCH (07:45)
[2023-01-03] MEDS: LOSARTAN POTASSIUM 50 MG TABLET PO SCH (07:46)
[2023-01-03] MEDS: LATANOPROST OPTH SCH (20:49)
[2023-01-03] MEDS: DOCUSATE NA/SENNA CONC 1 TAB PO SCH (20:49)
[2023-01-03] MEDS: ATORVASTATIN 40 MG TAB PO SCH (20:49)
[2023-01-04] MEDS: METOPROLOL XL 25 MG TAB PO SCH (05:07)
[2023-01-04] MEDS: LEVOTHYROXINE SOD 0.125 MG TAB PO SCH (05:31)
[2023-01-04] MEDS: BETAXOLOL HCL 0.5% OPTH SCH ×2 (07:43→20:25)
[2023-01-04] MEDS: IRON 27 MG PO SCH (07:43)
[2023-01-04] MEDS: GABAPENTIN 100 MG CAP PO SCH (07:44)
[2023-01-04] MEDS: allopurinoL 100 MG TAB PO SCH (07:44)
[2023-01-04] MEDS: ENOXAPARIN 40 MG/0.4 ML SQ SCH (07:44)
[2023-01-04] MEDS: CLOPIDOGREL 75 MG TABLET PO SCH (07:45)
[2023-01-04] MEDS: LOSARTAN POTASSIUM 50 MG TABLET PO SCH (08:00)
[2023-01-04] MEDS: ONDANSETRON 4 MG (ODT) TAB PO PRN (11:17)
[2023-01-04] MEDS: ACETAMINOPHEN 500 MG TAB PO PRN (12:45)
[2023-01-04] MEDS: ENSURE MAX PROTEIN 330 ML LIQUID PO SCH (20:00)
[2023-01-04] MEDS: LATANOPROST OPTH SCH (20:25)
[2023-01-04] MEDS: ATORVASTATIN 40 MG TAB PO SCH (20:25)
[2023-01-04] MEDS: DOCUSATE NA/SENNA CONC 1 TAB PO SCH (20:30)
--- NOTE | 2023-01-04 22:59 | PN ---
Date of Progress Note: 01/04/2023 Tylh-Gt-Potp Progress Note Visit Time Of Service: 1 p.m. Subjective: Ms. Nunes is resting comfortably. She is in no significant distress. She reports fe eling better with her therapy so far and is able to begin getting down the hallway. She has no new c omplaints. Review of Systems: No fevers or chills. Mild myalgias and arthralgias. No rash. No headache. No psychiatric issues. No significant gastrointestinal or genitourinary complaints. No nausea at this point. Physical Examination: Vital Signs: Blood pressure 180/75. Earlier in the day, she had blood pressure of 178/60. Orthosta tics were done. When the blood pressure was 180/75 and pulse of 92, she was lying. While sitting, i t dropped to 90/56 with pulse of 86 and when standing 89/70 and pulse of 111. Temperature 97.1, resp iratory rate 16 to 20, and oxygen saturation 98%. General: Ms. Nunes is resting comfortably, in no significant distress. HEENT: She is normocephalic, atraumatic. Sclerae anicteric. Oropharynx is pink and moist. Neck: Supple. Chest: Clear. Heart: Regular. Extremities: No clubbing, cyanosis, or edema. Neurological: She has diffuse weakness in the upper and lower extremities around 4+ and sensation sh ows stocking-glove loss. Depressed reflexes. Laboratory Studies: White blood cell count 12.1, hemoglobin 13.1, and platelets 175. Sodium 132, po tassium 4.2, chloride 106, carbon dioxide 20, BUN 36, creatinine 1.1, glucose 101, prealbumin 23.4, a nd albumin 3.6. Urinalysis was normal. X-ray/imaging: None. Medications: Tylenol Extra Strength 500 mg every 6 hours as needed, allopurinol 100 mg daily, Lipito r 40 mg at bedtime, Plavix 75 mg daily, Lovenox 40 mg subcutaneously daily, gabapentin 100 mg daily, Cozaar 25 mg daily, Toprol-XL 25 mg daily, Zofran 4 mg every 6 hours as needed, Ensure Max 330 mg twi ce daily, and Senokot-S 2 at bedtime. Current Functional Status: Today she did static standing balance activities and was instructed on ma intaining neutral upright posture while performing weight shifting. She did ambulate 40 feet and 50 feet with a rolling walker with minimum assistance. With occupational therapy, minimum assistance re quired for toilet hygiene, bed mobility with contact guard assistance, for hag-zc-bguja transfers and toilet transfers with a wheelchair minimum assistance required. She was seen today by Shiela portillo with long-term goals of improving general cognitive functioning and activities of daily living an d to return home with 80% accuracy and minimum assistance. Progress Towards Rehabilitation Goals: Ms. Nunes overall is making slow progress initially as she has just arrived in the rehabilitation unit and will require more hard work to begin to perform uppe r and lower body dressing, toileting, and transferring with modified independence and ambulate at [address] 50 feet with modified independence and household distances. Assessment: Ms. Nunes is an 82-year-old patient in the rehabilitation unit with debility. She wilhelm s moderate central canal stenosis, coronary artery disease, dehydration, hypertension, hypothyroidism , gout, and sciatica. Plan: 1.Continue with physical, occupational, and speech therapy 3.5 hours, 5 of 7 days. 2.Continue with all medications as listed above for her multiple comorbid conditions as noted. Comorbids That Continue To Impact Her Rehabilitation Process: She does have spinal cord dysfunction and instability, which puts her at significant risk of falling. Again, ambulate with a gait belt and walker at all times. LB/MODL Voice ID: [id number] Report ID: [id number]
[2023-01-05] MEDS: LEVOTHYROXINE SOD 0.125 MG TAB PO SCH (05:06)
[2023-01-05] MEDS: METOPROLOL XL 25 MG TAB PO SCH (05:06)
[2023-01-05] MEDS: allopurinoL 100 MG TAB PO SCH (07:19)
[2023-01-05] MEDS: ENOXAPARIN 40 MG/0.4 ML SQ SCH (07:19)
[2023-01-05] MEDS: GABAPENTIN 100 MG CAP PO SCH (07:19)
[2023-01-05] MEDS: ONDANSETRON 4 MG (ODT) TAB PO PRN (07:19)
[2023-01-05] MEDS: CLOPIDOGREL 75 MG TABLET PO SCH (07:19)
[2023-01-05] MEDS: IRON 27 MG PO SCH (07:20)
[2023-01-05] MEDS: BETAXOLOL HCL 0.5% OPTH SCH ×2 (07:20→19:31)
[2023-01-05] MEDS: ENSURE MAX PROTEIN 330 ML LIQUID PO SCH ×2 (07:55→19:31)
[2023-01-05] MEDS: LOSARTAN POTASSIUM 50 MG TABLET PO SCH (08:00)
[2023-01-05] MEDS: LIDOCAINE 4% PATCH TOP SCH (14:19)
[2023-01-05] MEDS: ATORVASTATIN 40 MG TAB PO SCH (19:30)
[2023-01-05] MEDS: LATANOPROST OPTH SCH (19:31)
[2023-01-05] MEDS: DOCUSATE NA/SENNA CONC 1 TAB PO SCH (19:31)
[2023-01-05] MEDS: ACETAMINOPHEN 500 MG TAB PO PRN (19:54)
--- NOTE | 2023-01-05 22:56 | PN ---
Date of Progress Note: 01/05/2023 Time Of Service: 1:30 p.m. Subjective: Ms. Nunes is resting in bed. She does report some more pain in the right back area. Otherwise, no fevers or chills. No nausea or vomiting. No significant arthralgias. Review of Systems: Again, no fevers or chills. No other complaints except the pain in the back and no significant gastr ointestinal or genitourinary issues and nausea has improved. Physical Examination: Vital Signs: Blood pressure 112/49, pulse 77, respiratory rate 18, temperature 97.1, and oxygen satu ration 100%. She did have some orthostatic changes, which are related to autonomic dysfunction. Ort hostatic blood pressures earlier today around 8:30 in the morning shows lying blood pressure of 127/5 2 and pulse 82, sitting blood pressure of 108/46 and pulse of 87, and standing blood pressure of 95/7 3 and pulse 98. She did have abdominal binders placed with the DIEGO hose and will have again blood pr essure medications decreased as appropriate. Laboratory Studies: No new laboratory studies. X-ray/imaging: No new x-rays or imaging. Medications: Her medications have been reviewed. She is on Lipitor 40 mg at bedtime. Her Toprol wi ll be decreased to 12.5 mg in the morning from 25 mg daily. She will continue Plavix 75 mg daily for stroke risk reduction and Lipitor 40 mg at bedtime. Gabapentin will be continued at 100 mg daily. Current Functional Status: Today she did qekxoz-gk-rrb transfers with standby assistance and don her pants while at edge of bed. She required contact guard assistance for upper body dressing and donni ng shirt with assistance to pull the shirt through around her back. She did have continued improveme nt in transfers and safety and body mechanics as well as at bed mobility and toilet transfers. With speech, she required minimum assistance with orientation skills, naming items within a concrete categ ory and recalling 3 of 3 unrelated items after 3 minutes. She required maximum assistance with alter nating attention tasks. Progress Towards Rehabilitation Goals: Ms. Nunes is making fair progress with physical and occupa tional therapy and somewhat slower progress with her speech therapy. Goals will be to become modifie d independence with transfers, toileting, showering, upper and lower body dressing and with cognitive functioning. Assessment: Ms. Nunes is an 82-year-old patient in the rehabilitation unit with debility. She wilhelm s moderate central canal stenosis with spinal canal stenosis, coronary artery disease, dehydration, h ypertension, hypothyroidism, gout, and sciatic pain. Plan: 1.Continue with physical, occupational, and speech therapy for 3.5 hours, 5 of 7 days. 2.Her multiple comorbid conditions as outlined above will be addressed by continuing her medications including addressing the pain in the back with an additional lidocaine patch and all her medicines w ill be continued as noted above. Comorbids That Continue To Impact Rehabilitation Process: She does have some cognitive deficits, whi ch make it difficult to fully and quickly comprehend communication, but she is still working hard at that and she has significant debility requiring hard work to begin to improve and she is working with out refusal and likely would benefit as she continues to do her therapy and she is just on hospital d ay 4 in therapy. SUAD/JULIANN Voice ID: [id number] Report ID: [id number]
[2023-01-05] MEDS: TRAMADOL HCL 50 MG TAB PO PRN (22:58)
[2023-01-05] MEDS: MELATONIN 5 MG TABLET PO PRN (22:58)
[2023-01-06] MEDS: METOPROLOL XL 25 MG TAB PO SCH (05:33)
[2023-01-06] MEDS: LEVOTHYROXINE SOD 0.125 MG TAB PO SCH (05:34)
[2023-01-06] MEDS: ENOXAPARIN 40 MG/0.4 ML SQ SCH (07:16)
[2023-01-06] MEDS: IRON 27 MG PO SCH (07:16)
[2023-01-06] MEDS: GABAPENTIN 100 MG CAP PO SCH (07:16)
[2023-01-06] MEDS: BETAXOLOL HCL 0.5% OPTH SCH ×2 (07:16→20:09)
[2023-01-06] MEDS: CLOPIDOGREL 75 MG TABLET PO SCH (07:17)
[2023-01-06] MEDS: ENSURE MAX PROTEIN 330 ML LIQUID PO SCH ×2 (07:17→20:00)
[2023-01-06] MEDS: allopurinoL 100 MG TAB PO SCH (07:17)
[2023-01-06] MEDS: LOSARTAN POTASSIUM 50 MG TABLET PO SCH (07:17)
[2023-01-06] MEDS: LIDOCAINE 4% PATCH TOP SCH (09:31)
[2023-01-06] MEDS ORDERED: FUROSEMIDE 20 MG TABLET PO SCH (17:00)
[2023-01-06] MEDS ORDERED: AMIODARONE HCL 200 MG TAB PO SCH (17:00)
--- NOTE | 2023-01-06 17:48 | RAD REPORT ---
EXAM DESCRIPTION: RAD - Hip Right 2 View - 01/06/2023 3:33 pm CLINICAL HISTORY: R/O fracture COMPARISON: No comparisons TECHNIQUE: Right hip, AP and frog-leg views. FINDINGS: There is no fracture or dislocation. No acute or destructive bony process seen. Vascular c alcifications. IMPRESSION: No acute findings of the right hip.
--- NOTE | 2023-01-06 18:41 | RAD REPORT ---
EXAM DESCRIPTION: RAD - Hip Left 2 View - 01/06/2023 3:33 pm CLINICAL HISTORY: R/O fracture COMPARISON: No comparisons TECHNIQUE: Left hip, AP and frogleg views of the left hip. FINDINGS: There is no fracture or dislocation. No acute or destructive bony process seen. Mild degen erative changes. Irregularity along the outer aspect of the greater trochanter, nonspecific, and may relate to longstanding sequelae of trochanteric bursitis. IMPRESSION: No acute findings of the left hip. Chronic findings as above.
[2023-01-06] MEDS: ATORVASTATIN 40 MG TAB PO SCH (20:09)
[2023-01-06] MEDS: DOCUSATE NA/SENNA CONC 1 TAB PO SCH (20:09)
[2023-01-06] MEDS: LATANOPROST OPTH SCH (20:09)
--- NOTE | 2023-01-06 21:41 | PN ---
Date of Progress Note: 01/06/2023 Time Of Service: 1:30 a.m. Subjective: Ms. Nunes does report some more right hip pain, but also to a lesser extent left hip pain. She is otherwise reporting some pain in the back. She has no nausea, vomiting at this point. No fevers or chills. Review of Systems: Again, no fevers or chills. No genitourinary or gastrointestinal issues. No other positives on the systems review. Physical Examination: Vital Signs: Blood pressure 123/47, pulse of 75, respiratory rate of 16, temperature 97.1. General: Ms. Nunes is resting comfortably except she does report some pain in the right hip and s he is in between therapy sessions, was taking a nap when I walked into the room. Neuro: She has diffuse weakness in the upper and lower extremities without focal neurological defici ts. Laboratory Studies: No new laboratory studies x-ray. X-ray/imaging: She had left and right hip x-rays, anterior and posterior views. The right hip shows no acute findings. No fracture displacement. No destructive bony processes. There are vascular ca lcifications identified. Medications: Her medications have been reviewed and she has had a lidocaine patch added to the right hip where there is pain. Otherwise, her medications have been continued as previously stated. Current Functional Status: Today, she did sit to stand transfers with contact guard assistance using a rolling walker. She still required verbal cues for supine and sit transfers and standby assistanc e for trunk and lower extremity assistance. She ambulated 80 feet twice and 70 feet with contact gua rd assistance using a rolling walker. She required verbal cues. With her occupational therapy, she did core strengthening exercises with 2 pounds dowel kath and a Thera-Band 6 sets of 30 seconds of exe rcise each. With speech therapy, she recalls patient information with 100% accuracy and temporal inf ormation using external cues with 75% accuracy. She recalled 3 of 3 pictures that were unrelated aft er 3 minutes and 4 of 4 after 5 and 10 minute increments with minimum assistance. Progress Towards Rehabilitation Goals: Ms. Nunes is making good overall progress and rehabilitati on goals of becoming modified independent with upper and lower body dressing, toileting, transferring , and ambulating over 50 feet with modified independence and performing cognitive functioning with mo dified independence. Assessment: Ms. Nunes is an 82-year-old patient in the rehabilitation unit with debility, moderat e central spinal canal stenosis, coronary artery disease, dehydration, hypertension, hypothyroidism, gout, and sciatic pain. Plan: 1.Continue physical, occupational, and speech therapy for 3.5 hours 5 of 7 days. 2.She will continue with the lidocaine patch is noted in the right hip in addition to one in her low er back. Also, we will continue Tylenol for mild diffuse pain. Continue allopurinol for gout. Cont inue Lipitor for dyslipidemia. Continue Plavix 75 mg daily for stroke risk reduction. Continue Synt hroid for hypothyroidism. Continue Cozaar for hypertension. Continue melatonin for insomnia and tra madol for pain. She will also take Senokot S for constipation. Comorbids That Are Continuing To Impact Her Rehabilitation: The right hip did not show any degenerat ion, but she still has some right hip pain and a pain patch was applied to that. As pain is mitigate d, she is able to perform better with her transfers and mobilization and she will have the gabapentin , the neuromodulator adjusted appropriately as it is only at the starting dose of 100 mg daily. SUAD/JULIANN Voice ID: [id number] Report ID: [id number]
[2023-01-07 04:25] LABS: Absolute Lymphocytes (CBC) 1.7 K/uL (0.7-4.9); Hematocrit 28.9 % (36.0-45.0); Lymphocytes % 24.9 % (15.3-44.8); MCV 103.1 fL (80-100); MPV 8.5 fL (7.6-11.3)
[2023-01-07 04:40] LABS: Magnesium 2.3 mg/dL (1.6-2.4); Potassium 4.4 mEq/L (3.5-5.1); Prealbumin 15.6 mg/dL (20-40)
[2023-01-07] MEDS: METOPROLOL XL 25 MG TAB PO SCH (05:03)
[2023-01-07 05:04] LABS: Blood Morphology Comment NOT SEEN (NOT SEEN); Platelet Estimate ADEQ
[2023-01-07] MEDS: LEVOTHYROXINE SOD 0.125 MG TAB PO SCH (05:34)
[2023-01-07] MEDS: LIDOCAINE 4% PATCH TOP SCH (06:56)
[2023-01-07] MEDS: ENOXAPARIN 40 MG/0.4 ML SQ SCH (07:06)
[2023-01-07] MEDS: LOSARTAN POTASSIUM 50 MG TABLET PO SCH (08:00)
[2023-01-07] MEDS: ENSURE MAX PROTEIN 330 ML LIQUID PO SCH ×2 (08:00→20:00)
[2023-01-07] MEDS: allopurinoL 100 MG TAB PO SCH (08:23)
[2023-01-07] MEDS: CLOPIDOGREL 75 MG TABLET PO SCH (08:23)
[2023-01-07] MEDS: GABAPENTIN 100 MG CAP PO SCH (08:23)
[2023-01-07] MEDS: ACETAMINOPHEN 500 MG TAB PO PRN (08:38)
[2023-01-07] MEDS: BETAXOLOL HCL 0.5% OPTH SCH ×2 (08:40→20:10)
[2023-01-07] MEDS: IRON 27 MG PO SCH (08:40)
[2023-01-07] MEDS ORDERED: ACETAMINOPHEN 500 MG TAB PO PRN (12:18)
[2023-01-07] MEDS: TRAMADOL HCL 50 MG TAB PO PRN (12:22)
--- NOTE | 2023-01-07 19:23 | PN ---
Date of Progress Note: 01/07/2023 [facility] Progress Note Visit Time Of Service: 1:30 p.m. Subjective: Ms. Nunes reports slightly less pain in the hips where she had pain patches placed. She did have x-rays done yesterday, which showed no significant abnormalities and reports were printe d and given to the patient and her . Otherwise, no complaints on subjective. Review of Systems: No fevers or chills. Mild pain in the hips is noted. Otherwise, diffuse weakness which is improving . No active gastrointestinal or genitourinary issues. No other positives on systems review. Physical Examination: Vital Signs: Blood pressure 114/54, pulse 82, respiratory rate of 16, temperature 98.5, and oxygen s aturation 97%. General: Ms. Nunes is resting comfortably in between therapy sessions. She is feeling much lance r about her therapy. She is able to begin to participate and is showing more strengthening in the ex tremities and she has no focal deficits. Laboratory Studies: White blood cell count 6.8, hemoglobin 9.7, and platelets 160. Sodium 134, pota ssium 4.4, chloride 104, BUN 53, and creatinine 1.09. Prealbumin decreased from 23.4 on the 3rd to 1 5.6 on the 8th. X-ray/imaging: The hip x-ray done yesterday on the left with anterior-posterior views showed no sign ificant findings. Chronic changes were seen. There was mild degeneration identified. She had x-ray of the right hip with similar findings to the left with no acute findings. There was vascular calci fication identified. Medications: She has had pain patches placed to the hips. Otherwise, her medications have been revi ewed and remain unchanged. Current Functional Status: Today she ambulated 125 feet twice, another 250 feet once with contact gu teo assistance using a rolling walker. She ascended and descended 3 steps twice with both handrails with contact guard assistance. She was at a standby assistance for toilet hygiene. She did 2 pounds dowel kath exercises to improve strength in the upper extremities, did 10 sets of repetition. With s peech pathology, she answered temporal orientation questions with 100% accuracy and no assistance. S he was at 98% accuracy in selective attention tasks. Progress Towards Rehabilitation Goals: Ms. Strouhal is making excellent progress towards her goals o f becoming independent with upper and lower body dressing, transferring, toileting, showering, ambula ting 250 feet with independence, and performing cognitive functioning independently. Assessment: Ms. Nunes is an 82-year-old patient in the rehabilitation unit with debility. She wilhelm s moderate central canal stenosis, coronary artery disease, dehydration, hypertension, hypothyroidism , gout, and sciatic pain. Plan: 1.Continue with physical, occupational, and speech therapy for 3.5 hours, 5 of 7 days. 2.Again lidocaine patch is to be applied to the lateral hip region. 3.She will continue with all of her comorbid condition medications including Lipitor, Plavix, allopu rinol, Cozaar, Senokot-S, Synthroid, and tramadol for pain. Comorbids That Continue To Impact Rehabilitation: The hip pain is improving with pain patch. She di d not have any fractures or any dislocation or abnormal findings such as avascular necrosis or any ot her abnormalities in the hip. She is on gabapentin 100 mg daily. SUAD/JULIANN Voice ID: [id number] Report ID: [id number]
[2023-01-07] MEDS: LATANOPROST OPTH SCH (20:10)
[2023-01-07] MEDS: ATORVASTATIN 40 MG TAB PO SCH (20:11)
[2023-01-07] MEDS: DOCUSATE NA/SENNA CONC 1 TAB PO SCH (20:11)
[2023-01-07] MEDS: ONDANSETRON 4 MG (ODT) TAB PO PRN (20:17)
[2023-01-08] MEDS: ONDANSETRON 4 MG (ODT) TAB PO PRN ×2 (00:47→11:01)
[2023-01-08] MEDS: METOPROLOL XL 25 MG TAB PO SCH (05:03)
[2023-01-08] MEDS: LEVOTHYROXINE SOD 0.125 MG TAB PO SCH (05:31)
[2023-01-08] MEDS: ENOXAPARIN 40 MG/0.4 ML SQ SCH (07:07)
[2023-01-08] MEDS: LOSARTAN POTASSIUM 50 MG TABLET PO SCH (08:00)
[2023-01-08] MEDS: ENSURE MAX PROTEIN 330 ML LIQUID PO SCH ×2 (08:00→20:00)
[2023-01-08] MEDS: LIDOCAINE 4% PATCH TOP SCH (08:03)
[2023-01-08] MEDS: BETAXOLOL HCL 0.5% OPTH SCH ×2 (08:04→20:23)
[2023-01-08] MEDS: GABAPENTIN 100 MG CAP PO SCH (08:04)
[2023-01-08] MEDS: IRON 27 MG PO SCH (08:04)
[2023-01-08] MEDS: CLOPIDOGREL 75 MG TABLET PO SCH (08:04)
[2023-01-08] MEDS: allopurinoL 100 MG TAB PO SCH (08:04)
[2023-01-08] MEDS: TRAMADOL HCL 50 MG TAB PO PRN (08:11)
--- NOTE | 2023-01-08 13:14 | P.RH.PN ---
Estimated Length of Stay: 14 Expected Discharge Date: 01/13/23 Discharge Disposition Plan: Home Vital Signs: Last Vital Signs Temp 97.0 F 01/08/23 09:49 Pulse 87 01/08/23 09:49 Resp 18 01/08/23 09:49 BP 108/56 L 01/08/23 09:49 Pulse Ox 98 01/08/23 09:49 Laboratory: Laboratory Last Values WBC 6.80 thou/uL (4.3-10.9) 01/07/23 03:51 RBC 2.80 M/uL (3.86-4.86) L 01/07/23 03:51 Hgb 9.7 g/dL (12.0-15.0) L 01/07/23 03:51 Hct 28.9 % (36.0-45.0) L 01/07/23 03:51 MCV 103.1 fL (80-100) H 01/07/23 03:51 MCH 34.5 pg (27.0-35.0) 01/07/23 03:51 MCHC 33.5 g/dL (32.0-36.0) 01/07/23 03:51 RDW 14.2 % (12.1-15.2) 01/07/23 03:51 Plt Count 160 thou/uL (152-406) 01/07/23 03:51 MPV 8.5 fL (7.6-11.3) 01/07/23 03:51 Neutrophils % 59.8 % (41.7-73.7) 01/07/23 03:51 Lymphocytes % 24.9 % (15.3-44.8) 01/07/23 03:51 Monocytes % 10.2 % (3.3-12.3) 01/07/23 03:51 Eosinophils % 4.7 % (0-4.4) H 01/07/23 03:51 Basophils % 0.4 % (0-1.3) 01/07/23 03:51 Absolute Neutrophils 4.1 K/uL (1.8-8.0) 01/07/23 03:51 Segmented Neutrophils 55 % (40-80) 01/07/23 03:51 Band Neutrophils 1 % (0-1) 01/07/23 03:51 Absolute Lymphocytes 1.7 K/uL (0.7-4.9) 01/07/23 03:51 Lymphocytes 21 % (15-42) 01/07/23 03:51 Monocytes 15 % (0-10) H 01/07/23 03:51 Absolute Monocytes 0.7 K/uL (0.1-1.3) 01/07/23 03:51 Eosinophils 5 % (0-3) H 01/07/23 03:51 Absolute Eosinophils 0.3 K/uL (0-0.5) 01/07/23 03:51 Absolute Basophils 0.0 K/uL (0-0.5) 01/07/23 03:51 Reactive Lymphocytes 3 % 01/07/23 03:51 Platelet Estimate Adeq 01/07/23 03:51 Morphology Comment Not seen (NOT SEEN) 01/07/23 03:51 Sodium 134 mEq/L (136-145) L 01/07/23 03:51 Potassium 4.4 mEq/L (3.5-5.1) 01/07/23 03:51 Chloride 104 mEq/L (98-107) 01/07/23 03:51 Carbon Dioxide 24 mEq/L (21-32) 01/07/23 03:51 Anion Gap 10.4 mEq/L (5.0-15.0) 01/07/23 03:51 BUN 53 mg/dL (7-18) H 01/07/23 03:51 Creatinine 1.09 mg/dL (0.55-1.02) H 01/07/23 03:51 Est GFR (CKD-EPI) 51 ml/min (=/>90) L 01/07/23 03:51 Glucose 94 mg/dL (74-106) 01/07/23 03:51 POC Glucose 101 mg/dL (65-120) 01/03/23 19:07 Calcium 8.9 mg/dL (8.5-10.1) 01/07/23 03:51 Magnesium 2.3 mg/dL (1.6-2.4) 01/07/23 03:51 Albumin 3.0 g/dL (3.4-5.0) L 01/07/23 03:51 Prealbumin 15.6 mg/dL (20-40) L 01/07/23 03:51 Urine Color Light-yellow (Yellow) 01/01/23 22:00 Urine Clarity Clear (Clear) 01/01/23 22:00 Urine pH 6.5 (5.0-7.0) 01/01/23 22:00 Ur Specific Sharon 1.011 (1.005-1.030) 01/01/23 22:00 Glucose (UA)(Auto) Negative (Negative) 01/01/23 22:00 Urine Ketones Negative (Negative) 01/01/23 22:00 Urine Blood Negative (Negative) 01/01/23 22:00 Urine Nitrite Negative (Negative) 01/01/23 22:00 Urine Bilirubin Negative (Negative) 01/01/23 22:00 Urine Urobilinogen Normal mg/dL (0.2-1.0) 01/01/23 22:00 Ur Leukocyte Esterase 25 (Negative) 01/01/23 22:00 Urine RBC <5 /HPF (None Seen) 01/01/23 22:00 Urine WBC <5 /HPF (<5) 01/01/23 22:00 Ur Squamous Epith Cells None seen /HPF (None Seen) 01/01/23 22:00 Ur Renal Epithelial Cell <5 /HPF (None Seen) 01/01/23 22:00 Urine Bacteria None seen /HPF (<20) 01/01/23 22:00 Urine Culture Reflexed Not needed 01/01/23 22:00 Urine Total Protein Negative (Negative) 01/01/23 22:00 Urine Ascorbic Acid Negative (Negative) 01/01/23 22:00 Weight: 220 lb Wound Present: No Closed Surgical Incision Present: No Negative Pressure Wound Therapy Present: No Physician Update: She had a 5.4 unit drop in Hgb in 5 days and has nausea. Will get KUB and hemocyte plus and ferrous sulfate. Improving orientation, memory and concentration. Poor attention and organization. Bed mobility, transfers SBA. Walking 250' with CGA. She will give protein replacement. Summary: Patient's care plan and retirement goals have been reviewed and revised as necessary. Please see the Rehabilitation Signature page for all necessary signatures.
--- NOTE | 2023-01-08 15:16 | RAD REPORT ---
EXAM DESCRIPTION: RAD - Abdomen 1 View (KUB) - 01/08/2023 2:56 pm CLINICAL HISTORY: Abdomen pain/constipation FINDINGS: The bowel gas pattern is unremarkable. Moderate amount stool within the colon Multiple gallstones
[2023-01-08] MEDS: FE SULF/FA/VIT B COMP & C TAB PO SCH (15:23)
[2023-01-08] MEDS: FERROUS SULFATE 325 MG TAB PO SCH (15:23)
[2023-01-08] MEDS: DOCUSATE NA/SENNA CONC 1 TAB PO SCH (20:23)
[2023-01-08] MEDS: ATORVASTATIN 40 MG TAB PO SCH (20:23)
[2023-01-08] MEDS: LATANOPROST OPTH SCH (20:24)
[2023-01-09] MEDS: METOPROLOL XL 25 MG TAB PO SCH (05:18)
[2023-01-09] MEDS: LEVOTHYROXINE SOD 0.125 MG TAB PO SCH (05:19)
[2023-01-09 06:29] LABS: Absolute Lymphocytes (CBC) 1.8 K/uL (0.7-4.9); Hematocrit 27.8 % (36.0-45.0); Lymphocytes % 25.8 % (15.3-44.8); MPV 8.4 fL (7.6-11.3)
[2023-01-09 06:49] LABS: Albumin 2.9 g/dL (3.4-5.0); Potassium 4.3 mEq/L (3.5-5.1); Prealbumin 13.9 mg/dL (20-40)
[2023-01-09 07:18] LABS: Platelet Estimate ADEQ
[2023-01-09 07:19] LABS: Blood Morphology Comment NOT SEEN (NOT SEEN)
[2023-01-09] MEDS: ENOXAPARIN 40 MG/0.4 ML SQ SCH (07:33)
[2023-01-09] MEDS: LOSARTAN POTASSIUM 50 MG TABLET PO SCH (07:50)
[2023-01-09] MEDS: ENSURE MAX PROTEIN 330 ML LIQUID PO SCH ×2 (08:00→20:00)
[2023-01-09] MEDS: GABAPENTIN 100 MG CAP PO SCH (08:13)
[2023-01-09] MEDS: allopurinoL 100 MG TAB PO SCH (08:13)
[2023-01-09] MEDS: FE SULF/FA/VIT B COMP & C TAB PO SCH (08:13)
[2023-01-09] MEDS: FERROUS SULFATE 325 MG TAB PO SCH (08:14)
[2023-01-09] MEDS: BETAXOLOL HCL 0.5% OPTH SCH ×2 (08:14→20:31)
[2023-01-09] MEDS: ONDANSETRON 4 MG (ODT) TAB PO PRN (08:31)
[2023-01-09] MEDS: TRAMADOL HCL 50 MG TAB PO PRN ×2 (08:31→17:00)
[2023-01-09] MEDS: LIDOCAINE 4% PATCH TOP SCH (10:06)
--- NOTE | 2023-01-09 16:06 | RAD REPORT ---
EXAM DESCRIPTION: CTAbdomen Pelvis Wo Contrast - 01/09/2023 3:49 pm CLINICAL HISTORY: hgb droping COMPARISON: <Comparisons> TECHNIQUE: CT of the abdomen and pelvis was performed. All CT scans are performed using dose optimization technique as appropriate and may include automated exposure control or mA/KV adjustment according to patient size. FINDINGS: Lower chest: Mitral annular calcifications. Coronary artery calcifications . Mild circumfe rential thickened distal esophagus which could reflect esophagitis. Liver: No acute abnormality or suspicious lesions. Biliary: Cholelithiasis Stomach: No significant focal abnormality. Duodenum: No significant focal abnormality. Pancreas: No significant abnormality. Spleen: No significant abnormality. Adrenal: No suspicious lesions. Kidney/ureter: No hydronephrosis. No renal calculi. Retroperitoneum: No retroperitoneal adenopathy. Vascular: No aneurysm. Atherosclerosis . Short-segment dissection of the infrarenal abdominal aorta w hich is aneurysmal measuring 2.6 cm, though having a greater than 50% change in diameter from the nor mal aorta size. Bowel: No significant focal abnormality. Peritoneum: Large narrow neck fat containing umbilical hernia. On the prior CT, this contained: Now o nly contains fat. There is some associated stranding. Bladder: Grossly unremarkable. Reproductive: No adnexal masses. Bones: No acute fracture. Grade 1 anterolisthesis of L4 on L5. Multilevel degenerative changes are pr esent in the spine. Other: n/a IMPRESSION: 1. No acute intra-abdominal or pelvic finding. Specifically, no source of bleeding iden tified. Large fat containing ventral hernia noted. This did contain transverse colon but has presumab ly been manually reduced. 2. 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 Recomm end 12 month follow-up ultrasound or CT.
[2023-01-09] MEDS: LATANOPROST OPTH SCH (20:29)
[2023-01-09] MEDS: DOCUSATE NA/SENNA CONC 1 TAB PO SCH (20:29)
[2023-01-09] MEDS: ATORVASTATIN 40 MG TAB PO SCH (20:30)
[2023-01-09] MEDS: MELATONIN 5 MG TABLET PO PRN (20:30)
[2023-01-10] MEDS: TRAMADOL HCL 50 MG TAB PO PRN ×2 (05:19→20:12)
[2023-01-10] MEDS: LEVOTHYROXINE SOD 0.125 MG TAB PO SCH (05:19)
[2023-01-10] MEDS: METOPROLOL XL 25 MG TAB PO SCH (05:19)
[2023-01-10] MEDS: LIDOCAINE 4% PATCH TOP SCH (07:40)
[2023-01-10] MEDS: ENOXAPARIN 40 MG/0.4 ML SQ SCH (07:40)
[2023-01-10] MEDS: FE SULF/FA/VIT B COMP & C TAB PO SCH (07:41)
[2023-01-10] MEDS: GABAPENTIN 100 MG CAP PO SCH (07:41)
[2023-01-10] MEDS: BETAXOLOL HCL 0.5% OPTH SCH ×2 (07:41→20:12)
[2023-01-10] MEDS: FERROUS SULFATE 325 MG TAB PO SCH (07:41)
[2023-01-10] MEDS: ENSURE MAX PROTEIN 330 ML LIQUID PO SCH ×2 (07:42→20:00)
[2023-01-10] MEDS: allopurinoL 100 MG TAB PO SCH (07:42)
[2023-01-10] MEDS: LOSARTAN POTASSIUM 50 MG TABLET PO SCH (08:00)
[2023-01-10] MEDS: ONDANSETRON 4 MG (ODT) TAB PO PRN (08:47)
[2023-01-10] MEDS: LATANOPROST OPTH SCH (20:11)
[2023-01-10] MEDS: DOCUSATE NA/SENNA CONC 1 TAB PO SCH (20:12)
[2023-01-10] MEDS: MELATONIN 5 MG TABLET PO PRN (20:12)
[2023-01-10] MEDS: ATORVASTATIN 40 MG TAB PO SCH (20:12)
[2023-01-11 04:34] LABS: Absolute Lymphocytes (CBC) 1.9 K/uL (0.7-4.9); Hematocrit 28.8 % (36.0-45.0); Lymphocytes % 28.2 % (15.3-44.8); MCV 103.7 fL (80-100); MPV 8.3 fL (7.6-11.3); RBC Red Blood Cell Count 2.78 M/uL (3.86-4.86)
[2023-01-11 04:50] LABS: Potassium 4.4 mEq/L (3.5-5.1)
[2023-01-11] MEDS: METOPROLOL XL 25 MG TAB PO SCH (05:23)
[2023-01-11] MEDS: LEVOTHYROXINE SOD 0.125 MG TAB PO SCH (05:23)
[2023-01-11] MEDS: ONDANSETRON 4 MG (ODT) TAB PO PRN (06:59)
[2023-01-11] MEDS: BETAXOLOL HCL 0.5% OPTH SCH ×2 (07:15→20:17)
[2023-01-11] MEDS: ENOXAPARIN 40 MG/0.4 ML SQ SCH (07:16)
[2023-01-11] MEDS: FE SULF/FA/VIT B COMP & C TAB PO SCH (07:16)
[2023-01-11] MEDS: FERROUS SULFATE 325 MG TAB PO SCH (07:16)
[2023-01-11] MEDS: LOSARTAN POTASSIUM 50 MG TABLET PO SCH (07:16)
[2023-01-11] MEDS: GABAPENTIN 100 MG CAP PO SCH (07:17)
[2023-01-11] MEDS: allopurinoL 100 MG TAB PO SCH (07:17)
[2023-01-11] MEDS: TRAMADOL HCL 50 MG TAB PO PRN (07:18)
[2023-01-11] MEDS: ENSURE MAX PROTEIN 330 ML LIQUID PO SCH ×2 (07:39→20:00)
[2023-01-11] MEDS: LIDOCAINE 4% PATCH TOP SCH (11:34)
[2023-01-11] MEDS: DOCUSATE NA/SENNA CONC 1 TAB PO SCH (20:15)
[2023-01-11] MEDS: ATORVASTATIN 40 MG TAB PO SCH (20:15)
[2023-01-11] MEDS: MELATONIN 5 MG TABLET PO PRN (20:16)
[2023-01-11] MEDS: LATANOPROST OPTH SCH (20:17)
[2023-01-12] MEDS: LEVOTHYROXINE SOD 0.125 MG TAB PO SCH (05:26)
[2023-01-12] MEDS: METOPROLOL XL 25 MG TAB PO SCH (05:26)
[2023-01-12] MEDS ORDERED: POLYETHYL GLY 3350 17 GM/DOSE PO PRN (06:15)
[2023-01-12 07:08] VITALS: BP 117/55; TEMP 97.2
[2023-01-12] MEDS: ONDANSETRON 4 MG (ODT) TAB PO PRN (07:16)
[2023-01-12] MEDS: FE SULF/FA/VIT B COMP & C TAB PO SCH (07:17)
[2023-01-12] MEDS: ENSURE MAX PROTEIN 330 ML LIQUID PO SCH (07:17)
[2023-01-12] MEDS: BETAXOLOL HCL 0.5% OPTH SCH (07:17)
[2023-01-12] MEDS: FERROUS SULFATE 325 MG TAB PO SCH (07:17)
[2023-01-12] MEDS: allopurinoL 100 MG TAB PO SCH (07:18)
[2023-01-12] MEDS: GABAPENTIN 100 MG CAP PO SCH (07:18)
[2023-01-12] MEDS: TRAMADOL HCL 50 MG TAB PO PRN ×2 (07:18→13:07)
[2023-01-12] MEDS: ENOXAPARIN 40 MG/0.4 ML SQ SCH (07:19)
[2023-01-12] MEDS: LIDOCAINE 4% PATCH TOP SCH (07:19)
[2023-01-12] MEDS: LOSARTAN POTASSIUM 50 MG TABLET PO SCH (08:20)
== END 2023-01-12 13:30 | DRG 948 ==
LOC: 5TH 10:45
PROVIDERS: ADMIT Psychiatry & Neurology Neurology with Special Qualifications in Child Neurology; ATTEND Psychiatry & Neurology Neurology with Special Qualifications in Child Neurology
DX: R53.81 Other malaise (principal); I67.89 Other cerebrovascular disease; M35.00 Sjogren syndrome, unspecified; I25.10 Atherosclerotic heart disease of native coronary artery without angina pectoris; E03.9 Hypothyroidism, unspecified; I10 Essential (primary) hypertension; M10.9 Gout, unspecified; M31.6 Other giant cell arteritis; M19.90 Unspecified osteoarthritis, unspecified site; I44.0 Atrioventricular block, first degree; E86.0 Dehydration; M54.30 Sciatica, unspecified side; M48.00 Spinal stenosis, site unspecified; G47.00 Insomnia, unspecified; Z20.822 Contact with and (suspected) exposure to COVID-19
CPT/HCPCS: 36415; 74018; 74176; 80048; 81001; 82040; 82947; 83735; 84134; 85025; 87086; 87088; 87635; 92523; 94010; 97110; 97112; 97116; 97129; 97161; 97165; 97530; 97542; J1650; J2001; Q0162

== ENCOUNTER 2024-05-04 11:56 | Inpatient (IN) | payer OTHER ==
--- NOTE | 2024-05-04 12:56 | RAD REPORT ---
EXAM: CT brain without contrast HISTORY: HEADACHE COMPARISON: 12/29/2022, 07/10/2022 TECHNIQUE: Multiple contiguous axial images were obtained and a CT of the brain without contrast. Sag ittal and coronal reformats were performed. One or more of the following dose reduction techniques were used: Automated exposure control, adjust ment of the mA and/or kV according to patient size, and/or iterative reconstruction. FINDINGS: No evidence of hydrocephalus, intracranial hemorrhage, or extra-axial fluid collection. Moderate brain atrophy with moderate periventricular and deep white matter chronic microvascular isc hemic changes present. No evidence of midline shift or areas of brain edema. The calvarium is intact. The visualized paranasal sinuses and mastoid air cells are essentially clear . Vertebral atherosclerosis. IMPRESSION: No evidence of acute intracranial abnormality.
[2024-05-04 13:24] LABS: Absolute Lymphocytes (CBC) 1.3 K/uL (0.7-4.9); Absolute Monocytes 0.9 K/uL (0.1-1.3); Absolute Neutrophil 17.4 K/uL (1.8-8.0); Basophils % 0.2 % (0-1.3); Hematocrit 32.3 % (36.0-45.0); Hemoglobin 10.3 g/dL (12.0-15.0); Lymphocytes % 6.4 % (15.3-44.8); MCH 33.5 pg (27.0-35.0); MCHC 31.9 g/dL (32.0-36.0); MCV 105.1 fL (80-100); Monocytes % 4.7 % (3.3-12.3); Neutrophils % 88.7 % (41.7-73.7); Platelets 166 thou/uL (152-406); RBC Red Blood Cell Count 3.08 M/uL (3.86-4.86); Red Cell Distribution Width 14.9 % (12.1-15.2)
--- NOTE | 2024-05-04 13:26 | RAD REPORT ---
EXAMINATION: ONE VIEW CHEST XR CLINICAL INDICATION: myalgias, shaking TECHNIQUE: Frontal chest projection is submitted. Examination is limited by patient positioning and t echnique. COMPARISON: 12/29/2022, 07/10/2022 FINDINGS: The lungs are well inflated and clear. The heart is upper limit of normal in size. No displaced fract ures identified. IMPRESSION: No acute intrathoracic abnormalities.
[2024-05-04 13:42] LABS: Anion Gap 10.1 mEq/L (5.0-15.0); Magnesium 1.9 mg/dL (1.6-2.4); Potassium 4.1 mEq/L (3.5-5.1)
[2024-05-04 13:44] LABS: Troponin High Sensitivity 62.1 pg/mL (<58.9)
[2024-05-04 14:46] LABS: Specific Gravity 1.016 (1.005-1.030); Sqamous Epithelial None Seen /HPF (None Seen); Urine Bacteria <20 /HPF (<20); Urine Bilirubin NEGATIVE (Negative); Urine Blood Trace (Negative); Urine Clarity Extremely Turbid (Clear); Urine Color Light-Yellow (Yellow); Urine Crystals Unidentified Few /HPF (None Seen); Urine Culture Reflex Order REFLEXED; Urine Glucose NEGATIVE (Negative); Urine Ketones NEGATIVE (Negative); Urine Microscopic Reflex YN ORDER UMIC; Urine Mucus Slight /HPF (None Seen); Urine Nitrite 2+ (Negative); Urine Protein TRACE (Negative); Urine RBC <5 /HPF (None Seen); Urine Urobilinogen Normal (Normal); Urine WBC 20-50 /HPF (<5); Urine WBC Clump Rare /HPF (None Seen); Urine Yeast (Budding) Occasional /HPF (None Seen); Urine pH 6.5 (5.0-7.0)
[2024-05-04 14:48] LABS: Anisocytosis 1+; Blood Morphology Comment NOTED (NOT SEEN); Platelet Estimate ADEQ; Poikilocytosis 1+; White Blood Cell Scan OK (OK)
[2024-05-04] MEDS ORDERED: NA CHLORIDE 0.9% 50 ML ONE (15:35)
[2024-05-04] MEDS ORDERED: CEFTRIAXONE 1000 MG/VIAL ONE (15:35)
[2024-05-04 15:44] LABS: PT Prothrombin Time 12.3 SECONDS (9.4-12.5); PTT, Activated Partial Thromb 23.6 SECONDS (24.3-36.9); Protime INR 1.1
[2024-05-04 15:55] LABS: Albumin/Globulin Ratio 0.2 (1.1-1.8); Anion Gap 7.6 mEq/L (5.0-15.0); Bilirubin Total 0.7 mg/dL (0.2-1.0); Globulin 6.5 g/dL (2.3-3.5); Potassium 3.6 mEq/L (3.5-5.1); Protein, Total 7.5 g/dL (6.4-8.2)
--- NOTE | 2024-05-04 16:23 | EDPHYS ---
Physician Documentation [facility] Name: Thuy Nunes Age: 83 yrs Sex: Female : 1940 Arrival Date: 05/04/2024 Time: 11:56 Bed 13 Private MD: ED Physician Chris Samuels HPI: 05/04 13:33 This 83 yrs old Female presents to ER via EMS with complaints of Dizziness, General ms3 Weakness. 13:33 83-year-old female with past medical history of arthritis, cancer, gout, ms3 hypothyroidism, hypertension, Sjogren syndrome, hyperlipidemia presents to the emergency department for shaking and headache that began last night. Patient states she had a similar episode years ago. Patient denies nausea or vomiting. Patient endorses generalized pain and weakness.. Historical: - Allergies: 12:08 Sulfa (Sulfonamide Antibiotics); ll1 - PMHx: 12:08 Arthritis; Cancer; Gout; Hypothyroidism; Hypertension; temporitis; Sjogren's Syndrome; ll1 Cancer; - Immunization history:: Adult Immunizations up to date. - Infectious Disease History:: Denies. - Social history:: Smoking status: Patient denies any tobacco usage or history of. ROS: 13:33 Constitutional: Negative for fever, and chills. Cardiovascular: Negative for chest ms3 pain, and palpitations. Respiratory: Negative for shortness of breath, cough, wheezing, and pleuritic chest pain, Abdomen/GI: Negative for abdominal pain, nausea, vomiting, diarrhea, and constipation, MS/Extremity: Negative for injury and deformity, Skin: Negative for injury, rash, and discoloration, 13:33 Neuro: Positive for Shaking, Exam: 13:33 Constitutional: This is a well developed, well nourished patient who is awake, alert, ms3 and in no acute distress. Head/Face: Normocephalic, atraumatic. Chest/axilla: Normal chest wall appearance and motion. Nontender with no deformity. Cardiovascular: Regular rate and rhythm with a normal S1 and S2. No gallops, murmurs, or rubs. Normal PMI, no JVD. No pulse deficits. Respiratory: Lungs have equal breath sounds bilaterally, clear to auscultation and percussion. No rales, rhonchi or wheezes noted. No increased work of breathing, no retractions or nasal flaring. Skin: Warm, dry with normal turgor. Normal color with no rashes, no lesions, and no evidence of cellulitis. MS/ Extremity: Pulses equal, no cyanosis. Neurovascular intact. Full, normal range of motion. 13:33 Abdomen/GI: Inspection: abdomen appears normal, Bowel sounds: normal, Palpation: abdomen is soft and non-tender, in all quadrants, Hernia: tenderness, is not appreciated, 13:45 ECG was reviewed by the Attending Physician. ms3 Vital Signs: 12:09 BP 131 / 79; Pulse 80; Resp 17; Temp 97.8; Pulse Ox 95% ; Weight 92.99 kg; Height 5 ft. ll1 3 in. ; Pain 9/10; 13:30 BP 160 / 63; Pulse 85; Resp 16; Pulse Ox 95% on R/A; cm10 15:00 BP 139 / 48; Pulse 85; Resp 19; Pulse Ox 96% on R/A; cm10 17:02 BP 140 / 67; Pulse 78; Resp 19; Pulse Ox 96% ; cm10 17:33 BP 130 / 66; Pulse 88; Resp 20; Pulse Ox 96% on R/A; cm10 12:09 Body Mass Index 36.31 (92.99 kg, 160.02 cm) ll1 12:09 Pain Scale: Adult ll1 MDM: 12:19 Patient medically screened. ms3 13:33 Differential diagnosis: cardiac arrhythmia, generalized weakness, UTI versus ms3 electrolyte abnormality. 18:45 Data reviewed: vital signs, nurses notes, lab test result(s), EKG, radiologic studies, ms3 and as a result, I will admit patient. Consideration of Admission/Observation Patient was admitted/placed on observation. Management of patient was discussed with the following:. 18:45 Management of patient was discussed with the following: Hospitalist: Dr. Mcconnell. I ms3 considered the following discharge prescriptions or medication management in the emergency department Medications were administered in the Emergency Department. See MAR. Counseling: I had a detailed discussion with the patient and/or guardian regarding the historical points, exam findings, and any diagnostic results supporting the discharge/admit diagnosis, lab results, radiology results, the need for further work-up and treatment in the hospital. ED course: Discussed necessity for admission with patient and her . They understand agree with plan. All questions were answered.. 05/04 12:20 Order name: Basic Metabolic Panel; Complete Time: 15:03 ms3 05/04 12:20 Order name: CBC with Diff; Complete Time: 15:03 ms3 05/04 12:20 Order name: Magnesium; Complete Time: 15:03 ms3 05/04 12:20 Order name: Troponin HS; Complete Time: 15:03 ms3 05/04 12:20 Order name: Urinalysis w/ reflexes; Complete Time: 15:03 ms3 05/04 13:27 Order name: CBC Smear Scan; Complete Time: 15:03 EDMS 05/04 14:56 Order name: Urine Culture EDMS 05/04 15:04 Order name: Blood Culture Adult (2) ms3 05/04 15:04 Order name: CMP; Complete Time: 16:05 ms3 05/04 15:04 Order name: Lactate w/ 2H reflex if indic.; Complete Time: 16:05 ms3 05/04 15:04 Order name: Protime (+inr); Complete Time: 15:53 ms3 05/04 15:04 Order name: Ptt, Activated; Complete Time: 15:53 ms3 05/04 16:36 Order name: Urinalysis w/ reflexes EDMS 05/04 16:48 Order name: Hemoglobin A1c EDMS 05/04 16:48 Order name: Hemoglobin A1c EDMS 05/04 16:50 Order name: Lactate w/ 2H reflex if indic. EDMS 05/04 12:20 Order name: XRAY Chest (1 view); Complete Time: 13:36 ms3 05/04 12:20 Order name: CT Head Brain wo Cont; Complete Time: 13:20 ms3 05/04 15:04 Order name: EKG; Complete Time: 15:05 ms3 05/04 12:20 Order name: Cardiac monitoring; Complete Time: 13:16 ms3 05/04 12:20 Order name: EKG - Nurse/Tech; Complete Time: 13:16 ms3 05/04 12:20 Order name: IV Saline Lock; Complete Time: 13:16 ms3 05/04 12:20 Order name: Labs collected and sent; Complete Time: 13:16 ms3 05/04 12:20 Order name: O2 Per Protocol; Complete Time: 13:16 ms3 05/04 12:20 Order name: O2 Sat Monitoring; Complete Time: 13:16 ms3 05/04 15:04 Order name: Accucheck; Complete Time: 15:24 ms3 05/04 15:04 Order name: IV Saline Lock - Large Bore; Complete Time: 15:24 ms3 05/04 15:04 Order name: Vital Signs; Complete Time: 15:24 ms3 EC:45 Rate is 93 beats/min. Rhythm is regular. Left axis deviation noted. MO interval is ms3 normal. QRS interval is normal. Clinical impression: NSR w/ Non-specific ST/T Changes. Interpreted by me. Reviewed by me. Administered Medications: 15:43 Drug: Rocephin IV 1 grams IV at calculated rate once; Given slow IV push per pharmacy cm10 instructions Route: IV; Rate: calculated rate; Site: right forearm; 16:00 Follow up: Response: No adverse reaction; IV Status: Completed infusion; IV Intake: [id number] Disposition Summary: 05/04/24 16:22 Hospitalization Ordered Notes: Hospitalization Status: Inpatient Admission ms3 Provider: Alissa Mcconnell ms3 [facility] ms3 Condition: Stable ms3 Problem: new ms3 Symptoms: are unchanged ms3 Bed/Room Type: Standard ms3 Room Assignment: 402(05/04/24 16:41) bc6 Diagnosis - UTI/ Urinary tract infection, site not specified ms3 - Sepsis, unspecified organism - without end organ dysfunction ms3 Forms: - Medication Reconciliation Form ms3 - SBAR form ms3 - Leadership Thank You Letter ms3 Signatures: Dispatcher [employer] EDMS Pravin Trevino, RN RN ll1 Chris Samuels DO DO ms3 Agustina Valentin bc6 Ruthie Angel, VALERIE RN cm10 Corrections: (The following items were deleted from the chart) 12:21 12:21 Chest Single View+RAD.RAD.BRZ ordered. EDMS EDMS 12:21 12:21 Head Brain Wo Cont+CT.RAD.BRZ ordered. EDMS EDMS 16:41 16:22 ms3 bc6
--- NOTE | 2024-05-04 16:23 | ER ---
Nurse's Notes [facility] Name: Thuy Nunes Age: 83 yrs Sex: Female : 1940 Arrival Date: 05/04/2024 Time: 11:56 Bed 13 Private MD: Diagnosis: UTI/ Urinary tract infection, site not specified;Sepsis, unspecified organism-without end organ dysfunction Presentation: 05/04 12:09 Chief complaint: Patient states: Weakness, dizziness, and chills began last night ll1 around 1999. Chief complaint: EMS states: FS 128. 97.8 temp, VSS. No IV. Coronavirus screen: Client denies travel out of the [place] in the last 14 days. At this time, the client does not indicate any symptoms associated with coronavirus-19. Ebola Screen: Patient denies travel to an Ebola-affected area in the 21 days before illness onset. Initial Sepsis Screen: Does the patient meet any 2 criteria? No. Patient's initial sepsis screen is negative. Does the patient have a suspected source of infection? No. Patient's initial sepsis screen is negative. Risk Assessment: Do you want to hurt yourself or someone else? Patient reports no desire to harm self or others. Onset of symptoms was May 03, 2024. 12:09 Method Of Arrival: EMS 1 12:09 Method Of Arrival: [facility] 1 12:09 Acuity: PARAG 3 ll1 Triage Assessment: 17:41 Pain: Denies pain. cm10 Historical: - Allergies: 12:08 Sulfa (Sulfonamide Antibiotics); ll1 - PMHx: 12:08 Arthritis; Cancer; Gout; Hypothyroidism; Hypertension; temporitis; Sjogren's Syndrome; ll1 Cancer; - Immunization history:: Adult Immunizations up to date. - Infectious Disease History:: Denies. - Social history:: Smoking status: Patient denies any tobacco usage or history of. Screenin:18 [facility] ED Fall Risk Assessment (Adult) History of falling in the last 3 months, cm10 including since admission No falls in past 3 months (0 pts) Confusion or Disorientation No (0 pts) Intoxicated or Sedated No (0 pts) Impaired Gait Yes (1 pt) Mobility Assist Device Used Yes (1 pt) Altered Elimination No (0 pt) Score/Fall Risk Level 0 - 2 = Low Risk Oriented to surroundings, Maintained a safe environment, Hourly rounding (assess needs \T\ fall precautionary measures) done. Abuse screen: Denies threats or abuse. Denies injuries from another. Nutritional screening: No deficits noted. Tuberculosis screening: No symptoms or risk factors identified. Assessment: 13:17 General: Appears in no apparent distress. comfortable, Behavior is calm, cooperative, cm10 appropriate for age. Neuro: No deficits noted. Level of Consciousness is awake, alert, obeys commands, Oriented to person, place, time, situation, Appropriate for age. Neuro: Reports dizziness. Cardiovascular: No deficits noted. Patient's skin is warm and dry. Rhythm is sinus rhythm. Respiratory: No deficits noted. Airway is patent Respiratory effort is even, unlabored, Respiratory pattern is regular, symmetrical. 15:44 Reassessment: Patient appears in no apparent distress at this time. No changes from cm10 previously documented assessment. Patient and/or family updated on plan of care and expected duration. Pain level reassessed. Patient is alert, oriented x 3, equal unlabored respirations, skin warm/dry/pink. Vital Signs: 12:09 BP 131 / 79; Pulse 80; Resp 17; Temp 97.8; Pulse Ox 95% ; Weight 92.99 kg; Height 5 ft. ll1 3 in. ; Pain 9/10; 13:30 BP 160 / 63; Pulse 85; Resp 16; Pulse Ox 95% on R/A; cm10 15:00 BP 139 / 48; Pulse 85; Resp 19; Pulse Ox 96% on R/A; cm10 17:02 BP 140 / 67; Pulse 78; Resp 19; Pulse Ox 96% ; cm10 17:33 BP 130 / 66; Pulse 88; Resp 20; Pulse Ox 96% on R/A; cm10 12:09 Body Mass Index 36.31 (92.99 kg, 160.02 cm) ll1 12:09 Pain Scale: Adult ll1 ED Course: 12:05 Arm band placed on Patient placed in an exam room, on a stretcher. ll1 12:08 Patient arrived in ED. ll1 12:11 Triage completed. ll1 12:11 Chris Samuels DO is Attending Physician. ms3 12:18 Ruthie Angel, RN is Primary Nurse. cm10 12:51 CT Head Brain wo Cont In Process Unspecified. EDMS 13:15 Initial lab(s) drawn, by me, sent to lab. EKG done, by ED staff, reviewed by Chris Samuels DO. Accessed peripheral vein via ultrasound, utilizing dynamic ultrasound technique Blood collected. Clean \T\ dry. Dressing intact. Good blood return. Flushes easily. 20g Right forearm. Missed attempt(s): 22 gauge in left in right hand. Bleeding controlled, band aid applied, catheter tip intact. 13:22 XRAY Chest (1 view) In Process Unspecified. EDMS 14:31 Urine collected: straight cath specimen, cloudy. cm10 15:24 CMP Sent. cm10 15:24 Lactate w/ 2H reflex if indic. Sent. cm10 15:24 Protime (+inr) Sent. cm10 15:24 Ptt, Activated Sent. cm10 16:21 Alissa Mcconnell MD is Hospitalizing Provider. ms3 17:02 Report faxed at [phone]. Cornelio confirmed fax was received at [phone]. cm10 17:40 Patient has correct armband on for positive identification. Provided Education on: ER cm10 process and procedures.. 17:40 No provider procedures requiring assistance completed. Patient admitted, IV remains in cm10 place. Administered Medications: 15:43 Drug: Rocephin IV 1 grams IV at calculated rate once; Given slow IV push per pharmacy cm10 instructions Route: IV; Rate: calculated rate; Site: right forearm; 16:00 Follow up: Response: No adverse reaction; IV Status: Completed infusion; IV Intake: [id number] Medication: 13:19 VIS not applicable for this client. cm10 Intake: 16:00 IV: 50ml; Total: 50ml. cm10 Outcome: 16:22 Decision to Hospitalize by Provider. ms3 17:40 Admitted to Tele accompanied by nurse, via stretcher, room 402, cm10 17:40 Condition: good 17:40 Instructed on the need for admit, 17:41 Patient left the ED. cm10 Signatures: Dispatcher [employer] EDMS Pravin Trevino, RN RN ll1 Chris Samuels DO DO ms3 Ruthie Angel, RN RN cm10
--- NOTE | 2024-05-04 16:31 | P.HP ---
Certification for Inpatient Patient admitted to: Inpatient With expected LOS: <2 Midnights Practitioner: I am a practitioner with admitting privileges, knowledge of patient current condition, hospital course, and medical plan of care. Services: Services provided to patient in accordance with Admission requirements found in Title 42 Section 412.3 of the Code of Federal Regulations Patient History Date of Service: 05/07/24 Reason for admission: Dizziness History of Present Illness: 83-year-old female with a past medical history Arthritis; Cancer; Gout; Hypothyroidism; Hypertension; temporitis; Sjogren's Syndrome; Cancer; presents to the emergency room with dizziness. She reports associated generalized pain and weakness. She reported associated shaking, headache that started last night. No reported nausea vomiting diarrhea, plan to admit for NSTEMI, elevated BNP, UTI, leukocytosis WBCs 19.60, UA reveals elevated leukoesterase, CT of the head no acute abnormality Allergies Sulfa (Sulfonamide Antibiotics) Allergy (Verified 01/01/23 14:27) Hives/Rash Home Medications: Atorvastatin Calcium [Lipitor] 40 mg PO BEDTIME tab 01/12/23 Betaxolol Hcl 0.5% 1 drop OPTH BID 01/12/23 Latanoprost Opthal 1 drop OPTH BEDTIME 01/12/23 allopurinoL [Zyloprim*] 100 mg PO DAILY tab 01/12/23 Clopidogrel Bisulfate [Plavix*] 1 tab PO DAILY 05/04/24 Gabapentin [Neurontin*] 300 mg PO DAILY 05/04/24 Levothyroxine [Synthroid*] 0.112 mg PO [id number] 05/04/24 Metoprolol Succinate [Toprol Xl*] 25 mg PO DAILY 05/04/24 Cefdinir [Cefdinir*] 300 mg PO BID #14 cap 05/06/24 Cyanocobalamin/Cobamamide [Vitamin B-12 5,000 Mcg Tab Sl] 1 each SL DAILY #30 tab 05/06/24 - Past Medical/Surgical History Diabetic: No -: Sjouran's Syndrom -: HTN -: Hypothyroidism -: Temportal arteritis -: Arthritis -: Breast Cancer -: Gout -: Coronary Artery Disease -: Sjogren's Syndrome -: Biopsy of temporal artery Psychosocial/ Personal History: Patient lives at home with her . - Social History Alcohol use: No CD- Drugs: No Caffeine use: Yes Review of Systems As per HPI Physical Examination - Physical Exam General: Alert, In no apparent distress, Oriented x3 HEENT: Atraumatic, Normocephalic Respiratory: Clear to auscultation bilaterally, Normal air movement Cardiovascular: Normal pulses, Regular rate/rhythm Capillary refill: <2 Seconds Gastrointestinal: Normal bowel sounds, Soft and benign Musculoskeletal: No swelling, No contractures Integumentary: No breakdown, No significant lesion Neurological: Normal speech, Normal strength at 5/5 x4 extr, Other (Generalized weakness) - Studies Laboratory Data (last 24 hrs) 05/04/24 05/04/24 05/04/24 15:15 15:15 13:10 WBC 19.60 H Hgb 10.3 L Hct 32.3 L Plt Count 166 PT 12.3 INR 1.10 APTT 23.6 L Sodium 135 L Potassium 3.6 BUN 35 H Creatinine 1.09 H Glucose 101 Magnesium Total Bilirubin 0.7 AST 19 ALT 18 Alkaline Phosphatase 76 05/04/24 13:10 WBC Hgb Hct Plt Count PT INR APTT Sodium 136 Potassium 4.1 BUN 38 H Creatinine 1.29 H Glucose 116 H Magnesium 1.9 Total Bilirubin AST ALT Alkaline Phosphatase Assessment and Plan - Problems (Diagnosis) (1) NSTEMI (non-ST elevated myocardial infarction) Status: Acute (2) Elevated brain natriuretic peptide (BNP) level Status: Acute (3) Urinary tract infection Onset Date: 07/29/16 Status: Acute Qualifiers: Encounter type: subsequent encounter - Plan Assessment plan Admit to ICU, Leukocytosis IV antibiotics, Trend WBCs, Elevated BNP, NSTEMI, Plan to discharge home with home with spouse with [facility] Discharge Plan: Home - Advance Directives Does patient have a Living Will: No Does patient have a Durable POA for Healthcare: No - Code Status/Comfort Care Code Status: Full Code Critical Care: Yes Time Spent Managing Pts Care (In Minutes): 55
[2024-05-04] MEDS ORDERED: ACETAMINOPHEN 500 MG TAB PO PRN (16:32)
[2024-05-04] MEDS: GABAPENTIN 300 MG CAP PO SCH (20:20)
[2024-05-05 00:19] VITALS: BMI 36.3
[2024-05-05] MEDS: LEVOTHYROXINE SOD 0.112 MG TAB PO SCH (06:17)
[2024-05-05] MEDS: METOPROLOL XL 25 MG TAB PO SCH (06:17)
[2024-05-05 06:39] LABS: Absolute Eosinophils 0.1 K/uL (0-0.5); Absolute Lymphocytes (CBC) 1.5 K/uL (0.7-4.9); Absolute Monocytes 0.6 K/uL (0.1-1.3); Absolute Neutrophil 7.9 K/uL (1.8-8.0); Basophils % 0.3 % (0-1.3); Eosinophils % 0.5 % (0-4.4); Hematocrit 29.2 % (36.0-45.0); Hemoglobin 9.7 g/dL (12.0-15.0); Lymphocytes % 14.6 % (15.3-44.8); MCH 34.8 pg (27.0-35.0); MCHC 33.1 g/dL (32.0-36.0); MCV 104.9 fL (80-100); MPV 8.1 fL (7.6-11.3); Monocytes % 5.6 % (3.3-12.3); Platelets 135 thou/uL (152-406); RBC Red Blood Cell Count 2.78 M/uL (3.86-4.86)
[2024-05-05 06:57] LABS: Anion Gap 9.5 mEq/L (5.0-15.0); Potassium 3.5 mEq/L (3.5-5.1)
[2024-05-05] MEDS: POTASSIUM CL SA 10 MEQ TAB PO ONE (08:11)
[2024-05-05] MEDS: CLOPIDOGREL 75 MG TABLET PO SCH (08:11)
[2024-05-05] MEDS: CEFTRIAXONE 1,000 MG in NA CHLORIDE 0.9% 50 ML IVPB SCH (08:11)
[2024-05-05] MEDS ORDERED: INFLUENZA VACCINE (for 6+ mo) 0.5 ML DOSE IMVAC ONE (12:00)
[2024-05-05] MEDS ORDERED: PNEUMOCOCCAL VACCINE 0.5 ML IMVAC ONE (12:00)
--- NOTE | 2024-05-05 16:36 | EKG ---
Test Date: 2024-05-04 Test Time: 12:30:19 Quality Control: KIRSTEN MEASUREMENT RESULTS: Intervals: Rate: 93 SD: 194 QRSD: 104 QT: 352 QTc: 437 [place]: P: 100 SD: 194 QRS: -48 T: 21 INTERPRETIVE STATEMENTS: Normal sinus rhythm Left axis deviation Abnormal ECG Compared to ECG 12/29/2022 21:14:45 Left-axis deviation now present First degree AV block no longer present Myocardial infarct finding no longer present Electronically Signed On 05-05-24 16:32:29 CDT by Freddy Sheth
[2024-05-05] MEDS: ALPRAZOLAM 0.25 MG TABLET PO PRN (20:41)
[2024-05-06 05:57] LABS: Absolute Eosinophils 0.4 K/uL (0-0.5); Absolute Lymphocytes (CBC) 1.8 K/uL (0.7-4.9); Absolute Monocytes 0.6 K/uL (0.1-1.3); Absolute Neutrophil 3.4 K/uL (1.8-8.0); Basophils % 0.3 % (0-1.3); Eosinophils % 6.3 % (0-4.4); Hematocrit 31.2 % (36.0-45.0); Hemoglobin 10.2 g/dL (12.0-15.0); Lymphocytes % 28.4 % (15.3-44.8); MCH 34.2 pg (27.0-35.0); MCHC 32.6 g/dL (32.0-36.0); MCV 104.8 fL (80-100); MPV 8.5 fL (7.6-11.3); Monocytes % 10.1 % (3.3-12.3); Neutrophils % 54.9 % (41.7-73.7); Platelets 140 thou/uL (152-406); RBC Red Blood Cell Count 2.97 M/uL (3.86-4.86); Red Cell Distribution Width 14.8 % (12.1-15.2)
[2024-05-06 06:08] LABS: Anion Gap 9.8 mEq/L (5.0-15.0); Potassium 3.8 mEq/L (3.5-5.1)
[2024-05-06] MEDS: POTASSIUM CL SA 10 MEQ TAB PO SCH (09:10)
[2024-05-06 09:44] VITALS: O2SAT 99
[2024-05-06 13:40] VITALS: BP 135/63; TEMP 97.5
== END 2024-05-06 12:45 | disposition home health service (06) | DRG 281 ==
LOC: ER 11:56 → ERHOLD 16:31 → 4TH 17:37
PROVIDERS: ADMIT Hospitalist; ATTEND Hospitalist
DX: I21.4 Non-ST elevation (NSTEMI) myocardial infarction (principal); N39.0 Urinary tract infection, site not specified; M10.9 Gout, unspecified; E03.9 Hypothyroidism, unspecified; I10 Essential (primary) hypertension; I25.10 Atherosclerotic heart disease of native coronary artery without angina pectoris; Z88.2 Allergy status to sulfonamides; Z85.3 Personal history of malignant neoplasm of breast; Z79.02 Long term (current) use of antithrombotics/antiplatelets; Z79.890 Hormone replacement therapy; Z79.899 Other long term (current) drug therapy
CPT/HCPCS: 36415; 70450; 71045; 80048; 80053; 80061; 81001; 83036; 83605; 83735; 83880; 84484; 85025; 85610; 85730; 87040; 87077; 87086; 87088; 87186; 93005; 96365; 97116; 97161; 97530; 99285; J0696

== ENCOUNTER 2025-04-24 08:30 | Day surgery (SDC) | payer OTHER ==
[2025-04-20 14:15] LABS: Absolute Lymphocytes (CBC) 1.6 K/uL (0.7-4.9); Hematocrit 34.6 % (36.0-45.0); Hemoglobin 11.5 g/dL (12.0-15.0); MCH 34.3 pg (27.0-35.0); MCHC 33.1 g/dL (32.0-36.0); MCV 103.5 fL (80-100); MPV 8.0 fL (7.6-11.3); Nucleated RBC Absolute Count 0.0 (0-0); Nucleated Red Blood Cells % 0.1 % (0-0); RBC Red Blood Cell Count 3.34 M/uL (3.86-4.86); White Blood Count 6.00 thou/uL (4.3-10.9)
[2025-04-20 14:27] LABS: PT Prothrombin Time 11.6 SECONDS (10-13.0); PTT, Activated Partial Thromb 29.6 SECONDS (27.2-37.4); Protime INR 1.03
[2025-04-20 14:29] LABS: Anion Gap 7.8 mEq/L (5.0-15.0); BUN Blood Urea Nitrogen 40.0 mg/dL (7-18); Glucose Level 90.0 mg/dL (74-106); Potassium 4.8 mEq/L (3.5-5.1)
--- NOTE | 2025-04-20 16:05 | RAD REPORT ---
EXAM: Chest Pa And Lat (2 Views) HISTORY: 84 years Female pre procedure COMPARISON: 05/04/2024 FINDINGS: LUNGS/PLEURA: The lungs are clear. No pleural effusions or pneumothorax. No pulmonary edema. Eventrat ion of the right hemidiaphragm. CARDIAC/MEDIASTINUM: Stable enlargement. UPPER ABDOMEN: No significant abnormality. BONES: No acute abnormality. LINES/TUBES/OTHER: Surgical clips in the right chest wall and axilla. IMPRESSION: No evidence of acute cardiopulmonary disease.
[2025-04-24] MEDS ORDERED: ASPIRIN 325 MG TAB PO ONE (08:42)
[2025-04-24] MEDS ORDERED: ASPIRIN 325 MG TAB ONE (08:49)
[2025-04-24] MEDS ORDERED: NA CHLORIDE 0.9% 500 ML ONE (08:49)
[2025-04-24] MEDS ORDERED: ATROPINE SULF 1 MG/10 ML SYR IV ONE (09:30)
[2025-04-24] MEDS ORDERED: HEPA 1000U/500MLS 2,000 UNIT/1,000 ML BAG IV ONE (09:30)
[2025-04-24] MEDS ORDERED: HEPARIN 10,000 UNIT/10 ML VIAL IV ONE (09:30)
[2025-04-24] MEDS ORDERED: LIDOCAINE 1% 20 ML MDV ONE (09:30)
[2025-04-24] MEDS ORDERED: CLOPIDOGREL 75 MG TABLET ONE (09:31)
[2025-04-24] MEDS ORDERED: TICAGRELOR 90 MG TABLET PO ONE (09:31)
[2025-04-24] MEDS ORDERED: HEPARIN 5000 UNIT/ML 1 ML VIAL ONE (09:31)
[2025-04-24] MEDS ORDERED: FENTANYL CITR 100 MCG/2 ML ONE (09:33)
[2025-04-24] MEDS ORDERED: MIDAZOLAM HCL 2 MG/2 ML INJ ONE (09:33)
[2025-04-24] MEDS ORDERED: NALOXONE 0.4 MG/ML VIAL ONE (09:48)
[2025-04-24] MEDS ORDERED: FLUMAZENIL 0.1 MG/ML (5 mL VIAL) IV ONE (09:48)
[2025-04-24 13:04] VITALS: BP 178/94; O2SAT 100
--- NOTE | 2025-04-24 22:46 | OP ---
Date of Procedure: 04/24/2025 Surgeon: Rufus Green Procedure Performed: Selective coronary angiogram. Indication For Procedure: Chest pains with abnormal stress test with history of CAD and stent. Complications: None. Estimated Blood Loss: Less than 50 cc. Access: Right radial followed by right common femoral artery. Sedation Time: 30 minutes with 1 of Versed and 25 of fentanyl. Description Of Procedure: After risks, benefits, and alternatives were explained to the patient, the patient agreed to proceed with procedure and signed informed consent. The patient was brought back to the irrigation laborer, prepped and draped in sterile fashion. Time-out was performed. Sedation was admini stered. Next, right radial access was obtained using ultrasound-guided micropuncture technique. We were able to advance the wire, but the catheter will not advance across the right innominate artery d ue to heavy calcifications and possible tight occlusion, so right common femoral artery access was ob tained using ultrasound-guided micropuncture technique. A 6-Zamb[place] sheath was inserted. A JL4 ramesh ter was advanced through the aortic root. Selective angiogram of the left coronary system was done u sing that catheter, that was later exchanged with a JR4 catheter for the selective angiogram of the r ight coronary artery. At the end of procedure, catheter was removed over a J-wire. Sheath was remov ed. Mynx was applied. Hemostasis achieved, was moved back to recovery in stable condition. Findings: 1. Left main, normal. 2. LAD, proximal to mid stent patent with distal edge of the stent that is the mid LAD got 30% to 40% disease, then mild luminal irregularities. 3. Left circ, mild luminal irregularities. 4. OM1, comes early with small artery with proximal 60% disease, then mild luminal irregularities. 5. RCA, proximal mild luminal irregularities, mid stent patent, then distal mild luminal irregulariti es. Assessment And Plan: Patent LAD and RCA stents with mild LAD disease and moderate OM disease that is small. Plan is to continue medical management. KRYSTYNA/JULIANN Voice ID: [id number] Report ID: [id number]
== END 2025-04-24 13:35 | disposition home health service (06) ==
LOC: CCL 08:30
PROVIDERS: ATTEND Internal Medicine Interventional Cardiology
DX: I25.10 Atherosclerotic heart disease of native coronary artery without angina pectoris (principal); Z95.5 Presence of coronary angioplasty implant and graft; I13.0 Hypertensive heart and chronic kidney disease with heart failure and stage 1 through stage 4 chronic kidney disease, or unspecified chronic kidney disease; I50.21 Acute systolic (congestive) heart failure; N18.30 Chronic kidney disease, stage 3 unspecified; I65.23 Occlusion and stenosis of bilateral carotid arteries; E78.2 Mixed hyperlipidemia; Z79.899 Other long term (current) drug therapy; Z88.2 Allergy status to sulfonamides; Z79.02 Long term (current) use of antithrombotics/antiplatelets
CPT/HCPCS: 93005; 85025; 80048; 36415; 85610; 85730; 71046; 93454; 76937; C1893; Q9966; J1644 ×2; J2003; J2250; J3010; J7040; C1760; 93458; 99152; 99153; J0461; J2310

== ENCOUNTER 2025-05-06 12:37 | Inpatient (IN) | payer OTHER ==
[2025-05-06 13:48] LABS: Absolute Lymphocytes (CBC) 1.8 K/uL (0.7-4.9)
[2025-05-06 13:53] LABS: Hematocrit 35.5 % (36.0-45.0); Hemoglobin 11.8 g/dL (12.0-15.0); MCH 34.0 pg (27.0-35.0); MCHC 33.2 g/dL (32.0-36.0); MCV 102.6 fL (80-100); MPV 8.2 fL (7.6-11.3); Nucleated RBC Absolute Count 0.0 (0-0); Nucleated Red Blood Cells % 0.1 % (0-0); RBC Red Blood Cell Count 3.46 M/uL (3.86-4.86); White Blood Count 11.00 thou/uL (4.3-10.9)
--- NOTE | 2025-05-06 14:07 | RAD REPORT ---
EXAMINATION: Head C Spine Mpr Wo Con CLINICAL INDICATION: Female, 84 years old. trauma TECHNIQUE: Axial CT images from the skull base to the vertex without intravenous contrast. Axial CT i mages through the cervical spine were obtained without intravenous contrast. Sagittal and coronal reformatted images were created from the data set. Coronal and sagittal reformatted images were creat ed from the data set. One or more of the following dose reduction techniques were used: Automated exposure control, adjustment of the mA and/or kV according to patient size, and/or iterative reconstr uction. Unless otherwise specified, incidental findings do not require dedicated imaging follow-up. [id number]. COMPARISON: 05/04/2024 FINDINGS: Head: INTRACRANIAL: No acute intracranial hemorrhage. No acute large vascular territory infarct. No hydroce phalus. No mass effect or midline shift. Moderate chronic small vessel ischemic changes.Mild cerebral atrophy. VASCULATURE: No visualized abnormalities in the arteries or dural venous sinuses. SCALP/SKULL: No calvarial fracture identified. No acute soft tissue abnormality. SINUSES: The visualized paranasal sinuses are mostly clear. No significant mastoid fluid. Cervical spine: ALIGNMENT: 2 mm anterolisthesis of C3 on C4. 2 mm of retrolisthesis of C5 on C6. BONE: Vertebral body heights are maintained. No aggressive osseous lesions. Fusion in the posterior e lements at C2-3. DEGENERATIVE: Multilevel cervical spondylosis with evidence of bilateral neural foraminal narrowing. No high grade central spinal stenosis. There is at least moderate central spinal stenosis at the C5-6 level. Severe neural foraminal narrowing is noted bilaterally at C3-4 and C5-6. SOFT TISSUE: No significant abnormalities in the soft tissue of the neck. The visualized lung apices are clear. IMPRESSION: No acute intracranial abnormality. No acute fracture or traumatic malalignment of the cervical spine.
[2025-05-06 14:08] LABS: ALT/SGPT 16 U/L (13-56); AST/SGOT 18 U/L (15-37); Albumin 3.4 g/dL (3.4-5.0); Albumin/Globulin Ratio 0.7 (1.1-1.8); Alkaline Phosphatase 79 U/L (45-117); Anion Gap 11.8 mEq/L (5.0-15.0); BUN Blood Urea Nitrogen 26 mg/dL (7-18); Globulin 5.0 g/dL (2.3-3.5); Glucose Level 105 mg/dL (74-106); Lipase 47 U/L (13-75); Magnesium 2.1 mg/dL (1.6-2.4); NT PRO-BNP 1618 pg/mL (<450); Potassium 4.8 mEq/L (3.5-5.1); Troponin High Sensitivity 9.9 pg/mL (<58.9)
[2025-05-06 14:11] LABS: Bilirubin Indirect, Calculated 0.7 mg/dL (0.2-0.8)
--- NOTE | 2025-05-06 14:14 | RAD REPORT ---
EXAM: Chest Abd Pelvis Wo Con CLINICAL INDICATION: Female, 84 years old TRAUMA TECHNIQUE: CT chest, abdomen and pelvis was performed, without IV contrast, as per department protoco l. Axial, sagittal and coronal reconstructions were obtained. One or more of the following dose reduction techniques were used: Automated exposure control, adjustment of the mA and/or kV according to the patient size, and/or iterative reconstruction. Unless otherwise specified, incidental findings do not require dedicated imaging follow-up. [id number]. COMPARISON: CT abdomen 01/09/2023 FINDINGS: The lack of intravenous contrast limits the sensitivity of this exam for evaluation of solid visceral organs, vascular structures, and retroperitoneum. ---THORAX--- LOWER NECK AND CHEST WALL: Surgical changes in the right breast and axilla. MEDIASTINUM AND LYMPH NODES: No mediastinal mass or fluid collection. Normal size mediastinal, hilar, and axillary lymph nodes. Small hiatal hernia. THORACIC AORTA: No thoracic aortic aneurysm. Atherosclerotic changes are present. PULMONARY ARTERIES: Enlarged main pulmonary arteries could indicate pulmonary artery hypertension. Un able to assess for pulmonary emboli without IV contrast. HEART: Mild cardiomegaly. Severe coronary artery calcifications. No significant pericardial effusion. Aortic valve and mitral annular calcifications. LUNGS AND AIRWAYS: Small area of wedge-shaped consolidation in the anterior aspect of the right upper lobe measuring 2.4 x 1.6 cm. 7 mm nodule in the left upper lobe on image 30, series 401. Perifissural nodule in the right lung measuring 6 mm. Motion artifact limits evaluation for pulmonary nodule detection. PLEURA: No pleural effusion. No pneumothorax. ---ABDOMEN/PELVIS--- UPPER GI: No significant abnormality. LIVER: Hepatic steatosis, but otherwise unremarkable. GALLBLADDER/BILE DUCTS: Cholelithiasis without CT evidence of acute cholecystitis.? PANCREAS: Atrophy but no acute findings. SPLEEN: Unremarkable. ADRENALS: No adrenal masses. KIDNEYS AND URETERS: No hydronephrosis.Limited evaluation for renal lesions in the absence of IV cont rast. ABDOMINAL AORTA AND OTHER VESSELS: Moderate atherosclerotic changes without aortic aneurysm. PERITONEUM: No abnormal free fluid. No free air. LYMPH NODES: No pathologic lymphadenopathy. ABDOMINAL WALL: Large colon containing ventral hernia. SMALL BOWEL/COLON: Small bowel has normal course and caliber. No colonic wall thickening or pericolon ic inflammatory changes. Mild diverticulosis without diverticulitis. Moderate formed stool burden. URINARY BLADDER: Underdistended but grossly unremarkable. REPRODUCTIVE ORGANS: No pathologic process. ---COMBINED--- MUSCULOSKELETAL: Multilevel degenerative changes in the spine. No acute fracture. Grade 1 anterolisth esis of L4 and L5. ADDITIONAL FINDINGS: None. IMPRESSION: No acute findings within the chest, abdomen, or pelvis. Bilateral pulmonary nodules which are indeterminate. Small wedge-shaped consolidation in the medial a nterior aspect of the right upper lobe is favored sequela of a remote infectious or inflammatory process. Recommend 3 month follow-up chest CT.
--- NOTE | 2025-05-06 14:19 | RAD REPORT ---
EXAM: Chest Single View HISTORY: 84 years Female CHEST PAIN COMPARISON: 04/20/2025 FINDINGS: LUNGS/PLEURA: The lungs are clear. No pleural effusions or pneumothorax. No pulmonary edema. Eventrat ion right hemidiaphragm. CARDIAC/MEDIASTINUM: The cardiac silhouette is within normal limits. UPPER ABDOMEN: No significant abnormality. BONES: No acute abnormality. LINES/TUBES/OTHER: Surgical clips in the right axilla and breast. IMPRESSION: No evidence of acute cardiopulmonary disease.
[2025-05-06 14:24] LABS: Blood Morphology Comment NOT SEEN (NOT SEEN); White Blood Cell Scan OK (OK)
--- NOTE | 2025-05-06 14:52 | ER ---
Nurse's Notes [facility] Name: Thuy Nunes Age: 84 yrs Sex: Female : 1940 Arrival Date: 05/06/2025 Time: 12:37 Bed 18 Private MD: Diagnosis: Cellulitis and acute lymphangitis of other parts of limb-RIGHT ANKLE;Obesity, unspecified Presentation: 05/06 12:46 Chief complaint: EMS states: toned out for fall about 06:00 in which patient slid off me1 the bed, called back to bring patient to hospital for redness, swelling and pain to LLE x 3 days. Denies fever. Also reports some intermittent confusion and urinary frequency. Coronavirus screen: At this time, the client does not indicate any symptoms associated with coronavirus-19. Ebola Screen: No symptoms or risks identified at this time. Initial Sepsis Screen: Does the patient meet any 2 criteria? No. Patient's initial sepsis screen is negative. Does the patient have a suspected source of infection? No. Patient's initial sepsis screen is negative. Risk Assessment: Do you want to hurt yourself or someone else? Patient reports no desire to harm self or others. Onset of symptoms was May 03, 2025. 12:46 Method Of Arrival: EMS: [facility] [place] 12:46 Acuity: PARAG 3 me1 Triage Assessment: 12:49 General: Appears in no apparent distress. well groomed, well developed, well nourished, me1 Behavior is calm, cooperative, appropriate for age, Reports Pain, redness and swelling to RLE. reports some intermittent confusion and patient reports some urinary frequency. Pain: Complains of pain in right garces, anterior aspect of right ankle and dorsum of right foot. Pain: Pain does not radiate. Pain currently is 7 out of 10 on a pain scale. Quality of pain is described as aching, Pain began 2-3 days ago. Is continuous. EENT: No signs and/or symptoms were reported regarding the EENT system. Neuro: Level of Consciousness is awake, alert, obeys commands, Oriented to person, place, time, situation, Appropriate for age. Cardiovascular: Patient's skin is warm and dry. Respiratory: Airway is patent Respiratory effort is even, unlabored, Respiratory pattern is regular, symmetrical. GI: No signs and/or symptoms were reported involving the gastrointestinal system. : Reports urinary frequency. Derm: Wound noted right garces, anterior aspect of right ankle and dorsum of right foot Wound is redness, swelling and pain x 3 days Reports pain that is 7 out of 10 on a pain scale. since 3 days ago. Musculoskeletal: Swelling present in right garces, anterior aspect of right ankle and dorsum of right foot. Historical: - Allergies: 12:49 Sulfa (Sulfonamide Antibiotics); me1 - PMHx: 12:49 Arthritis; Cancer; Gout; Hypothyroidism; Hypertension; Sjogren's Syndrome; temporitis; me1 Myocardial infarction; - PSHx: 12:49 Coronary Angioplasty; me1 - Immunization history:: Adult Immunizations up to date. - Infectious Disease History:: Denies. - Social history:: Smoking status: Patient denies any tobacco usage or history of. Screenin:52 [facility] ED Fall Risk Assessment (Adult) History of falling in the last 3 months, me1 including since admission Yes- single mechanical fall (1 pt) Confusion or Disorientation No (0 pts) Intoxicated or Sedated No (0 pts) Impaired Gait Yes (1 pt) Mobility Assist Device Used Yes (1 pt) Altered Elimination No (0 pt) Score/Fall Risk Level 0 - 2 = Low Risk Maintained a safe environment, Provided non-skid footwear, Hourly rounding (assess needs \T\ fall precautionary measures) done. Abuse screen: Denies threats or abuse. Nutritional screening: No deficits noted. Tuberculosis screening: No symptoms or risk factors identified. Assessment: 12:52 General: See triage assessment. me1 Vital Signs: 12:46 BP 147 / 61; Pulse 87; Resp 18; Temp 98.1; Pulse Ox 99% ; Weight 104.33 kg; Height 5 me1 ft. 3 in. ; Pain 7/10; 13:00 BP 136 / 60; Pulse 72; Resp 16; Pulse Ox 100% ; me1 14:00 BP 150 / 73; Pulse 67; Resp 15; Pulse Ox 100% ; me1 15:00 BP 156 / 54; Pulse 71; Resp 16; Pulse Ox 99% ; me1 16:00 BP 112 / 67; Pulse 63; Resp 16; Pulse Ox 97% ; me1 17:00 BP 148 / 53; Pulse 72; Resp 16; Pulse Ox 100% ; me1 12:46 Body Mass Index 40.74 (104.33 kg, 160.02 cm) me1 12:46 Pain Scale: Adult nh1 ED Course: 12:41 Patient arrived in ED. me1 12:49 Triage completed. me1 12:49 Arm band placed on Patient placed in an exam room. me1 12:52 Patient has correct armband on for positive identification. Bed in low position. Call me1 light in reach. Side rails up X2. Provided Education on: POC. Verbalized understanding.. Client placed on continuous cardiac and pulse oximetry monitoring. NIBP monitoring applied. Pulse ox on. NIBP on. 12:52 No provider procedures requiring assistance completed. me1 12:54 Eligio Delong MD is Attending Physician. [facility] 12:58 Marizol Rico, VALERIE is Primary Nurse. me1 13:58 Chest Abd Pelvis Wo Con In Process Unspecified. EDMS 13:58 Head C Spine Mpr Wo Con In Process Unspecified. EDMS 14:01 XRAY Chest (1 view) In Process Unspecified. EDMS 14:08 EKG done, by polytechnic teacher. reviewed by Eligio Delong MD. ts3 14:45 Initial lab(s) drawn, by nh, sent to lab. First set of blood cultures drawn by nh. me1 14:49 Inserted saline lock: 18 gauge in left EJ, using aseptic technique. ,using aseptic [facility] [place] technique. by Dr Delong Blood collected. 14:51 Alissa Mcconnell MD is Hospitalizing Provider. [facility] 14:52 Uric Acid Sent. me1 14:52 PT-INR Sent. me1 14:54 Second set of blood cultures drawn by physician. me1 15:01 Ankle Right 3 View XRAY In Process Unspecified. EDMS 15:27 Urine collected: clean catch specimen, clear. me1 16:23 Patient admitted, IV remains in place. me1 Administered Medications: 15:13 Drug: Colcrys PO 1.2 mg PO once Route: PO; me1 16:04 Follow up: Response: No adverse reaction me1 15:14 Drug: NS 0.9% IV 1000 ml IV at 1000 ml once; to be given as a bolus over 60 minutes me1 Route: IV; Rate: 1000 ml; Site: left jugular; 16:04 Follow up: Response: No adverse reaction; IV Status: Completed infusion; IV Intake: me1 1000ml 15:14 Drug: Famotidine IVP 20 mg IVP once; dilute with 10 mL 0.9% NaCl; give over 2 minutes me1 Route: IVP; Site: left jugular; 16:04 Follow up: Response: No adverse reaction me1 15:21 Drug: Piperacillin-Tazobactam IVPB 3.375 grams IVPB once over 60 mins; (mix in NS 100 me1 mL) Route: IVPB; Infused Over: 60 mins; Site: left jugular; 16:04 Follow up: Response: No adverse reaction; IV Status: Completed infusion me1 16:14 Drug: Colcrys PO 0.6 mg PO once; REPEAT IN 1 HOUR AFTER 1.2 MG DOSE Route: PO; me1 16:17 Follow up: Response: No adverse reaction me1 Medication: 12:52 VIS not applicable for this client. me1 Intake: 16:04 IV: 1000ml; Total: 1000ml. me1 Outcome: 14:52 Decision to Hospitalize by Provider. job 16:23 Admitted to Tele accompanied by tech, via stretcher, room 431, with chart, Report me1 called to tubed up, receipt confirmed with Cassandra 16:23 Condition: stable 16:23 Instructed on the need for admit, 17:07 Patient left the ED. me1 Signatures: Dispatcher [employer] Eligio Noel MD MD cha Eddleman, Michelle, RN RN me1 Clarissa Angulo ts3 Corrections: (The following items were deleted from the chart) 12:49 12:49 PMHx: Cancer; nh1 me1 12:49 12:49 PMHx: Cancer; me1 me1 14:51 14:49 Inserted saline lock: 18 gauge in left EJ, using aseptic technique. Blood me1 collected. me1
--- NOTE | 2025-05-06 14:53 | EDPHYS ---
Physician Documentation [facility] Name: Thuy Nunes Age: 84 yrs Sex: Female : 1940 Arrival Date: 05/06/2025 Time: 12:37 Bed 18 Private MD: KRISH Physician Eliigo Delong HPI: 05/06 14:43 This 84 yrs old Female presents to ER via EMS with complaints of Leg Pain. job 14:43 The patient presents with decreased range of motion, pain, swelling, tenderness. The job complaints affect the right Achilles, right heel, right ankle, medial aspect of right foot, anterior aspect of right ankle and dorsum of right foot. Context: The problem was sustained at an unknown site, resulted from an unknown cause, the patient can partially bear weight. Onset: The symptoms/episode began/occurred 3 day(s) ago. Modifying factors: The symptoms are alleviated by elevating leg, remaining still, the symptoms are aggravated by movement, weight bearing. Associated signs and symptoms: The patient has no apparent associated signs or symptoms. Treatment prior to arrival includes: no previous treatment. Historical: - Allergies: 12:49 Sulfa (Sulfonamide Antibiotics); me1 - PMHx: 12:49 Arthritis; Cancer; Gout; Hypothyroidism; Hypertension; Sjogren's Syndrome; temporitis; me1 Myocardial infarction; - PSHx: 12:49 Coronary Angioplasty; me1 - Immunization history:: Adult Immunizations up to date. - Infectious Disease History:: Denies. - Social history:: Smoking status: Patient denies any tobacco usage or history of. ROS: 14:45 Constitutional: Negative for fever, chills, and weight loss, Eyes: Negative for injury, job pain, redness, and discharge, ENT: Negative for injury, pain, and discharge, Neck: Negative for injury, pain, and swelling, Cardiovascular: Negative for chest pain, palpitations, and edema, Respiratory: Negative for shortness of breath, cough, wheezing, and pleuritic chest pain, Abdomen/GI: Negative for abdominal pain, nausea, vomiting, diarrhea, and constipation, Back: Negative for injury and pain, : Negative for injury, bleeding, discharge, and swelling, Neuro: Negative for headache, weakness, numbness, tingling, and seizure, Psych: Negative for depression, anxiety, suicide ideation, homicidal ideation, and hallucinations, Allergy/Immunology: Negative for hives, rash, and allergies, Endocrine: Negative for neck swelling, polydipsia, polyuria, polyphagia, and marked weight changes, Hematologic/Lymphatic: Negative for swollen nodes, abnormal bleeding, and unusual bruising, 14:45 MS/extremity: Positive for decreased range of motion, erythema, pain, tenderness, 14:45 Skin: Positive for cellulitis, swelling, of the right ankle, lateral aspect of right foot, right Achilles, right heel, anterior aspect of right ankle and dorsum of right foot, Exam: 14:45 Constitutional: This is a well developed, well nourished patient who is awake, alert, job and in no acute distress. Head/Face: Normocephalic, atraumatic. Eyes: Pupils equal round and reactive to light, extra-ocular motions intact. Lids and lashes normal. Conjunctiva and sclera are non-icteric and not injected. Cornea within normal limits. Periorbital areas with no swelling, redness, or edema. ENT: Nares patent. No nasal discharge, no septal abnormalities noted. Tympanic membranes are normal and external auditory canals are clear. Oropharynx with no redness, swelling, or masses, exudates, or evidence of obstruction, uvula midline. Mucous membranes moist. Neck: Trachea midline, no thyromegaly or masses palpated, and no cervical lymphadenopathy. Supple, full range of motion without nuchal rigidity, or vertebral point tenderness. No Meningismus. Chest/axilla: Normal chest wall appearance and motion. Nontender with no deformity. No lesions are appreciated. Cardiovascular: Regular rate and rhythm with a normal S1 and S2. No gallops, murmurs, or rubs. Normal PMI, no JVD. No pulse deficits. Respiratory: Lungs have equal breath sounds bilaterally, clear to auscultation and percussion. No rales, rhonchi or wheezes noted. No increased work of breathing, no retractions or nasal flaring. Abdomen/GI: Soft, non-tender, with normal bowel sounds. No distension or tympany. No guarding or rebound. No evidence of tenderness throughout. Back: No spinal tenderness. No costovertebral tenderness. Full range of motion. Female : Normal external genitalia. Neuro: Awake and alert, GCS 15, oriented to person, place, time, and situation. Cranial nerves II-XII grossly intact. Motor strength 5/5 in all extremities. Sensory grossly intact. Cerebellar exam normal. Normal gait. Psych: Awake, alert, with orientation to person, place and time. Behavior, mood, and affect are within normal limits. 14:45 ECG was reviewed by the Attending Physician. Vital Signs: 12:46 BP 147 / 61; Pulse 87; Resp 18; Temp 98.1; Pulse Ox 99% ; Weight 104.33 kg; Height 5 me1 ft. 3 in. ; Pain 7/10; 13:00 BP 136 / 60; Pulse 72; Resp 16; Pulse Ox 100% ; me1 14:00 BP 150 / 73; Pulse 67; Resp 15; Pulse Ox 100% ; me1 15:00 BP 156 / 54; Pulse 71; Resp 16; Pulse Ox 99% ; me1 16:00 BP 112 / 67; Pulse 63; Resp 16; Pulse Ox 97% ; me1 17:00 BP 148 / 53; Pulse 72; Resp 16; Pulse Ox 100% ; me1 12:46 Body Mass Index 40.74 (104.33 kg, 160.02 cm) md1 12:46 Pain Scale: Adult me1 Procedures: 15:02 Peripheral line: by aseptic technique a peripheral line was placed in the left external job jugular vein. MDM: 12:54 Medical Screening Exam initiated job 14:46 Differential diagnosis: closed fracture, contusion, tendonitis. Data reviewed: vital [facility] signs, nurses notes, lab test result(s), EKG, radiologic studies, CT scan, plain films. Consideration of Admission/Observation Escalation of care including admission/observation considered. I considered the following discharge prescriptions or medication management in the emergency department Medications were administered in the Emergency Department. See MAR. Independent interpretation of the following test(s) in the Emergency Department EKG: See my EKG interpretation above Radiology Department Ultrasound: My interpretation is B USG LE NEG DVT. Test considered but Not performed: MRI: NO MRI. Historians other than the Patient: Spouse/Significant Other: WELL INFORMED. Care significantly affected by the following chronic conditions: Hypertension, GOUT, OA, SJOGREN SYNDROME. Counseling: I had a detailed discussion with the patient and/or guardian regarding the historical points, exam findings, and any diagnostic results supporting the discharge/admit diagnosis, lab results, radiology results, the need for further work-up and treatment in the hospital. 05/06 12:56 Order name: Basic Metabolic Panel; Complete Time: 14:15 job 05/06 12:56 Order name: CBC with Diff; Complete Time: 14:55 job 05/06 12:56 Order name: LFT's; Complete Time: 14:15 [facility] 05/06 12:56 Order name: Magnesium; Complete Time: 14:15 job 05/06 12:56 Order name: NT PRO-BNP; Complete Time: 14:15 job 05/06 12:56 Order name: PT-INR; Complete Time: 15:20 [facility] 05/06 12:56 Order name: Troponin HS; Complete Time: 14:15 job 05/06 12:56 Order name: Lipase; Complete Time: 14:15 [facility] 05/06 12:56 Order name: Blood Culture Adult (2) [facility] 05/06 12:56 Order name: Lactate w/ 2H reflex if indic. [facility] 05/06 12:56 Order name: UA Rfx Francois Cult if indicated [facility] 05/06 13:57 Order name: CBC Smear Scan; Complete Time: 14:55 EDMS 05/06 14:41 Order name: Uric Acid; Complete Time: 15:20 [facility] 05/06 15:46 Order name: Basic Metabolic Panel EDMS 05/06 15:46 Order name: Basic Metabolic Panel EDMS 05/06 15:46 Order name: Basic Metabolic Panel EDMS 05/06 15:47 Order name: Basic Metabolic Panel EDMS 05/06 15:47 Order name: CBC with Automated Diff EDMS 05/06 15:47 Order name: CBC with Automated Diff EDMS 05/06 15:47 Order name: CBC with Automated Diff EDMS 05/06 15:47 Order name: CBC with Automated Diff EDMS 05/06 12:56 Order name: XRAY Chest (1 view); Complete Time: 14:55 job 05/06 12:57 Order name: US Extremity Venous W Compression Nico job 05/06 13:01 Order name: Chest Abd Pelvis Wo Con; Complete Time: 14:18 EDMS 05/06 13:02 Order name: Head C Spine Mpr Wo Con; Complete Time: 14:15 EDMS 05/06 14:40 Order name: Ankle Right 3 View XRAY; Complete Time: 15:20 job 05/06 12:56 Order name: EKG; Complete Time: 12:57 job 05/06 12:56 Order name: Cardiac monitoring; Complete Time: 14:08 [facility] 05/06 12:56 Order name: EKG - Nurse/Tech; Complete Time: 14:08 [facility] 05/06 12:56 Order name: IV Saline Lock; Complete Time: 14:25 [facility] 05/06 12:56 Order name: Labs collected and sent; Complete Time: 15:51 [facility] 05/06 12:56 Order name: O2 Per Protocol; Complete Time: 14:08 [facility] 05/06 12:56 Order name: O2 Sat Monitoring; Complete Time: 14:08 [facility] 05/06 13:56 Order name: Labs - recollect needed: recollect blue top/ it's not filled correctly/ eb short; Complete Time: 14:52 EC:45 Rate is 70 beats/min. Rhythm is regular. QRS [place] is Normal. [place] interval is normal. QRS job interval is normal. QT interval is normal. No Q waves. T waves are Normal. T waves are Peaked. No ST changes noted. Clinical impression: NSR w/ Non-specific ST/T Changes and No evidence of ischemia. Interpreted by me. Reviewed by me. Administered Medications: 15:13 Drug: Colcrys PO 1.2 mg PO once Route: PO; me1 16:04 Follow up: Response: No adverse reaction me1 15:14 Drug: NS 0.9% IV 1000 ml IV at 1000 ml once; to be given as a bolus over 60 minutes me1 Route: IV; Rate: 1000 ml; Site: left jugular; 16:04 Follow up: Response: No adverse reaction; IV Status: Completed infusion; IV Intake: me1 1000ml 15:14 Drug: Famotidine IVP 20 mg IVP once; dilute with 10 mL 0.9% NaCl; give over 2 minutes me1 Route: IVP; Site: left jugular; 16:04 Follow up: Response: No adverse reaction me1 15:21 Drug: Piperacillin-Tazobactam IVPB 3.375 grams IVPB once over 60 mins; (mix in NS 100 me1 mL) Route: IVPB; Infused Over: 60 mins; Site: left jugular; 16:04 Follow up: Response: No adverse reaction; IV Status: Completed infusion me1 16:14 Drug: Colcrys PO 0.6 mg PO once; REPEAT IN 1 HOUR AFTER 1.2 MG DOSE Route: PO; me1 16:17 Follow up: Response: No adverse reaction me1 Disposition Summary: 05/06/25 14:52 Hospitalization Ordered Notes: Hospitalization Status: Inpatient Admission job Provider: Alissa Mcconnell cha Location: Telemetry/MedSurg (Inpatient) job Condition: Stable job Problem: new job Symptoms: have improved job Bed/Room Type: Standard [facility] Room Assignment: 431(05/06/25 15:51) eb Diagnosis - Cellulitis and acute lymphangitis of other parts of limb - RIGHT ANKLE job - Obesity, unspecified job Forms: - Medication Reconciliation Form job - SBAR form job - Leadership Thank You Letter [facility] Signatures: Dispatcher [employer] EDMS Eligio Delong MD MD cha Attema, Lee, AUTOMATION DEVELOPER-C AUTOMATION DEVELOPER-Cla1 Starla Jones Michelle, RN RN me1 Corrections: (The following items were deleted from the chart) 12:49 12:49 PMHx: Cancer; me1 me1 12:49 12:49 PMHx: Cancer; me1 me1 12:57 12:57 BASIC METABOLIC PANEL+C.LAB.BRZ ordered. EDMS EDMS 12:57 12:57 CBC+H.LAB.BRZ ordered. EDMS EDMS 12:57 12:57 HEPATIC FUNCTION+C.LAB.BRZ ordered. EDMS EDMS 12:57 12:57 MAGNESIUM+C.LAB.BRZ ordered. EDMS EDMS 12:57 12:57 PROBNP+C.LAB.BRZ ordered. EDMS EDMS 12:57 12:57 PROTIME (+INR)+COAG.LAB.BRZ ordered. EDMS EDMS 12:57 12:57 Troponin High Sensitivity+C.LAB.BRZ ordered. EDMS EDMS 12:57 12:57 LIPASE+C.LAB.BRZ ordered. EDMS EDMS 12:57 12:57 BLOOD CULTURE*+BA.LAB.BRZ ordered. EDMS EDMS 12:57 12:57 LACTATE+C.LAB.BRZ ordered. EDMS EDMS 12:57 12:57 UA Rfx Francois Cult if indicated+U.LAB.BRZ ordered. EDMS EDMS 13:00 12:57 Head C Spine Cap Wo Con+CT.RAD.BRZ ordered. EDMS EDMS 15:51 14:52 job eb
[2025-05-06] MEDS ORDERED: COLCHICINE 0.6 MG TAB ONE (15:07)
[2025-05-06] MEDS ORDERED: NA CHLORIDE 0.9% 1,000 ML ONE (15:07)
[2025-05-06] MEDS ORDERED: FAMOTIDINE 20 MG/2 ML VIAL IV ONE (15:07)
[2025-05-06] MEDS ORDERED: PIPERACIL/TAZO 3.375 GM VIAL IV ONE (15:08)
[2025-05-06] MEDS ORDERED: NA CHLORIDE 0.9% 100 ML ONE (15:08)
[2025-05-06 15:11] LABS: PT Prothrombin Time 13.2 SECONDS (10-13.0); Protime INR 1.17
--- NOTE | 2025-05-06 15:18 | RAD REPORT ---
EXAMINATION: Ankle Right 3 View CLINICAL INDICATION: Female, 84 years old. Pain;Swelling COMPARISON: No prior exam. FINDINGS: No acute fracture. Severe subtalar joint degenerative changes with probable midfoot collapse. This results in some malal ignment at the ankle but no rashad dislocation.There is joint space narrowing along the posterior aspect of the ankle joint. Severe subtalar joint degenerative changes. Other: Generalized soft tissue swelling around the ankle. IMPRESSION: No acute osseous abnormality. Malalignment at the ankle and foot likely chronic.
[2025-05-06] MEDS ORDERED: ONDANSETRON 4 MG/2 ML VIAL IV PRN (15:41)
[2025-05-06 15:48] LABS: Sqamous Epithelial <5 /HPF (None Seen); Urine Crystals Unidentified Few /HPF (None Seen); Urine Culture Reflex Order NOT NEEDED; Urine Microscopic Reflex YN ORDER UMIC; Urine Yeast (Budding) Trace /HPF (None Seen)
[2025-05-06] MEDS: VANCOMYCIN 1.75 GM in NA CHLORIDE 0.9% 500 ML IVPB SCH (17:00)
--- NOTE | 2025-05-06 17:08 | P.HP ---
Certification for Inpatient Patient admitted to: Inpatient With expected LOS: >2 Midnights Patient will require the following post-hospital care: None Practitioner: I am a practitioner with admitting privileges, knowledge of patient current condition, hospital course, and medical plan of care. Services: Services provided to patient in accordance with Admission requirements found in Title 42 Section 412.3 of the Code of Federal Regulations <Jose Alejandro Mitchell - Last Filed: 05/06/25 17:06> Patient History Date of Service: 05/06/25 Reason for admission: Right lower extremity cellulitis History of Present Illness: 84-year-old female with history of hypertension, hypothyroidism, CAD, CKD 3 presents emergency department chief complaint of right lower extremity pain, erythema, warmth. She reports that symptoms developed over the course of the last 2 to 3 days, she does have pain with range of motion of her ankle, there is erythema and warmth extending proximately. Patient was evaluated in the emergency department with blood cell count was 11 CT head/C-spine and chest abdomen pelvis were negative for acute findings, x-ray of the ankle was obtained which showed no acute osseous abnormality. Malalignment of the ankle and foot which is likely chronic. ED provider wishes to admit patient for suspected cellulitis to right lower extremity. She does state gout allopurinol is never formally diagnosed with gout, has not had episodes of gout in the past, her uric acid level was normal at 5.8. - Past Medical/Surgical History Diabetic: No -: Sjouran's Syndrom -: HTN -: Hypothyroidism -: Temportal arteritis -: Arthritis -: Breast Cancer -: Gout -: Coronary Artery Disease -: Sjogren's Syndrome -: Biopsy of temporal artery Psychosocial/ Personal History: Patient lives at home with her . - Social History Alcohol use: No CD- Drugs: No Caffeine use: Yes Place of Residence: Home <Jose Alejandro Mitchell - Last Filed: 05/06/25 17:06> Date of Service: 05/06/25 <Alissa Mcconnell - Last Filed: 05/07/25 08:08> Allergies Sulfa (Sulfonamide Antibiotics) Allergy (Verified 04/20/25 13:20) Hives/Rash Home Medications: Atorvastatin Calcium [Lipitor] 40 mg PO BEDTIME tab 01/12/23 Betaxolol Hcl 0.5% 1 drop OPTH BID 01/12/23 Latanoprost Opthal 1 drop OPTH BEDTIME 01/12/23 allopurinoL [Zyloprim*] 100 mg PO DAILY tab 01/12/23 Clopidogrel Bisulfate [Plavix*] 1 tab PO DAILY 05/04/24 Gabapentin [Neurontin*] 300 mg PO DAILY 05/04/24 Levothyroxine [Synthroid*] 0.112 mg PO [id number] 05/04/24 Metoprolol Succinate [Toprol Xl*] 25 mg PO DAILY 05/04/24 Cefdinir [Cefdinir*] 300 mg PO BID #14 cap 05/06/24 Cyanocobalamin/Cobamamide [Vitamin B-12 5,000 Mcg Tab Sl] 1 each SL DAILY #30 tab 05/06/24 Review of Systems 10-point ROS is otherwise unremarkable Musculoskeletal: Leg Pain <Jose Alejandro Mitchell - Last Filed: 05/06/25 17:06> Physical Examination - Physical Exam General: Alert, In no apparent distress, Oriented x3 HEENT: Atraumatic, PERRLA, EOMI Neck: Supple, 2+ carotid pulse no bruit, No LAD Respiratory: Clear to auscultation bilaterally, Normal air movement Cardiovascular: Regular rate/rhythm, Normal S1 S2 Gastrointestinal: Normal bowel sounds, No tenderness Musculoskeletal: Swelling (Right lower extremity), Tenderness, Warmth Integumentary: No rashes Neurological: Normal gait, Normal speech, Normal strength at 5/5 x4 extr, Normal tone, Normal affect - Studies Laboratory Data (last 24 hrs) 05/06/25 05/06/25 05/06/25 14:45 14:45 13:35 WBC 11.00 H Hgb 11.8 L Hct 35.5 L Plt Count 160 PT 13.2 H INR 1.17 Sodium Potassium BUN Creatinine Glucose Uric Acid 5.8 Magnesium Total Bilirubin AST ALT Alkaline Phosphatase Lipase 05/06/25 13:35 WBC Hgb Hct Plt Count PT INR Sodium 133 L Potassium 4.8 BUN 26 H Creatinine 1.17 H Glucose 105 Uric Acid Magnesium 2.1 Total Bilirubin 0.9 AST 18 ALT 16 Alkaline Phosphatase 79 Lipase 47 <Jose Alejandro Mitchell - Last Filed: 05/06/25 17:06> - Studies Laboratory Data (last 24 hrs) 05/06/25 05/06/2505/06/25 14:45 14:45 13:35 WBC 11.00 H Hgb 11.8 L Hct 35.5 L Plt Count 160 PT 13.2 H INR 1.17 Sodium Potassium BUN Creatinine Glucose Uric Acid 5.8 Magnesium Total Bilirubin AST ALT Alkaline Phosphatase Lipase 05/06/25 13:35 WBC Hgb Hct Plt Count PT INR Sodium 133 L Potassium 4.8 BUN 26 H Creatinine 1.17 H Glucose 105 Uric Acid Magnesium 2.1 Total Bilirubin 0.9 AST 18 ALT 16 Alkaline Phosphatase 79 Lipase 47 <Alissa Mcconnell - Last Filed: 05/07/25 08:08> Assessment and Plan - Plan Assessment: Right lower extremity cellulitis Hypertension Hypothyroidism History of CAD Plan: Right lower extremity cellulitis Possible history of gout as well Uric acid level normal Will start on antibiotics Consider steroids if there is not improvement Monitor CBC/fever trend PT consultation Hypertension Hypothyroidism History of CAD Continue home medications when verified DVT PPX: Lovenox Code status: Full code Discharge Plan: Home Plan to discharge in: 48 Hours - Advance Directives Does patient have a Living Will: No Does patient have a Durable POA for Healthcare: No - Code Status/Comfort Care Code Status Assessed: Yes (Full code) Critical Care: No Time Spent Managing Pts Care (In Minutes): 70 <Jose Alejandro Mitchell - Last Filed: 05/06/25 17:06> Date of Service: 05/06/25 I agree with the findings and documentation provided in the SIL's notes. <Alissa Mcconnell - Last Filed: 05/07/25 08:08>
[2025-05-06] MEDS: NA CHLORIDE 0.9% 1,000 ML IV SCH (17:20)
--- NOTE | 2025-05-06 17:36 | RAD REPORT ---
EXAMINATION: US LOWER EXTREMITY VENOUS DOPPLER BILATERAL CLINICAL INDICATION: Female, 84 years old.Pain;Swelling TECHNIQUE: Complete bilateral duplex sonography of the lower extremity veins was performed. The exami nation included compression for vein patency, color Doppler imaging and flow augmentation in response to distal compression of the distal external iliac, common femoral, femoral, popliteal, annie eladio, tibial and great saphenous veins. [id number]. COMPARISON: No prior exams FINDINGS: Duplex sonography imaging demonstrates all deep veins examined to be fully compressible with spontane ous, phasic and augmented flow bilaterally. IMPRESSION: No evidence of deep venous thrombosis seen in either lower extremity.
[2025-05-06 17:42] VITALS: BMI 40.7
[2025-05-06] MEDS: VANCOMYCIN 1 GM/VIAL ONE ×2 (19:30→19:31)
[2025-05-06] MEDS: NA CHLORIDE 0.9% 500 ML ONE (19:34)
[2025-05-06] MEDS: HEPARIN 5000 UNIT/ML 1 ML VIAL SQ SCH (20:32)
[2025-05-06] MEDS: ACETAMINOPHEN 325 MG TABLET PO PRN (20:47)
[2025-05-06] MEDS ORDERED: VANCOMYCIN 1 GM in NA CHLORIDE 0.9% 250 ML IVPB SCH (21:00)
[2025-05-07 05:47] LABS: Absolute Lymphocytes (CBC) 2.1 K/uL (0.7-4.9); Hematocrit 32.2 % (36.0-45.0); Hemoglobin 10.7 g/dL (12.0-15.0); MCH 34.1 pg (27.0-35.0); MCHC 33.1 g/dL (32.0-36.0); MCV 103.0 fL (80-100); MPV 7.9 fL (7.6-11.3); Nucleated RBC Absolute Count 0.0 (0-0); Nucleated Red Blood Cells % 0.0 % (0-0); RBC Red Blood Cell Count 3.12 M/uL (3.86-4.86); White Blood Count 12.30 thou/uL (4.3-10.9)
[2025-05-07 05:51] LABS: Anion Gap 10.4 mEq/L (5.0-15.0); BUN Blood Urea Nitrogen 19.0 mg/dL (7-18); Glucose Level 124.0 mg/dL (74-106); Potassium 3.4 mEq/L (3.5-5.1)
[2025-05-07] MEDS: DIPHENHYDRAMINE 50 MG/ML VIAL IV ONE (06:01)
[2025-05-07] MEDS: FLU (Fluarix) 25-26 (6MOS UP)/PF 45 MCG/0.5 ML Syringe IM ONE (07:45)
[2025-05-07] MEDS: CEFEPIME 1 GM in NA CHLORIDE 0.9% 100 ML IV SCH (08:37)
--- NOTE | 2025-05-07 09:20 | P.PN ---
Date of Service: 05/07/25 Subjective: Had some confusion overnight Still confused but conversing well this morning, following commands ROS: 10 point ROS as noted above, otherwise negative Physical exam GEN: Alert, oriented x2 , NAD HEENT: Normal conjunctiva, sclera anicteric CV: Regular rate and rhythm, no edema Pulm: Nonlabored respirations on room air ABD: Soft, nontender, nondistended MSK: No joint tenderness Integumentary: No rashes, erythema to right ankle area improved Neuro: Normal speech, normal affect Vitals reviewed Assessment: Right lower extremity cellulitis Hypertension Hypothyroidism History of CAD Plan: Right lower extremity cellulitis Possible history of gout as well Uric acid level normal Will start on antibiotics-vancomycin/cefepime Clinical improvement today although white blood cell count mildly elevated Monitor CBC/fever trend PT consultation Hypertension Hypothyroidism History of CAD Continue home medications when verified DVT PPX: Lovenox Code status: Full code Discharge Plan: Home Plan to discharge in: 48 Hours Time Spent Managing Pts Care (In Minutes): 35 <Jose Alejandro Mitchell - Last Filed: 05/07/25 09:19> Have personally reviewed this patient's chart, progress note, and plan of care as documented. I agree with Jose Alejandro Edwards SYSTEM ADMINISTRATION MANAGER the assessment and plan as outlined, with any additional comments or modifications noted below <Chris Palomares - Last Filed: 05/07/25 14:58>
[2025-05-07] MEDS ORDERED: GABAPENTIN 300 MG CAP PO SCH (11:00)
[2025-05-07] MEDS: METOPROLOL XL 25 MG TAB PO SCH (11:14)
[2025-05-07] MEDS: NA CHLORIDE 0.9% 1,000 ML IV SCH (11:14)
--- NOTE | 2025-05-07 12:40 | RAD REPORT ---
EXAMINATION: Head Brain Wo Cont CLINICAL INDICATION: Female, 84 years old.Change in mental status, confusion TECHNIQUE: Axial CT images from the skull base to the vertex without intravenous contrast. Coronal an d sagittal reformatted images were created from the data set. One or more of the following dose reduction techniques were used: Automated exposure control, adjustment of the mA and/or kV according to patient size, and/or iterative reconstruction. Unless otherwise specified, incidental findings do not require dedicated imaging follow-up. [id number]. COMPARISON: 05/04/2024 FINDINGS: INTRACRANIAL: No acute intracranial hemorrhage. No acute large vascular territory infarct. No hydroce phalus. No mass effect or midline shift. Moderate chronic small vessel ischemic changes.Mild cerebral atrophy. VASCULATURE: No visualized abnormalities in the arteries or dural venous sinuses. SCALP/SKULL: No calvarial fracture identified. No acute soft tissue abnormality. SINUSES: The visualized paranasal sinuses are mostly clear. No significant mastoid fluid. IMPRESSION: No acute intracranial abnormality.
[2025-05-07] MEDS: BETAXOLOL HCL 0.5% OPTH SCH (21:00)
[2025-05-07] MEDS: LATANOPROST OPTH SCH (21:00)
[2025-05-07] MEDS: LORazepam 2 MG/ML VIAL IV ONE (21:09)
[2025-05-07] MEDS: QUETIAPINE 25 MG TAB PO SCH (21:17)
[2025-05-07] MEDS: ATORVASTATIN 40 MG TAB PO SCH (21:18)
[2025-05-07] MEDS: ZIPRASIDONE MESYLA 20 MG/VIAL IM ONE (22:40)
[2025-05-07] MEDS ORDERED: WATER FOR INJ,STERILE 10 ML IM PRN (22:40)
[2025-05-08 05:40] LABS: Anion Gap 12.5 mEq/L (5.0-15.0); BUN Blood Urea Nitrogen 18.0 mg/dL (7-18); Glucose Level 105.0 mg/dL (74-106); Potassium 3.5 mEq/L (3.5-5.1)
[2025-05-08] MEDS: LEVOTHYROXINE SOD 0.112 MG TAB PO SCH (06:04)
[2025-05-08 07:34] LABS: Absolute Lymphocytes (CBC) 1.3 K/uL (0.7-4.9); Hematocrit 36.3 % (36.0-45.0); Hemoglobin 12.2 g/dL (12.0-15.0); MCH 34.5 pg (27.0-35.0); MCHC 33.7 g/dL (32.0-36.0); MCV 102.4 fL (80-100); MPV 8.7 fL (7.6-11.3); Nucleated RBC Absolute Count 0.0 (0-0); Nucleated Red Blood Cells % 0.0 % (0-0); RBC Red Blood Cell Count 3.55 M/uL (3.86-4.86); White Blood Count 8.70 thou/uL (4.3-10.9)
[2025-05-08] MEDS: GABAPENTIN 300 MG CAP PO SCH (09:00)
[2025-05-08] MEDS: POTASSIUM CL SA 10 MEQ TAB PO ONE ×2 (09:00→20:51)
[2025-05-08] MEDS: CLOPIDOGREL 75 MG TABLET PO SCH (09:00)
[2025-05-08] MEDS ORDERED: HYDRALAZINE HCL 20 MG/ML VIAL IV PRN (14:51)
--- NOTE | 2025-05-08 14:54 | P.PN ---
Subjective Date of Service: 05/08/25 Chief Complaint: Right lower extremity cellulitis Subjective: Confused, no reliable history. Looks comfortable in the bed. Objective: General appearance: Alert and comfortable CVS: Normal S1 and S2 Lungs: Clear to auscultation bilaterally Abdomen: Soft, bowel sounds present, no tenderness Extremities: No left lower extremity edema. Mild edema of right lower extremity, no erythema. Physical Examination - Vital Signs Temperature: 97.6 F Blood Pressure: 181/102 Pulse: 78 Respirations: 17 Pulse Ox (%): 90 Assessment And Plan - Plan Right lower extremity cellulitis Hypertension Hypothyroidism History of CAD Lung nodules on imaging: Need to follow-up with PCP Worsening cognition Plan: Right lower extremity cellulitis on antibiotics-vancomycin/cefepime Clinical improvement, no erythema today. Monitor CBC/fever trend PT consultation Hypertension Hypothyroidism History of CAD Increase metoprolol dose as blood pressure high. Baseline cognitive impairment but getting worse as per staff, monitor closely for now, may need placement Plan discussed with nursing staff and case management team, no family at bedside.
[2025-05-08] MEDS: METOPROLOL XL 50 MG TAB PO SCH (16:37)
[2025-05-08] MEDS: TRAMADOL HCL 50 MG TAB PO PRN (20:51)
[2025-05-09] MEDS: LORazepam 2 MG/ML VIAL IV ONE (03:48)
[2025-05-09 08:15] LABS: Anion Gap 16.9 mEq/L (5.0-15.0); BUN Blood Urea Nitrogen 23.0 mg/dL (7-18); Glucose Level 67.0 mg/dL (74-106)
[2025-05-09 08:16] LABS: Potassium 4.9 mEq/L (3.5-5.1)
[2025-05-09 10:55] LABS: Absolute Lymphocytes (CBC) 1.7 K/uL (0.7-4.9); Hematocrit 35.6 % (36.0-45.0); Hemoglobin 11.7 g/dL (12.0-15.0); MCH 34.0 pg (27.0-35.0); MCHC 32.9 g/dL (32.0-36.0); MCV 103.4 fL (80-100); MPV 8.9 fL (7.6-11.3); Nucleated RBC Absolute Count 0.0 (0-0); Nucleated Red Blood Cells % 0.0 % (0-0); RBC Red Blood Cell Count 3.44 M/uL (3.86-4.86); White Blood Count 7.00 thou/uL (4.3-10.9)
[2025-05-09 12:07] LABS: Blood Morphology Comment NOT SEEN (NOT SEEN); White Blood Cell Scan OK (OK)
--- NOTE | 2025-05-09 15:46 | P.PN ---
Subjective Date of Service: 05/09/25 Chief Complaint: Right lower extremity cellulitis Subjective: Confused, no reliable history. Looks comfortable in the bed. Received sedatives overnight, lethargic at the time of my visit around 10 AM this morning. Objective: General appearance: Lethargic and comfortable CVS: Normal S1 and S2 Lungs: Clear to auscultation bilaterally Abdomen: Soft, bowel sounds present, no tenderness Extremities: No left lower extremity edema. Mild edema of right lower extremity, no erythema. Physical Examination - Vital Signs Temperature: 98.1 F Blood Pressure: 159/69 Pulse: 59 Respirations: 17 Pulse Ox (%): 97 Assessment And Plan - Plan Right lower extremity cellulitis Hypertension Hypothyroidism History of CAD Lung nodules on imaging: Need to follow-up with PCP Worsening cognition Plan: Right lower extremity cellulitis on antibiotics-vancomycin/cefepime Clinical improvement, no erythema today. Monitor CBC/fever trend PT consultation Hypertension Hypothyroidism History of CAD Increased metoprolol dose on 05/08 as blood pressure high. Blood pressure still high, will add Norvasc today. Baseline cognitive impairment but getting worse as per staff, monitor closely for now, may need placement Plan discussed with nursing staff and case management team, no family at bedside. Discussed with friend at bedside.
[2025-05-09] MEDS: METOPROLOL XL 50 MG TAB PO SCH (17:33)
[2025-05-09] MEDS: AMLODIPINE 5 MG TAB PO SCH (17:34)
[2025-05-09] MEDS ORDERED: METOPROLOL XL 100 MG TAB PO SCH (18:00)
[2025-05-10 10:38] LABS: Absolute Lymphocytes (CBC) 1.0 K/uL (0.7-4.9); Hematocrit 37.2 % (36.0-45.0); Hemoglobin 12.3 g/dL (12.0-15.0); MCH 33.7 pg (27.0-35.0); MCHC 33.0 g/dL (32.0-36.0); MCV 102.0 fL (80-100); MPV 8.1 fL (7.6-11.3); Nucleated RBC Absolute Count 0.0 (0-0); Nucleated Red Blood Cells % 0.2 % (0-0); RBC Red Blood Cell Count 3.64 M/uL (3.86-4.86); White Blood Count 6.90 thou/uL (4.3-10.9)
[2025-05-10 10:51] LABS: Anion Gap 10.6 mEq/L (5.0-15.0); BUN Blood Urea Nitrogen 24.0 mg/dL (7-18); Glucose Level 110.0 mg/dL (74-106); Potassium 3.6 mEq/L (3.5-5.1)
--- NOTE | 2025-05-10 13:28 | P.PN ---
Subjective Date of Service: 05/10/25 Chief Complaint: Right lower extremity cellulitis Subjective: Alert and talkative today, denies any pain or shortness of breath. No nausea or vomiting. Looks comfortable in the bed Objective: General appearance: Alert and comfortable CVS: Normal S1 and S2 Lungs: Clear to auscultation bilaterally Abdomen: Soft, bowel sounds present, no tenderness Extremities: No left lower extremity edema. Edema of right lower extremity almost resolved, no erythema. Physical Examination - Vital Signs Temperature: 97.8 F Blood Pressure: 155/60 Pulse: 61 Respirations: 16 Pulse Ox (%): 94 Assessment And Plan - Plan Right lower extremity cellulitis Hypertension Hypothyroidism History of CAD Lung nodules on imaging: Need to follow-up with PCP Worsening cognition Plan: Right lower extremity cellulitis on antibiotics-vancomycin/cefepime Clinical improvement, no erythema today, swelling better as well. Monitor CBC/fever trend PT consultation Hypertension Hypothyroidism History of CAD Increased metoprolol dose on 05/08 as blood pressure high. added Norvasc on 05/09. Blood pressure better today, continue current medications Baseline cognitive impairment, will need placement Plan discussed with nursing staff and case management team, discussed with patient's daughter and patient's at bedside, they are also requesting placement, notified case management team, working on rehab placement.
[2025-05-10 16:32] VITALS: O2SAT 97
[2025-05-11 08:00] LABS: Absolute Lymphocytes (CBC) 1.2 K/uL (0.7-4.9); Hematocrit 34.8 % (36.0-45.0); Hemoglobin 12.0 g/dL (12.0-15.0); MCH 35.0 pg (27.0-35.0); MCHC 34.4 g/dL (32.0-36.0); MCV 101.8 fL (80-100); MPV 8.2 fL (7.6-11.3); Nucleated RBC Absolute Count 0.0 (0-0); Nucleated Red Blood Cells % 0.0 % (0-0); RBC Red Blood Cell Count 3.41 M/uL (3.86-4.86); White Blood Count 5.90 thou/uL (4.3-10.9)
[2025-05-11 08:14] LABS: Anion Gap 10.8 mEq/L (5.0-15.0); BUN Blood Urea Nitrogen 30.0 mg/dL (7-18); Glucose Level 106.0 mg/dL (74-106); Potassium 3.8 mEq/L (3.5-5.1)
--- NOTE | 2025-05-11 13:33 | P.DS ---
Admission Date: 05/06/25 Discharge Date: 05/11/25 Disposition: TRANSFER TO INPATIENT REHAB Discharge Condition: GOOD Reason for Admission: Right lower extremity cellulitis Brief History of Present Illness: Patient is an 84-year-old female with history of hypertension, hypothyroidism, CAD, CKD 3 who presented to the emergency department with chief complaint of right lower extremity pain, erythema, warmth. She reported that symptoms developed over the course of 2 to 3 days prior to admission. Denied pain with range of motion of her ankle. Patient was admitted for right lower extremity cellulitis and started on IV antibiotics. Hospital Course: Right lower extremity cellulitis - Patient completed 5 days of antibiotics-vancomycin/cefepime while inpatient - Clinical improvement prior to discharge - Repeat BMP recommended after discontinuance of Vancomycin - PT consulted and patient to continue PT wiht inpatient rehab services - Tramadol/Tylenol PRN for pain control Hypertension Hypothyroidism History of CAD - Increased metoprolol dose on 05/08 as blood pressure high. Added Norvasc on 05/09. - Blood pressure improved while inpatient, continue to monitor closely Baseline cognitive impairment - Will need placement after inpatient rehab - Hard of hearing and 1 person assistance needed Vital Signs/Physical Exam: Temp Pulse Resp BP Pulse Ox 97.6 F 70 18 132/77 97 05/11/25 12:00 05/11/25 12:00 05/11/25 12:00 05/11/25 12:00 05/11/25 12:00 Laboratory Data at Discharge: WBC 5.90 thou/uL (4.3-10.9) 05/11/25 07:42 Hgb 12.0 g/dL (12.0-15.0) 05/11/25 07:42 Hct 34.8 % (36.0-45.0) L 05/11/25 07:42 Plt Count 170 thou/uL (152-406) 05/11/25 07:42 PT 13.2 SECONDS (10-13.0) H 05/06/25 14:45 INR 1.17 05/06/25 14:45 Sodium 137 mEq/L (136-145) 05/11/25 07:42 Potassium 3.8 mEq/L (3.5-5.1) 05/11/25 07:42 BUN 30 mg/dL (7-18) H 05/11/25 07:42 Creatinine 1.05 mg/dL (0.55-1.02) H 05/11/25 07:42 Glucose 106 mg/dL (74-106) 05/11/25 07:42 Uric Acid 5.8 mg/dL (2.6-6.0) 05/06/25 14:45 Magnesium 2.1 mg/dL (1.6-2.4) 05/06/25 13:35 Total Bilirubin 0.9 mg/dL (0.2-1.0) 05/06/25 13:35 AST 18 U/L (15-37) 05/06/25 13:35 ALT 16 U/L (13-56) 05/06/25 13:35 Alkaline Phosphatase 79 U/L (45-117) 05/06/25 13:35 Lipase 47 U/L (13-75) 05/06/25 13:35 Home Medications: Atorvastatin Calcium [Lipitor] 40 mg PO BEDTIME tab 01/12/23 Betaxolol Hcl 0.5% 1 drop OPTH BID 01/12/23 Latanoprost Opthal 1 drop OPTH BEDTIME 01/12/23 Clopidogrel Bisulfate [Plavix*] 1 tab PO DAILY 05/04/24 Gabapentin [Neurontin*] 300 mg PO DAILY 05/04/24 Levothyroxine [Synthroid*] 0.112 mg PO [id number] 05/04/24 Acetaminophen [Tylenol*] 650 mg PO Q4HP PRN tab 05/11/25 Amlodipine [Norvasc*] 5 mg PO DAILY tab 05/11/25 Cephalexin [Keflex*] 500 mg PO Q6HR cap 05/11/25 Metoprolol Succinate [Toprol Xl*] 50 mg PO BID 6AM 6PM tab 05/11/25 Quetiapine [Seroquel*] 25 mg PO BEDTIME tab 05/11/25 allopurinoL [Zyloprim*] 100 mg PO DAILY tab 05/11/25 traMADol HCL [Ultram*] 50 mg PO TID PRN tab 05/11/25 Physician Discharge Instructions: Patient to follow-up with PCP within 1 week. Patient to continue with rehab services with inpatient rehab. Continue antibiotics Keflex for 5 days. Follow- up BMP recommended within 24 to 48 hours. Diet: Low sodium Activity: Ad andrea Followup: Cristina Rice [Primary Care Provider] -
[2025-05-11] MEDS ORDERED: VANCOMYCIN 1.75 GM in NA CHLORIDE 0.9% 500 ML IVPB SCH ×2 (16:00→17:00)
[2025-05-11] MEDS: CEPHALEXIN 500 MG CAP PO SCH (17:18)
[2025-05-11 20:27] VITALS: BP 158/85; TEMP 97.4
[2025-05-11] MEDS: BETAXOLOL HCL 0.5% OPTH SCH (21:00)
[2025-05-11] MEDS: OPTHALMIC OPTH SCH (21:00)
[2025-05-11] MEDS: LATANOPROST 0.005% OPTH SCH (21:00)
== END 2025-05-11 23:10 | DRG 603 ==
LOC: ER 12:37 → ERHOLD 15:41 → 4TH 16:24
PROVIDERS: ADMIT Hospitalist; ATTEND Hospitalist
DX: L03.115 Cellulitis of right lower limb (principal); Z68.41 Body mass index [BMI] 40.0-44.9, adult; E66.9 Obesity, unspecified; M10.9 Gout, unspecified; E03.9 Hypothyroidism, unspecified; M19.90 Unspecified osteoarthritis, unspecified site; G31.84 Mild cognitive impairment of uncertain or unknown etiology; I25.10 Atherosclerotic heart disease of native coronary artery without angina pectoris; I12.9 Hypertensive chronic kidney disease with stage 1 through stage 4 chronic kidney disease, or unspecified chronic kidney disease; N18.30 Chronic kidney disease, stage 3 unspecified; I25.2 Old myocardial infarction; R91.8 Other nonspecific abnormal finding of lung field; Z88.2 Allergy status to sulfonamides; Z95.1 Presence of aortocoronary bypass graft; Z85.3 Personal history of malignant neoplasm of breast; Z79.02 Long term (current) use of antithrombotics/antiplatelets; Z79.890 Hormone replacement therapy; Z79.899 Other long term (current) drug therapy
CPT/HCPCS: 36415; 70450; 71045; 71250; 72125; 74176; 80048; 80076; 80202; 81001; 83605; 83690; 83735; 83880; 84484; 84550; 85025; 85610; 87040; 90656; 93005; 93970; 96365; 96375; 97110; 97161; 97530; 99285; J0692; J1200; J1644; J2543; J3373; J3486; J7030; J7040

== ENCOUNTER 2025-05-11 15:43 | Inpatient (IN) | payer OTHER ==
[2025-05-11 23:48] VITALS: BMI 38.5
[2025-05-12] MEDS ORDERED: ACETAMINOPHEN 325 MG TABLET PO PRN (00:08)
[2025-05-12] MEDS: METOPROLOL XL 50 MG TAB PO SCH (05:23)
[2025-05-12] MEDS: CEPHALEXIN 250 MG CAP PO SCH (05:23)
[2025-05-12] MEDS ORDERED: CEPHALEXIN 250 MG CAP PO ONE (06:00)
[2025-05-12] MEDS: LEVOTHYROXINE SOD 0.112 MG TAB PO SCH (06:15)
[2025-05-12 06:55] LABS: Absolute Lymphocytes (CBC) 1.6 K/uL (0.7-4.9); Hematocrit 32.5 % (36.0-45.0); Hemoglobin 11.2 g/dL (12.0-15.0); MCH 35.1 pg (27.0-35.0); MCHC 34.4 g/dL (32.0-36.0); MCV 101.9 fL (80-100); MPV 8.3 fL (7.6-11.3); Nucleated RBC Absolute Count 0.0 (0-0); Nucleated Red Blood Cells % 0.1 % (0-0); RBC Red Blood Cell Count 3.19 M/uL (3.86-4.86); White Blood Count 6.30 thou/uL (4.3-10.9)
[2025-05-12 07:13] LABS: Albumin 2.8 g/dL (3.4-5.0); Anion Gap 9.7 mEq/L (5.0-15.0); BUN Blood Urea Nitrogen 36.0 mg/dL (7-18); Glucose Level 114.0 mg/dL (74-106); Magnesium 1.7 mg/dL (1.6-2.4); Potassium 3.7 mEq/L (3.5-5.1); Prealbumin 14.4 mg/dL (20-40)
[2025-05-12] MEDS: CLOPIDOGREL 75 MG TABLET PO SCH (08:08)
[2025-05-12] MEDS: GABAPENTIN 300 MG CAP PO SCH (08:09)
[2025-05-12] MEDS: AMLODIPINE 5 MG TAB PO SCH (08:09)
[2025-05-12] MEDS ORDERED: ONDANSETRON 4 MG (ODT) TAB PO PRN (09:57)
[2025-05-12 10:02] LABS: Differential Total Cells Count 100; Segmented Neutrophils 52 % (40-80); White Blood Cell Scan DIFF (OK)
[2025-05-12 10:03] LABS: Smudge Cells PRESENT
[2025-05-12 10:04] LABS: Anisocytosis 1+; Blood Morphology Comment NOTED (NOT SEEN); Toxic Granulation PRESENT
[2025-05-12] MEDS: QUETIAPINE 25 MG TAB PO SCH (20:15)
[2025-05-12] MEDS: ATORVASTATIN 40 MG TAB PO SCH (20:15)
[2025-05-12] MEDS: APIXABAN 2.5 MG TABLET PO SCH (20:15)
[2025-05-12] MEDS: LATANOPROST 0.005% 2.5ML OPTH *PT OWN MED OPTH SCH (20:36)
[2025-05-12] MEDS ORDERED: GABAPENTIN 300 MG CAP PO SCH (21:00)
[2025-05-12] MEDS ORDERED: LATANOPROST 0.005% 2.5ML OPTH OPTH SCH ×2 (21:00)
[2025-05-12] MEDS: TRAMADOL HCL 50 MG TAB PO PRN (21:01)
--- NOTE | 2025-05-13 02:31 | HP ---
Date of Admission: 05/11/2025 Rehabilitation admission history and physical. Chief Complaint: "I became confused. I need to go back home." History Of Present Illness: Ms. Nunes is an 84-year-old patient with hypertension, hypothyroidism , coronary artery disease, who came to [facility] on 05/06/2025 with right lower extremity p ain, swelling, and warmth that has developed over 2 to 3 days. Her evaluation revealed slightly elev ated white blood cell count, but negative imaging for any acute findings. She was diagnosed with michael pected cellulitis and began vancomycin and cefepime. While hospitalized, she became more confused on 05/07 and had a slight elevation of white blood cell count further to 12.3. Her blood pressure was uncontrolled. Metoprolol was increased on the 08 May and had Norvasc added on 09 May. Otherwi se, she did require continued monitoring to reduce the risk of an infection becoming septic and that was currently negative, but management was ongoing given her significant risk of worsening due to the age and comorbid conditions. At her baseline, she is independent, ambulating with a Rollator. Lives at home with who prov ides minimal assistance with bathing. Otherwise, she is independent with all activities of daily casa ing. She was evaluated by the therapy service and found to require maximal assistance for bed mobili ty, contact guard assistance for vom-rb-orncz, getting in and out of bed. She had poor trunk control and was generally weak all over. She was found to have moderately proximal and distal weakness and bilateral hip strength, rating 2/5, knee strength 3/5 and ankles, 3+ out of 5. Her pattern for the m yopathy including the truncal control. Although she did have some improvement in cognitive function, she remains below her baseline with comprehension, expression, ability to problem solve, and communi kenton. The cognitive assessment did show a cognitive linguistic status where she is below her functio nal level and would therefore would likely improve with speech therapy sorry. She continues to requi re a multidisciplinary interventional approach including medical management to strengthen her lower e xtremities to improve her balance, gait, coordination, her ambulation, her safety awareness, ability to communicate, and to manage medication safely. She has made appropriate criteria for same as prieto stacy. She is now admitted to the inpatient rehabilitation unit for 3 hours of physical therapy along with speech half an hour for 5 days of 7 days and is to have 24 hours a day prison and homero physician evaluation and management. Admission is necessary as if she is admitted to [facility] on discharge home, she will likely not do well and thus returning to hospital for even more extend ed stay. Past Medical History: Sjogren's disease, hypertension, hypothyroidism, temporal arteritis, breast ca ncer is treated, gout, coronary artery disease, and temporal artery biopsy. Allergies: SULFA DRUGS. X-ray/imaging: CT of the head and spine on 05/06 shows no acute abnormalities. No fractures or trau matic malalignment of the cervical spine. Chest x-ray on 05/06, no evidence of acute cardiopulmonary disease. Chest, abdomen, and pelvis CT scan on 05/06, no acute findings within the chest, abdomen, or pelvis. There are bilateral pulmonary nodules which are indeterminate. She has a small wedge-sha ped consolidation in the medial anterior aspect of the right upper lobe appearing sequelae of a remot e infection or inflammatory process. The radiologist recommended a followup CT scan in 3 months. Ul trasound of the lower extremities showed no deep vein thrombosis in either lower extremity. Ankle x- ray on 05/06 shows malalignment of the ankle and likely to be chronic bilaterally. CT scan of the he ad on 05/07, no acute intracranial abnormalities. Medications: Tylenol 650 mg every 4 hours as needed, allopurinol 100 mg daily, Norvasc 5 mg daily, L ipitor 40 mg at bedtime, Keflex 500 mg every 6 hours, complete 7 days, Plavix 75 mg daily, gabapentin 300 mg daily, levothyroxine 0.112 mg daily, Toprol-XL 50 mg twice daily, Zofran 4 mg every 4 hours a s needed, Seroquel 25 mg at bedtime, and tramadol 50 mg 3 times daily. Laboratory Studies: White blood cell count 6.3, hemoglobin 11.2, platelets 191. Sodium 138, potassi um 3.7, chloride 111, carbon dioxide 21, BUN 36, creatinine 1.14, glucose 114, calcium 9.0, magnesium 1.7, albumin 2.8, prealbumin 14.4. Family History: Noncontributory. Social History: No alcohol, tobacco, or IV drug use. The patient lives with family, single family a t home, single-story as well. Review of Systems: She does report vague confusion. It is intermittent but improving. Some mild muscle weakness was no marga previously. No rash. No psychiatric issues. No active genitourinary issues or gastrointestinal issues or other positives on the systems review. Current Level Of Functioning: Currently, she is at a setup assistance for eating and grooming, maxim al assistance for bathing, moderate assistance for upper and lower body dressing and donning and doff ing footwear. She is maximum assistance for toileting and for transfer from bed to chair and wheelch air, maximum assistance ambulation and wheelchair mobilization will be done as she is evaluated with therapy and gait belt and tow. Physical Examination: Vital Signs: Blood pressure 136/64, pulse 78, respiratory rate 18, temperature 97.4, O2 saturation 9 7%. General: Ms. Nunes is resting in bed. She is in no significant distress. She appears normocepha lic, atraumatic. Sclerae anicteric. Oropharynx pink, moist. Neck: Supple. Chest: Clear. She has good movement in both lower extremities, blood flow intact with good pulses a t the feet, to the dorsum dorsalis pedis. Neurological: She is alert and oriented to situation and place. She does follow commands appropriat sade. She has proximal and distal weakness in the upper and lower extremities consistent with myopath y in addition to truncal weakness around 2 to 3/5 proximally and 3 to 4/5 distally. Sensation, stock ing-glove loss, light touch temperature. Rehab And Medical Assessment And Plan: Ms. Nunes is an 84-year-old patient, admitted to the [facility] rehabilitation unit with impairment category 06 neurological condition. Impairment group code i s 03.8 neuromuscular disorder. Etiologic diagnosis, toxic encephalopathy. 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 In addition, of course decreased mobility and decreased physical fun ctioning. Plan: Will be to have physical, occupational, and speech therapy 3.5 hours, 5 of 7 days. She will c ontinue comorbid condition medications which should include Tylenol for pain, allopurinol for gout, f or blood pressure she has Norvasc and Toprol, gabapentin for neuropathic pain, Plavix on board for st roke risk reduction. She will also have DVT risk reduction with Eliquis 2.5 mg twice daily, Seroquel for any episodes of psychosis, tramadol for pain, Zofran for reflux. She has a Synthroid for hypoth yroidism. Comorbidities That Are Impacting Rehabilitation: Given her encephalopathy, she may require extra spe ech therapy to help her regain communication, comprehension, expression, safety awareness and plannin g as she mobilizes to minimize risk of injury such as falling. She does have a risk of deep vein thr ombus. She is on Eliquis to address the risk. In addition, her pain is addressed with multiple moda lities as needed including Tylenol and gabapentin and Zofran will be continued for nausea which may i mpact her injuries making it difficult for her to maintain oral intake to minimize the risk of worsen ing of nausea and vomiting. In addition, her Keflex which is 500 mg every 6 hours will be continued, however, extensive use will be potentially an increased risk for C difficile and she will only rio nue for 5 days. Rehab Specific Plan: Ms. Nunes will have physical, occupational, and speech therapy 3.5 hours, 5 of 7 days to improve her ability to transfer from the bed to a wheelchair, to a rolling walker. Get on and off the toilet, and to shower, mobilize household distances with a wheelchair with a rolling w alker up and down steps. Speech will help with safety awareness, cognitive functioning, communicatio n, comprehension, expression, and to maintain the safety awareness. Ms. Nunes has a good understanding of the process of admission to inpatient rehabilitation unit an d how she will benefit from physical, occupational, and speech therapy. She will have 24 hours a day , 7 days a week skilled rehabilitation nursing and daily physician evaluation and management, and [facility] ial service evaluation and management for discharge planning, home equipment, and followup along with therapy after she is discharged. If need be, additional help from the hospitalist service will be s ought. Barriers To Discharge: There is some encephalopathy which should clear as she goes further away from her likely urinary tract infection; however, she may still have persistent confusion and considerati on at that point would be given to the patient potentially having to go to a memory care unit. [facility], at this point, she is on track initially to be able to go home and continue therapy via Home Heal th and speech may be required as well. Length Of Stay: About 10 to 12 days. Disposition: Expected to be back home with family and continue therapy via Home Health. Prognosis: Good. Code Status: Full code. Rehab Specific Goals: 1. Become independent with upper body dressing and donning and doffing of footwear. 2. Independently mobilize a wheelchair and rolling walker 250 feet. 3. 10 steps with bilateral handrails. 4. Perform all cognitive functioning and safety awareness issues with independence. The above goals were reviewed with Ms. Nunes and she is in agreement. By signing this document, I acknowledge I personally performed a full physical examination on Ms. Chi block no later than 24 hours after her admission to the inpatient rehabilitation unit and determined she is able to tolerate the above course of treatment at an intensive level for reasonable period of time. A detailed individualized plan of care for her will be completed by hospital day 4 based on th e preadmission screen, history and physical and therapy evaluations. SUAD/JULIANN Voice ID: [id number]
[2025-05-13] MEDS: METOPROLOL XL 50 MG TAB PO SCH (06:00)
[2025-05-13] MEDS: ASPIRIN EC 81 MG TAB PO SCH (08:06)
[2025-05-14] MEDS: ENSURE MAX PROTEIN 330 ML LIQUID PO SCH (15:00)
--- NOTE | 2025-05-14 23:12 | PN ---
Date of Progress Note: 05/14/2025 Time: 1:35 p.m. Subjective: Ms. Nunes is resting comfortably in between therapy sessions. No acute distress. No complaints. Working on incentive spirometry. Confusion is improving significantly. Objective: No fevers, chills, nausea, vomiting, myalgias, arthralgias, headache, weight change, rash . Physical Examination: Vital Signs: Blood pressure 129/60, pulse 68, respiratory rate 18, temperature 97.2, oxygen saturati on 98%. General: Ms. Nunes again is doing well. No acute distress. Alert and oriented to situation. Fo llows commands and no significant new deficits in terms of face, arm, and leg. Laboratory Studies: White blood cell count 6.3, hemoglobin 11.2, platelets are 191. Sodium 138, pot assium 3.7, chloride 111, carbon dioxide 21, BUN 36, creatinine 1.14, glucose 114, calcium 9.0, magne sium 1.7, albumin 2.8, prealbumin 14.4. X-ray/imaging: No new x-rays or imaging. Medications: Tylenol 650 mg every 4 hours as needed, allopurinol 100 mg daily, Norvasc 5 mg daily, E liquis 2.5 mg twice daily, aspirin 81 mg daily, Lipitor 40 mg at bedtime, Keflex 500 mg every 6 hours from 05/12/2025 to 05/16/2025, gabapentin 300 mg daily, levothyroxine 0.112 mg daily, Toprol-XL 50 m g twice daily, Zofran 4 mg every 4 hours as needed, Ensure Max 330 mL daily, Seroquel 25 mg at bedtim e, tramadol 50 mg every 8 hours as needed. Progress Made With Physical, Occupational, And Speech Therapy: With physical therapy today, supine-t o-sit transfers with moderate assistance and verbal cues required. Multiple wrt-jv-avjjm transfers a gain with moderate assistance and xqk-px-xathv transfers with parallel bars done with contact guard a ssistance. She mobilized a wheelchair 50 feet and 25 feet with qxdwhxt-if-gineuajr assistance. With occupational therapy, minimum assistance for bathing. To work on washing and drying right upper ext remity and armpits, minimal assistance with upper body dressing. Vrc-va-vwnwj transfers and shower t ransfers using grab bars and done with mod assistance. Moderate assistance for donning and doffing l ower body clothes. She did work with speech today, weekly assessment she did score 15/15 on the BIMS and 18/30 on the SLUMS indicative of moderate cognitive impairment. She has deficits with divided a ttention tasks, short-term memory, organizational thinking, problem solving, auditory recall and is w orking hard with speech therapy to return to her prior level of functioning and into safety awareness . Assessment: Ms. Nunes is an 84-year-old patient in the rehabilitation unit with toxic encephalopa thy is improving well and still has room to go in. She has decreased mobility, decreased physical fu nctioning in addition to hypothyroidism, moderate pain, GE reflux, hypertension. treatmen t for urinary tract infection with the Keflex. She has Lipitor for dyslipidemia, aspirin for stroke risk reduction, Eliquis for DVT risk reduction, Norvasc for hypertension, allopurinol for gout, Tylen ol for pain. Plan: Will be to continue with physical, occupational, and speech therapy 3.5 hours, 5 of 7 days. O n the list of comorbid condition medications. Goal is for her to return home and be as independent a s possible with family's help and to continue therapy via Home Health. She is in good track for that . MARIANNA Voice ID: [id number] Report ID: [id number]
[2025-05-15 20:34] LABS: Urine Crystals Unidentified Few /HPF (None Seen); Urine Culture Reflex Order REFLEXED; Urine Microscopic Reflex YN ORDER UMIC; Urine WBC Clump Occasional /HPF (None Seen); Urine Yeast (Budding) Trace /HPF (None Seen)
--- NOTE | 2025-05-15 21:48 | PN ---
Date of Progress Note: 05/15/2025 Time: 1:35 p.m. Subjective: Ms. Nunes is resting comfortably in no severe distress between therapy sessions and m aking fair progress overall with physical and occupational therapy. The patient is admitted with tox ic encephalopathy and is improving very well cognitively. Objective: No fevers, chills, nausea, or vomiting. No myalgias or arthralgias. No complaints and i s able to follow instructions and able to perform well in therapy. Physical Examination: Vital Signs: Blood pressure 142/66, pulse 62, respiratory rate 18, temperature 97.5, oxygen saturati on 99%. General: Ms. Nunes is doing well. HEENT: She is normocephalic, atraumatic. Sclerae anicteric. Oropharynx pink and moist. Neurological: No focal neurological deficits. She has no significant issues or complications. Laboratory Studies: No new laboratory studies. X-ray/imaging: No new x-rays or imaging. Medications: Have been reviewed. She is continuing with Keflex 500 mg every 6 hours from 05/12/2025 to 05/16/2025. Otherwise, all medications are ongoing, Ensure Max, Desyrel for insomnia, Seroquel o n board for behavioral issues, Synthroid for hypothyroidism. Progress Made With Physical, Occupational, And Speech Therapy: In terms of progress made with physic al, occupational, and speech therapy: With physical therapy today, she completed multiple sit-to-sta nd transfers with minimum assistance to contact guard assistance, [id number] transfers with minim um assistance. Mobilized wheelchair 140 feet with minimum to moderate assistance. With her occupat ional therapy, lqc-px-[id number] was done for sets of 3 with a rolling walker, verbal cues and minimum ass istance. Bilateral upper extremity exercises done with a red Thera-Band and she did well. She rio nued to improve strength coordination and endurance from her therapist. Regarding her speech, she re called 5 of 5 unrelated items independently up to 5 minutes delay. She required minimum assistance f or problem solving tasks and had 80% accuracy. She needed moderate assistance for daily tasks and wa s able to state only 7 items within a category in 1 minute. Assessment And Plan: Ms. Nunes is an 84-year-old patient in the rehabilitation unit with toxic en cephalopathy that is improving. She still has decreased mobility, decreased physical functioning, hy pothyroidism, hypertension, GE reflux with nausea and some episodes of mild psychotic behavior, which is not present. Dyslipidemia, stroke risk, has completed Keflex for the UTI. She has hypertension, has gout, and is having Tylenol for pain. The plan will be to continue with physical, occupational, and speech therapy 3.5 hours, 5 of 7 days. She will continue with her list of medications for comor bid conditions, plans to go home to continue therapy via Home Health. MARIANNA Voice ID: [id number] Report ID: [id number]
[2025-05-16] MEDS: TRAZODONE 50 MG TABLET PO PRN (20:50)
--- NOTE | 2025-05-16 22:37 | PN ---
Date of Progress Note: 05/16/2025 Time: 1:35 p.m. Subjective: Ms. Nunes is resting comfortably in between therapy sessions. Has no new complaints. Confusion is much less. She is admitted with toxic encephalopathy. Objective: She denies any fevers, chills, nausea, vomiting, myalgias, arthralgias. good today and she is very happy and satisfied with the work with the staff, and she is doing good with brenda. Physical Examination: Vital Signs: Blood pressure is 125/60, pulse 66, respiratory rate 18, temperature 98.1, oxygen satur ation 98%. General: Ms. Nunes is resting comfortably. She is in no acute distress. HEENT: She is normocephalic, atraumatic. Sclerae anicteric. Oropharynx pink and moist. Neck: Supple. Chest: Clear. Extremities: No significant clubbing, cyanosis, or edema noted. Laboratory Studies: She has no new laboratory studies. X-ray/imaging: No new x-rays or imaging. Medications: Have been reviewed and remain unchanged. Progress Made With Physical, Occupational, And Speech Therapy: With physical therapy today, she did perform tuiqwo-ee-wry transfers with minimum assistance. Multiple wal-ad-vdytr transfers with contac t guard assistance. She ambulated with a rolling walker 87 feet, 88 feet, and 95 feet with contact g uard assistance and verbal cues . She did bilateral upper extremity triceps exercises, ove rhead exercises with 1 pound wrist weights. She did right upper extremity with 2 pounds weights. De ltoids, biceps, triceps . With speech, she was unable to recall activities today, although speech therapist attempted the same to go but with same accuracy multiple times. She required moder ate to max assistance for divided attention tasks and have 40% accuracy. She was able to state 4-8 i tems within a category in 1 minute. Assessment And Plan: Ms. Nunes is an 84-year-old patient in rehabilitation unit with toxic enceph alopathy. Still has significant cognitive impairment. She is making slow but steady progress with p hysical and occupational therapy with mobilization and performing activities of daily lit ng. . She does have comorbid conditions and we managed malnutrition, pain, ins omnia. She has hypertension. She has hypothyroidism. She has dyslipidemia, risk of stroke risk of deep vein thrombus, gout, hypertension. Plan will be to continue with physical, occupational, and sp eech therapy 3.5 hours, 5 of 7 days. Her list of comorbid conditions and medications have been noted and addressed and will be continued to be managed while in hospital and she will have incentive spir ometry, which will be very helpful and encouraging her that will decrease her fatigue and increase en durance. Plan again to go home where she will continue therapy via Home Health and will follow up [facility] primary care physician as well. MARIANNA Voice ID: [id number] Report ID: [id number]
[2025-05-17 06:27] LABS: Absolute Lymphocytes (CBC) 1.7 K/uL (0.7-4.9); Hematocrit 34.9 % (36.0-45.0); Hemoglobin 11.8 g/dL (12.0-15.0); MCH 34.6 pg (27.0-35.0); MCHC 33.9 g/dL (32.0-36.0); MCV 102.0 fL (80-100); MPV 8.6 fL (7.6-11.3); Nucleated RBC Absolute Count 0.0 (0-0); Nucleated Red Blood Cells % 0.1 % (0-0); RBC Red Blood Cell Count 3.42 M/uL (3.86-4.86); White Blood Count 6.10 thou/uL (4.3-10.9)
[2025-05-17 06:52] LABS: Albumin 3.3 g/dL (3.4-5.0); Anion Gap 9.1 mEq/L (5.0-15.0); BUN Blood Urea Nitrogen 48.0 mg/dL (7-18); Glucose Level 100.0 mg/dL (74-106); Magnesium 1.9 mg/dL (1.6-2.4); Potassium 4.1 mEq/L (3.5-5.1); Prealbumin 19.5 mg/dL (20-40)
[2025-05-17 07:31] LABS: Differential Total Cells Count 100
[2025-05-17 07:32] LABS: Blood Morphology Comment NOTED (NOT SEEN); Ovalocytes SLIGHT; Poikilocytosis SLIGHT; Segmented Neutrophils 45 % (40-80); Teardrop Cell FEW
[2025-05-17] MEDS: LIDOCAINE 4% PATCH TOP SCH (08:32)
--- NOTE | 2025-05-17 23:14 | PN ---
Date of Progress Note: 05/17/2025 Time: 1:40 p.m. Subjective: Ms. Nunes is resting in chair beside bed. She has family at bedside, who are interac ting with her. She is doing very well. She is cognitively intact, following all commands appropriat asde. Objective: No fevers, chills, nausea, vomiting. No myalgias, arthralgias, rash, headache, or weight change. No other complaints. Physical Examination: Vital Signs: Blood pressure is 131/67, pulse 64, respiratory rate 17, temperature 97.4, oxygen satur ation 97%. General: Ms. Nunes again is sitting in a chair. She is doing breakfast and smiling, happy and no complaints. HEENT: Head normocephalic, atraumatic. Sclerae anicteric. Oropharynx pink and moist. Neck: Supple. Extremities: Does have some edema in the lower extremities, but nothing on the usual and expected. Laboratory Studies: White blood cell count 6.1, hemoglobin 11.8, platelets 202. Sodium 136, potassi um 4.1, chloride 109, carbon dioxide 22, BUN 48, creatinine 1.12, glucose 100, calcium 9.4, magnesium 1.9, albumin 3.3, prealbumin 19.5. X-ray/imaging: No new x-rays or imaging. Medications: Have been reviewed and she does have lidocaine patch in the hip area and back for her p ain. Otherwise unchanged medications. Progress Made With Physical, Occupational, And Speech Therapy: With physical therapy today, she did perform multiple qrx-on-bvwhr transfers and luzgu-fc-dqpmp transfers with contact guard assistance an d standby assistance. Ambulated 80 feet, 70 feet, 55 feet twice and 95 feet once with contact guard assistance and verbal cues. Mobilized wheelchair 50 feet with standby assistance. With her occupati onal therapy, performed vjy-ze-hedjj transfers with verbal cues for hand placement. Did 2 sets of 4 and she did have some issues of pain in the shoulder and pain patches were in place. With speech, matt arredondo was able to do divided attention task with 50% accuracy and moderate assistance. She could recall 5 of 5 unrelated items after 3 minutes delay and 4 of 5 unrelated times after 5 minutes delay. She n eeded moderate assistance for problem solving task with 50% accuracy and she was able to say 6 to 10 items within a category in 1 minute. Assessment And Plan: Ms. Nunes is an 84-year-old patient in rehabilitation unit with toxic enceph alopathy, which is improving very well. She still has mild decreased mobility, decreased physical fu nctioning in addition to comorbid conditions, such as insomnia, moderate pain, protein malnutrition, hypothyroidism, neuropathic pain, dyslipidemia, stroke risk, hypertension, gout. Her plan will be to continue with physical, occupational, and speech therapy 3.5 hours, 5 of 7 days. Continue with a nu mber of medications addressing her comorbid conditions. The plan will be for her to be able to disch arge home and go home via Home Health. She is on track and doing very well on discharge and with the help of family, should be able to do so very well. She was encouraged to hydrate well, use incentiv e spirometry to minimize risk of pneumonia and urinary tract infection. SUAD/JULIANN Voice ID: [id number] Report ID: [id number]
--- NOTE | 2025-05-18 13:42 | P.RH.PN ---
Estimated Length of Stay: 18 Expected Discharge Date: 05/24/25 Discharge Disposition Plan: Home Family Support: Yes [facility] Goal: Mobility, Transfers, Self Care Vital Signs: Last Vital Signs Temp 97.4 F 05/18/25 07:36 Pulse 63 05/18/25 07:36 Resp 16 05/18/25 07:36 BP 137/65 05/18/25 07:36 Pulse Ox 96 05/18/25 07:36 Laboratory: Laboratory Last Values WBC 6.10 thou/uL (4.3-10.9) 05/17/25 06:07 RBC 3.42 M/uL (3.86-4.86) L 05/17/25 06:07 Hgb 11.8 g/dL (12.0-15.0) L 05/17/25 06:07 Hct 34.9 % (36.0-45.0) L 05/17/25 06:07 MCV 102.0 fL (80-100) H 05/17/25 06:07 MCH 34.6 pg (27.0-35.0) 05/17/25 06:07 MCHC 33.9 g/dL (32.0-36.0) 05/17/25 06:07 RDW 14.2 % (12.1-15.2) 05/17/25 06:07 Plt Count 202 thou/uL (152-406) 05/17/25 06:07 MPV 8.6 fL (7.6-11.3) 05/17/25 06:07 Neutrophils % 57.8 % (41.7-73.7) 05/17/25 06:07 Lymphocytes % 27.6 % (15.3-44.8) 05/17/25 06:07 Monocytes % 7.5 % (3.3-12.3) 05/17/25 06:07 Eosinophils % 6.6 % (0-4.4) H 05/17/25 06:07 Basophils % 0.5 % (0-1.3) 05/17/25 06:07 Absolute Neutrophils 3.5 K/uL (1.8-8.0) 05/17/25 06:07 Segmented Neutrophils 45 % (40-80) 05/17/25 06:07 Absolute Lymphocytes 1.7 K/uL (0.7-4.9) 05/17/25 06:07 Lymphocytes 36 % (15-42) 05/17/25 06:07 Monocytes 6 % (0-10) 05/17/25 06:07 Absolute Monocytes 0.5 K/uL (0.1-1.3) 05/17/25 06:07 Eosinophils 8 % (0-3) H 05/17/25 06:07 Absolute Eosinophils 0.4 K/uL (0-0.5) 05/17/25 06:07 Basophils 2 % (0-1) H 05/17/25 06:07 Absolute Basophils 0.0 K/uL (0-0.5) 05/17/25 06:07 Metamyelocytes 1 % (0-0) H 05/17/25 06:07 Myelocytes 2 % (0-0) H 05/17/25 06:07 Smudge Cells Present 05/12/25 06:34 Toxic Granulation Present 05/12/25 06:34 Platelet Estimate Adeq 05/17/25 06:07 Poikilocytosis Slight 05/17/25 06:07 Anisocytosis 1+ 05/12/25 06:34 Tear Drop Cells Few 05/17/25 06:07 Ovalocytes Slight 05/17/25 06:07 Unidentified Cells 3 05/12/25 06:34 Morphology Comment Noted (NOT SEEN) 05/17/25 06:07 Sodium 136 mEq/L (136-145) 05/17/25 06:07 Potassium 4.1 mEq/L (3.5-5.1) 05/17/25 06:07 Chloride 109 mEq/L (98-107) H 05/17/25 06:07 Carbon Dioxide 22 mEq/L (21-32) 05/17/25 06:07 Anion Gap 9.1 mEq/L (5.0-15.0) 05/17/25 06:07 BUN 48 mg/dL (7-18) H 05/17/25 06:07 Creatinine 1.12 mg/dL (0.55-1.02) H 05/17/25 06:07 Est GFR (CKD-EPI) 48 ml/min (=/>90) L 05/17/25 06:07 Glucose 100 mg/dL (74-106) 05/17/25 06:07 Calcium 9.4 mg/dL (8.5-10.1) 05/17/25 06:07 Magnesium 1.9 mg/dL (1.6-2.4) 05/17/25 06:07 Albumin 3.3 g/dL (3.4-5.0) L 05/17/25 06:07 Prealbumin 19.5 mg/dL (20-40) L 05/17/25 06:07 Urine Color Light-yellow (Yellow) 05/15/25 20:10 Urine Clarity Extremely turbid (Clear) H 05/15/25 20:10 Urine pH 5.0 (5.0-7.0) 05/15/25 20:10 Ur Specific [place] 1.008 (1.005-1.030) 05/15/25 20:10 Glucose (UA)(Auto) Negative (Negative) 05/15/25 20:10 Urine Ketones Negative (Negative) 05/15/25 20:10 Urine Blood Negative (Negative) 05/15/25 20:10 Urine Nitrite Negative (Negative) 05/15/25 20:10 Urine Bilirubin Negative (Negative) 05/15/25 20:10 Urine Urobilinogen Normal (Normal) 05/15/25 20:10 Ur Leukocyte Esterase 500 Alivia/uL (Negative) H 05/15/25 20:10 Urine RBC 5-10 /HPF (None Seen) H 05/15/25 20:10 Urine WBC 10-20 /HPF (<5) H 05/15/25 20:10 Urine WBC Clumps Occasional /HPF (None Seen) H 05/15/25 20:10 Ur Squamous Epith Cells 5-10 /HPF (None Seen) 05/15/25 20:10 U Non-Squamous Epi Cells <5 /HPF (None Seen) 05/15/25 20:10 Unidentified Crystals Few /HPF (None Seen) 05/15/25 20:10 Urine Bacteria <20 /HPF (<20) 05/15/25 20:10 Hyaline Casts 0-5 /LPF (None Seen) 05/15/25 20:10 Urine Yeast (Budding) Trace /HPF (None Seen) H 05/15/25 20:10 Urine Culture Reflexed Reflexed 05/15/25 20:10 Urine Total Protein Negative (Negative) 05/15/25 20:10 Smear Scan Cancelled 05/17/25 06:07 Weight: 217 lb 4.8 oz Wound Present: No Closed Surgical Incision Present: No Negative Pressure Wound Therapy Present: No Physician Update: Labs reviewed and are stable. Pain is managed. Has mild cognitive impairment. BIMS 15, SLUMS 18, poor memory and divided attention. Met 4/4 STG, CGA bed mobility, RW 90' with CGA. 10 Stairs with min assist. With OT 4/5 STG, min assist bathing, upper body dressing, partial assist lower body dressing, dependent with footwear. UA is +ve asymptomatic on cranberry. Summary: Patient's care plan and fdc goals have been reviewed and revised as necessary. Please see the Rehabilitation Signature page for all necessary signatures.
[2025-05-18] MEDS: CRANBERRY FRUIT EXTRACT 425 MG CAPSULE PO SCH (19:42)
[2025-05-20] MEDS: DOCUSATE NA/SENNA CONC 1 TAB PO SCH (09:09)
[2025-05-21] MEDS: METOPROLOL XL 50 MG TAB PO SCH (19:16)
--- NOTE | 2025-05-22 01:25 | PN ---
Date of Progress Note: 05/21/2025 Time: 1:20 p.m. Subjective: Ms. Nunes is doing very well, very happy. No evidence of confusion. She is admitted with toxic encephalopathy. No focal deficits in terms of face, arm, and leg sensation and coordinat ion. Objective: No fevers, chills, nausea, vomiting. No myalgias, arthralgias, or rash. No other compla ints. Physical Examination: Vital Signs: Blood pressure is 166/74, pulse 64, respiratory rate 16, temperature 97 16, temperature 97.8, oxygen saturation 94%. General: Ms. Nunes is sitting comfortably in a chair, eating her lunch. She was in good spirits. She has no new complaints. HEENT: She is normocephalic, atraumatic. Sclerae anicteric. Oropharynx moist. No significant alvino a noted in the upper lower extremities. Laboratory Studies: No new laboratory studies. X-ray/imaging: No new x-rays or imaging. Medications: Have been reviewed and remain unchanged. Progress Made With Physical, Occupational, And Speech Therapy: With physical therapy today, multiple wmm-ld-jnbwt transfers and cqstf-vo-vlvmg transfer done with standby assistance, ambulated 235 feet with contact guard assistance using a rolling walker and verbal cues. She mobilized a wheelchair 250 feet with supervision and verbal cues for encouragement. With occupational therapy, supervision for xep-bh-lfcjn transfers and toilet transfers along with shower transfers. She is making good progres s towards her goals of becoming independent. With speech, she was able to do divided attention tasks with accuracy and needed moderate assistance. She recalled 5 of 5 unrelated times after 5-minute delay independently. She was able to say 7 to 8 items in a category and problem- solving skills at a 70% accuracy level with moderate assistance. Assessment And Plan: Ms. Nunes is an 84-year-old patient admitted with toxic encephalopathy for [facility] she is recovering well. She does still have mild decreased mobility, decreased physical functio maya, mild pain, insomnia, hypertension, hypothyroidism, neuropathic pain, dyslipidemia, hypertension , risk of stroke and DVT. Plan will be to continue with physical, occupational, and speech therapy 3.5 hours, 5 of 7 days. She has a list of comorbid conditions. Medications are being continued and when she goes home, she will continue therapy via Home Health. She is doing very well and speech is available and that will be a lso very helpful. MARIANNA Voice ID: [id number] Report ID: [id number]
--- NOTE | 2025-05-22 23:00 | PN ---
Date of Progress Note: 05/22/2025 Time: 1:25 p.m. Subjective: Ms. Nunes is resting comfortably. She is very happy and smiling at bedside and the _ and she is working well. Objective: No fevers, chills, nausea, vomiting, myalgias, arthralgias, rash, or psychiatric complain ts. Physical Examination: Vital Signs: Blood pressure 128/60, pulse 61, respiratory rate 18, temperature 97.8, oxygen saturati on 100%. General: Again, Ms. Nunes is resting comfortably in a chair. Her is at bedside. HEENT: She is normocephalic, atraumatic. Sclerae anicteric. Oropharynx moist. Neck: Supple. Chest: Clear. Extremities: No significant edema or cyanosis noted. Laboratory Studies: No new laboratory studies. X-ray/imaging: No new x-rays or imaging. Medications: Have been reviewed and are unchanged. Progress Made With Physical, Occupational, And Speech Therapy: With physical therapy today, she did have some shoulder pain, 5/10, patches in place. She did multiple zvo-mq-dseev and kpkaz-la-kkqls tr ansfers with contact guard to standby assistance. Also, she was simulated car transfer with contact guard to standby assistance. She ambulated 300 feet with slow pace, but steady pace and verbal cues required and manage another 300 feet with 5 standing rest breaks. She was able to go about 10 stairs with contact guard assistance. Mobilized a wheelchair 150 feet with contact guard to minimal assist ance. With her occupational therapy, standby assistance for khj-bw-fqwgz transfers, ambulated from r oom to bathroom with a rolling walker, and toileting with supervision. Lower body dressing done with supervision. With her speech therapy today, she recalled only 1 set of 4/4 unrelated items after 3- minute delay with moderate assistance. She needed assistance for problem solving tasks and was 70% a ccurate with cause and effect relationships. Assessment: Ms. Nunes is an 84-year-old patient in rehabilitation unit with toxic encephalopathy. She is making slow progress there. She is making much better progress with physical and occupation al therapy. She still has mild decreased mobility, decreased physical functioning, hypertension, gou t, dyslipidemia, stroke risk, neuropathic pain, hypothyroidism, constipation, insomnia, and depressio n. She is on medications for all of those intermittently. Plan: She will have physical, occupational, and speech therapy 3.5 hours, 5 of 7 days. Continue her comorbid medications, those have been listed. She will continue those unchanged and she is doing we ll. After discharge, she will continue therapy via Home Health and speech should be included as well and biggest challenge is the encephalopathy which is improving. SUAD/JULIANN Voice ID: [id number] Report ID: [id number]
[2025-05-23] MEDS: CYANOCOBALAMIN 1,000 MCG TAB PO SCH (08:41)
--- NOTE | 2025-05-23 20:49 | PN ---
Date of Progress Note: 05/23/2025 Time: 1:20 p.m. Subjective: Ms. Nunes is her usual, very happy in her chair. She enjoyed her lunch. She has no new complaints and no significant episodes of any confusion at this point. Objective: No fevers, chills, nausea, vomiting, myalgias, arthralgias. No rash. No psychiatric com plaints. Physical Examination: Vital Signs: Blood pressure 108/66, pulse 87, respiratory rate 16, temperature 97.2, oxygen saturati on 97%. General: Ms. Nunes is resting comfortably after lunch. HEENT: She is normocephalic, atraumatic. Sclerae anicteric. Oropharynx moist. Neck: Supple. Neuro: She is following commands appropriately. No focal neurological deficits. Laboratory Studies: No new laboratory studies. X-ray/imaging: No new x-rays or imaging. Medications: Have been reviewed and are unchanged. Progress Made With Physical, Occupational, And Speech Therapy: With her physical therapy today, she was able to perform multiple sab-rd-wgdvv transfers in the parallel bars with supervision, gait train ing with parallel bars with step forward. She did have some difficulty with mobilization and was socrates igating the steps. With a rolling walker she mobilized, walked 350 feet with contact guard assistanc e and verbal cues to stay within the perimeter of the walker. She did ihv-tn-xvexq transfers and sta nd-to-pivot transfers with supervision. With her occupational therapy, she did work with a red [employer] to improve her upper body strength with neck and scapular range of motion exercises. With [employer], she recalled 1 set of 4 of 4 unrelated items after a minute, 3 minutes, and 5 minutes, but then an other minute later only recalled 3 of 4. She was able to play between 8 and 14 items within a catego ry of 1 minute. She is able to do divided attention tasks with 60% accuracy and moderate assistance. Problem-solving skills are at 90% accuracy with minimum assistance. Assessment And Plan: Ms. Nunes is an 84-year-old patient admitted to the unit with toxic encephal opathy. Allergies improving moderately. She has decreased mobility, decreased physical functioning, that is improving well. Still has hypertension addressed with Norvasc and Toprol. She has Zofran f or nausea, Protonix for GE malnutrition, Senokot for constipation, tramadol for pain, Tylenol for str corby risk reduction, Eliquis for DVT risk reduction, allopurinol for gout, Tylenol for pain, Lipitor f or dyslipidemia. She will continue with physical, occupational, and speech therapy 3.5 hours, 5 of 7 daily after discharge and continue with comorbid condition medications after discharge. She will be following up with primary care physician and recommended to continue therapy via Home Health and she is agreeable. SUAD/JULIANN Voice ID: [id number] Report ID: [id number]
[2025-05-24 06:01] LABS: Absolute Lymphocytes (CBC) 1.4 K/uL (0.7-4.9); Hematocrit 31.1 % (36.0-45.0); Hemoglobin 10.5 g/dL (12.0-15.0); MCH 34.6 pg (27.0-35.0); MCHC 33.9 g/dL (32.0-36.0); MCV 102.0 fL (80-100); MPV 9.0 fL (7.6-11.3); Nucleated RBC Absolute Count 0.0 (0-0); Nucleated Red Blood Cells % 0.1 % (0-0); RBC Red Blood Cell Count 3.04 M/uL (3.86-4.86); White Blood Count 5.60 thou/uL (4.3-10.9)
[2025-05-24 06:20] LABS: Albumin 3.0 g/dL (3.4-5.0); Anion Gap 10.4 mEq/L (5.0-15.0); BUN Blood Urea Nitrogen 52.0 mg/dL (7-18); Glucose Level 80.0 mg/dL (74-106); Magnesium 2.2 mg/dL (1.6-2.4); Potassium 4.4 mEq/L (3.5-5.1); Prealbumin 17.1 mg/dL (20-40)
--- NOTE | 2025-05-25 01:31 | PN ---
Date of Progress Note: 05/24/2025 Time: 1:20 p.m. Subjective: Ms. Nunes is very happy, smiling, and her at bedside. Says the food is wonde rful, she is enjoying. Working with all the staff and she is actually ready for discharge in the [place] emergency department. Objective: No fevers, chills, nausea, vomiting, myalgias, arthralgias. No other complaints. Physical Examination: Vital Signs: Blood pressure 151/63, pulse 69, respiratory rate 18, temperature 97.3, oxygen saturati on 96%. General: Ms. Nunes again is resting comfortably. Neuro: She has no focal deficits. Moving arms and legs equally well. She is alert and oriented to person, situation. Follows commands appropriately and again making great progress with her toxic enc ephalopathy in terms of being more clear mind. Laboratory Studies: White blood cell count 5.6, hemoglobin 10.5, platelets 144. Sodium 137, potassi um 4.4, chloride 111, BUN 52, creatinine 1.04, glucose 80, calcium 8.9, magnesium 2.2, prealbumin 17. 1, albumin 3.0. X-ray/imaging: No new x-rays or imaging. Medications: Have been reviewed and are unchanged. Progress Made With Physical, Occupational, And Speech Therapy: With physical therapy today, she did ambulate with a rolling walker 100 feet with supervision to modified independence. She did go up and down 4 stairs and then 3 with supervision. She mobilized wheelchair 150 feet with modified [facility] ence. With occupational therapy, supervision for toilet hygiene, bathing, upper body dressing. She does have some impaired cognitive issues as she was going through that. She ambulated from room to b athroom, and then toilet transfers with a rolling walker. With speech, she scored 15/15 on the BIMS and dropped the SLUMS by two points to 60/30 consistent with moderate cognitive impairment. Recommen ded the patient continue with therapy at home. She does have deficits of short-term memory, organize d thinking skills, divided and alternating attention, problem solving, and auditory recall. Assessment And Plan: Ms. Nunes is an 84-year-old patient in rehabilitation unit with toxic enceph alopathy. She did have moderate cognitive impairment as noted above. She is doing much better with physical and occupational therapy. is involved with her care when she was home. She will co ntinue therapy via Home Health. She has of course multiple comorbid conditions including hypertensio n, gout, dyslipidemia, neuropathic pain, hypothyroidism, insomnia, constipation. Being addressed by medications, should be continued as she is discharged home and she will follow up with primary care hamilton marion as scheduled. MARIANNA Voice ID: [id number] Report ID: [id number]
[2025-05-25 07:27] VITALS: BP 167/68; TEMP 96
== END 2025-05-25 09:54 | disposition home health service (06) | DRG 92 ==
LOC: 5TH 23:30
PROVIDERS: ADMIT Psychiatry & Neurology Neurology with Special Qualifications in Child Neurology; ATTEND Psychiatry & Neurology Neurology with Special Qualifications in Child Neurology
DX: G92.9 Unspecified toxic encephalopathy (principal); E46 Unspecified protein-calorie malnutrition; N39.0 Urinary tract infection, site not specified; R53.1 Weakness; R53.83 Other fatigue; M35.00 Sjogren syndrome, unspecified; M25.559 Pain in unspecified hip; M54.9 Dorsalgia, unspecified; M25.519 Pain in unspecified shoulder; G62.9 Polyneuropathy, unspecified; R41.89 Other symptoms and signs involving cognitive functions and awareness; I10 Essential (primary) hypertension; E03.9 Hypothyroidism, unspecified; M10.9 Gout, unspecified; M19.90 Unspecified osteoarthritis, unspecified site; I25.10 Atherosclerotic heart disease of native coronary artery without angina pectoris; K21.9 Gastro-esophageal reflux disease without esophagitis; E78.5 Hyperlipidemia, unspecified; G47.00 Insomnia, unspecified; R11.0 Nausea; K59.00 Constipation, unspecified; F32.A Depression, unspecified
CPT/HCPCS: 36415; 80048; 81001; 82040; 83735; 84134; 85025; 87077; 87086; 87088; 87186; 92523; 97110; 97116; 97129; 97161; 97165; 97530; 97542; J2003